=== PATIENT | female | born 1935 | race Caucasian/White ===

== ENCOUNTER 2018-04-04 17:51 | Inpatient (IN) | payer MEDICARE ==
[2018-04-04 18:28] LABS: Hemoglobin 9.7 g/dL (12.0-16.0); Mean Corpuscular HGB CONC 32.4 g/dL (32.0-36.0); Mean Corpuscular Hemoglobin 30.4 pg (27.0-31.0); Mean Corpuscular Volume 93.9 fL (78.0-98.0); Mean Platelet Volume 6.4 fL (7.4-10.4); Platelet Count 509 thou/uL (130-400); RBC Distribution Width 13.2 % (11.5-14.5); White Blood Cell (WBC) Count 17.4 thou/uL (4.8-10.8)
[2018-04-04 18:40] LABS: Band 7 % (5-11); Lymphocytes 2 % (21-51); MDiff Complete? YES; Monocytes 6 % (0-10); Neutrophil 85 % (42-75); Platelet Morphology Comment Appears Increased; Polychromasia SLIGHT = 2-3 cells (100X) (0-2/hpf); Vacuoles SLIGHT
[2018-04-04 18:49] LABS: ALT (SGPT) Less than 7 U/L (8-55); AST (SGOT) 14 U/L (5-34); Albumin 3.3 g/dL (3.4-4.8); Alkaline Phosphatase 147 U/L (40-150); Anion Gap 13 mmol/L (10-20); BUN (Urea Nitrogen) 27 mg/dL (9.8-20.1); Bilirubin, Total 0.7 mg/dL (0.2-1.2); CK (CPK) 22 U/L (29-168); Calc. Creatinine Clearance 0 mL/min (70-130); Carbon Dioxide 26 mmol/L (23-31); Chloride 94 mmol/L (98-107); Estimated GFR-MDRD 15; Globulin 3.7 g/dL (2.4-3.5); Glucose 178 mg/dL (83-110); Lipase 4 U/L (8-78); Potassium 4.2 mmol/L (3.5-5.1); Sodium 129 mmol/L (136-145)
--- NOTE | 2018-04-04 19:10 | RAD ---
CHEST ONE VIEW: HISTORY: Hypertension with chest and abdomen pain. FINDINGS: Heart size is slightly enlarged. A right-sided HemoSplit catheter is noted. The lungs are clear of infiltrates. There are no signs of failure. IMPRESSION: 1. Cardiomegaly. 2. No acute findings. POS: [facility]
--- NOTE | 2018-04-04 19:19 | CT ---
CT ABDOMEN AND PELVIS PERFORMED WITHOUT CONTRAST: HISTORY: Abdominal pain. The patient was getting dialysis and had elevated blood pressure and developed abdom inal pain, also with fever. COMPARISON: None. FINDINGS: The lung bases show some linear atelectasis or scar. The liver, spleen, pancreas, and gallbladder regions appear unremarkable, given the limitations of a noncontrast study. The right and left adrenal glands and the right and left kidneys are normal in size and not obstructe d. There are small periaortic and mesenteric lymph nodes noted. There is a peritonea dialysis emigdio ter located within the right lower quadrant. There is some ascites noted, which is compatible with t he dialysis. There is colonic diverticulosis present. These changes are most marked in the sigmoid colon region. I do not see any signs of free air or any definite acute intraabdominal findings. Mod erate atherosclerotic changes are noted. Arthritic changes of spine and hips are present. IMPRESSION: 1. Peritoneal dialysis catheter in place. 2. Colonic diverticulosis. 3. Mild ascites, which would be compatible with the peritoneal dialysis catheter. 4. The appendix is not definitively visualized, and I do not see a definite enlarged appendix. POS: [facility]
[2018-04-04] MEDS ORDERED: Morphine 4 MG/ML VIAL ONE ×2 (19:42→23:20)
[2018-04-04] MEDS ORDERED: Bacitracin Zinc 1 Packet ONE (22:05)
[2018-04-04 23:00] LABS: Lactic Acid 1.8 mmol/L (0.5-2.2)
[2018-04-04 23:59] LABS: Body Fluid Source PERITONEAL FLUID; Tube # 1
[2018-04-04] MEDS ORDERED: Piperacillin/Tazobactam 4.5 GM in Sodium Chloride 0.9% 100 ML IVPB SCH (23:59)
[2018-04-05] LABS: BF Color Colorless; Clarity Cloudy/Turbid (Clear); RBC Count-Automated 20000 /cumm; WBC/NonHematic-Auto 17800 /cumm
[2018-04-05 00:47] LABS: BF Segmented Neutrophils 87 %; Cell Count Non Hematic 9 %; Lymphocytes 4 %
[2018-04-05 01:28] VITALS: BMI 31.9
--- NOTE | 2018-04-05 01:39 | CON ---
DATE OF CONSULTATION: REASON FOR CONSULTATION: Maintenance dialysis. HISTORY OF PRESENT ILLNESS: This is a very pleasant 83-year-old female who presented to the hospital after noted to have a bone pain, fever and chills, who was sent to the hospital for possible peritonitis. The patient has had previous surgery. PAST MEDICAL HISTORY: Hypertension, Hsyterectomy, appendectomy, end-stage renal disease, secondary hyperparathyroidism, tunneled dialysis catheter, PD catheter times twice with omental wrap. SOCIAL HISTORY: No alcohol or drug use. FAMILY HISTORY: Negative for ESRD. REVIEW OF SYSTEMS: A 15-point review of systems was performed, negative except for what was noted above. GENERAL: HEAD: NECK: No swelling or lumps. NOSE: No epistaxis or discharge. EYES: No diplopia or pain. 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 NEUROPSYCHIATRIC SYSTEMS: No suicidal ideation. No ideation. SKIN: Denies any rash or ulcer. CONSTITUTIONAL: No fever or chills. OBJECTIVE: GENERAL: The patient is awake and alert. VITAL SIGNS: Reviewed. GENERAL APPEARANCE AND MENTAL STATUS: Fair. HEAD/NECK: Normocephalic. Atraumatic. EYES: EOMI. No deformity. EARS: Clear. No ulcers. NOSE: Intact. No lesions. MOUTH: Clear. No discharge. THROAT: Clear. No exudate. LUNGS: Clear. No crackles. CARDIAC: S1, S2. No rub. ABDOMEN: Benign. Bowel sounds positive. GENITALIA/RECTUM: Cabrera absent. BACK/EXTREMITIES: Edema 0+. NEUROLOGICAL: Alert and motor intact. SKIN: LYMPHATICS: LABORATORY DATA: Pending. ASSESSMENT: 1. Stage 6 chronic kidney disease. We will review labs and continue dialysis. 2. Peritonitis. We would recommend surgical consultation as well as a broad-spectrum antibiotic. Would recommend PD fluid cultures. 3. Anemia. We will follow hemoglobin. 4. Hypertension. PLAN: Ultrafiltration Job ID: [id number] [facility]
[2018-04-05] MEDS ORDERED: Morphine 4 MG/ML VIAL SLOW IVP PRN (01:59)
[2018-04-05] MEDS: Morphine 4 MG/ML VIAL SLOW IVP PRN ×2 (02:45→08:00)
[2018-04-05] MEDS ORDERED: Fentanyl 100 MCG/2 ML VIAL SLOW IVP SCH (05:00)
[2018-04-05 05:57] LABS: Band 3 % (5-11); Eosinophils 2 % (0-10); Hemoglobin 8.5 g/dL (12.0-16.0); Lymphocytes 14 % (21-51); MDiff Complete? YES; Mean Corpuscular HGB CONC 31.9 g/dL (32.0-36.0); Mean Corpuscular Hemoglobin 30.6 pg (27.0-31.0); Mean Corpuscular Volume 95.9 fL (78.0-98.0); Mean Platelet Volume 6.6 fL (7.4-10.4); Monocytes 2 % (0-10); Neutrophil 79 % (42-75); Platelet Count 381 thou/uL (130-400); Platelet Morphology Comment Appears Adequate; RBC Distribution Width 13.3 % (11.5-14.5); Red Blood Cell (RBC) Count 2.77 mill/uL (4.20-5.40); White Blood Cell (WBC) Count 12.1 thou/uL (4.8-10.8)
[2018-04-05 06:13] LABS: Anion Gap 13 mmol/L (10-20); BUN (Urea Nitrogen) 29 mg/dL (9.8-20.1); Calc. Creatinine Clearance 21 mL/min (70-130); Calcium 8.3 mg/dL (7.8-10.44); Carbon Dioxide 20 mmol/L (23-31); Chloride 98 mmol/L (98-107); Estimated GFR-MDRD 16; Glucose 93 mg/dL (83-110); Sodium 127 mmol/L (136-145)
[2018-04-05] MEDS ORDERED: Ondansetron PF 4 MG/2 ML Vial IVP PRN (06:54)
[2018-04-05] MEDS ORDERED: Ondansetron ODT 4 MG TAB PO PRN (06:55)
--- NOTE | 2018-04-05 07:41 | HP ---
CHIEF COMPLAINT: Abdominal pain. HISTORY OF PRESENT ILLNESS: She is an 83-year-old woman with history of peritoneal dialysis. The patient was getting dialysis, blood pressure was running high, and she had belly pain with low-grade fever. Two weeks ago, she had abdominal shunt placement. When she came to the ER, pulse 87, blood pressure 176/86, respiratory rate 19, temperature 98.5. PAST MEDICAL HISTORY: History of GA in the past with peritoneal dialysis, hypothyroidism, hyperlipidemia, and ESRD. PAST SURGICAL HISTORY: She had dialysis catheter clogged 2 weeks ago. She had port-a-cath inserted for hemodialysis, appendectomy, hysterectomy. SOCIAL HISTORY: She drinks socially once a month. Denies drug use. Former tobacco user. Quit smoking 10 years ago. MEDICATIONS: In the ER, she got 1. Morphine 4 mg IV push. 2. Vancomycin 1 dose. 3. Levaquin IV was given. ALLERGIES: NO ALLERGIES TO ANY MEDICATIONS. REVIEW OF SYSTEMS: CONSTITUTIONAL: She has fever. No chills. EYES: No photophobia, no discharge. ENT: No epistaxis. CARDIOVASCULAR: No chest pain. No PND. No orthopnea. RESPIRATORY: No shortness of breath. No cough or wheezing. GASTROINTESTINAL: She does have abdominal pain. No diarrhea, no nausea, no vomiting. SKIN: No rash. NEUROLOGIC: No focal weakness. No headache. HEME/LYMPHATIC: No abnormal clotting. No easy bleeding. PHYSICAL EXAMINATION: GENERAL: When I examined, she is an elderly woman, looks in apparent distress. VITAL SIGNS: Pulse 86, blood pressure 176/86, respirations 20, temperature 100.5. HEENT: Head is atraumatic and normocephalic. Pupils are round and reactive. Extraocular muscles are intact. Ear, nose, and throat, normal. Tongue, mucosa moist. NECK: Supple. No JVD. No thyromegaly. CHEST: Shows normal vesicular breathing. No added sounds. CVS: S1 and S2, audible. No S3 or S4. ABDOMEN: Distended, diffuse tenderness noted. Peritoneal catheter in place. EXTREMITIES: No pedal edema. NEUROLOGIC: Alert x3. No focal deficits. LABORATORY DATA: CAT scan shows no abdominal aortic aneurysm, no appendicitis, no diverticulitis, no kidney stones, no injuries, no mass, no obstruction, no free air, no hydronephrosis. Labs show WBC 7.4, RBC 3.2, MCV 93, hematocrit 30, platelets 509. Sodium 129, potassium 4.2, chloride 94, carbon dioxide 26, BUN 77, creatinine 3.04, lactic acid 2.1, ALT less than 7, AST 14, albumin 3.3, globulin 3.7, lipase 4, creatine kinase 20. She has a peritoneal dialysis catheter in place, chronic diverticulosis, mild ascites, appendix not visualized. ASSESSMENT AND PLAN: 1. Sepsis with acute peritonitis. Blood culture x2. Peritoneal fluid for Gram stain culture. IV Levaquin and vancomycin, gram positive, gram negative bacilli and cocci. 2. End-stage renal disease, on peritoneal dialysis. hemodialysis. 3. Hyponatremia. We will monitor. 4. Hypovolemia. IV fluid cautiously and monitor. 5. Deep venous thrombosis prophylaxis, heparin. 6. Full code. Job ID: [id number]
--- NOTE | 2018-04-05 08:36 | ULT ---
BILATERAL UPPER EXTREMITY VENOUS DOPPLER ULTRASOUND FOR DIALYSIS ACCESSS: Date: 04/05/18 HISTORY: End-stage renal disease. FINDINGS: RIGHT UPPER EXTREMITY: The right cephalic vein measures 2.4 mm in the proximal arm, 1.4 mm in the mid arm, 0.8 mm in the dis juanita arm, 1.9 mm in the proximal forearm, 1.5 mm in the mid forearm, and 1.2 mm in the distal forearm. There is absence of compressibility due to thrombus in the right cephalic vein at the antecubital fo ssa. The right basilic vein measures 3.9 mm in the proximal arm, 2.4 mm in the mid arm, 2.0 mm in the dist al arm, 1.9 mm in the antecubital fossa, 1.4 mm in the mid forearm, and not seen in the distal forear m. The right brachial artery measures 4.8 mm, radial artery measures 2.0 mm, and ulnar artery measures 2 .5 mm. LEFT UPPER EXTREMITY: The left cephalic vein measures 2.5 mm in the proximal arm, 1.9 mm in the mid arm, 1.7 mm in the dist al arm, 1.8 mm in the antecubital fossa, 1.4 mm in the proximal forearm, 1.3 mm in the mid forearm, a nd 0.9 mm in the distal forearm. The left basilic vein measures 3.2 mm in the proximal arm, 2.3 mm in the mid arm, 2.4 mm in the dista l arm, 1.8 mm in the antecubital fossa, 1.2 mm in the proximal forearm, 1.0 mm in the mid forearm. It is not seen in the distal forearm. The left brachial artery measures 4.6 mm, radial artery measures 2.4 mm, and ulnar artery measures 2. 4 mm. POS: [facility]
[2018-04-05] MEDS ORDERED: Vancomycin HCl 1 GM in Sodium Chloride 0.9% 250 ML 300 ML IVPB SCH (09:00)
[2018-04-05] MEDS ORDERED: Vancomycin HCl 1.75 GM in Sodium Chloride 0.9% 500 ML IVPB SCH (09:00)
[2018-04-05] MEDS ORDERED: Heparin 5,000 UNITS/ML VIAL SC SCH (09:00)
--- NOTE | 2018-04-05 09:05 | HP ---
HISTORY OF PRESENT ILLNESS: Radha Crane is an 83-year-old female, dialyzes in [place] on Wednesday, Wednesday, and Wednesday, has had a hemodialysis catheter in right IJ placed in [place] in November 2017. She about in mid February underwent left lower quadrant peritoneal dialysis catheter placed by Dr. Drake in [place]. Apparently, this was not functioning well and not draining, and about 9 days ago, March 26, she had removal of her left PD catheter placement with new right lower quadrant PD catheter. Laparoscopy was not used. There were no laparoscopic incisions noted. The patient was undergoing low volume exchanges until yesterday when she had a higher volume exchange and it would not drain. She has had exquisite pain since that time. She has been admitted and evaluated through the emergency room. CT scan of the abdomen and pelvis was obtained on 04/04/2018 at 6:15 p.m., noting peritoneal dialysis catheter present, colonic diverticulosis, ascites consistent with peritoneal dialysis exchanges, otherwise no remarkable findings. Her white count was 17 on admission, 12 this morning. Hemoglobin 8.5. Comprehensive metabolic profile unremarkable except for changes of end-stage renal disease. ALLERGIES: PENICILLIN AND ALLOPURINOL. SOCIAL HISTORY: Tobacco, none. Alcohol, none. MEDICATIONS: 1. Fluticasone propionate nasal spray daily. 2. Uloric 40 mg a day. 3. Guaifenesin ER 600 mg daily. 4. Hydrocodone p.r.n. pain. 5. Amiodarone 200 mg at bedtime. 6. Thiamine 100 mg a day. 7. Levothyroxine 25 mcg a day. 8. Isosorbide dinitrate 10 mg b.i.d. 9. Atorvastatin 20 mg at bedtime. 10. Folic acid daily. 11. Aspirin 81 mg a day. 12. Eliquis 2.5 mg a day. 13. Gabapentin 100 mg p.o. t.i.d. The patient has been admitted. Eliquis held, and she is on heparin subcu prophylaxis. She has been placed on Zosyn IV (above noted penicillin allergy, we will have to check her reaction and status). PAST SURGICAL HISTORY: Appendectomy, open, 21 years of age; total abdominal hysterectomy and bilateral salpingo-oophorectomy (she states performed because of a family history of ovarian cancer, although she did not have ovarian cancer). She has never had a colonoscopy. PAST MEDICAL HISTORY: The patient has had a cardiac stress test recently that has been normal. She reports having had in November 2017 broken heart syndrome, nonischemic cardiac event. She has had a cardioversion for atrial fibrillation. REVIEW OF SYSTEMS: Noncontributory. PHYSICAL EXAMINATION: VITAL SIGNS: 5 feet 5 inches, 32 BMI. LUNGS: Clear to auscultation. CARDIAC: Regular rate and rhythm without murmur or gallop. ABDOMEN: Soft. Tenderness throughout with guarding. Bowel sounds diminished. Peritoneal dialysis catheter in right lower quadrant. Bandaged left lower quadrant with healed incisions for removal of PD catheter 9 days ago. EXTREMITIES: Unremarkable. LABORATORY DATA: Sodium 127, creatinine 2.78. Hemoglobin 8.5, white count 12.1, differential unremarkable. ASSESSMENT AND PLAN: 1. Dysfunctional peritoneal dialysis catheter. We will plan laparoscopic evaluation of her peritoneal dialysis catheter, omentopexy as indicated, peritoneal dialysis sling as indicated. I have discussed these changes with her, and we will proceed later today or tomorrow depending on Eliquis status when she last took that. We will check with nursing. 2. Penicillin allergy. On Zosyn. We will check with the patient's reaction and whether she has had a previous dose in this hospitalization. 3. History of atrial fibrillation, on anticoagulation chronically. 4. Hypertension. Job ID: [id number]
--- NOTE | 2018-04-05 09:37 | PRG ---
DATE OF SERVICE: 04/05/2018 SUBJECTIVE: An 83-year-old female being seen for end-stage renal disease. The patient denies any nausea, vomiting, or chest pain. OBJECTIVE: See above. CONSTITUTIONAL: Awake, alert, in no acute distress. VITAL SIGNS: The patient is afebrile, pulse 72, breathing 16, and blood pressure 161/70. GENERAL APPEARANCE AND MENTAL STATUS: Fair. HEAD/NECK: Normocephalic. Atraumatic. EYES: EOMI. No deformity. EARS: Clear. No ulcers. NOSE: Intact. No lesions. MOUTH: Clear. No discharge. THROAT: Clear. No exudate. LUNGS: Clear. No crackles. CARDIAC: S1, S2. No rub. ABDOMEN: Benign. Bowel sounds positive. GENITALIA/RECTUM: Cabrera absent. BACK/EXTREMITIES: Edema 0+. NEUROLOGICAL: Alert and motor intact. SKIN: LYMPHATICS: LABORATORY DATA: Hemoglobin 8.5, white count 12.1. ASSESSMENT AND PLAN: 1. Stage 6 chronic kidney disease, plan dialysis. 2. Hypertension, stable. 3. Anemia, stable. 4. Peritonitis, management per primary team. Job ID: [id number]
[2018-04-05] MEDS: Cefepime 2 GM in Sodium Chloride 0.9% 100 ML IVPB SCH ×2 (09:44→21:29)
[2018-04-05] MEDS: Fentanyl 100 MCG/2 ML VIAL SLOW IVP PRN ×3 (11:17→23:38)
[2018-04-05] MEDS ORDERED: Isosorbide Dinitrate 20 MG TAB PO SCH (12:30)
[2018-04-05] MEDS ORDERED: PHENYLEPHRINE-NS 100 MCG/ML 10 ML SYRINGE ONE (12:58)
[2018-04-05] MEDS ORDERED: Heparin 10,000 UNITS/ 10 ML VIAL ONE (12:58)
[2018-04-05] MEDS ORDERED: ePHEDrine 50 MG/ML VIAL ONE (12:58)
[2018-04-05] MEDS ORDERED: Succinylcholine Chloride 20 MG/ML 10 ml SYRINGE FS ONE (12:58)
[2018-04-05] MEDS ORDERED: Glycopyrrolate 0.2 MG/ML 5 ML SYRINGE ONE (12:58)
[2018-04-05] MEDS ORDERED: Lidocaine 1% PF 5 ML VIAL ONE (12:58)
[2018-04-05] MEDS ORDERED: PROPOFOL 200 MG/20 ML VIAL ONE (12:58)
[2018-04-05] MEDS ORDERED: Rocuronium Bromide 10 MG/ML (10ML VIAL) ONE (12:58)
[2018-04-05] MEDS ORDERED: Fentanyl 100 MCG/2 ML VIAL ONE (13:20)
[2018-04-05] MEDS ORDERED: Lidocaine 2% PF 5 ML VIAL ONE (13:27)
[2018-04-05] MEDS ORDERED: Heparin 10,000 UNITS/1 ML VIAL ONE (13:27)
[2018-04-05] MEDS ORDERED: Protamine Sulfate 50 MG/5 ML VIAL ONE (13:27)
[2018-04-05] MEDS ORDERED: Bupivacaine HCl 0.5%/Epinephrine 1:200,000/PF 30 ml Vial ONE (13:27)
[2018-04-05] MEDS ORDERED: Heparin 5,000 UNITS/ML VIAL ONE (13:27)
[2018-04-05] MEDS ORDERED: Midazolam HCl 2 mg/2 ml Vial ONE (13:56)
[2018-04-05] MEDS ORDERED: Phenylephrine HCL 10 MG/ML VIAL ONE (15:41)
[2018-04-05] MEDS ORDERED: Promethazine HCl 25 MG/ML VIAL SLOW IVP PRN (16:31)
[2018-04-05] MEDS ORDERED: Ondansetron HCl/PF 4 MG/2 ML Vial IVP PRN (16:31)
[2018-04-05] MEDS ORDERED: Promethazine HCl 25 MG/ML VIAL IM PRN (16:31)
[2018-04-05] MEDS ORDERED: traMADol HCl 50 MG TAB PO PRN (16:49)
[2018-04-05] MEDS ORDERED: Acetaminophen 500 MG TAB PO PRN (16:49)
[2018-04-05 16:59] LABS: HBSAg Index 0.64 S/CO (0-0.99); Hep B Surf Ag Non-Reactive S/CO (NonReactive)
[2018-04-05] MEDS: Gabapentin 100 MG CAP PO SCH ×2 (17:45→21:29)
[2018-04-05] MEDS ORDERED: ISOSORBIDE DINITRATE 10 MG PO SCH (21:00)
[2018-04-05] MEDS: Amiodarone 200 MG TAB PO SCH (21:28)
[2018-04-05] MEDS: Atorvastatin Calcium 20 MG TAB PO SCH (21:28)
[2018-04-05] MEDS: Isosorbide Dinitrate 5 MG TAB PO SCH (21:30)
[2018-04-05 21:58] LABS: Vancomycin, Trough 7.9 ug/mL
--- NOTE | 2018-04-05 22:54 | OP ---
DATE OF PROCEDURE: 04/05/2018 PREOPERATIVE DIAGNOSES: 1. End-stage renal disease. 2. Obesity. 3. Dysfunctional PD catheter. 4. Small veins ultrasound vein mapping. POSTOPERATIVE DIAGNOSES: 1. End-stage renal disease. 2. Obesity. 3. Dysfunctional PD catheter. 4. Small veins ultrasound vein mapping. ANESTHESIA: General anesthesia, local 0.5% Marcaine with epinephrine. PROCEDURE: Laparoscopic evaluation and revision of peritoneal dialysis catheter with omentopexy and peritoneal dialysis catheter sling sutures. Left arm primary fistula, proximal radial artery outflow, cephalic vein primarily, but small communication of the basilic vein noted, retrograde antecubital vein preserved, 3.5 mm coronary dilator outflow cephalic vein. FINDINGS: Omentum was wrapped around the peritoneal dialysis catheter. Omentum reached down to the pelvis. Peritoneal dialysis catheter was entered the abdominal cavity too high in the abdomen, not quite reaching the pelvis. Note, if the patient continues to have problems with the PD catheter, this PD catheter should be removed and exchanged for a new one with better configuration and lower entry into the pelvis. DESCRIPTION OF PROCEDURE: The patient was taken to the operating room where under general anesthesia in supine position, abdomen, peritoneal dialysis catheter, and left upper extremity were prepared with ChloraPrep, draped in routine fashion. Bilateral far lateral subcostal incision was made. Pneumoperitoneum to 15 mm was obtained with a Veress needle, replaced with a 5 port laparoscope inserted. Another 5 mm port was placed in the left abdomen. There were some omental adhesions to the superior umbilical area. The peritoneal dialysis catheter entered higher than usual in the abdominal cavity. It was covered and omentum wrapped preventing function and drainage. This was taken down laparoscopically freeing the catheter. Omentopexy was performed with 3 Omentopexy sutures of 0 Ethibond and 0 Vicryl. GraNee needle was used. Once this was completed, as the peritoneal dialysis catheters tended to migrate in the abdominal cavity, it was not well positioned in the pelvis, sling sutures of 2-0 Ethibond were used with a GraNee needle to direct the catheter into the pelvis. Once this was completed, pneumoperitoneum reduced, and after noting good function of the peritoneal dialysis catheter, it was irrigated and filled with heparinized saline solution leaving the catheter infiltrated with heparinized saline solution. Now, prior to omental pexy, there were 2 omental adhesions in the pelvis, taken down with the LigaSure. Good hemostasis noted. Pneumoperitoneum evacuated. All instruments were removed. All skin incisions were approximated with subdermal 4-0 Monocryl and [place] glue applied. Attention was then turned to the left arm. Proximal volar forearm incision was made longitudinally below the antecubital fossa, skin and subcutaneous tissue and an adequate size antecubital vein communicating to the cephalic vein in upper arm was noted. Brachial, radial, and ulnar arteries dissected free. The patient was given 6000 units of heparin intravenously. The perforating branch of the antecubital vein was dissected free and divided between 4-0 silk ties and clips. It was spatulated over branch points and interrogated with coronary dilators, passing the coronary dilators from 2 mm to 3.5 mm coronary dilator at the cephalic vein outflow. The patient had a cephalic vein IV this hospitalization, it was immediately removed upon me seeing her. There was some hematoma in this area from the IV. There was some mild stenosis due to the IV, but this was dilated with coronary dilators and seem to pass easily. Perforated branch of antecubital vein to proximal radial artery anastomosis was created with continuous suture of 6-0 Prolene after placing vascular clamps on the brachial, radial, and ulnar arteries. Longitudinal arteriotomy made sharply with 11 blade elongated with Tom scissors and creating the 2.5 to 3 cm anastomosis with continuous suture of 6-0 Prolene. After completing the anastomosis, vascular clamps were released. The patient was given 50 mg of protamine by Anesthesia. Good hemostasis was obtained with the 6-0 Prolene. Good Doppler signal noted in the cephalic vein outflow. It was an excellent Doppler signal. Good hemostasis noted. Subcutaneous tissue was approximated with 3-0 Monocryl, skin with subdermal 4-0 Monocryl, and [place] glue applied. The patient tolerated the procedure well. Job ID: [id number]
[2018-04-06] MEDS ORDERED: Vancomycin HCl 1 GM in Premix Bag 1 BAG IVPB SCH (00:30)
[2018-04-06] MEDS: Levothyroxine Sodium 25 MCG TAB PO SCH (05:29)
[2018-04-06] MEDS: Aspirin 81 mg Enteric Coated Tablet PO SCH (08:51)
[2018-04-06] MEDS: Gabapentin 100 MG CAP PO SCH ×3 (08:51→19:57)
[2018-04-06] MEDS: Isosorbide Dinitrate 5 MG TAB PO SCH ×2 (08:51→19:58)
[2018-04-06] MEDS: Folic Acid 1 MG TAB PO SCH (08:51)
[2018-04-06] MEDS: Thiamine 100 MG TAB PO SCH (08:51)
[2018-04-06] MEDS: Febuxostat 40 MG TAB PO SCH (08:52)
[2018-04-06] MEDS: Fluticasone Propionate Nasal Spray 16 gm Bottle NASAL SCH (08:53)
[2018-04-06] MEDS: Cefepime 2 GM in Sodium Chloride 0.9% 100 ML IVPB SCH (08:53)
[2018-04-06] MEDS ORDERED: Fluticasone Propionate Nasal Spray 16 gm Bottle NASAL SCH (09:00)
[2018-04-06] MEDS ORDERED: Apixaban 2.5 MG TAB PO SCH (09:00)
--- NOTE | 2018-04-06 10:18 | PRG ---
DATE OF SERVICE: 04/06/2018 SUBJECTIVE: An 83-year-old female being seen for end-stage renal disease. The patient denies any nausea, vomiting, or chest pain. OBJECTIVE: See above. CONSTITUTIONAL: Awake, alert, in no acute distress. VITAL SIGNS: Afebrile. Pulse 82, breathing 16, and blood pressure 166/75. GENERAL APPEARANCE AND MENTAL STATUS: Fair. HEAD/NECK: Normocephalic. Atraumatic. EYES: EOMI. No deformity. EARS: Clear. No ulcers. NOSE: Intact. No lesions. MOUTH: Clear. No discharge. THROAT: Clear. No exudate. LUNGS: Clear. No crackles. CARDIAC: S1, S2. No rub. ABDOMEN: Benign. Bowel sounds positive. GENITALIA/RECTUM: Cabrera absent. BACK/EXTREMITIES: Edema 0+. NEUROLOGICAL: Alert and motor intact. SKIN: LYMPHATICS: LABORATORY DATA: Hemoglobin 8.5. ASSESSMENT AND PLAN: 1. Stage 6 chronic kidney disease, continue hemodialysis. 2. Hypertension, stable. 3. Anemia, stable. 4. Medication based on glomerular filtration rate, appropriate. Job ID: [id number]
--- NOTE | 2018-04-06 13:46 | PDOC.PN ---
- Subjective Encounter Start Date: 04/06/18 Encounter Start Time: 13:44 Ms. Crane was seen today in follow-up of Peritonitis. She is a bit groggy when I came to see her. She says she has some abdominal pain which she rates a 7 /10, but it is not " bothering her ". - Objective Resuscitation Status - Order Detail: 04/04/18 23:56 Resuscitation Status Routine Resuscitation Status: FULL: Full Resuscitation Discussed with: patient MAR Reviewed: Yes Vital Signs & Weight: Vital Signs (12 hours) Temp Pulse Resp BP BP Pulse Ox 04/06/18 11:59 99.0 F 78 18 125/63 99 04/06/18 08:00 98.2 F 83 20 166/75 H 97 04/06/18 07:33 97 04/06/18 04:00 98.0 F 84 18 167/72 H 99 Weight Admit Weight 192 lb Weight 192 lb I&O: 04/05/18 04/06/18 04/07/18 06:59 06:59 06:59 Intake Total 800 Balance 800 Result Diagrams: 04/05/18 04:34 04/05/18 04:34 Phys Exam - Physical Examination HEENT: PERRLA Respiratory: no wheezing, no rales, no rhonchi, clear to auscultation bilateral Cardiovascular: RRR, no significant murmur, no rub Gastrointestinal: soft, no distention, positive bowel sounds + diffuse tenderness no rebound or + voluntary guarding Musculoskeletal: pulses present, edema present Dx/Plan (1) Peritonitis Code(s): K65.9 - PERITONITIS, UNSPECIFIED Status: Acute (2) ESRD on peritoneal dialysis Code(s): N18.6 - END STAGE RENAL DISEASE; Z99.2 - DEPENDENCE ON RENAL DIALYSIS Status: Chronic (3) Hypertension Code(s): I10 - ESSENTIAL (PRIMARY) HYPERTENSION Status: Chronic (4) Atrial fibrillation Code(s): I48.91 - UNSPECIFIED ATRIAL FIBRILLATION Status: Chronic (5) Chronic anticoagulation Code(s): Z79.01 - JAIL (CURRENT) USE OF ANTICOAGULANTS Status: Chronic (6) Hypothyroidism Code(s): E03.9 - HYPOTHYROIDISM, UNSPECIFIED Status: Chronic - Plan * Peritonitis- continue Maxepime. * ESRD- continue PD as tolerated. She has had an AV fistula placed * AFIB- her heart rate is stable * Chronic anticoagulation- on Eliquis * Hypothyroidism- clinically euthyroid
[2018-04-06] MEDS: Morphine 4 MG/ML VIAL SLOW IVP PRN (16:19)
--- NOTE | 2018-04-06 18:46 | PRG ---
DATE OF SERVICE: 04/06/2018 SUBJECTIVE: Ms. Crane is doing fairly well today. She reports minimal abdominal pain. She is tolerating her diet. She has not had any nausea or vomiting. She has been afebrile 98.1 degrees, heart rate 86, blood pressure 174/70. Her white count was 12 yesterday. No labs checked today. OBJECTIVE: LUNGS: Clear to auscultation. CARDIAC: Regular rhythm without murmur or gallop. ABDOMEN: Soft and nontender. LABORATORY DATA: Blood cultures negative. ASSESSMENT AND PLAN: 1. Dysfunctional PD catheter, status post revision. She can start using her PD catheter in 8-10 days. 2. Left arm primary fistula has a good thrill and bruit and mild hematoma at the surgical site. She should exercise and use this arm. She can resume her Eliquis tomorrow. She should follow up in my office in 2 to 3 weeks or sooner for problems. I will see her as needed during this hospitalization. At the time of operation, there was no evidence of peritonitis, no inflammation, no purulent material, no essential fluid in her belly cavity. From a surgical standpoint, her vancomycin and cefepime could be discontinued. Discharge per Medical and Nephrology. Job ID: [id number]
[2018-04-06] MEDS: Amiodarone 200 MG TAB PO SCH (19:57)
[2018-04-06] MEDS: Atorvastatin Calcium 20 MG TAB PO SCH (19:57)
[2018-04-06] MEDS ORDERED: Bisacodyl 10 MG SUPP PR SCH (21:30)
[2018-04-07] MEDS: Levothyroxine Sodium 25 MCG TAB PO SCH (06:02)
[2018-04-07] MEDS: Gabapentin 100 MG CAP PO SCH (08:14)
[2018-04-07] MEDS: Folic Acid 1 MG TAB PO SCH (08:14)
[2018-04-07] MEDS: Thiamine 100 MG TAB PO SCH (08:14)
[2018-04-07] MEDS: Aspirin 81 mg Enteric Coated Tablet PO SCH (08:15)
[2018-04-07] MEDS: Febuxostat 40 MG TAB PO SCH (08:15)
[2018-04-07] MEDS: Apixaban 2.5 MG TAB PO SCH (08:15)
[2018-04-07] MEDS: traMADol HCl 50 MG TAB PO PRN (08:16)
[2018-04-07] MEDS: Fluticasone Propionate Nasal Spray 16 gm Bottle NASAL SCH (08:16)
[2018-04-07] MEDS: Morphine 4 MG/ML VIAL SLOW IVP PRN (11:10)
[2018-04-07] MEDS ORDERED: Heparin 1,000 UNITS/ML VIAL ONE (11:11)
[2018-04-07] MEDS ORDERED: Vancomycin HCl 1 GM in Premix Bag 1 BAG IVPB SCH (11:30)
--- NOTE | 2018-04-07 13:04 | PRG ---
DATE OF SERVICE: 04/07/2018 SUBJECTIVE: An 83-year-old female being seen for end-stage renal disease. The patient denies any nausea, vomiting, or chest pain. OBJECTIVE: See above. Awake, alert, in no acute distress. GENERAL APPEARANCE AND MENTAL STATUS: Fair. VITAL SIGNS: Afebrile. Pulse 80, breathing 16, and blood pressure 129/62. HEAD/NECK: Normocephalic. Atraumatic. EYES: EOMI. No deformity. EARS: Clear. No ulcers. NOSE: Intact. No lesions. MOUTH: Clear. No discharge. THROAT: Clear. No exudate. LUNGS: Clear. No crackles. CARDIAC: S1, S2. No rub. ABDOMEN: Benign. Bowel sounds positive. GENITALIA/RECTUM: Cabrera absent. BACK/EXTREMITIES: Edema 0+. NEUROLOGICAL: Alert and motor intact. SKIN: LYMPHATICS: LABORATORY DATA: Hemoglobin 8.5. PD fluid culture showed gram-positive cocci, which is MRSA. ASSESSMENT AND RECOMMENDATION: 1. Stage 6 chronic kidney disease, continue hemodialysis. 2. Hypertension, stable. 3. Peritonitis. I have ordered ID consult and we will start vancomycin. 4. Anemia, stable. 5. Medications based on GFR appropriate. Job ID: [id number]
[2018-04-07] MEDS ORDERED: HYDROcodone/Acetaminophen 10/325 mg Tablet PO PRN (14:04)
--- NOTE | 2018-04-07 14:11 | PDOC.PN ---
- Subjective Encounter Start Date: 04/07/18 Encounter Start Time: 14:09 Ms. Crane was seen today in follow-up of Peritonitis. She continues to have abdominal pain. Her son also says that when she takes Gabapentin it makes her jerk. - Objective Resuscitation Status - Order Detail: 04/04/18 23:56 Resuscitation Status Routine Resuscitation Status: FULL: Full Resuscitation Discussed with: patient MAR Reviewed: Yes Vital Signs & Weight: Vital Signs (12 hours) Temp Pulse Resp BP Pulse Ox 04/07/18 08:00 98 04/07/18 07:00 98.5 F 80 18 129/62 98 Weight Admit Weight 192 lb Weight 192 lb I&O: 04/06/18 04/07/18 04/08/18 06:59 06:59 06:59 Intake Total 800 1290 Balance 800 1290 Result Diagrams: 04/05/18 04:34 04/05/18 04:34 Phys Exam - Physical Examination HEENT: PERRLA Respiratory: no wheezing, no rales, no rhonchi, clear to auscultation bilateral Cardiovascular: RRR, no significant murmur, no rub Gastrointestinal: soft, positive bowel sounds + tenderness in the right lower quadrant Musculoskeletal: pulses present, edema present Dx/Plan (1) Peritonitis Code(s): K65.9 - PERITONITIS, UNSPECIFIED Status: Acute (2) ESRD on peritoneal dialysis Code(s): N18.6 - END STAGE RENAL DISEASE; Z99.2 - DEPENDENCE ON RENAL DIALYSIS Status: Chronic (3) Hypertension Code(s): I10 - ESSENTIAL (PRIMARY) HYPERTENSION Status: Chronic (4) Atrial fibrillation Code(s): I48.91 - UNSPECIFIED ATRIAL FIBRILLATION Status: Chronic (5) Chronic anticoagulation Code(s): Z79.01 - [facility] (CURRENT) USE OF ANTICOAGULANTS Status: Chronic (6) Hypothyroidism Code(s): E03.9 - HYPOTHYROIDISM, UNSPECIFIED Status: Chronic - Plan * Peritonitis- discussed with Dr. Lyon. She is growing gram positive cocci from the cultures from the peritoneal fluid which was take from his office * ID has been consulted, and the PD catheter may have to be removed * Abdominal pain- will discontinue Gabapentin and give a trial of [place] * AFIB- her heart rate is stable, and continue Eliquis * HTN- blood pressure is stable.
[2018-04-07] MEDS: Isosorbide Dinitrate 5 MG TAB PO SCH ×2 (14:12→20:36)
--- NOTE | 2018-04-07 14:34 | PRG ---
DATE OF SERVICE: 04/07/2018 Since revising her peritoneal dialysis catheter two days ago, cultures from her PD dialysate fluid has returned, outpatient results revealing MRSA. At the time of her laparoscopy, intraabdominal cavity was normal. There was no purulent material. There was no evidence of infection. Dr. Lyon contacted me with these MRSA positive cultures. This is the patient's first positive culture demonstrating peritonitis. Clinically, I felt the patient's abdominal pain was due to omentum wrapped around her catheter with obstruction and certainly was not functioning well and not draining. Laparoscopically, she had this revised. Her catheter should function after revision omental pexy and sling sutures to direct the catheter into the pelvis. If the catheter does not function well in the future, it should be removed and a new catheter placed laparoscopically. I have discussed this situation with Dr. Louis, who has been consulted. Plan at this time is to treat this fairly new catheter (approximately 10 to 12 days old) with indwelling vancomycin. Her peritoneal dialysis catheter could be used for peritoneal dialysis next week. The vancomycin, dialysate fluid could be placed today and re-infiltrated at any given time under the discretion of Dr. Lyon and Dr. Louis. Hopefully, we can salvage this catheter and will not have to be removed. I have discussed this with the patient's son. Job ID: [id number]
[2018-04-07] MEDS: Atorvastatin Calcium 20 MG TAB PO SCH (20:35)
[2018-04-07] MEDS: Amiodarone 200 MG TAB PO SCH (20:35)
[2018-04-07] MEDS: Docusate 100 MG CAP PO SCH (20:35)
[2018-04-07] MEDS: Rifampin 300 MG CAP PO SCH (21:57)
--- NOTE | 2018-04-07 23:59 | CON ---
DATE OF CONSULTATION: REASON FOR CONSULTATION: Peritonitis. HISTORY OF PRESENT ILLNESS: An 83-year-old, who has a history of chronic renal insufficiency of uncertain etiology, possibly chronic glomerulonephritis as well as coronary artery disease and previous [place] and hypothyroidism, who developed end- stage renal disease a few weeks ago, had a peritoneal dialysis catheter placed in [place]. There were some issues with the catheter and it was revised to the other side. It did not seem to be related to infection, but technical malfunction. She continued to have worsening abdominal pain and the fluid was obtained and submitted for testing, which revealed findings consistent with peritonitis and MRSA was retrieved from the cultures. I believe, Dr. Lyon admitted the patient. Initial findings included temperature 100.5, blood pressure 170/80, pulse 105, respirations 18. Skin exam shows the peritoneal dialysis catheter with normal-appearing exit site. She had the ports from the previous intervention in [place]. She had also a tunneled catheter in the right neck for hemodialysis. Lungs and heart exam were not remarkable. The abdomen was distended and diffusely tender. Initial lab results included white cell count 17,000, hemoglobin 9.7, platelets 509,000 with 85% neutrophils. Chemistry with a sodium 129, creatinine 3.04. Liver profile was normal. CK normal. Albumin 3.3, globulin 3.7. The peritoneal fluid with 17,000 WBCs and predominance of mature neutrophils. The patient had a abdomen and pelvis CT, which showed the peritoneal dialysis catheter, colonic diverticulosis, and mild ascites. The appendix was not seen. This was a noncontrast study. The patient was seen by Dr. Coronel. He placed an AV fistula in the left upper extremity and he revised the current peritoneal dialysis catheter with laparoscopy and his operative note was reviewed and the omentum was wrapped around the peritoneal dialysis catheter down to the pelvis, that is probably the reason why it is malfunctioning. He did an omentopexy. He did not find any purulence when he was in the cavity. Currently, Ms. Crane is sitting in bed. She denies any headaches, visual symptoms, sore throat, odynophagia, or dysphagia. No cough, sputum production or chest pain. She has still diffuse quite significant abdominal tenderness. She still has some urinary output. No diarrhea. No other genitourinary symptoms. No joint symptoms. She does have chronic arthrosis related pain. No neurological symptoms. MEDICAL HISTORY: Coronary artery disease; end-stage renal disease secondary to unknown chronic renal insufficiency causing illness, possibly glomerulonephritis ; hypothyroidism, and hyperlipidemia. SURGICAL HISTORY: PD catheter placement and hemodialysis catheter placed for temporary dialysis access in the right IJ position. She also has a history of appendectomy and hysterectomy. SOCIAL HISTORY: Drinks occasionally. Former smoker. ALLERGIES: NONE. CURRENT MEDICATIONS: 1. Tylenol. 2. Cordarone. 3. Eliquis. 4. Ecotrin. 5. Lipitor. 6. Colace. 7. Uloric. 8. Sublimaze. 9. Flonase. 10. Folvite. 11. Isordil. 12. Synthroid. 13. Morphine. 14. Thiamine. 15. Tramadol. PHYSICAL EXAMINATION: VITAL SIGNS: T-max 99, blood pressure 150/50, pulse 70, respirations 17, O2 saturation 96%. SKIN: Skin exam shows the hemodialysis catheter in the right IJ position with no inflammatory changes. A PD catheter in the right side of the abdomen with no exit site inflammatory changes. She has one of the ports for the laparoscopy in the right side and has erythema surrounding it. The other port is dried up, a small scab, but no inflammatory changes noted in the left side. She does not have any urinary catheter. She has a peripheral IV access, no lymphadenopathy. HEENT: Ocular movements conjugate. Oral cavity with still quite a few teeth in place with some decay. Oral mucosa is normal. NECK: Supple. No jugular vein distention or carotid bruits. LUNGS: Symmetric. Clear breath sounds. CVS: S1, S2, regular rate without murmurs. No S3 or S4. ABDOMEN: Diffusely tender, somewhat distended. Bowel sounds are diminished. MUSCULOSKELETAL: No joint inflammatory activity noted. EXTREMITIES: She has evidence of osteoarthrosis in knees and ankles. Pulses 1 + in dorsalis pedis. Plantar response are flexor. No clonus. Strength in upper and lower extremities is preserved. NEUROVASCULAR: Cognitive function appears to be intact. LABORATORY DATA: Followup labs, white cell count down to 12,000, hemoglobin 8.5 , platelets 381. Sodium 127, creatinine 2.78, BNP was 1100. Hepatitis B surface antigen negative. ASSESSMENT: 1. End-stage renal disease of unknown etiology with a PD catheter placement recently, previously on hemodialysis with tunneled catheter in the right IJ position. There has been technical malfunction of the PD catheter, which was initially revised in [place], but then persisted with malfunction, now developed inflammatory changes with clear-cut peritonitis. By the analysis of the fluid and the culture results, the organism isolated has been pure culture of methicillin-resistant Staphylococcus aureus. 2. Revision of this catheter with omentopexy. DISCUSSION: The patient is at high risk for failure of the treatment for the CAPD peritonitis. This is because of the nature of the organism, but she still has a chance of saving the peritoneal dialysis catheter and I would advise continuation of therapy. This could be given via the intravenous route that I would switch to the intraperitoneal route as soon as possible with the assistance of the dialysis nurse. There seems to be an improvement in the likelihood of salvage with intraperitoneal administration of vancomycin. We will add rifampin in the meantime orally. Continue vancomycin administered by sliding scale. We will check her vancomycin random level tomorrow and re-dose as needed. Since she is going to be hemodialyzed, we will have to start hemodialysis vancomycin sliding scale until the intraperitoneal administration is started. If she persists with abdominal pain in the next few days, we will have to remove the catheter and continue the treatment with vancomycin through hemodialysis sliding scale. Job ID: [id number] [facility]
[2018-04-08] MEDS: traMADol HCl 50 MG TAB PO PRN (03:23)
[2018-04-08] MEDS: Levothyroxine Sodium 25 MCG TAB PO SCH (05:40)
[2018-04-08 08:09] LABS: #Basophils 0.1 thou/uL (0.0-0.2); #Eosinphils 0.5 thou/uL (0.0-0.7); #Lymphocytes 0.9 thou/uL (1.20-3.40); #Monocytes 0.7 thou/uL (0.11-0.59); #Neutrophils 9.7 thou/uL (1.40-6.50); %Basophils 0.6 % (0.0-1.0); %Eosinophils 4.1 % (0.0-10.0); %Lymphocytes 7.5 % (21.0-51.0); %Monocytes 6.2 % (0.0-10.0); %Neutrophils 81.7 % (42.0-75.0); Hemoglobin 8.6 g/dL (12.0-16.0); Mean Corpuscular HGB CONC 31.1 g/dL (32.0-36.0); Mean Corpuscular Hemoglobin 29.9 pg (27.0-31.0); Mean Corpuscular Volume 96.1 fL (78.0-98.0); Mean Platelet Volume 7.1 fL (7.4-10.4); Platelet Count 355 thou/uL (130-400); RBC Distribution Width 13.3 % (11.5-14.5); Red Blood Cell (RBC) Count 2.86 mill/uL (4.20-5.40); White Blood Cell (WBC) Count 11.8 thou/uL (4.8-10.8)
[2018-04-08 08:28] LABS: Anion Gap 13 mmol/L (10-20); BUN (Urea Nitrogen) 17 mg/dL (9.8-20.1); Calc. Creatinine Clearance 23 mL/min (70-130); Calcium 8.7 mg/dL (7.8-10.44); Carbon Dioxide 27 mmol/L (23-31); Chloride 97 mmol/L (98-107); Estimated GFR-MDRD 17; Glucose 108 mg/dL (83-110); Potassium 3.7 mmol/L (3.5-5.1); Sodium 133 mmol/L (136-145)
[2018-04-08] MEDS: Aspirin 81 mg Enteric Coated Tablet PO SCH (09:15)
[2018-04-08] MEDS: Docusate 100 MG CAP PO SCH ×2 (09:15→20:33)
[2018-04-08] MEDS: Febuxostat 40 MG TAB PO SCH (09:16)
[2018-04-08] MEDS: Folic Acid 1 MG TAB PO SCH (09:16)
[2018-04-08] MEDS: Thiamine 100 MG TAB PO SCH (09:16)
[2018-04-08] MEDS: Apixaban 2.5 MG TAB PO SCH (09:16)
--- NOTE | 2018-04-08 09:16 | PRG ---
DATE OF SERVICE: 04/08/2018 SUBJECTIVE: An 83-year-old female being seen for end-stage renal disease. The patient denies any nausea, vomiting, or chest pain. OBJECTIVE: See above. The patient is awake, alert. VITAL SIGNS: breathing 16, and blood pressure . GENERAL APPEARANCE AND MENTAL STATUS: Fair. HEAD/NECK: Normocephalic. Atraumatic. EYES: EOMI. No deformity. EARS: Clear. No ulcers. NOSE: Intact. No lesions. MOUTH: Clear. No discharge. THROAT: Clear. No exudate. LUNGS: Clear. No crackles. CARDIAC: S1, S2. No rub. ABDOMEN: Benign. Bowel sounds positive. GENITALIA/RECTUM: [place] absent. BACK/EXTREMITIES: Edema 0+. NEUROLOGICAL: Alert and motor intact. SKIN: LYMPHATICS: LABORATORY DATA: Labs show hemoglobin 8.6. ASSESSMENT AND RECOMMENDATIONS: 1. Stage 6 chronic kidney disease, plan dialysis. 2. Possible peritonitis. ID consult appreciated. 3. Hypertension, stable. 4. Anemia, stable. 5. Medication based on GFR. 6. We will continue sliding scale. 7. Intravenous vancomycin per recommendations of ID. Job ID: [id number]
[2018-04-08] MEDS: Isosorbide Dinitrate 5 MG TAB PO SCH ×2 (09:17→20:34)
[2018-04-08] MEDS: Fluticasone Propionate Nasal Spray 16 gm Bottle NASAL SCH (09:18)
[2018-04-08] MEDS: Rifampin 300 MG CAP PO SCH ×2 (10:27→21:08)
--- NOTE | 2018-04-08 13:38 | PDOC.PN ---
- Subjective Encounter Start Date: 04/08/18 Encounter Start Time: 13:36 Ms. Crane was seen today in follow-up of Peritonitis. She says the abdominal pain is a bit better today. - Objective Resuscitation Status - Order Detail: 04/04/18 23:56 Resuscitation Status Routine Resuscitation Status: FULL: Full Resuscitation Discussed with: patient NAYELY Reviewed: Yes Vital Signs & Weight: Vital Signs (12 hours) Temp Pulse Resp BP BP Pulse Ox 04/08/18 08:00 98.3 F 69 18 157/74 H 100 04/08/18 03:37 98.6 F 68 18 173/77 H 94 L Weight Admit Weight 192 lb Weight 192 lb I&O: 04/07/18 04/08/18 04/09/18 06:59 06:59 06:59 Intake Total 1290 1320 240 Output Total 2800 Balance 1290 -1480 240 Result Diagrams: 04/08/18 07:00 04/08/18 07:00 Phys Exam - Physical Examination HEENT: PERRLA Respiratory: no wheezing, no rales, no rhonchi, clear to auscultation bilateral Cardiovascular: RRR, no significant murmur, no rub Gastrointestinal: soft + lower abdominal tenderness, no rebound or gaurding Musculoskeletal: no edema, pulses present Dx/Plan (1) Peritonitis Code(s): K65.9 - PERITONITIS, UNSPECIFIED Status: Acute (2) ESRD on peritoneal dialysis Code(s): N18.6 - END STAGE RENAL DISEASE; Z99.2 - DEPENDENCE ON RENAL DIALYSIS Status: Chronic (3) Hypertension Code(s): I10 - ESSENTIAL (PRIMARY) HYPERTENSION Status: Chronic (4) Atrial fibrillation Code(s): I48.91 - UNSPECIFIED ATRIAL FIBRILLATION Status: Chronic (5) Chronic anticoagulation Code(s): Z79.01 - [facility] (CURRENT) USE OF ANTICOAGULANTS Status: Chronic (6) Hypothyroidism Code(s): E03.9 - HYPOTHYROIDISM, UNSPECIFIED Status: Chronic (7) Hyponatremia Code(s): E87.1 - HYPO-OSMOLALITY AND HYPONATREMIA Status: Acute - Plan * Peritonitis- discussed with Dr. Amezquita- she has cultures positive for MRSA. ID input is appreciated * Rifampin has been added to her regimen. Will monitor her clinical progress- the hope is to salvage the PD catheter * HTN- blood pressure is a bit elevated- will continue the current regimen, and PRN medications * ESRD- continue HD for now * Hyponatremia- improved
--- NOTE | 2018-04-08 17:22 | PRG ---
DATE OF SERVICE: 04/08/2018 SUBJECTIVE: The patient has felt about 50% improvement in the abdominal pain. No vomiting. Voiding with no difficulty. No diarrhea. OBJECTIVE: VITAL SIGNS: T-max 99, BP 150/70, pulse 69, respiratory rate 18. GENERAL: Awake, alert, and oriented. HEENT: Ocular movements conjugate. Pupils are equal. NECK: Supple. LUNGS: Symmetric. Clear breath sounds. ABDOMEN: Not as distended as yesterday. It is softer and less tender. There is an area of erythema and induration at one of the laparoscopy port sites on the right side, measures about 4 x 2 cm and it is [id number] tender. LABORATORY DATA: White cell count 11.8, hemoglobin 8.6, platelets 355. Sodium 133, creatinine 2.63. ASSESSMENT AND DISCUSSION: End-stage renal disease of unknown etiology with peritoneal dialysis catheter placement with dysfunction of the catheter due to omentum wrapping around the catheter. This was revised by Dr. Coronel. The patient has peritonitis now, probably associated with continuous ambulatory peritoneal dialysis with methicillin-resistant Staphylococcus aureus. We will continue vancomycin sliding scale and rifampin. Waiting on further clinical improvement. If there is further clinical improvement, continue vancomycin sliding scale and dialysis as soon as the PD catheter can be used and I would encourage transitioning to intraperitoneal vancomycin through the protocol by the dialysis nurse plus continuation of oral rifampin for at least 21 days. If there is persistence of pain in the next few days, then she will require removal of the catheter. Job ID: [id number] [facility]
[2018-04-08 17:54] LABS: Vancomycin, Random 18.2 ug/mL (See Comment)
[2018-04-08] MEDS ORDERED: Morphine 4 MG/ML VIAL SLOW IVP PRN (20:19)
[2018-04-08] MEDS ORDERED: Acetaminophen 500 MG TAB PO PRN (20:24)
[2018-04-08] MEDS ORDERED: traMADol HCl 50 MG TAB PO PRN ×3 (20:25→20:27)
[2018-04-08] MEDS: Atorvastatin Calcium 20 MG TAB PO SCH (20:33)
[2018-04-08] MEDS: Amiodarone 200 MG TAB PO SCH (20:34)
[2018-04-09] MEDS: HYDROcodone/Acetaminophen 10/325 mg Tablet PO PRN ×4 (03:24→23:24)
[2018-04-09] MEDS: Levothyroxine Sodium 25 MCG TAB PO SCH (05:24)
[2018-04-09] MEDS: Isosorbide Dinitrate 5 MG TAB PO SCH ×2 (08:07→21:33)
[2018-04-09] MEDS: Apixaban 2.5 MG TAB PO SCH (08:08)
[2018-04-09] MEDS: Thiamine 100 MG TAB PO SCH (08:08)
[2018-04-09] MEDS: Febuxostat 40 MG TAB PO SCH (08:08)
[2018-04-09] MEDS: Rifampin 300 MG CAP PO SCH ×2 (08:08→21:32)
[2018-04-09] MEDS: Docusate 100 MG CAP PO SCH ×2 (08:08→20:26)
[2018-04-09] MEDS: Aspirin 81 mg Enteric Coated Tablet PO SCH (08:09)
[2018-04-09] MEDS: Fluticasone Propionate Nasal Spray 16 gm Bottle NASAL SCH (08:09)
[2018-04-09] MEDS: Folic Acid 1 MG TAB PO SCH (08:10)
[2018-04-09] MEDS ORDERED: Heparin 1,000 UNITS/ML VIAL ONE (11:11)
--- NOTE | 2018-04-09 13:07 | PRG ---
DATE OF SERVICE: 04/09/2018 SUBJECTIVE: An 83-year-old female being seen for end-stage renal disease. The patient denies any nausea, vomiting, or chest pain. OBJECTIVE: See above. CONSTITUTIONAL: Awake, alert, in no acute distress. VITAL SIGNS: Afebrile, pulse 68, breathing 16, and blood pressure 150/61. GENERAL APPEARANCE AND MENTAL STATUS: Fair. HEAD/NECK: Normocephalic. Atraumatic. EYES: EOMI. No deformity. EARS: Clear. No ulcers. NOSE: Intact. No lesions. MOUTH: Clear. No discharge. THROAT: Clear. No exudate. LUNGS: Clear. No crackles. CARDIAC: S1, S2. No rub. ABDOMEN: Benign. Bowel sounds positive. GENITALIA/RECTUM: Cabrera absent. BACK/EXTREMITIES: Edema 0+. NEUROLOGICAL: Alert and motor intact. SKIN: LYMPHATICS: LABORATORY DATA: Labs reviewed. ASSESSMENT AND PLAN: 1. Stage 6 chronic kidney disease, continue hemodialysis. 2. Hypertension, stable. 3. Anemia, stable. 4. Peritonitis. We will give vancomycin with dialysis per Dr. Louis' recommendation. Job ID: [id number]
[2018-04-09] MEDS ORDERED: Vancomycin HCl 500 MG in Sodium Chloride 0.9% 100 ML IVPB SCH (13:45)
[2018-04-09] MEDS ORDERED: HOLD VANCOMYCIN FOR LEVEL >20 FS SCH (13:45)
[2018-04-09] MEDS ORDERED: Vancomycin HCl 750 MG in Sodium Chloride 0.9% 250 ML 250 ML IVPB SCH (13:45)
[2018-04-09] MEDS ORDERED: Vancomycin HCl 1.25 GM in Sodium Chloride 0.9% 250 ML 250 ML IVPB SCH (13:45)
[2018-04-09] MEDS ORDERED: Vancomycin HCl 1 GM in Premix Bag 1 BAG IVPB SCH (13:45)
[2018-04-09] MEDS ORDERED: Vancomycin HCl 1.75 GM in Sodium Chloride 0.9% 500 ML IVPB SCH (14:00)
[2018-04-09 14:35] LABS: Vancomycin, Random 16.5 ug/mL (See Comment)
--- NOTE | 2018-04-09 15:41 | PDOC.PN ---
- Subjective Encounter Start Date: 04/09/18 Encounter Start Time: 12:10 Ms. Crane was seen today in follow-up of Peritonitis. She continues to have some abdominal pain on the right side. She says it was relieved with [place]. - Objective Resuscitation Status - Order Detail: 04/04/18 23:56 Resuscitation Status Routine Resuscitation Status: FULL: Full Resuscitation Discussed with: patient MAR Reviewed: Yes Vital Signs & Weight: Vital Signs (12 hours) Temp Pulse Resp BP BP BP Pulse Ox 04/09/18 08:00 97.6 F 68 18 185/77 H 93 L 04/09/18 05:30 75 158/77 H 04/09/18 04:33 78 182/73 H Weight Admit Weight 192 lb Weight 192 lb I&O: 04/08/18 04/09/18 04/10/18 06:59 06:59 06:59 Intake Total 1320 880 Output Total 2800 Balance -1480 880 Result Diagrams: 04/08/18 07:00 04/08/18 07:00 Phys Exam - Physical Examination HEENT: PERRLA Respiratory: no wheezing, no rales, no rhonchi, clear to auscultation bilateral Cardiovascular: RRR, no significant murmur, no rub Gastrointestinal: soft, positive bowel sounds + right sided tenderness, no rebound no gaurding + mild erythema on the abdominal wall right side Musculoskeletal: pulses present, edema present Dx/Plan (1) Peritonitis Code(s): K65.9 - PERITONITIS, UNSPECIFIED Status: Acute (2) ESRD on peritoneal dialysis Code(s): N18.6 - END STAGE RENAL DISEASE; Z99.2 - DEPENDENCE ON RENAL DIALYSIS Status: Chronic (3) Hypertension Code(s): I10 - ESSENTIAL (PRIMARY) HYPERTENSION Status: Chronic (4) Atrial fibrillation Code(s): I48.91 - UNSPECIFIED ATRIAL FIBRILLATION Status: Chronic (5) Chronic anticoagulation Code(s): Z79.01 - [facility] (CURRENT) USE OF ANTICOAGULANTS Status: Chronic (6) Hypothyroidism Code(s): E03.9 - HYPOTHYROIDISM, UNSPECIFIED Status: Chronic (7) Hyponatremia Code(s): E87.1 - HYPO-OSMOLALITY AND HYPONATREMIA Status: Acute - Plan * Peritonitis- continue Vancomycin and Rifampin * HTN- blood pressure is elevated- will add Hydralazine as needed and monitor * ESRD- continue HD * AFIB- her heart rate is controlled * Continue Eliquis for stroke prevention.
[2018-04-09] MEDS: hydrALAZINE 25 MG TAB PO PRN (20:26)
[2018-04-09] MEDS: Atorvastatin Calcium 20 MG TAB PO SCH (20:26)
[2018-04-09] MEDS: Amiodarone 200 MG TAB PO SCH (20:26)
[2018-04-10] MEDS: HYDROcodone/Acetaminophen 10/325 mg Tablet PO PRN ×4 (05:49→23:54)
[2018-04-10] MEDS: Levothyroxine Sodium 25 MCG TAB PO SCH (05:49)
[2018-04-10] MEDS: Rifampin 300 MG CAP PO SCH ×2 (08:11→21:17)
[2018-04-10] MEDS: Isosorbide Dinitrate 5 MG TAB PO SCH ×2 (08:11→21:17)
[2018-04-10] MEDS: Febuxostat 40 MG TAB PO SCH (08:12)
[2018-04-10] MEDS: Thiamine 100 MG TAB PO SCH (08:12)
[2018-04-10] MEDS: Amlodipine 5 MG TAB PO SCH (08:12)
[2018-04-10] MEDS: Aspirin 81 mg Enteric Coated Tablet PO SCH (08:12)
[2018-04-10] MEDS: Apixaban 2.5 MG TAB PO SCH (08:12)
[2018-04-10] MEDS: Docusate 100 MG CAP PO SCH ×2 (08:13→21:17)
[2018-04-10] MEDS: hydrALAZINE 25 MG TAB PO PRN ×2 (08:13→20:06)
[2018-04-10] MEDS: Folic Acid 1 MG TAB PO SCH (08:13)
[2018-04-10] MEDS: Fluticasone Propionate Nasal Spray 16 gm Bottle NASAL SCH (08:14)
--- NOTE | 2018-04-10 13:19 | PRG ---
DATE OF SERVICE: 04/10/2018 SUBJECTIVE: This is an 83-year-old female being seen for end-stage renal disease. The patient denied any nausea, vomiting, or chest pain. OBJECTIVE: CONSTITUTIONAL: The patient is awake and alert. VITAL SIGNS: Afebrile, pulse 80, breathing 16, blood pressure was 158/77. GENERAL APPEARANCE AND MENTAL STATUS: Fair. HEAD/NECK: Normocephalic. Atraumatic. EYES: EOMI. No deformity. EARS: Clear. No ulcers. NOSE: Intact. No lesions. MOUTH: Clear. No discharge. THROAT: Clear. No exudate. LUNGS: Clear. No crackles. CARDIAC: S1, S2. No rub. ABDOMEN: Benign. Bowel sounds positive. GENITALIA/RECTUM: Cabrera absent. BACK/EXTREMITIES: Edema 0+. NEUROLOGICAL: Alert and motor intact. SKIN: LYMPHATICS: LABORATORY DATA: Labs reviewed. ASSESSMENT: 1. Stage 6 chronic kidney disease, continue hemodialysis on Wednesday, , and Wednesday. 2. Hypertension, stable. Titrate medication amlodipine to 10 mg daily. 3. Anemia, stable. 4. Medication based on GFR appropriate. 5. Peritonitis. Continue rifampin and vancomycin per Dr. Louis' protocol. Job ID: [id number]
--- NOTE | 2018-04-10 17:07 | PRG ---
DATE OF SERVICE: 04/10/2018 SUBJECTIVE: Sitting up by the bedside. She is awake, alert, and oriented. She denies any pain in the abdominal area. Feeling much better. No respiratory symptoms. No diarrhea. OBJECTIVE: VITAL SIGNS: Normal except for elevation of systolic blood pressure. GENERAL: Awake, alert, and oriented. HEENT: Ocular movements conjugate. NECK: Supple. LUNGS: Symmetric. Clear breath sounds. HEART: S1 and S2. Regular rate. ABDOMEN: Much softer. All the areas with erythema including the right-sided entry site for the recent laparoscopy are improving. There is no tenderness on abdominal exam anymore. LABORATORY DATA: White cell count 11.8 yesterday, hemoglobin 8.6, and platelets 355. Sodium 133 and creatinine 2.63, and microbiology, 2 negative blood cultures thus far. ASSESSMENT AND DISCUSSION: End-stage renal disease, unknown etiology with PD catheter placement with dysfunction and then revision with omentopexy, also CAPD associated methicillin-resistant Staphylococcus aureus peritonitis, which seems to be responding to vancomycin, sliding scale administered intravenously plus oral rifampin. The patient should be eligible for discharge planning with the intention to salvage the peritoneal dialysis catheter and resume PD treatments. Once those are resumed, then I would advise transitioning to vancomycin administer via peritoneal dwells following the protocol by the dialysis nurse and a total duration of therapy would be 21 days, and I would continue rifampin orally. After that, we will see if she will be able to maintain this catheter or not. Job ID: [id number]
[2018-04-10] MEDS: Atorvastatin Calcium 20 MG TAB PO SCH (20:05)
[2018-04-10] MEDS: Amiodarone 200 MG TAB PO SCH (20:06)
[2018-04-11] MEDS: hydrALAZINE 25 MG TAB PO PRN (04:30)
[2018-04-11] MEDS: Levothyroxine Sodium 25 MCG TAB PO SCH (05:21)
[2018-04-11] MEDS: HYDROcodone/Acetaminophen 10/325 mg Tablet PO PRN ×3 (05:22→18:06)
[2018-04-11] MEDS: Aspirin 81 mg Enteric Coated Tablet PO SCH (08:46)
[2018-04-11] MEDS: Apixaban 2.5 MG TAB PO SCH (08:46)
[2018-04-11] MEDS: Thiamine 100 MG TAB PO SCH (08:46)
[2018-04-11] MEDS: Folic Acid 1 MG TAB PO SCH (08:47)
[2018-04-11] MEDS: Amlodipine 5 MG TAB PO SCH (08:47)
[2018-04-11] MEDS: Fluticasone Propionate Nasal Spray 16 gm Bottle NASAL SCH (08:47)
[2018-04-11] MEDS: Docusate 100 MG CAP PO SCH (08:47)
[2018-04-11] MEDS: Febuxostat 40 MG TAB PO SCH (08:47)
[2018-04-11] MEDS: Isosorbide Dinitrate 5 MG TAB PO SCH (08:48)
[2018-04-11] MEDS: Rifampin 300 MG CAP PO SCH (08:49)
--- NOTE | 2018-04-11 10:20 | PRG ---
DATE OF SERVICE: 04/11/2018 SUBJECTIVE: Ms. Crane is doing well today. She is much more alert than the past. She denies having any abdominal pain. OBJECTIVE: VITAL SIGNS: Blood pressure 199/73, heart rate 72. LUNGS: Clear to auscultation. CARDIAC: Regular rhythm without murmur or gallop. ABDOMEN: Soft. Surgical wounds in abdomen look good. EXTREMITIES: Left arm, good thrill and bruit in her left arm fistula. ASSESSMENT AND PLAN: 1. End-stage renal disease with functioning left arm fistula. Continue exercise the arm. Follow up with me in 2 to 3 weeks. 2. Dysfunctional peritoneal dialysis catheter, status post laparoscopic revision. At time of operation, no inflammatory changes were noted. The patient's peritoneal dialysis fluid cultures outpatient one of three have shown MRSA. Dr. Louis has seen her, would recommend vancomycin, fluid, peritoneal dwell. She can resume peritoneal dialysis mid to later week, this week. Begin using peritoneal dialysis catheter. If she has problems with drainage from the catheter, then she should return to see me sooner and plan would be to remove the current catheter and place another catheter laparoscopically, but this catheter should function, and I would recommend beginning peritoneal dialysis mid to later week, this week. Note, I will see her as needed in this hospitalization, please call if necessary. Follow up in my office in 2 to 3 weeks. Job ID: [id number]
[2018-04-11] MEDS ORDERED: Amlodipine 10 MG TAB PO SCH (10:30)
--- NOTE | 2018-04-11 10:57 | PRG ---
DATE OF SERVICE: 04/11/2018 SUBJECTIVE: Patient was seen and examined at bedside and overnight events noted. Patient denies any shortness of breath or chest pain or palpitation. No history of nausea or vomiting or diarrhea or fever or chills or cramps. OBJECTIVE: GENERAL: This is a well-developed female, in no apparent distress. No abdominal pain. VITAL SIGNS: Temperature 97.9, pulse 79, respiratory rate 20, and blood pressure 197/77. HEENT: Atraumatic, normocephalic. Oral mucosa is moist NECK: Supple. CARDIOVASCULAR: S1, S2 heard. Rate and rhythm regular. RESPIRATORY: Clear to auscultation. GASTROINTESTINAL: Abdomen is soft. MUSCULOSKELETAL: No tenderness. No edema. DERMATOLOGIC: No skin rash. NEUROLOGIC: Alert and awake and oriented X3. No focal neurologic deficits. Moving all the extremities. PSYCHIATRIC: Mood and affect normal. LABORATORY DATA: No labs done today. ASSESSMENT AND PLAN: 1. End-stage renal disease. Continue dialysis on Wednesday, Wednesday, and Wednesday. We will have dialysis on Wednesday, Wednesday, and Wednesday. 2. Hypertension. Titrate medications. We will have dialysis. 3. Anemia, stable. 4. Peritonitis. Continue antibiotics per ID. We will follow. Job ID: [id number]
[2018-04-11 11:55] VITALS: TEMP 97.4
--- NOTE | 2018-04-11 12:24 | PDOC.PN ---
- Subjective Encounter Start Date: 04/11/18 Encounter Start Time: 12:19 Ms. Crane was seen today in follow-up of peritonitis. She says the abdominal pain has improved. She still requires some pain medication to help with her symptoms. - Objective Resuscitation Status - Order Detail: 04/04/18 23:56 Resuscitation Status Routine Resuscitation Status: FULL: Full Resuscitation Discussed with: patient NAYELY Reviewed: Yes Vital Signs & Weight: Vital Signs (12 hours) Temp Pulse Resp BP BP BP Pulse Ox 04/11/18 11:53 97.4 F L 73 18 177/77 H 96 04/11/18 11:50 72 199/73 H 04/11/18 08:47 72 199/73 H 04/11/18 08:00 97.4 F L 73 18 177/77 H 96 04/11/18 04:30 80 197/77 H 04/11/18 04:00 97.8 F 79 16 197/77 H 92 L Weight Admit Weight 192 lb Weight 192 lb I&O: 04/10/18 04/11/18 04/12/18 06:59 06:59 06:59 Intake Total 250 150 240 Balance 250 150 240 Result Diagrams: 04/08/18 07:00 04/08/18 07:00 Phys Exam - Physical Examination HEENT: PERRLA Respiratory: no wheezing, no rales, no rhonchi, clear to auscultation bilateral Cardiovascular: RRR, no significant murmur, no rub Gastrointestinal: soft, positive bowel sounds + right sided tenderness no rebound or guarding Musculoskeletal: pulses present, edema present + trace pedal edema Dx/Plan (1) Peritonitis Code(s): K65.9 - PERITONITIS, UNSPECIFIED Status: Acute (2) ESRD on peritoneal dialysis Code(s): N18.6 - END STAGE RENAL DISEASE; Z99.2 - DEPENDENCE ON RENAL DIALYSIS Status: Chronic (3) Hypertension Code(s): I10 - ESSENTIAL (PRIMARY) HYPERTENSION Status: Chronic (4) Atrial fibrillation Code(s): I48.91 - UNSPECIFIED ATRIAL FIBRILLATION Status: Chronic (5) Chronic anticoagulation Code(s): Z79.01 - [facility] (CURRENT) USE OF ANTICOAGULANTS Status: Chronic (6) Hypothyroidism Code(s): E03.9 - HYPOTHYROIDISM, UNSPECIFIED Status: Chronic (7) Hyponatremia Code(s): E87.1 - HYPO-OSMOLALITY AND HYPONATREMIA Status: Acute - Plan * Peritonitis- continue Vancomycin and Rifampin * HTN- blood pressure is a bit elevated- will increase her dose of Amlodipine * ESRD- stable- she will have HD instead of PD while her catheter heals * Hopefully home later today .
[2018-04-11] MEDS ORDERED: Heparin 10,000 UNITS/ 10 ML VIAL ONE (13:44)
[2018-04-11 15:08] LABS: Vancomycin, Random 13.3 ug/mL (See Comment)
[2018-04-11] MEDS ORDERED: Carvedilol 3.125 MG TAB PO SCH (17:00)
--- NOTE | 2018-04-11 18:19 | DIS ---
DATE OF ADMISSION: 04/04/2018 DATE OF DISCHARGE: 04/11/2018 DISCHARGE DIAGNOSES: 1. Acute peritonitis. 2. End-stage renal disease, on hemodialysis. 3. Hypertension. 4. Hypothyroidism. 5. Hyperlipidemia. DISCHARGE MEDICATIONS: Include; 1. Rifampin 300 mg twice a day for 21 days as well as vancomycin on a sliding scale basis. 2. Norvasc 10 mg daily. 3. Thiamine 100 mg daily. 4. Synthroid 25 mcg p.o. daily. 5. Isosorbide dinitrate 10 mg twice a day. 6. [place] 10/325 one q.6 as needed for pain. 7. Guaifenesin 600 mg extended release daily. 8. Neurontin 100 mg t.i.d. 9. Folic acid 1 mg daily. 10. Flonase nasal spray daily. 11. Uloric 40 mg daily. 12. Lipitor 20 mg at bedtime. 13. Aspirin 81 mg daily. 14. Eliquis 2.5 mg daily. 15. Amiodarone 200 mg at bedtime. PROCEDURES: The procedures during admission, the patient had a CT scan of the abdomen and pelvis, showing peritoneal dialysis catheter in place. There was some mild ascites. The appendix was not very well visualized. The patient had a laparoscopic evaluation and revision of the peritoneal dialysis catheter with an omentopexy. The patient had venous mapping as well of the bilateral upper extremities. CODE STATUS: Full code. ALLERGIES: TO ALLOPURINOL AND PENICILLIN. HOSPITAL COURSE: Ms. Crane is a pleasant 83-year-old female, who presented to the emergency room complaining of fairly severe abdominal pain as well as a low-grade fever. She was admitted and found to have peritonitis. The patient had peritoneal fluid taken from her grievance and appeals specialist office and the dialysate had grown MRSA. Dr. Louis was consulted with Infectious Disease. It was recommended that she be placed on vancomycin sliding scale as well as rifampin. The hope would be to save the peritoneal dialysis catheter. Once the catheter was able to be used once again after it had been revised, it is recommended that the vancomycin be placed intraperitoneal and to continue the rifampin. The total course of treatment would be for 21 days. After the treatment course is completed, then the catheter can be re-evaluated as to whether or not it is salvageable. The patient's symptoms had improved during the course of her hospital stay and she was discharged on 04/11/2018, to have close outpatient followup with her primary care physician as well as Dr. Angel and Dr. Coronel. Job ID: [id number]
[2018-04-11 19:20] VITALS: BP 141/72
[2018-04-12] MEDS ORDERED: Amlodipine 10 MG TAB PO SCH (09:00)
--- NOTE | 2018-04-13 14:06 | PQF ---
ABDIFATAH REYES TONI MD [id number] CLINICAL DOCUMENTATION CLARIFICATION FORM: POST DISCHARGE Addendum to original discharge summary date: ____ Late entry note date: __ DATE: 04/13/18 ATTN: Dr. Caicedo Please exercise your independent, professional judgment in responding to the clarification form. Clinical indicators are provided on the bottom of this form for your review Please check appropriate box(s) to clarify if the following diagnosis has been ruled in or ruled out: Sepsis [ X] Ruled in diagnosis [ ] Continue to treat [ ] Resolved [ ] Ruled out diagnosis [ ] Cannot rule out diagnosis [ ] Other diagnosis [ ] Unable to determine In addition, please specify: Present on Admission (POA): [ X ] Yes [ ] No [ ] Unable to determine For continuity of documentation, please document condition throughout progress notes and discharge summary. Thank You. CLINICAL INDICATORS - SIGNS / SYMPTOMS / LABS Sepsis with acute Peritonitis--H&P Acute Sepsis---04/04 admit order Acute Sepsis---04/04 ED physician note Acute Peritonitis---Discharge Summary RISK FACTORS Acute Peritonitis--H&P TREATMENTS IV Levaquin and Vancomycin--ordered 04/04/18 Vancomycin sliding scale as well as rifampin--Discharge summary Infectious Disease Consult--ordered 04/04/18 Thank you, Brina Vicente, [facility] 04/13/18 1:56PM (This form is maintained as a part of the permanent medical record) 2014 [employer]. All Rights Reserved Brina [email or web address] [phone] MTDD
== END 2018-04-11 18:59 | disposition home health service (06) | DRG 853 ==
LOC: ERS 17:51 → ERHOLD 20:05 → T4-A 04-05 01:05 → UNDODISIN 04-08 16:27
PROVIDERS: ADMIT Emergency Medicine; ATTEND Emergency Medicine
PROC: 0DQU4ZZ Repair Omentum, Percutaneous Endoscopic Approach (ICD-10-PCS; principal; 2018-04-05)
PROC: 031C0ZF Bypass Left Radial Artery to Lower Arm Vein, Open Approach (ICD-10-PCS; 2018-04-05)
PROC: 0JWT33Z Revision of Infusion Device in Trunk Subcutaneous Tissue and Fascia, Percutaneous Approach (ICD-10-PCS; 2018-04-05)
PROC: 5A1D70Z Performance of Urinary Filtration, Intermittent, Less than 6 Hours Per Day (ICD-10-PCS; 2018-04-09)
PROC: 5A1D70Z Performance of Urinary Filtration, Intermittent, Less than 6 Hours Per Day (ICD-10-PCS; 2018-04-11)
DX: A41.9 Sepsis, unspecified organism (principal); K65.0 Generalized (acute) peritonitis; N18.6 End stage renal disease; I12.0 Hypertensive chronic kidney disease with stage 5 chronic kidney disease or end stage renal disease; E87.1 Hypo-osmolality and hyponatremia; T85.611A Breakdown (mechanical) of intraperitoneal dialysis catheter, initial encounter; R18.8 Other ascites; Y83.8 Other surgical procedures as the cause of abnormal reaction of the patient, or of later complication, without mention of misadventure at the time of the procedure; I48.91 Unspecified atrial fibrillation; B95.62 Methicillin resistant Staphylococcus aureus infection as the cause of diseases classified elsewhere; E03.9 Hypothyroidism, unspecified; E78.5 Hyperlipidemia, unspecified; K21.9 Gastro-esophageal reflux disease without esophagitis; E66.9 Obesity, unspecified; Z68.32 Body mass index [BMI] 32.0-32.9, adult; Z79.01 Long term (current) use of anticoagulants; Z88.0 Allergy status to penicillin; I25.2 Old myocardial infarction; Z87.891 Personal history of nicotine dependence; Z99.2 Dependence on renal dialysis; Z91.09 Other allergy status, other than to drugs and biological substances; K57.90 Diverticulosis of intestine, part unspecified, without perforation or abscess without bleeding
CPT/HCPCS: 36415; 71045; 74176; 80048; 80053; 80202; 82550; 83605; 83690; 83880; 84484; 85007; 85025; 85027; 85060; 87040; 87340; 89051; 90935; 90945; 93970; 96365; 96366; 96367; 96375; 96376; G0257; G0365; J0670; J0692; J1644; J1956; J2001; J2250; J2270; J2370; J2704; J2720; J3010; J3370; J3490; J7050

== ENCOUNTER 2018-04-18 19:18 | Inpatient (IN) | payer MEDICARE ==
--- NOTE | 2018-04-18 20:42 | RAD ---
PORTABLE CHEST: History: Dyspnea. Comparison: 04-04-18 FINDINGS: Cardiomegaly. Mild vascular and interstitial congestion. No focal infiltrate. No significant effusion . Large caliber central line is unchanged in position. IMPRESSION: Cardiomegaly and mild vascular congestion. POS: H
[2018-04-18 21:20] LABS: #Eosinphils 0.1 thou/uL (0.0-0.7); #Lymphocytes 0.8 thou/uL (1.20-3.40); #Monocytes 0.5 thou/uL (0.11-0.59); #Neutrophils 14.5 thou/uL (1.40-6.50); %Basophils 0.2 % (0.0-1.0); %Eosinophils 0.4 % (0.0-10.0); %Lymphocytes 4.9 % (21.0-51.0); %Monocytes 3.3 % (0.0-10.0); %Neutrophils 91.2 % (42.0-75.0); Hemoglobin 9.1 g/dL (12.0-16.0); Mean Corpuscular HGB CONC 32.1 g/dL (32.0-36.0); Mean Corpuscular Hemoglobin 30.4 pg (27.0-31.0); Mean Corpuscular Volume 94.7 fL (78.0-98.0); Mean Platelet Volume 7.4 fL (7.4-10.4); Platelet Count 421 thou/uL (130-400); RBC Distribution Width 14.6 % (11.5-14.5); Red Blood Cell (RBC) Count 2.99 mill/uL (4.20-5.40); White Blood Cell (WBC) Count 15.9 thou/uL (4.8-10.8)
--- NOTE | 2018-04-18 21:24 | CT ---
CT ABDOMEN AND PELVIS WITHOUT CONTRAST: Technique: Multiple contiguous axial images were obtained through the abdomen and pelvis without IV e nhancement. Indications: Abdominal pain. Patient apparently on peritoneal dialysis and complains of peritoneal ca theter not draining properly. There is a history of peritonitis. FINDINGS: Images through the lung bases show small bilateral effusions and bibasilar atelectasis or infiltrates . The liver, spleen, and pancreas are unremarkable. Gallbladder mildly distended. No gallstones seen by CT, however, cholesterol stones may not be apparent on CT. There is a tiny low density lesion in the upper right lobe of the liver which is stable from the CT o f 04-04-18, probably representing a small hepatic cyst. Kidneys show bilateral perinephric stranding which is a stable finding. No hydronephrosis. Urinary bl adder is mildly distended and unremarkable. Small bowel loops are normal caliber. Scattered diverticula is seen throughout the colon with diverti culosis of the sigmoid colon. Tiny amount of free fluid and stranding in the deep pelvis. There are several small tiny extraluminal gas pockets seen in the anterior upper abdomen along the li luis margin and in the mid abdominal region. A peroneal catheter enters via the right mid abdomen and is coiled in the anterior abdomen. No fluid or abscess collection is seen. Degenerative changes in the lumbar spine are prominent. IMPRESSION: 1. Small bilateral effusions and bibasilar atelectasis or infiltrates. 2. There are several tiny extraluminal gas pockets in the anterior abdomen possibly related to recent peritoneal dialysis catheter placement. Recommend clinical correlation. There is no fluid or abscess collection. No evidence of rupture viscus. 3. Bilateral perinephric stranding. Stranding and small amount fluid in the deep pelvis. POS: [facility]
[2018-04-18] MEDS ORDERED: Morphine 4 MG/ML VIAL ONE (21:36)
[2018-04-18 21:41] LABS: ALT (SGPT) 9 U/L (8-55); AST (SGOT) 13 U/L (5-34); Albumin 3.4 g/dL (3.4-4.8); Alkaline Phosphatase 129 U/L (40-150); Anion Gap 21 mmol/L (10-20); BUN (Urea Nitrogen) 38 mg/dL (9.8-20.1); Bilirubin, Total 0.5 mg/dL (0.2-1.2); CK (CPK) 23 U/L (29-168); Calc. Creatinine Clearance 0 mL/min (70-130); Calcium 8.8 mg/dL (7.8-10.44); Carbon Dioxide 20 mmol/L (23-31); Chloride 94 mmol/L (98-107); Estimated GFR-MDRD 10; Globulin 3.6 g/dL (2.4-3.5); Glucose 148 mg/dL (83-110); Lipase 14 U/L (8-78); Potassium 3.7 mmol/L (3.5-5.1); Sodium 131 mmol/L (136-145)
[2018-04-18] MEDS ORDERED: Cefepime 2 GM VIAL ONE (22:17)
[2018-04-18] MEDS ORDERED: Sodium Chloride 0.9% 100 ML ONE (22:17)
[2018-04-18 22:27] LABS: Vancomycin, Random 21.4 ug/mL (See Comment)
[2018-04-18] MEDS ORDERED: hydrALAZINE 20 MG/ML VIAL ONE (22:54)
[2018-04-18] MEDS ORDERED: Morphine 4 MG/ML VIAL SLOW IVP PRN (23:17)
[2018-04-18 23:51] VITALS: BMI 33.0
[2018-04-18] MEDS ORDERED: Melatonin 3 MG TAB PO PRN (23:59)
[2018-04-18] MEDS ORDERED: Acetaminophen 325 MG TAB PO PRN (23:59)
[2018-04-18] MEDS ORDERED: Ondansetron PF 4 MG/2 ML Vial IVP PRN (23:59)
[2018-04-18] MEDS ORDERED: hydrALAZINE 20 MG/ML VIAL SLOW IVP PRN (23:59)
[2018-04-19] MEDS ORDERED: Vancomycin HCl 1.75 GM in Sodium Chloride 0.9% 250 ML 300 ML IVPB SCH (01:00)
[2018-04-19] MEDS: HYDROcodone/Acetaminophen 10/325 mg Tablet PO SCH ×4 (01:19→17:33)
--- NOTE | 2018-04-19 01:41 | HP ---
PRIMARY CARE PHYSICIAN: Dr. Ubaldo Sands. CHIEF COMPLAINT: Peritoneal catheter not working and abdominal pain. HISTORY OF PRESENT ILLNESS: The patient is an 83-year-old female with past medical history of end-stage renal disease, on dialysis; hypertension; hypothyroidism; hyperlipidemia, who presents to the emergency department after she was having generalized abdominal pain and noted that her peritoneal catheter was not working. The patient has been getting hemodialysis. They are right now in the process of transitioning her to peritoneal dialysis. The patient last had her hemodialysis on Wednesday. She was supposed to start her peritoneal dialysis from today. The patient was seen in the dialysis center. They checked her peritoneal dialysis catheter and they were able to give her antibiotics through the catheter. When the family came home, the patient started to complain about abdominal pain, they tried to drain the catheter and it was not working. Peritoneal dialysis nurse came in and she saw the patient, they were able to drain back some of the fluids out, but the patient continues to have pain. They were not able to start the peritoneal dialysis and that is why the patient came to the ER. The patient denies any chest pain or shortness of breath. The patient does report nausea due to her symptoms. Denies any vomiting. They also reported subjective fever. The pain in her abdomen is severe and she is concerned about what is going on. The patient's son present at bedside. The patient was seen in the ER, she was started on cefepime. The patient already received a dose of vancomycin at dialysis center. The patient was given hydralazine and morphine for pain control. The patient reports that she takes [place] 10 every 4 hours as needed and that seems to control her pain. PAST MEDICAL HISTORY: See the HPI. PAST SURGICAL HISTORY: Dialysis catheter, appendectomy, hysterectomy. SOCIAL HISTORY: Denies alcohol, drugs, or cocaine. HOME MEDICATIONS: Include; 1. Aspirin. 2. Amiodarone. 3. Atorvastatin. 4. Eliquis. 5. Fluticasone. 6. Folic acid. 7. Guaifenesin. 8. Hydrocodone/acetaminophen. 9. Levothyroxine. 10. Isosorbide dinitrate. 11. Gabapentin. 12. Uloric. 13. Rifampin. 14. Amlodipine. FAMILY HISTORY: Significant for hypertension. REVIEW OF SYSTEMS: A 10-point review of system negative other than mentioned in the HPI. PHYSICAL EXAMINATION: VITAL SIGNS: Blood pressure 193/81, pulse 91, respiratory rate 20, temperature 99.4, and 96% O2 saturation on 2 L nasal cannula. GENERAL: The patient is alert, seem to be in pain, and seems to be a bit anxious as well. HEAD: Atraumatic. EAR, NOSE, AND THROAT: No exudate or bleeding noted. EYES: Extraocular movement intact. NECK: No lymphadenopathy noted. CARDIOVASCULAR: Regular rate and rhythm. No murmur, rubs, or gallops noted. RESPIRATORY: Mild bibasilar crackles. ABDOMEN: Soft, tender, generalized. No erythema noted. Peritoneal dialysis site evaluated, no surrounding erythema noted. No oozing of drainage of liquid noted. Bowel sounds diminished. EXTREMITIES: No lower extremity edema noted. NEUROLOGIC: The patient is alert and cooperative. SKIN: No rashes noted. LABORATORY DATA: WBC 15.9, hemoglobin 9.1, hematocrit 28.3, and platelets 421. Sodium 131, potassium 3.7, chloride 94, carbon dioxide 20, BUN 38, creatinine 4.35, glucose 148. Lactic acid 0.9. Creatine kinase 23. Troponin negative. BNP 1062. Influenza test negative. DIAGNOSTIC STUDIES: CT of the abdomen and pelvis, small bilateral effusions and bibasilar atelectasis or infiltrate. There are several tiny extraluminal gas pockets in the anterior abdomen, possibly related to recent peritoneal dialysis catheter placement. Recommend clinical correlation. Bilateral perinephric stranding and small amount of fluid in the deep pelvis noted. Chest x-ray reviewed, significant for cardiomegaly and mild vascular congestion. ASSESSMENT: 1. Sepsis. 2. Abdominal pain. 3. Suspected peritonitis. 4. End-stage renal disease. 5. Hyperlipidemia. 6. Hypothyroidism. PLAN: 1. The patient's abdominal pain, likely due to peritoneal dialysis is not functioning well. However, at this point, I cannot rule out peritonitis. The patient is already on antibiotics per Infectious Disease and Nephrology. At this point, we will continue vancomycin. I will add cefepime. 2. Nephrology and Infectious Disease consult placed. General surgery consult was placed by the ER. Dr. Coronel was contacted and he will see the patient in the morning. The patient will be n.p.o. at this point. Blood cultures pending. 3. The patient's white blood cell count noted to be elevated from last admission. WBC 11.8 on last admission, now it is 15.9. 4. For pain control, I have added morphine and we will continue the patient's home [place] 10 at q. 6 p.r.n. 5. Nephrology consult placed for dialysis tomorrow. The patient's potassium noted to be at 3.7. 6. Blood pressure, uncontrolled. We will add hydralazine p.r.n. 7. We will continue home medications once they are verified. 8. The patient is full code. 9. Medical power of claims attorney, son. 10. DVT prophylaxis, SCD. We will avoid heparin at this point given the patient will likely have procedure tomorrow morning. Job ID: [id number]
[2018-04-19 07:40] LABS: #Eosinphils 0.1 thou/uL (0.0-0.7); #Lymphocytes 1.1 thou/uL (1.20-3.40); #Monocytes 0.6 thou/uL (0.11-0.59); #Neutrophils 8.1 thou/uL (1.40-6.50); %Basophils 0.4 % (0.0-1.0); %Eosinophils 0.9 % (0.0-10.0); %Lymphocytes 11.2 % (21.0-51.0); %Monocytes 5.9 % (0.0-10.0); %Neutrophils 81.6 % (42.0-75.0); Hemoglobin 8.2 g/dL (12.0-16.0); Mean Corpuscular HGB CONC 32.2 g/dL (32.0-36.0); Mean Corpuscular Hemoglobin 30.8 pg (27.0-31.0); Mean Corpuscular Volume 95.6 fL (78.0-98.0); Mean Platelet Volume 7.5 fL (7.4-10.4); Platelet Count 377 thou/uL (130-400); RBC Distribution Width 14.9 % (11.5-14.5); Red Blood Cell (RBC) Count 2.64 mill/uL (4.20-5.40); White Blood Cell (WBC) Count 9.9 thou/uL (4.8-10.8)
[2018-04-19 08:05] LABS: Anion Gap 15 mmol/L (10-20); BUN (Urea Nitrogen) 41 mg/dL (9.8-20.1); Calc. Creatinine Clearance 14 mL/min (70-130); Calcium 8.3 mg/dL (7.8-10.44); Carbon Dioxide 22 mmol/L (23-31); Chloride 96 mmol/L (98-107); Estimated GFR-MDRD 9; Glucose 132 mg/dL (83-110); Potassium 3.8 mmol/L (3.5-5.1); Sodium 129 mmol/L (136-145)
[2018-04-19] MEDS ORDERED: Cefepime 2 GM in Sodium Chloride 0.9% 100 ML IVPB SCH (09:00)
--- NOTE | 2018-04-19 12:54 | PRG ---
DATE OF SERVICE: 04/19/2018 SUBJECTIVE: An 83-year-old female being seen for end-stage renal disease. The patient denies any nausea, vomiting, or abdominal pain. OBJECTIVE: CONSTITUTIONAL: The patient is awake and alert. VITAL SIGNS: Afebrile, pulse breathing 16, and blood pressure 126/64. GENERAL APPEARANCE AND MENTAL STATUS: Fair. HEAD/NECK: Normocephalic. Atraumatic. EYES: EOMI. No deformity. EARS: Clear. No ulcers. NOSE: Intact. No lesions. MOUTH: Clear. No discharge. THROAT: Clear. No exudate. LUNGS: Clear. No crackles. CARDIAC: S1, S2. No rub. ABDOMEN: Benign. Bowel sounds positive. GENITALIA/RECTUM: Cabrera absent. BACK/EXTREMITIES: Edema 0+. NEUROLOGICAL: Alert and motor intact. SKIN: LYMPHATICS: LABORATORY DATA: Reviewed. ASSESSMENT AND PLAN: 1. Stage 6 chronic kidney disease. Continue hemodialysis. 2. Anemia, stable. 3. Peritonitis. Removal of PD catheter. 4. Medication based on GFR appropriate. Job ID: [id number]
--- NOTE | 2018-04-19 13:05 | CON ---
DATE OF CONSULTATION: 04/18/2018 REASON FOR CONSULT: End-stage renal disease, on maintenance hemodialysis. HISTORY OF PRESENT ILLNESS: This is an 83-year-old female who was last dialyzed on Wednesday, presented to the hospital for peritoneal catheter not working, abdominal pain. The patient denies any nausea, vomiting, or chest pain. PAST MEDICAL HISTORY: Hypertension, end-stage renal disease, anemia, history of peritonitis, history of appendectomy, hysterectomy, PD catheter placement, tunneled dialysis catheter. SOCIAL HISTORY: No alcohol or drug use. FAMILY HISTORY: Negative for ESRD. ALLERGIES: REVIEWED. REVIEW OF SYSTEMS: A 15-point review of systems was performed and was negative except for positives noted above. PHYSICAL EXAMINATION: GENERAL: The patient is awake and alert. VITAL SIGNS: Afebrile. Pulse 80, breathing 16, and blood pressure 130/70. GENERAL APPEARANCE AND MENTAL STATUS: Fair. HEAD/NECK: Normocephalic. Atraumatic. EYES: EOMI. No deformity. EARS: Clear. No ulcers. NOSE: Intact. No lesions. MOUTH: Clear. No discharge. THROAT: Clear. No exudate. LUNGS: Clear. No crackles. CARDIAC: S1, S2. No rub. ABDOMEN: Benign. Bowel sounds positive. GENITALIA/RECTUM: Cabrera absent. BACK/EXTREMITIES: Edema 0+. NEUROLOGICAL: Alert and motor intact. SKIN: LYMPHATICS: LABORATORY DATA: Labs reviewed. ASSESSMENT AND PLAN: 1. Stage 6 chronic kidney disease, plan dialysis tomorrow. 2. Hypertension, stable. 3. Anemia, stable. 4. Medication based on GFR appropriate. 5. Peritonitis, management per primary team. Job ID: [id number]
[2018-04-19] MEDS: Morphine 4 MG/ML VIAL SLOW IVP PRN ×2 (14:30→21:57)
[2018-04-19] MEDS ORDERED: Heparin 10,000 UNITS/ 10 ML VIAL ONE (15:00)
--- NOTE | 2018-04-19 15:35 | CON ---
DATE OF CONSULTATION: REASON FOR CONSULT: Nonfunctional peritoneal dialysis catheter. HISTORY: Ms. Crane is an 83-year-old woman with end-stage renal failure, currently on hemodialysis. She was going to be transitioned to peritoneal dialysis and had a peritoneal dialysis catheter placed at another facility. Most apparently was not working, so it was replaced, but the second catheter was still not working and she developed MRSA peritonitis. She was admitted to the hospital about a month ago with this and treated with antibiotics. Dr. Coronel took her to the operating room and tried to revise her peritoneal dialysis catheter to get it to work better. She apparently was going to start peritoneal dialysis that had severe abdominal pain when they tried to use her catheter and did not have good flow of the peritoneal dialysate. She denies any fevers or chills, just the pain in her stomach and inadequate function of the catheter. She is also tender at the catheter exit site. Dr. Louis has recommended removal of her PD catheter. When Dr. Coronel went in to revise her peritoneal dialysis catheter, he also placed a left upper arm cephalic vein fistula and this appears to be developing well. PAST MEDICAL HISTORY: End-stage renal failure, on dialysis; hypertension; hyperlipidemia; and hypothyroidism. PAST SURGICAL HISTORY: Appendectomy, hysterectomy, peritoneal dialysis catheter x2 and revision of peritoneal dialysis catheter, and left arm AV fistula. SOCIAL HISTORY: The patient does not smoke, drink, or use illicit drugs. HOME MEDICATIONS: Include; 1. Aspirin. 2. Amiodarone. 3. Atorvastatin. 4. Eliquis. 5. Fluticasone. 6. Folate. 7. Guaifenesin. 8. Hydrocodone with acetaminophen. 9. Synthroid. 10. Isosorbide dinitrate. 11. Gabapentin. 12. Uloric. 13. Rifampin. 14. Amlodipine. She took her Eliquis the day before yesterday, but did not take it yesterday. She states that she is on this for her heart. 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 FAMILY HISTORY: Hypertension. REVIEW OF SYSTEMS: Ten system review of systems is negative except per HPI. PHYSICAL EXAMINATION: VITAL SIGNS: The patient has been afebrile since her admission, heart rate 74, respirations 20, 100% saturated on room air, and blood pressure 143/59. GENERAL: Reveals a pleasant older woman, in no acute distress. She is not flushed or toxic in appearance. She is not jaundiced or icteric. HEENT: Unremarkable. NECK: Supple without lymphadenopathy. HEART: Regular in its rate and rhythm. I do not appreciate any murmurs, rubs, or gallops. LUNGS: Clear to auscultation bilaterally. ABDOMEN: Soft and nondistended. She is quite tender at the peritoneal dialysis exit site, but otherwise nontender to palpation. EXTREMITIES: Warm and well perfused without significant edema. NEURO: No focal deficits. PSYCHIATRIC: Alert, oriented, and appropriate. LABORATORY DATA: White count is 9.9, this is down from 15.9 on admission; hematocrit 25; and platelets 377. BUN and creatinine are 41 and 4.55, potassium is 3.8, and bicarb is 22. BNP is elevated at 1062, but troponins were low. IMAGING DATA: CT of the abdomen and pelvis shows that the PD catheter is not down in the pelvis, but instead lying anterior to some small bowel loops in the lower abdomen. ASSESSMENT AND PLAN: Malpositioned peritoneal dialysis catheter. The patient and her son were told at the time of her last laparoscopy by Dr. Coronle that the catheter is placed too high in the abdomen to reach down into the pelvis. He tried to position this as low as possible and apparently placed a suture to try to keep it in the lowest possible position. However, it is not functioning and is causing her severe pain. Given this and the recent infection, I think that removal of the peritoneal dialysis catheter is the best course of action based on her appearance on CAT scan. I doubt that this catheter will ever function properly and she is quite tender at the exit site, which I would not expect her to be this far out from surgery. We will try to send some cultures intraoperatively for Dr. Louis to guide antibiotic therapy. She understands that although we will close the fascia, we will be unable to close the external skin incision and that she will require packing for at least a few days after her surgery. If the pexy suture is holding the peritoneal dialysis catheter in place and making it difficult to remove. She may actually require a second laparoscopy to cut the stitch and allow the catheter to be removed, but hopefully this will slide through the stitch. Inherent risks of surgery include, but are not limited to bleeding, infection, risks of anesthesia, damage to nearby structures such as bowel and blood vessels and need for other procedures. Job ID: [id number]
--- NOTE | 2018-04-19 16:22 | PDOC.PN ---
- Subjective Encounter Start Date: 04/19/18 Encounter Start Time: 16:20 Ms. Marshall was seen today in follow-up of malfunctioning PD catheter. She was having severe pain from the catheter site after the infusion of the diasylate fluid. She continues to have 8/10 pain in the general area . - Objective Resuscitation Status - Order Detail: 04/18/18 23:59 Resuscitation Status Routine Resuscitation Status: FULL: Full Resuscitation MAR Reviewed: Yes Vital Signs & Weight: Vital Signs (12 hours) Temp Pulse Resp BP Pulse Ox 04/19/18 11:24 98.1 F 74 20 143/59 H 100 04/19/18 08:43 93 L 04/19/18 07:20 97.9 F 78 18 126/64 93 L Weight Weight 198 lb 6.656 oz I&O: 04/18/18 04/19/18 04/20/18 06:59 06:59 06:59 Intake Total 10 Output Total 0 Balance 10 Result Diagrams: 04/19/18 07:26 04/19/18 07:26 Phys Exam - Physical Examination HEENT: PERRLA Respiratory: no wheezing, no rales, no rhonchi, clear to auscultation bilateral Cardiovascular: RRR 2/6 systolic murmur Gastrointestinal: soft, no distention, positive bowel sounds + RUQ tenderness, no rebound or guarding Musculoskeletal: pulses present, edema present trace pedal edema Dx/Plan (1) Peritoneal dialysis catheter dysfunction Code(s): T85.611A - BREAKDOWN OF INTRAPERITONEAL DIALYSIS CATHETER, INIT Status: Acute (2) Peritonitis Code(s): K65.9 - PERITONITIS, UNSPECIFIED Status: Chronic (3) Atrial fibrillation Code(s): I48.91 - UNSPECIFIED ATRIAL FIBRILLATION Status: Chronic (4) ESRD on peritoneal dialysis Code(s): N18.6 - END STAGE RENAL DISEASE; Z99.2 - DEPENDENCE ON RENAL DIALYSIS Status: Chronic (5) Hypertension Code(s): I10 - ESSENTIAL (PRIMARY) HYPERTENSION Status: Chronic - Plan * Malfunction of PD catheter- Surgery has been consulted for possible removal of the catheter * ESRD- she has a temporary HD catheter in place- she can return to HD treatment * HTN- blood pressure has been better controlled during this hospital stay so far- continue her home medications * Hypothyroidism- stable- continue home medications * Chronic pain- continue symptom management * Peritonitis- resolving- continue Vancomycin with dialysis and Rifampin
[2018-04-19] MEDS ORDERED: HOLD VANCOMYCIN FOR LEVEL >20 FS SCH (16:30)
[2018-04-19] MEDS ORDERED: Vancomycin HCl 1 GM in Premix Bag 1 BAG IVPB SCH (16:30)
[2018-04-19] MEDS ORDERED: Vancomycin HCl 750 MG in Sodium Chloride 0.9% 250 ML 250 ML IVPB SCH (16:30)
[2018-04-19] MEDS ORDERED: Vancomycin Sliding Scale 1 EACH FS ONE (16:30)
[2018-04-19] MEDS ORDERED: Vancomycin HCl 1.25 GM in Sodium Chloride 0.9% 250 ML 250 ML IVPB SCH (16:30)
[2018-04-19] MEDS ORDERED: Vancomycin HCl 500 MG in Sodium Chloride 0.9% 100 ML IVPB SCH (16:30)
--- NOTE | 2018-04-19 17:16 | CON ---
DATE OF CONSULTATION: HISTORY OF PRESENT ILLNESS: An 83-year-old, whom I had seen recently with CAPD-associated peritonitis. She had some complications after placement of a peritoneal dialysis catheter in [place]. Dr. Coronel revised it and there appeared to be some omental issues with the end of the catheter. MRSA had been retrieved from it and after initial vancomycin and rifampin, there was clear-cut improvement. The patient was discharged to continue her treatment, but has developed recrudescence of the pain, which is diffuse in the abdominal area, [id number] pain. She denies any headaches, visual symptoms, sore throat, odynophagia, or dysphagia. No cough, sputum production, or chest pain. She does not have urinary output. No joint symptoms or back pain. 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 SURGICAL HISTORY: PD catheter placement and revision, hemodialysis catheter placement and fistula in the left upper extremity, appendectomy, hysterectomy. SOCIAL HISTORY: Former smoker. ALLERGIES: NONE. FAMILY HISTORY: Noncontributory. CURRENT MEDICATIONS: 1. Hydrocodone. 2. Cefepime. 3. Hydralazine. 4. Melatonin. 5. Morphine. 6. Ondansetron. PHYSICAL EXAMINATION: VITAL SIGNS: T-max 98.1, blood pressure 140/50, pulse 74, respirations 20, O2 saturation 100. SKIN: The exit site of the peritoneal dialysis catheter, which appears normal. She has a tunneled hemodialysis catheter at IJ position. No lymphadenopathy. HEENT: Ocular movements conjugate. Pupils are equal. Oral cavity normal. NECK: Supple. LUNGS: Symmetric, clear breath sounds. HEART: S1, S2, regular rate. ABDOMEN: Mildly distended with diffuse moderate tenderness. Bowel sounds are present. No bladder distention. No joint inflammatory activity. Moves extremities equally. NEURO: Cognitive function appears to be intact. LABORATORY DATA: White cell count is down from 15 to 9.9, hemoglobin 8.2, platelets 377. Sodium 129, creatinine is at 4.55. Liver profile normal. CK was 23. Albumin 3.4, globulin 3.6. BNP was 1062. Two sets of blood cultures thus far negative. Influenza A and B negative. ASSESSMENT: 1. Recent episode of continuous ambulatory peritoneal dialysis peritonitis secondary to methicillin-resistant Staphylococcus aureus. 2. Complications of continuous ambulatory peritoneal dialysis catheter, which have required revision and that probably increased the risk for complications such as methicillin-resistant Staphylococcus aureus peritonitis. 3. Improvement and now recrudescence of the diffuse abdominal pain. DISCUSSION: The patient has failed conservative treatment for the MRSA CAPD peritonitis and now will require removal of the PD catheter and after that then continuation of a sliding scale vancomycin given at dialysis for 3 weeks if the blood cultures remain negative. Other complications related to this recent procedure are not likely, but we will have to reassess that, but the imaging study that was done did not demonstrate any evidence of intraabdominal abscess or ruptured viscus. Job ID: [id number]
[2018-04-19 19:40] LABS: Vancomycin, Random 15.8 ug/mL (See Comment)
[2018-04-19] MEDS: Atorvastatin Calcium 20 MG TAB PO SCH (21:49)
[2018-04-19] MEDS: Amiodarone 200 MG TAB PO SCH (21:49)
[2018-04-19] MEDS: Rifampin 300 MG CAP PO SCH (21:50)
[2018-04-19] MEDS: Isosorbide Dinitrate 5 MG TAB PO SCH (21:50)
[2018-04-19] MEDS: Gabapentin 100 MG CAP PO SCH (21:54)
[2018-04-20] MEDS: HYDROcodone/Acetaminophen 10/325 mg Tablet PO SCH ×2 (00:24→05:25)
[2018-04-20] MEDS: Levothyroxine Sodium 25 MCG TAB PO SCH (05:25)
[2018-04-20] MEDS ORDERED: Lidocaine 2% PF 5 ML VIAL ONE (06:44)
[2018-04-20] MEDS ORDERED: Bupivacaine/Epinephrine 0.25% 30 ML VIAL ONE (06:44)
[2018-04-20] MEDS ORDERED: Fentanyl 100 MCG/2 ML VIAL ONE (06:49)
[2018-04-20] MEDS ORDERED: Propofol 500 MG/50 ML VIAL ONE (07:22)
[2018-04-20] MEDS ORDERED: Promethazine HCl 25 MG/ML VIAL IM PRN (08:00)
[2018-04-20] MEDS ORDERED: Promethazine HCl 25 MG/ML VIAL SLOW IVP PRN (08:00)
[2018-04-20] MEDS ORDERED: Ondansetron HCl/PF 4 MG/2 ML Vial IVP PRN (08:00)
[2018-04-20] MEDS ORDERED: traMADol HCl 50 MG TAB PO PRN ×2 (08:56)
[2018-04-20] MEDS ORDERED: Acetaminophen 500 MG TAB PO PRN (08:56)
[2018-04-20] MEDS ORDERED: Apixaban 2.5 MG TAB PO SCH (09:00)
[2018-04-20] MEDS: Fluticasone Propionate Nasal Spray 16 gm Bottle NASAL SCH (11:03)
[2018-04-20] MEDS: Aspirin 81 mg Enteric Coated Tablet PO SCH (11:03)
[2018-04-20] MEDS: Gabapentin 100 MG CAP PO SCH ×3 (11:04→20:39)
[2018-04-20] MEDS: Thiamine 100 MG TAB PO SCH (11:05)
[2018-04-20] MEDS: Amlodipine 10 MG TAB PO SCH (11:05)
[2018-04-20] MEDS: guaiFENesin ER 600 MG TAB PO SCH (11:06)
[2018-04-20] MEDS: Febuxostat 40 MG TAB PO SCH (11:06)
[2018-04-20] MEDS: Folic Acid 1 MG TAB PO SCH (11:06)
[2018-04-20] MEDS: Isosorbide Dinitrate 5 MG TAB PO SCH ×2 (11:07→20:38)
[2018-04-20] MEDS: Polyethylene Glycol 3350 17 GM Packet PO SCH (11:08)
--- NOTE | 2018-04-20 11:08 | OP ---
DATE OF PROCEDURE: 04/20/2018 PREOPERATIVE DIAGNOSES: Peritonitis, refractory to medical management for peritoneal dialysis catheter, end-stage renal disease, maturing left arm fistula hemodialysis using a right IJ cuffed tunneled catheter. ANESTHESIA: TIVA, local of 0.25% Marcaine with epinephrine mixed with 2% Xylocaine 10 mL, total mixture volume used. PROCEDURE PERFORMED: Removal of peritoneal dialysis catheter, right lower quadrant. DESCRIPTION OF PROCEDURE: The patient was taken to the operating room, where under intravenous sedation, abdomen catheter prepared with ChloraPrep and draped in routine fashion. Local anesthetic was infiltrated in the skin and subcutaneous tissue about the OpSite catheter and cuff dissected free moving the peritoneal dialysis catheter placed in a gauze dressing over the access site, held in place with tape. The patient tolerated the procedure well. There was no purulent discharge noted and the cuffs were well adherent. The patient tolerated the procedure well. Job ID: [id number]
[2018-04-20] MEDS ORDERED: Heparin 1,000 UNITS/ML VIAL CATH SCH ×2 (11:15→11:45)
[2018-04-20] MEDS: Rifampin 300 MG CAP PO SCH ×3 (11:17→21:45)
--- NOTE | 2018-04-20 11:50 | PRG ---
DATE OF SERVICE: 04/20/2018 SUBJECTIVE: This is an 83-year-old female being seen for end-stage renal disease. The patient denies any nausea, vomiting, or chest pain. OBJECTIVE: CONSTITUTIONAL: The patient is awake and alert. VITAL SIGNS: Afebrile. Pulse 78, breathing 16, and blood pressure 145/67. GENERAL APPEARANCE AND MENTAL STATUS: Fair. HEAD/NECK: Normocephalic. Atraumatic. EYES: EOMI. No deformity. EARS: Clear. No ulcers. NOSE: Intact. No lesions. MOUTH: Clear. No discharge. THROAT: Clear. No exudate. LUNGS: Clear. No crackles. CARDIAC: S1, S2. No rub. ABDOMEN: Benign. Bowel sounds positive. GENITALIA/RECTUM: Cabrera absent. BACK/EXTREMITIES: Edema 0+. NEUROLOGICAL: Alert and motor intact. SKIN: LYMPHATICS: LABORATORY DATA: Reviewed. ASSESSMENT AND PLAN: 1. Stage 6 chronic kidney disease. Continue hemodialysis. 2. Hypertension, stable. 3. Anemia, stable. 4. Medications based on GFR appropriate. Job ID: [id number]
[2018-04-20] MEDS ORDERED: PROPOFOL 200 MG/20 ML VIAL ONE (13:42)
[2018-04-20] MEDS: Cefepime 1 GM in Sodium Chloride 0.9% 100 ML IVPB SCH (13:49)
--- NOTE | 2018-04-20 15:57 | PDOC.PN ---
- Subjective Encounter Start Date: 04/20/18 Encounter Start Time: 12:15 - Objective Resuscitation Status - Order Detail: 04/18/18 23:59 Resuscitation Status Routine Resuscitation Status: FULL: Full Resuscitation MAR Reviewed: Yes Vital Signs & Weight: Vital Signs (12 hours) Temp Pulse Pulse Pulse Pulse Resp BP 04/20/18 12:37 97.9 F 90 18 04/20/18 11:47 81 80 78 04/20/18 11:05 78 145/68 H 04/20/18 10:07 98.3 F 78 16 04/20/18 08:35 98.0 F 76 18 04/20/18 04:15 97.6 F 79 18 BP BP BP BP Pulse Ox Pulse Ox Pulse Ox 04/20/18 12:37 149/69 H 94 L 04/20/18 11:47 149/69 H 169/65 H 94 L 94 L 04/20/18 11:05 04/20/18 10:07 145/67 H 95 04/20/18 08:35 180/77 H 88 L 04/20/18 04:15 171/71 H 94 L Pulse Ox 04/20/18 12:37 04/20/18 11:47 93 L 04/20/18 11:05 04/20/18 10:07 04/20/18 08:35 04/20/18 04:15 Weight Weight 198 lb 6.656 oz I&O: 04/19/18 04/20/18 04/21/18 06:59 06:59 06:59 Intake Total 10 575 Output Total 0 Balance 10 575 Result Diagrams: 04/19/18 07:26 04/19/18 07:26 Additional Labs: Accuchecks 04/20/18 05:36 POC Glucose 134 H Phys Exam - Physical Examination HEENT: PERRLA Respiratory: no wheezing, no rales, no rhonchi, clear to auscultation bilateral Cardiovascular: RRR, no significant murmur, no rub Gastrointestinal: soft, non-tender, no distention, positive bowel sounds Musculoskeletal: pulses present, edema present trace pedal edema Dx/Plan (1) Peritoneal dialysis catheter dysfunction Code(s): T85.611A - BREAKDOWN OF INTRAPERITONEAL DIALYSIS CATHETER, INIT Status: Acute (2) Peritonitis Code(s): K65.9 - PERITONITIS, UNSPECIFIED Status: Chronic (3) Atrial fibrillation Code(s): I48.91 - UNSPECIFIED ATRIAL FIBRILLATION Status: Chronic (4) ESRD on peritoneal dialysis Code(s): N18.6 - END STAGE RENAL DISEASE; Z99.2 - DEPENDENCE ON RENAL DIALYSIS Status: Chronic (5) Hypertension Code(s): I10 - ESSENTIAL (PRIMARY) HYPERTENSION Status: Chronic - Plan * Malfunctioning Dialysis Catheter- this has been removed * Peritonitis- continue Vancomycin and Rifampin * HTN- blood pressure has been a bit labile- continue her home medications as well as PRN medications * AFIB- her heart rate is stable * Continue Eliquis for CVA prevention.
[2018-04-20 16:07] LABS: #Basophils 0.1 thou/uL (0.0-0.2); #Eosinphils 0.2 thou/uL (0.0-0.7); #Lymphocytes 1.4 thou/uL (1.20-3.40); #Monocytes 0.9 thou/uL (0.11-0.59); #Neutrophils 9.1 thou/uL (1.40-6.50); %Basophils 0.5 % (0.0-1.0); %Eosinophils 2.1 % (0.0-10.0); %Lymphocytes 11.6 % (21.0-51.0); %Monocytes 7.4 % (0.0-10.0); %Neutrophils 78.4 % (42.0-75.0); Hemoglobin 8.5 g/dL (12.0-16.0); Mean Corpuscular Hemoglobin 31.1 pg (27.0-31.0); Mean Corpuscular Volume 97.1 fL (78.0-98.0); Mean Platelet Volume 7.2 fL (7.4-10.4); Platelet Count 398 thou/uL (130-400); RBC Distribution Width 15.2 % (11.5-14.5); Red Blood Cell (RBC) Count 2.73 mill/uL (4.20-5.40); White Blood Cell (WBC) Count 11.6 thou/uL (4.8-10.8)
[2018-04-20] MEDS: Atorvastatin Calcium 20 MG TAB PO SCH (20:38)
[2018-04-20] MEDS: Amiodarone 200 MG TAB PO SCH (20:38)
[2018-04-20] MEDS: Morphine 4 MG/ML VIAL SLOW IVP PRN (21:45)
[2018-04-21] MEDS: Levothyroxine Sodium 25 MCG TAB PO SCH (05:36)
[2018-04-21 08:06] LABS: #Eosinphils 0.5 thou/uL (0.0-0.7); #Lymphocytes 1.2 thou/uL (1.20-3.40); #Monocytes 0.7 thou/uL (0.11-0.59); #Neutrophils 5.5 thou/uL (1.40-6.50); %Basophils 0.4 % (0.0-1.0); %Eosinophils 6.1 % (0.0-10.0); %Lymphocytes 14.9 % (21.0-51.0); %Monocytes 8.5 % (0.0-10.0); %Neutrophils 70.1 % (42.0-75.0); Hemoglobin 7.9 g/dL (12.0-16.0); Mean Corpuscular HGB CONC 32.1 g/dL (32.0-36.0); Mean Corpuscular Hemoglobin 30.6 pg (27.0-31.0); Mean Corpuscular Volume 95.1 fL (78.0-98.0); Mean Platelet Volume 7.3 fL (7.4-10.4); Platelet Count 324 thou/uL (130-400); RBC Distribution Width 14.8 % (11.5-14.5); Red Blood Cell (RBC) Count 2.59 mill/uL (4.20-5.40); White Blood Cell (WBC) Count 7.9 thou/uL (4.8-10.8)
[2018-04-21 08:08] VITALS: TEMP 97.5
[2018-04-21 08:18] LABS: Anion Gap 16 mmol/L (10-20); BUN (Urea Nitrogen) 32 mg/dL (9.8-20.1); Calc. Creatinine Clearance 14 mL/min (70-130); Calcium 8.3 mg/dL (7.8-10.44); Carbon Dioxide 23 mmol/L (23-31); Chloride 97 mmol/L (98-107); Estimated GFR-MDRD 10; Glucose 116 mg/dL (83-110); Potassium 4.1 mmol/L (3.5-5.1); Sodium 132 mmol/L (136-145)
[2018-04-21 08:19] LABS: Vancomycin, Random 17.6 ug/mL (See Comment)
[2018-04-21] MEDS: Gabapentin 100 MG CAP PO SCH (09:54)
[2018-04-21] MEDS ORDERED: Heparin 10,000 UNITS/ 10 ML VIAL ONE (12:00)
--- NOTE | 2018-04-21 12:24 | PRG ---
DATE OF SERVICE: 04/21/2018 SUBJECTIVE: An 83-year-old female being seen for end-stage renal disease. The patient denies any nausea, vomiting, or chest pain. OBJECTIVE: See above. CONSTITUTIONAL: Awake, alert, in no acute distress. VITAL SIGNS: Afebrile. Pulse 75, breathing 16, and blood pressure 132/62. GENERAL APPEARANCE AND MENTAL STATUS: Fair. HEAD/NECK: Normocephalic. Atraumatic. EYES: EOMI. No deformity. EARS: Clear. No ulcers. NOSE: Intact. No lesions. MOUTH: Clear. No discharge. THROAT: Clear. No exudate. LUNGS: Clear. No crackles. CARDIAC: S1, S2. No rub. ABDOMEN: Benign. Bowel sounds positive. GENITALIA/RECTUM: Cabrera absent. BACK/EXTREMITIES: Edema 0+. NEUROLOGICAL: Alert and motor intact. SKIN: LYMPHATICS: LABORATORY DATA: Hemoglobin 7.9. ASSESSMENT AND PLAN: 1. Stage 6 chronic kidney disease, continue hemodialysis. 2. Hypertension, stable. 3. Anemia, stable. 4. Medications based on glomerular filtration rate, appropriate. Job ID: [id number]
[2018-04-21] MEDS: Aspirin 81 mg Enteric Coated Tablet PO SCH (12:45)
[2018-04-21] MEDS: Amlodipine 10 MG TAB PO SCH (12:45)
[2018-04-21] MEDS: Febuxostat 40 MG TAB PO SCH (12:45)
[2018-04-21] MEDS: Fluticasone Propionate Nasal Spray 16 gm Bottle NASAL SCH (12:46)
[2018-04-21] MEDS: Isosorbide Dinitrate 5 MG TAB PO SCH (12:46)
[2018-04-21] MEDS: Folic Acid 1 MG TAB PO SCH (12:46)
[2018-04-21] MEDS: guaiFENesin ER 600 MG TAB PO SCH (12:46)
[2018-04-21] MEDS: Thiamine 100 MG TAB PO SCH (12:47)
[2018-04-21] MEDS: Polyethylene Glycol 3350 17 GM Packet PO SCH (12:47)
[2018-04-21] MEDS: Cefepime 1 GM in Sodium Chloride 0.9% 100 ML IVPB SCH (12:47)
[2018-04-21 13:46] VITALS: BP 132/65
--- NOTE | 2018-04-21 14:53 | PRG ---
DATE OF SERVICE: Ms. Crane is doing well today. I was to see her, but she was in dialysis. She had a peritoneal dialysis catheter removed. She can wash this wound daily with soap and water and apply antibiotic ointment and Band-Aid or Telfa and gauze. She can follow up in my office in 2 to 3 weeks. She will continue to exercise with left arm and allow her fistula to improve. I did talk to her yesterday about the consideration and in the future she could consider another peritoneal dialysis catheter, but she may well be satisfied with hemodialysis, not want that. I will see her in the office in 3 to 4 weeks to further discuss this and assess her left arm fistula for when to access this and convert her over to use of her fistula instead of her catheter for dialysis. I will see her as needed this hospitalization. Please call as necessary. Job ID: [id number]
--- NOTE | 2018-04-22 04:06 | DIS ---
DATE OF ADMISSION: 04/18/2018 DATE OF DISCHARGE: 04/21/2018 PRIMARY CARE PHYSICIAN: Dr. Ubaldo Sands. DISCHARGE DISPOSITION: Home. PRIMARY DISCHARGE DIAGNOSES: 1. Malfunctioning peritoneal dialysis catheter. 2. Peritonitis. 3. End-stage renal disease, on hemodialysis. 4. Hypertension. 5. Hypothyroidism. 6. Dyslipidemia. 7. Chronic atrial fibrillation. DISCHARGE MEDICATIONS: Include, 1. Vancomycin sliding scale with hemodialysis. 2. Rifampin was discontinued. She is to continue, 1. Amlodipine 10 mg daily. 2. Thiamine 100 mg daily. 3. Levothyroxine 75 mcg daily. 4. Isordil 10 mg twice a day. 5. Kechi 10/325 q.6 as needed for pain. 6. Folic acid 1 mg daily. 7. Flonase nasal spray daily. 8. Uloric 40 mg daily. 9. Lipitor 20 mg at bedtime. 10. Aspirin 81 mg daily. 11. Eliquis 2.5 mg daily. 12. Amiodarone 200 mg at bedtime. PROCEDURES DONE DURING THE ADMISSION: The patient had a CT scan of the abdomen and pelvis, in which there was bilateral small pleural effusions as well as atelectasis. There is a very tiny extraluminal gas pocket within the anterior abdomen, likely related to the recent peritoneal dialysis catheter placement and bilateral perinephric stranding. The patient had removal of the peritoneal dialysis catheter. ALLERGIES: 1. ALLOPURINOL. 2. PENICILLIN. CODE STATUS: Full code. HOSPITAL COURSE: Ms. Crane is a pleasant 83-year-old female who noticed severe pain in the peritoneal dialysis catheter when she tried to use it at home. This is after she has had a couple of episodes of problems with the peritoneal catheter before. She also had developed peritonitis. She was having such pain from the catheter that she came to the emergency room for evaluation and the decision was made to remove the peritoneal dialysis catheter and she has decided to transition from peritoneal dialysis to hemodialysis because she has had such trouble with the catheter. She continued to have treatment for the peritonitis while in the hospital. She was seen by General Surgery as well as Infectious Disease and her information technology administrator. Dr. Coronel removed the catheter and she tolerated the procedure well and will be discharged home. Further cultures were drawn and the decision was made to discontinue rifampin and continue the vancomycin for 4 additional weeks. Job ID: [id number]
== END 2018-04-21 14:32 | disposition home or self-care (01) | DRG 919 ==
LOC: ERS 19:18 → T4-B 23:03
PROVIDERS: ADMIT Family Medicine; ATTEND Family Medicine
PROC: 5A1D70Z Performance of Urinary Filtration, Intermittent, Less than 6 Hours Per Day (ICD-10-PCS; 2018-04-19)
PROC: 0WPGX3Z Removal of Infusion Device from Peritoneal Cavity, External Approach (ICD-10-PCS; principal; 2018-04-20)
DX: T85.611A Breakdown (mechanical) of intraperitoneal dialysis catheter, initial encounter (principal); N18.6 End stage renal disease; K65.9 Peritonitis, unspecified; I12.0 Hypertensive chronic kidney disease with stage 5 chronic kidney disease or end stage renal disease; Z99.2 Dependence on renal dialysis; E03.9 Hypothyroidism, unspecified; Z79.890 Hormone replacement therapy; E78.5 Hyperlipidemia, unspecified; I48.2 Chronic atrial fibrillation; Z79.82 Long term (current) use of aspirin; Z79.01 Long term (current) use of anticoagulants; Z88.0 Allergy status to penicillin; Z88.8 Allergy status to other drugs, medicaments and biological substances; I25.10 Atherosclerotic heart disease of native coronary artery without angina pectoris; Z87.891 Personal history of nicotine dependence; D63.1 Anemia in chronic kidney disease
CPT/HCPCS: 36415; 36416; 71045; 74176; 80048; 80053; 80202; 82550; 83605; 83690; 83735; 83880; 84484; 85025; 87040; 87804; 90935; 93005; 96365; 96375; C1769; G0257; J0360; J0692; J1644; J2001; J2270; J2704; J3010; J3370; J7050

== ENCOUNTER 2018-04-22 18:35 | Emergency (ER) | payer MEDICARE ==
[2018-04-22 19:27] LABS: #Eosinphils 0.1 thou/uL (0.0-0.7); #Lymphocytes 0.4 thou/uL (1.20-3.40); #Monocytes 0.6 thou/uL (0.11-0.59); #Neutrophils 6.5 thou/uL (1.40-6.50); %Basophils 0.2 % (0.0-1.0); %Eosinophils 1.6 % (0.0-10.0); %Lymphocytes 5.2 % (21.0-51.0); %Monocytes 8.4 % (0.0-10.0); %Neutrophils 84.6 % (42.0-75.0); Hemoglobin 8.1 g/dL (12.0-16.0); Mean Corpuscular HGB CONC 31.7 g/dL (32.0-36.0); Mean Corpuscular Hemoglobin 30.7 pg (27.0-31.0); Mean Corpuscular Volume 96.8 fL (78.0-98.0); Mean Platelet Volume 7.1 fL (7.4-10.4); Platelet Count 301 thou/uL (130-400); RBC Distribution Width 14.4 % (11.5-14.5); Red Blood Cell (RBC) Count 2.64 mill/uL (4.20-5.40); White Blood Cell (WBC) Count 7.6 thou/uL (4.8-10.8)
[2018-04-22] MEDS ORDERED: Lorazepam 2 MG/ML VIAL ONE (19:46)
[2018-04-22 19:54] LABS: Bilirubin Small (Negative); Blood, Urine Negative (Negative); Clarity CLEAR (Clear); Glucose, Urine (Dipstick) Negative (Negative); Leukocyte Moderate (Negative); Nitrite Negative (Negative); Protein, Urine (Dipstick) 300 mg/dL (Neg-Trace); Specific Gravity, Urine 1.018 (1.002-1.036); pH, Urine 7.5 (5.0-9.0)
[2018-04-22 20:01] LABS: Bacteria/HPF None Seen HPF (None Seen); Hyaline Casts/LPF 7-10 HYALINE CAST LPF (0-3 Hyaline); Pathc Cast-AUWi Flag 1.01 (0-2.49); RBC/HPF None Seen HPF (0-3); Yeast-AUWi Flag 14.2 (0-25.0)
[2018-04-22 20:03] LABS: ALT (SGPT) Less than 7 U/L (8-55); AST (SGOT) 13 U/L (5-34); Alkaline Phosphatase 105 U/L (40-150); Anion Gap 14 mmol/L (10-20); BUN (Urea Nitrogen) 16 mg/dL (9.8-20.1); Bilirubin, Total 0.4 mg/dL (0.2-1.2); Calc. Creatinine Clearance 0 mL/min (70-130); Calcium 8.4 mg/dL (7.8-10.44); Carbon Dioxide 26 mmol/L (23-31); Chloride 95 mmol/L (98-107); Estimated GFR-MDRD 23; Globulin 3.2 g/dL (2.4-3.5); Glucose 122 mg/dL (83-110); Lipase 24 U/L (8-78); Potassium 3.4 mmol/L (3.5-5.1); Protein, Total 6.2 g/dL (6.0-8.3); Sodium 132 mmol/L (136-145)
[2018-04-22 20:20] LABS: Renal Epithelial None Seen HPF (0-3); Transitional Epithelial NONE SEEN HPF (0-3)
--- NOTE | 2018-04-22 21:32 | RAD ---
AP VIEW CHEST: 04/22/18 HISTORY: Fever. Nausea, vomiting. AP view chest obtained on 04/22/18. Comparison made to previous exam from 04/18/18. AP view chest demonstrates a right jugular dialysis catheter in place. Calcification of the aorta see n. Mild pulmonary vascular congestion is seen. No evidence of effusions, pneumonia or pneumothorax se en. IMPRESSION: Pulmonary vascular congestion, otherwise unremarkable AP view chest. POS: [facility]
== END 2018-04-22 21:05 | disposition home or self-care (01) ==
LOC: ERS 18:35
CPT/HCPCS: 36415; 51701; 71045; 80053; 81003; 81015; 83690; 84484; 85025; 87086; 93005; 96374; A4353; J2060

== ENCOUNTER 2018-06-13 11:34 | Inpatient (IN) | payer MEDICARE, OTHER ==
[~2018-06-13 11:34] MED LIST: Heparin 10,000 UNITS/ 10 ML VIAL ONE
[2018-06-13] MEDS ORDERED: Morphine 4 MG/ML VIAL ONE (12:40)
[2018-06-13] MEDS ORDERED: Piperacillin/Tazobactam 4.5 GM VIAL ONE (12:40)
--- NOTE | 2018-06-13 12:51 | CON ---
DATE OF CONSULTATION: REASON FOR CONSULTATION: End-stage renal disease, on maintenance hemodialysis. HISTORY OF PRESENT ILLNESS: This is a very pleasant 83-year-old female who was being admitted for wound on the leg and enlarging hematoma. The patient denies no headache, numbness, tingling, or weakness. Denies nausea, vomiting, or chest pain. PAST MEDICAL HISTORY: Significant for hypertension, anemia, end-stage kidney disease, history of PD catheter placement, history of PD catheter complication, peritonitis, hysterectomy, tunneled dialysis catheter. SOCIAL HISTORY: No alcohol or drug use. FAMILY HISTORY: Negative for ESRD. ALLERGIES: REVIEWED. HOME MEDICATIONS: List reviewed. REVIEW OF SYSTEMS: REVIEW OF SYSTEMS: 15-point review of system was performed, negative except for positives noted above. GENERAL: HEAD: NECK: No swelling or lumps. NOSE: No epistaxis or discharge. EYES: No diplopia or pain. RESPIRATORY: CARDIOVASCULAR: GASTROINTESTINAL: /MONOTYPE CASTER: MUSCULOSKELETAL: No joint pain. NEUROPSYCHIATIC SYSTEMS: No suicidal ideation. No ideation. SKIN: Denies any rash or ulcer. CONSTITUTIONAL: No fever or chills. OBJECTIVE: CONSTITUTIONAL: The patient is awake and alert. VITAL SIGNS: Reviewed. GENERAL APPEARANCE AND MENTAL STATUS: Fair. HEAD/NECK: Normocephalic. Atraumatic. EYES: EOMI. No deformity. EARS: Clear. No ulcers. NOSE: Intact. No lesions. MOUTH: Clear. No discharge. THROAT: Clear. No exudate. LUNGS: Clear. No crackles. CARDIAC: S1, S2. No rub. ABDOMEN: Benign. Bowel sounds positive. GENITALIA/RECTUM: Cabrera absent. BACK/EXTREMITIES: Edema 0+. NEUROLOGICAL: Alert and motor intact. SKIN: LYMPHATICS: LABS: Reviewed. ASSESSMENT: 1. Stage 5 chronic kidney disease. Plan dialysis. 2. Hypertension, stable. 3. Anemia, stable. 4. Medications based on GFR is appropriate. Job ID: [id number]
[2018-06-13 13:21] LABS: #Basophils 0.1 thou/uL (0.0-0.2); #Eosinphils 0.1 thou/uL (0.0-0.7); #Lymphocytes 1.2 thou/uL (1.20-3.40); #Monocytes 0.3 thou/uL (0.11-0.59); #Neutrophils 3.9 thou/uL (1.40-6.50); %Eosinophils 1.7 % (0.0-10.0); %Lymphocytes 21.7 % (21.0-51.0); %Monocytes 6.1 % (0.0-10.0); %Neutrophils 69.5 % (42.0-75.0); Hemoglobin 11.7 g/dL (12.0-16.0); Mean Corpuscular HGB CONC 34.1 g/dL (32.0-36.0); Mean Corpuscular Hemoglobin 31.7 pg (27.0-31.0); Mean Corpuscular Volume 93.2 fL (78.0-98.0); Mean Platelet Volume 7.1 fL (7.4-10.4); Platelet Count 278 thou/uL (130-400); RBC Distribution Width 13.9 % (11.5-14.5); Red Blood Cell (RBC) Count 3.69 mill/uL (4.20-5.40); White Blood Cell (WBC) Count 5.6 thou/uL (4.8-10.8)
[2018-06-13 13:43] LABS: ALT (SGPT) 13 U/L (8-55); AST (SGOT) 20 U/L (5-34); Albumin 3.9 g/dL (3.4-4.8); Alkaline Phosphatase 134 U/L (40-150); Anion Gap 21 mmol/L (10-20); BUN (Urea Nitrogen) 33 mg/dL (9.8-20.1); Bilirubin, Total 0.9 mg/dL (0.2-1.2); Calc. Creatinine Clearance 0 mL/min (70-130); Calcium 9.2 mg/dL (7.8-10.44); Carbon Dioxide 18 mmol/L (23-31); Chloride 89 mmol/L (98-107); Estimated GFR-MDRD 10; Glucose 94 mg/dL (83-110); Potassium 3.4 mmol/L (3.5-5.1); Protein, Total 7.9 g/dL (6.0-8.3); Sodium 125 mmol/L (136-145)
[2018-06-13] MEDS ORDERED: Bisacodyl 5 MG TAB PO PRN (14:22)
[2018-06-13] MEDS ORDERED: Ondansetron PF 4 MG/2 ML Vial IVP PRN (14:22)
[2018-06-13] MEDS ORDERED: HYDROcodone/Acetaminophen 10/325 mg Tablet PO PRN (14:22)
[2018-06-13] MEDS ORDERED: Guaifenesin DM 100-10/5 ML UDCUP PO PRN (14:22)
[2018-06-13] MEDS ORDERED: Acetaminophen 325 MG TAB PO PRN (14:22)
[2018-06-13 17:38] LABS: Lactic Acid 0.6 mmol/L (0.5-2.2)
[2018-06-13] MEDS: HYDROcodone/Acetaminophen 5/325 mg Tablet PO PRN ×2 (18:00→21:58)
[2018-06-13 19:03] VITALS: BMI 30.2
[2018-06-13] MEDS: Isosorbide Dinitrate 5 MG TAB PO SCH (20:29)
[2018-06-13] MEDS: Atorvastatin Calcium 20 MG TAB PO SCH (20:29)
[2018-06-13] MEDS: Amiodarone 200 MG TAB PO SCH (20:29)
--- NOTE | 2018-06-13 21:35 | HP ---
PRIMARY CARE PHYSICIAN: Luis F Lyon MD NET DEVELOPER CONTRACT: Luis F Lyon MD CHIEF COMPLAINT: Right lower extremity pain, redness, black discoloration. HISTORY OF PRESENT ILLNESS: This is an 83-year-old female with history of end-stage renal disease, on hemodialysis; paroxysmal atrial fibrillation; Eliquis coagulopathy; essential hypertension; hypothyroidism; hyperlipidemia; hypertension; who comes in to the emergency department for complaints as above after sustaining a fall from her bed and hitting the inside part of her right lower extremity. She immediately developed a local hematoma with minimal improvement in the past few days. Additionally, she developed surrounding erythema, warmth, and severe pain. She came to the emergency department and was given antibiotics IV. Labs are fairly normal except for sodium 125 and creatinine being elevated, consistent with her end-stage renal disease. PAST MEDICAL HISTORY: As mentioned in HPI. PAST SURGICAL HISTORY: 1. Right upper chest dialysis catheter. 2. Peritoneal dialysis placement. 3. Appendectomy. 4. Hysterectomy. SOCIAL HISTORY: She denies tobacco, alcohol, or illicit drugs. She has no living will, power of insurance defense attorney, or advance directive. She is a full code. She lives in a home. ALLERGIES: REPORTS AN ALLERGY TO PENICILLIN THAT CAUSES RASH AND ALLOPURINOL. FAMILY HISTORY: Significant for hypertension. PHYSICAL EXAMINATION: VITAL SIGNS: Reviewed. General: In no distress. She is awake, alert, and oriented x3. HEAD AND NECK: Pupils are equal and reactive to light. Extraocular muscles are intact. Mucous membranes are moist. NECK: Supple. Right lower neck dialysis catheter is present. CARDIOVASCULAR: Rhythm and rate are regular. No audible murmurs, rubs, or gallops. PULMONARY: Clear to auscultation bilaterally. No wheezes, rhonchi, or crackles. ABDOMEN: Soft, nontender, nondistended. Positive bowel sounds. EXTREMITIES: Left lower extremity within normal limits. Upper extremities within normal limits. The right leg shows extensive erythematous area with eschar in the central area. There is a large ulcer of approximately 20 cm in diameter. There is no purulent material. This area is very tender. Range of motion is intact. SKIN: Erythema and ulcer as above. Capillary refill is less than 3 seconds. NEUROLOGIC: Cranial nerves 2 through 12 are grossly intact. Deep tendon reflexes are normoreflexic. Muscle tone is normal. Muscle strength is 5/5. HOME MEDICATIONS: Reviewed. LABORATORY DATA: Laboratory abnormalities, sodium 125, potassium 3.4, bicarbonate 18, BUN 33, and creatinine 1.14. White blood cell count is normal, hemoglobin 11.7, hematocrit 34.3. Lactic acid is normal. ASSESSMENT AND PLAN: 1. Right lower extremity cellulitis: No sepsis criteria. Clindamycin due to reported penicillin allergy. One dose of vancomycin was ordered from ER. Wound care evaluation. Possible need for surgical intervention. 2. End-stage renal disease, on hemodialysis: Receiving dialysis today per Nephrology. Nephrology is following. 3. Hyponatremia: Suspect acute. Monitor closely with dialysis. No IV fluids for now. 4. Essential hypertension: Resume home medications. 5. Chronic illness, anemia of kidney disease. 6. Chronic dyslipidemia. 7. Chronic hypothyroidism: Resume Synthroid. 8. Paroxysmal atrial fibrillation: No issues. Sinus rhythm. 9. Eliquis coagulopathy: Continue home dose of Eliquis with caution. 10. Code status: Full code. 11. Core measure: Eliquis. 12. Disposition: Telemetry. 13. Prognosis: Guarded. 14. Clinical status: Guarded. 15. Expected length of stay: Greater than 2 midnights. 16. Total time spent: 35 minutes. Job ID: [id number]
[2018-06-13] MEDS: Clindamycin/D5W 900 MG in Premix Bag 1 BAG IVPB SCH (21:58)
[2018-06-14] MEDS: HYDROcodone/Acetaminophen 5/325 mg Tablet PO PRN ×4 (04:35→20:11)
[2018-06-14] MEDS: Clindamycin/D5W 900 MG in Premix Bag 1 BAG IVPB SCH ×3 (06:03→20:06)
[2018-06-14] MEDS: Levothyroxine Sodium 25 MCG TAB PO SCH (06:03)
[2018-06-14 06:44] LABS: #Eosinphils 0.1 thou/uL (0.0-0.7); #Lymphocytes 0.8 thou/uL (1.20-3.40); #Monocytes 0.6 thou/uL (0.11-0.59); #Neutrophils 3.7 thou/uL (1.40-6.50); %Basophils 0.8 % (0.0-1.0); %Eosinophils 1.1 % (0.0-10.0); %Monocytes 11.2 % (0.0-10.0); %Neutrophils 70.9 % (42.0-75.0); Hemoglobin 11.1 g/dL (12.0-16.0); Mean Corpuscular HGB CONC 33.4 g/dL (32.0-36.0); Mean Corpuscular Hemoglobin 31.5 pg (27.0-31.0); Mean Corpuscular Volume 94.3 fL (78.0-98.0); Mean Platelet Volume 7.3 fL (7.4-10.4); Platelet Count 244 thou/uL (130-400); RBC Distribution Width 14.1 % (11.5-14.5); Red Blood Cell (RBC) Count 3.52 mill/uL (4.20-5.40); White Blood Cell (WBC) Count 5.2 thou/uL (4.8-10.8)
[2018-06-14 07:00] LABS: ALT (SGPT) 12 U/L (8-55); AST (SGOT) 16 U/L (5-34); Albumin 3.3 g/dL (3.4-4.8); Alkaline Phosphatase 108 U/L (40-150); Anion Gap 13 mmol/L (10-20); BUN (Urea Nitrogen) 17 mg/dL (9.8-20.1); Bilirubin, Total 1.1 mg/dL (0.2-1.2); Calc. Creatinine Clearance 20 mL/min (70-130); Calcium 8.8 mg/dL (7.8-10.44); Carbon Dioxide 27 mmol/L (23-31); Chloride 98 mmol/L (98-107); Estimated GFR-MDRD 16; Globulin 3.2 g/dL (2.4-3.5); Glucose 109 mg/dL (83-110); Potassium 3.8 mmol/L (3.5-5.1); Protein, Total 6.5 g/dL (6.0-8.3); Sodium 134 mmol/L (136-145)
[2018-06-14] MEDS: Amlodipine 10 MG TAB PO SCH (09:21)
[2018-06-14] MEDS: Aspirin 81 mg Enteric Coated Tablet PO SCH (09:21)
[2018-06-14] MEDS: Febuxostat 40 MG TAB PO SCH (09:22)
[2018-06-14] MEDS: Isosorbide Dinitrate 5 MG TAB PO SCH ×2 (09:22→20:05)
[2018-06-14] MEDS: Folic Acid 1 MG TAB PO SCH (09:22)
[2018-06-14] MEDS: Thiamine 100 MG TAB PO SCH (09:23)
[2018-06-14] MEDS: Lactinex Tablet PO SCH (09:23)
[2018-06-14] MEDS: Fluticasone Propionate Nasal Spray 16 gm Bottle NASAL SCH (10:01)
[2018-06-14] MEDS: Apixaban 2.5 MG TAB PO SCH ×2 (11:42→12:21)
--- NOTE | 2018-06-14 12:49 | PRG ---
DATE OF SERVICE: 06/14/2018 SUBJECTIVE: 83-year-old female being seen for end-stage kidney disease. The patient tolerates dialysis. Denies nausea, vomiting or chest pain. OBJECTIVE: CONSTITUTIONAL: The patient is awake and alert. VITAL SIGNS: Temperature afebrile, pulse 64, breathing 16, blood pressure 132/66. GENERAL APPEARANCE AND MENTAL STATUS: Fair. HEAD/NECK: Normocephalic. Atraumatic. EYES: EOMI. No deformity. EARS: Clear. No ulcers. NOSE: Intact. No lesions. MOUTH: Clear. No discharge. THROAT: Clear. No exudate. LUNGS: Clear. No crackles. CARDIAC: S1, S2. No rub. ABDOMEN: Benign. Bowel sounds positive. GENITALIA/RECTUM: Cabrera absent. BACK/EXTREMITIES: Edema 0+. NEUROLOGICAL: Alert and motor intact. SKIN: LYMPHATICS: LABS: Reviewed. ASSESSMENT AND PLAN: 1. Stage 6 chronic kidney, plan dialysis. 2. Hypertension, stable. 3. Anemia, stable. 4. Medication based on GFR appropriate. Job ID: [id number]
--- NOTE | 2018-06-14 13:59 | PDOC.PN ---
- Subjective Encounter Start Date: 06/14/18 Encounter Start Time: 11:00 CHIEF COMPLAINT: Right lower extremity pain, redness, black discoloration. HISTORY OF PRESENT ILLNESS: This is an 83-year-old female with history of end- stage renal disease, on hemodialysis; paroxysmal atrial fibrillation; Eliquis coagulopathy; essential hypertension; hypothyroidism; hyperlipidemia; hypertension; who comes in to the emergency department for complaints as above after sustaining a fall from her bed and hitting the inside part of her right lower extremity. She immediately developed a local hematoma with minimal improvement in the past few days. Additionally, she developed surrounding erythema, warmth, and severe pain. She came to the emergency department and was given antibiotics IV. Labs are fairly normal except for sodium 125 and creatinine being elevated, consistent with her end-stage renal disease. Subjective; patient seen and evaluated at bedside. refers less leg pain. Per nurse, no other acute event. ROS; all systems are reviewed and negative except for the ones mentioned above - Objective Resuscitation Status - Order Detail: 06/13/18 14:22 Resuscitation Status Routine Resuscitation Status: FULL: Full Resuscitation Discussed with: Patient MAR Reviewed: Yes Vital Signs & Weight: Vital Signs (12 hours) Temp Pulse Resp BP Pulse Ox 06/14/18 12:21 98 F 68 18 128/61 98 06/14/18 09:21 64 06/14/18 08:07 98.5 F 64 16 138/66 97 06/14/18 07:31 97 06/14/18 04:39 99.0 F 68 20 132/55 L Weight Admit Weight 181 lb 4.8 oz Weight 181 lb 11.2 oz I&O: 06/13/18 06/14/18 06/15/18 06:59 06:59 06:59 Intake Total 360 Output Total 325 Balance 35 Result Diagrams: 06/14/18 06:14 06/14/18 06:14 Radiology Reviewed by me: Yes EKG Reviewed by me: Yes Phys Exam - Physical Examination HEENT: PERRLA, moist MMs, oral pharynx no lesions Neck: no nodes, no JVD, supple, full ROM Right neck HD catheter Respiratory: no wheezing, no rales, no rhonchi, clear to auscultation bilateral Cardiovascular: RRR, no significant murmur, no rub Gastrointestinal: soft, non-tender, no distention, positive bowel sounds Musculoskeletal: no edema, pulses present Neurological: non-focal, normal sensation, moves all 4 limbs Psychiatric: normal affect, A&O x 3 Skin: normal turgor, cap refill <2 seconds Deviation from normal: RLE eschar with erythema Dx/Plan (1) Cellulitis of right leg Code(s): L03.115 - CELLULITIS OF RIGHT LOWER LIMB Status: Acute Plan: Surgical evaluation. Continue clinda (2) ESRD (end stage renal disease) on dialysis Code(s): N18.6 - END STAGE RENAL DISEASE; Z99.2 - DEPENDENCE ON RENAL DIALYSIS Status: Chronic Plan: Renal managing (3) Hyponatremia Code(s): E87.1 - HYPO-OSMOLALITY AND HYPONATREMIA Status: Chronic Plan: Improving (4) Atrial fibrillation Code(s): I48.91 - UNSPECIFIED ATRIAL FIBRILLATION Status: Chronic Qualifiers: Atrial fibrillation type: paroxysmal Qualified Code(s): I48.0 - Paroxysmal atrial fibrillation Plan: on sinus rhythm. continue telemetry and home meds (5) Chronic anticoagulation Code(s): Z79.01 - PARA OPERATOR (CURRENT) USE OF ANTICOAGULANTS Status: Chronic (6) Hypertension Code(s): I10 - ESSENTIAL (PRIMARY) HYPERTENSION Status: Chronic (7) Hypothyroidism Code(s): E03.9 - HYPOTHYROIDISM, UNSPECIFIED Status: Chronic (8) Anemia in chronic kidney disease Code(s): N18.9 - CHRONIC KIDNEY DISEASE, UNSPECIFIED; D63.1 - ANEMIA IN CHRONIC KIDNEY DISEASE Status: Chronic - Plan cont current plan of care CODE; FULL CORE; ELIQUIS DISP; TELEMETRY PROG; GUARDED CLINICAL STATUS; GUARDED EXPECTED DISCHARGE; 48 HOURS TOTAL TIME SPENT; 32 MINUTES DATE OF SERVICE; 06/14/2018
[2018-06-14] MEDS: Amiodarone 200 MG TAB PO SCH (20:06)
[2018-06-14] MEDS: Atorvastatin Calcium 20 MG TAB PO SCH (20:06)
--- NOTE | 2018-06-15 00:43 | CON ---
DATE OF CONSULTATION: 06/14/2018 SURGEON: Grant Harris DO CONSULTING PHYSICIAN: None. HISTORY OF PRESENT ILLNESS: Dr. Harris was asked to see the patient for evaluation of the right lower extremity cellulitis for possible indications to go to the OR. The patient reports hitting her leg about a week ago after sliding while getting off her bed. She reports a large hematoma on the anterior surface of the tib-fib with significant pain. She reports to the emergency department for increasing pain and a wound on her right medial aspect of her leg. She does report that the previous bruise and hematoma on the anterior surface has improved greatly. She denies fever, chills, nausea, vomiting, or diarrhea. REVIEW OF SYSTEMS: All additional 10-point review of systems negative except as indicated above. PAST MEDICAL HISTORY: End-stage renal disease, on dialysis; paroxysmal atrial fibrillation, on Eliquis; hypertension; hypothyroidism; hyperlipidemia. PAST SURGICAL HISTORY: Right upper chest dialysis catheter placement, peritoneal dialysis placement, appendectomy, hysterectomy. SOCIAL HISTORY: Denies tobacco, drug, or alcohol use. She lives independently alone. ALLERGIES: PENICILLIN AND ALLOPURINOL. PHYSICAL EXAMINATION: VITAL SIGNS: Temperature 97.8, pulse 68, respirations 18, oxygen saturation 98% on room air, blood pressure 116/56. GENERAL: Well-appearing elderly female, sitting up at edge of bed having a meal with no signs of acute distress. PULMONARY: Equal chest rise and fall. Clear breath sounds bilaterally. No signs of acute respiratory distress. A dialysis port to the right anterior chest wall. GASTROINTESTINAL: Soft, nontender, nondistended. PELVIS: Stable to palpation. GENITOURINARY: Deferred. EXTREMITIES: Right lower extremity erythematous about midway down the tib-fib with swelling in her right foot as well. There is about a 10 x 8 cm necrotic non-open wound to her right medial tib-fib. There is a tiny bit of oozing at the most distal portion of that necrotic area. There are no signs of abscess forming. There is a light, small amount of bogginess on the most superior portion of the area of erythema. There is no purulent discharge noted. The patient reports that pain has significantly improved over the past 24 hours. She also has some erythema slightly with dry skin on the left anterior tib-fib with swelling of the left lower extremity as well. Pulses are present bilaterally in the lower extremities as well as the bilateral upper extremities. BACK/SPINE: No step-offs or deformities or tenderness. NEURO: GCS is 15. No gross deficits. LABORATORY FINDINGS: White count 5.2, hemoglobin 11.1, hematocrit 33.2, platelets 244. Sodium 135, potassium 3.8, chloride 98, carbon dioxide 27, BUN of 17, creatinine 2.77, glucose 109, lactic acid 0.6, albumin 3.3. DIAGNOSTIC FINDINGS: There are no diagnostic findings to report. ASSESSMENT: Right lower extremity cellulitis without the appearance of an abscess. RECOMMENDATIONS: Continue wound care to the area and mobilizing patient. Continue to monitor for signs of worsening infection and abscess formation. There appears to be no abscess at this time. Continue antibiotic regimen as previously prescribed. Surgery will see the patient again tomorrow for re-evaluation by Dr. Harris and myself. The patient was discussed with Dr. Harris before this dictation. Job ID: [id number]
[2018-06-15] MEDS: Levothyroxine Sodium 25 MCG TAB PO SCH (05:47)
[2018-06-15] MEDS: Clindamycin/D5W 900 MG in Premix Bag 1 BAG IVPB SCH ×3 (05:47→20:50)
[2018-06-15 06:48] LABS: #Eosinphils 0.1 thou/uL (0.0-0.7); #Lymphocytes 1.3 thou/uL (1.20-3.40); #Monocytes 0.4 thou/uL (0.11-0.59); #Neutrophils 3.5 thou/uL (1.40-6.50); %Basophils 0.5 % (0.0-1.0); %Eosinophils 1.8 % (0.0-10.0); %Lymphocytes 24.1 % (21.0-51.0); %Monocytes 7.7 % (0.0-10.0); Hemoglobin 10.5 g/dL (12.0-16.0); Mean Corpuscular HGB CONC 32.2 g/dL (32.0-36.0); Mean Corpuscular Hemoglobin 31.5 pg (27.0-31.0); Mean Corpuscular Volume 97.8 fL (78.0-98.0); Mean Platelet Volume 7.4 fL (7.4-10.4); Platelet Count 234 thou/uL (130-400); RBC Distribution Width 14.4 % (11.5-14.5); Red Blood Cell (RBC) Count 3.33 mill/uL (4.20-5.40); White Blood Cell (WBC) Count 5.4 thou/uL (4.8-10.8)
[2018-06-15 07:30] LABS: ALT (SGPT) 7 U/L (8-55); AST (SGOT) 15 U/L (5-34); Albumin 3.1 g/dL (3.4-4.8); Alkaline Phosphatase 100 U/L (40-150); Anion Gap 13 mmol/L (10-20); BUN (Urea Nitrogen) 30 mg/dL (9.8-20.1); Bilirubin, Total 0.7 mg/dL (0.2-1.2); Calc. Creatinine Clearance 13 mL/min (70-130); Calcium 8.9 mg/dL (7.8-10.44); Carbon Dioxide 27 mmol/L (23-31); Chloride 96 mmol/L (98-107); Estimated GFR-MDRD 10; Globulin 3.2 g/dL (2.4-3.5); Glucose 114 mg/dL (83-110); Potassium 3.9 mmol/L (3.5-5.1); Protein, Total 6.3 g/dL (6.0-8.3); Sodium 132 mmol/L (136-145)
[2018-06-15] MEDS ORDERED: Heparin 10,000 UNITS/ 10 ML VIAL ONE (09:00)
[2018-06-15] MEDS: Febuxostat 40 MG TAB PO SCH (09:06)
[2018-06-15] MEDS: Lactinex Tablet PO SCH (09:07)
[2018-06-15] MEDS: Folic Acid 1 MG TAB PO SCH (09:08)
[2018-06-15] MEDS: Amlodipine 10 MG TAB PO SCH (09:08)
[2018-06-15] MEDS: Thiamine 100 MG TAB PO SCH (09:08)
[2018-06-15] MEDS: Isosorbide Dinitrate 5 MG TAB PO SCH ×2 (09:08→20:50)
[2018-06-15] MEDS: Fluticasone Propionate Nasal Spray 16 gm Bottle NASAL SCH (09:08)
[2018-06-15] MEDS: Aspirin 81 mg Enteric Coated Tablet PO SCH (09:08)
[2018-06-15] MEDS: HYDROcodone/Acetaminophen 5/325 mg Tablet PO PRN ×3 (09:13→21:55)
[2018-06-15] MEDS: Apixaban 2.5 MG TAB PO SCH (11:18)
--- NOTE | 2018-06-15 11:48 | PDOC.PN ---
- Subjective Encounter Start Date: 06/15/18 Encounter Start Time: 07:30 CC: right leg pain SUBJECTIVE; PATIENT SEEN AND EVALUATED. NO ACUTE COMPLAINTS. PER NURSE, PENDING EVALUATION BY SURGEON. PATIENT NPO. NO OTHER ACUTE EVENTS. ROS; ALL SYSTEMS ARE REVIEWED AND NEGATIVE EXCEPT FOR THE ONES MENTIONED ABOVE - Objective Resuscitation Status - Order Detail: 06/13/18 14:22 Resuscitation Status Routine Resuscitation Status: FULL: Full Resuscitation Discussed with: Patient MAR Reviewed: Yes Vital Signs & Weight: Vital Signs (12 hours) Temp Pulse Resp BP BP Pulse Ox 06/15/18 11:22 96.8 F L 72 18 152/67 H 06/15/18 09:08 64 06/15/18 08:00 97 F L 64 18 152/69 H 93 L 06/15/18 04:55 97.5 F L 67 16 130/68 95 06/15/18 00:05 98.1 F 63 16 114/59 L 93 L Weight Admit Weight 181 lb 4.8 oz Weight 181 lb 4.8 oz I&O: 06/14/18 06/15/18 06/16/18 06:59 06:59 06:59 Intake Total 360 1485 Output Total 325 200 Balance 35 1285 Result Diagrams: 06/15/18 06:20 06/15/18 06:20 Radiology Reviewed by me: Yes EKG Reviewed by me: Yes Phys Exam - Physical Examination HEENT: PERRLA, moist MMs, sclera anicteric Neck: no nodes, no JVD, supple Respiratory: no wheezing, no rales, no rhonchi, clear to auscultation bilateral Cardiovascular: RRR, no significant murmur, no rub Gastrointestinal: soft, non-tender, no distention Musculoskeletal: pulses present RLE ERYTHEMA IMPROVING. ESCHAR. TENDER Neurological: non-focal, normal sensation, moves all 4 limbs Psychiatric: normal affect, A&O x 3 Skin: normal turgor, cap refill <2 seconds Deviation from normal: RLE ESCHAR WITH ERYTHEMA AND PAIN. PALLOR Dx/Plan (1) Cellulitis of right leg Code(s): L03.115 - CELLULITIS OF RIGHT LOWER LIMB Status: Acute Plan: CONTINUE CLINDA. AWAIT RECOMMENDATIONS BY GENERAL SURGERY (2) ESRD (end stage renal disease) on dialysis Code(s): N18.6 - END STAGE RENAL DISEASE; Z99.2 - DEPENDENCE ON RENAL DIALYSIS Status: Chronic Plan: CONTINUE DIALYSIS PER RENAL (3) Hyponatremia Code(s): E87.1 - HYPO-OSMOLALITY AND HYPONATREMIA Status: Chronic Plan: UNCHANGED (4) Atrial fibrillation Code(s): I48.91 - UNSPECIFIED ATRIAL FIBRILLATION Status: Chronic Qualifiers: Atrial fibrillation type: paroxysmal Qualified Code(s): I48.0 - Paroxysmal atrial fibrillation Plan: CURRENTLY IN SINUS RHYTHM (5) Chronic anticoagulation Code(s): Z79.01 - WET POUR SUPERVISOR (CURRENT) USE OF ANTICOAGULANTS Status: Chronic Plan: ELIQUIS (6) Hypertension Code(s): I10 - ESSENTIAL (PRIMARY) HYPERTENSION Status: Chronic Qualifiers: Hypertension type: essential hypertension Qualified Code(s): I10 - Essential (primary) hypertension (7) Hypothyroidism Code(s): E03.9 - HYPOTHYROIDISM, UNSPECIFIED Status: Chronic (8) Anemia in chronic kidney disease Code(s): N18.9 - CHRONIC KIDNEY DISEASE, UNSPECIFIED; D63.1 - ANEMIA IN CHRONIC KIDNEY DISEASE Status: Chronic Qualifiers: Chronic kidney disease stage: on chronic dialysis Qualified Code(s): N18.6 - End stage renal disease; D63.1 - Anemia in chronic kidney disease; Z99.2 - Dependence on renal dialysis - Plan cont current plan of care CONTINUE CLINDAMYCIN. PENDING FINAL SURGICAL RECS. PAIN CONTROL CODE; FULL CORE; ELIQUIS DISP; TELEMETRY PROG; GUARDED CLINICAL STATUS; GUARDED EXPECTED DISCHARGE; TBD TOTAL TIME SPENT; 28 MINUTES DATE OF SERVICE; 06/15/2018
--- NOTE | 2018-06-15 13:21 | PRG ---
DATE OF SERVICE: 06/15/2018 SUBJECTIVE: An 83-year-old female being seen for end-stage kidney disease. The patient denied nausea, vomiting, or chest pain. OBJECTIVE: CONSTITUTIONAL: The patient is awake and alert. VITAL SIGNS: Afebrile, pulse 72, breathing 16, and blood pressure 130/68. GENERAL APPEARANCE AND MENTAL STATUS: Fair. HEAD/NECK: Normocephalic. Atraumatic. EYES: EOMI. No deformity. EARS: Clear. No ulcers. NOSE: Intact. No lesions. MOUTH: Clear. No discharge. THROAT: Clear. No exudate. LUNGS: Clear. No crackles. CARDIAC: S1, S2. No rub. ABDOMEN: Benign. Bowel sounds positive. GENITALIA/RECTUM: Cabrera absent. BACK/EXTREMITIES: Edema 0+. NEUROLOGICAL: Alert and motor intact. SKIN: LYMPHATICS: General: Physical exam. LABORATORY DATA: Reviewed. ASSESSMENT AND PLAN: 1. Stage 6 chronic kidney disease. Continue hemodialysis. 2. Hypertension, stable. 3. Anemia, stable. 4. Medication based on GFR appropriate. Job ID: [id number]
--- NOTE | 2018-06-15 15:13 | PRG ---
DATE OF SERVICE: 06/15/2018 SUBJECTIVE: The patient was seen this morning on rounds with Dr. Harris. Reported pain is well controlled and having no new complaints. Dressing is clean, dry, and in place, and is not saturated overnight. She is tolerating a regular diet, ambulating with assistance. Denies nausea, vomiting, and diarrhea at this time. Denies fevers, as well. OBJECTIVE: VITAL SIGNS: Temperature 97, pulse 64, respirations are 18, oxygen 93% on room air, and blood pressure 152/69. GENERAL: Well-appearing female, sitting up in bed with no signs of acute distress. PULMONARY: Equal chest rise and fall. Clear breath sounds bilaterally. No signs of acute respiratory distress. Dialysis port to right anterior chest wall. GI: Abdomen is soft, nontender, and nondistended. PELVIS: Stable to palpation. EXTREMITIES: Right lower extremity erythematous with about midway down the tib-fib with swelling in her right foot as well. There is about 8 x 10 cm eschar, which is a non open wound on her right medial tib-fib. There is a small bit of oozing at the most posterior portion of the eschar area. There is no sign of abscess formation. There is a small amount of bogginess at the most superior portion of the erythematous area. There is no purulent discharge noted. Pain is improved. Continues to improve. Pulses are present bilaterally as well as bilateral upper extremities. NEUROLOGIC: GCS is 15. No gross motor deficits. LABORATORY FINDINGS: White count 5.4, hemoglobin 10.5, hematocrit 32.6, and platelets are 234. Sodium 132, potassium 3.9, chloride 96, carbon dioxide 29, BUN 30, creatinine 4.30, and glucose 114. DIAGNOSTIC FINDINGS: There are no new diagnostic findings to report. ASSESSMENT: Right lower extremity cellulitis without the appearance of an abscess. RECOMMENDATIONS: Right lower extremity cellulitis does not appear to have an abscess at this time. No acute indications for surgical intervention at this time. Continue to monitor for abscess. Continue wound care and antibiotics as previously ordered. Please reconsult Surgical Team if concern for worsening infection or formation of an abscess. We will sign off at this time. The patient was seen and examined by Dr. Harris, this morning during rounds. Job ID: [id number]
[2018-06-15] MEDS: Atorvastatin Calcium 20 MG TAB PO SCH (20:50)
[2018-06-15] MEDS: Amiodarone 200 MG TAB PO SCH (20:50)
[2018-06-16] MEDS: HYDROcodone/Acetaminophen 5/325 mg Tablet PO PRN ×2 (04:05→08:04)
[2018-06-16 05:58] LABS: #Eosinphils 0.1 thou/uL (0.0-0.7); #Lymphocytes 1.2 thou/uL (1.20-3.40); #Monocytes 0.5 thou/uL (0.11-0.59); #Neutrophils 2.7 thou/uL (1.40-6.50); %Basophils 0.9 % (0.0-1.0); %Eosinophils 2.9 % (0.0-10.0); %Lymphocytes 26.7 % (21.0-51.0); %Monocytes 10.3 % (0.0-10.0); %Neutrophils 59.2 % (42.0-75.0); Hemoglobin 10.5 g/dL (12.0-16.0); Mean Corpuscular HGB CONC 32.1 g/dL (32.0-36.0); Mean Corpuscular Hemoglobin 31.5 pg (27.0-31.0); Platelet Count 244 thou/uL (130-400); RBC Distribution Width 14.2 % (11.5-14.5); Red Blood Cell (RBC) Count 3.33 mill/uL (4.20-5.40); White Blood Cell (WBC) Count 4.6 thou/uL (4.8-10.8)
[2018-06-16] MEDS: Clindamycin/D5W 900 MG in Premix Bag 1 BAG IVPB SCH (06:13)
[2018-06-16] MEDS: Levothyroxine Sodium 25 MCG TAB PO SCH (06:13)
[2018-06-16 06:29] LABS: ALT (SGPT) 11 U/L (8-55); AST (SGOT) 19 U/L (5-34); Albumin 3.3 g/dL (3.4-4.8); Alkaline Phosphatase 97 U/L (40-150); Anion Gap 15 mmol/L (10-20); BUN (Urea Nitrogen) 13 mg/dL (9.8-20.1); Bilirubin, Total 0.6 mg/dL (0.2-1.2); Calc. Creatinine Clearance 28 mL/min (70-130); Calcium 9.1 mg/dL (7.8-10.44); Carbon Dioxide 26 mmol/L (23-31); Chloride 98 mmol/L (98-107); Estimated GFR-MDRD 23; Globulin 3.3 g/dL (2.4-3.5); Glucose 102 mg/dL (83-110); Potassium 3.6 mmol/L (3.5-5.1); Protein, Total 6.6 g/dL (6.0-8.3); Sodium 135 mmol/L (136-145)
[2018-06-16] MEDS: Thiamine 100 MG TAB PO SCH (08:05)
[2018-06-16] MEDS: Isosorbide Dinitrate 5 MG TAB PO SCH (08:05)
[2018-06-16] MEDS: Amlodipine 10 MG TAB PO SCH (08:06)
[2018-06-16] MEDS: Aspirin 81 mg Enteric Coated Tablet PO SCH (08:06)
[2018-06-16] MEDS: Folic Acid 1 MG TAB PO SCH (08:06)
[2018-06-16] MEDS: Fluticasone Propionate Nasal Spray 16 gm Bottle NASAL SCH (08:08)
[2018-06-16] MEDS: Lactinex Tablet PO SCH (08:08)
[2018-06-16] MEDS: Apixaban 2.5 MG TAB PO SCH (08:08)
[2018-06-16] MEDS: Febuxostat 40 MG TAB PO SCH (08:09)
--- NOTE | 2018-06-16 12:26 | PRG ---
DATE OF SERVICE: 06/16/2018 SUBJECTIVE: An 83-year-old female being seen for end-stage renal disease. The patient denied nausea, vomiting, or chest pain. OBJECTIVE: CONSTITUTIONAL: The patient is awake and alert. VITAL SIGNS: Afebrile, pulse 61, breathing 16, and blood pressure 125/59. GENERAL APPEARANCE AND MENTAL STATUS: Fair. HEAD/NECK: Normocephalic. Atraumatic. EYES: EOMI. No deformity. EARS: Clear. No ulcers. NOSE: Intact. No lesions. MOUTH: Clear. No discharge. THROAT: Clear. No exudate. LUNGS: Clear. No crackles. CARDIAC: S1, S2. No rub. ABDOMEN: Benign. Bowel sounds positive. GENITALIA/RECTUM: Cabrera absent. BACK/EXTREMITIES: Edema 0+. NEUROLOGICAL: Alert and motor intact. SKIN: LYMPHATICS: LABORATORY DATA: Reviewed. ASSESSMENT AND PLAN: 1. Stage 6 chronic kidney disease. Plan, dialysis. 2. Hypertension, stable. 3. Anemia, stable. 4. Medication based on GFR appropriate. Job ID: [id number]
[2018-06-16 13:39] VITALS: BP 153/71; TEMP 97.2
--- NOTE | 2018-06-16 23:53 | DIS ---
DATE OF ADMISSION: 06/13/2018 DATE OF DISCHARGE: 06/16/2018 ADMITTING PHYSICIAN: Dr. Bowser. PRIMARY CARE PHYSICIAN: Dr. Ubaldo Sands. ADMITTING DIAGNOSES: 1. Right lower extremity cellulitis. 2. End-stage renal disease, on hemodialysis. 3. Hyponatremia. 4. Essential hypertension. 5. Chronic illness, anemia of kidney disease. 6. Chronic dyslipidemia. 7. Chronic hypothyroidism. 8. Paroxysmal atrial fibrillation. 9. Eliquis coagulopathy. DISCHARGE DIAGNOSES: 1. Right lower extremity cellulitis. 2. End-stage renal disease, on hemodialysis. 3. Hyponatremia, resolved. 4. Essential hypertension. 5. Chronic illness, anemia of kidney disease. 6. Chronic dyslipidemia. 7. Chronic hypothyroidism. 8. Paroxysmal atrial fibrillation. 9. Eliquis coagulopathy. CONSULTS: Nephrology and general surgeon. PROCEDURES: Inpatient hemodialysis. She did not require surgical debridement. SPECIAL IMAGING: None. HOSPITAL COURSE: This is an 83-year-old female with history as mentioned above, who had trauma to the right lower extremity causing a local hematoma, but then developed worsening erythema, pain, and edema as well as a large eschar. She came to the emergency room for evaluation. Vital signs were stable. No sepsis criteria identified. The patient was admitted for inpatient care and IV antibiotics. She received 2 sessions of inpatient hemodialysis schedule. General surgeon was consulted and no surgical intervention was required. We will arrange home health for wound care and continue oral clindamycin for 10 more days. She was encouraged to return if appearance of the lower extremity worsened. She will be discharged home today. PHYSICAL EXAMINATION: VITAL SIGNS: Blood pressure 144/64, pulse 61, respirations 14, oxygen saturation 95% on room air, temperature 97.5 Fahrenheit. GENERAL: She appears in no distress. She is awake, alert, oriented x3. HEAD AND NECK: Pupils are reactive to light. Extraocular muscles are intact. Mucous membranes are moist. Neck is supple. CARDIOVASCULAR: Rhythm and rate are regular. No audible murmurs, rubs, or gallops. PULMONARY: Clear to auscultation bilaterally. No wheezes, rhonchi, or crackles. ABDOMEN: Soft, nontender, nondistended. Positive bowel sounds. EXTREMITIES: Right lower extremity erythema, edema, and eschar appeared to be clinically improving. Range of motion is intact. Capillary refill is less than 3 seconds. SKIN: Cellulitis of the right lower extremity as mentioned above. Generalized pallor. NEUROLOGIC: Cranial nerves 2 through 12 are grossly intact. Deep tendon reflexes are normoreflexic. LABORATORY ABNORMALITIES: Creatinine is 2.04. Hemoglobin 10.5, hematocrit 32.7. DISCHARGE DISPOSITION: Home with home health for wound care. DISCHARGE CONDITION: Fair. DISCHARGE DIET: Renal diet as tolerated. ACTIVITY: Increase activity as tolerated. Avoid soaking the right lower extremity. DISCHARGE MEDICATIONS: See medical reconciliation for details. DISCHARGE FOLLOWUP: With primary care physician in 1-2 weeks. DISCHARGE INSTRUCTIONS: The patient was instructed to return to the emergency department if symptoms are worrisome. Take her medications as directed and not to miss any appointments. TIME OF DISCHARGE AND PLANNIN minutes. Job ID: [id number]
== END 2018-06-16 13:52 | disposition home health service (06) | DRG 602 ==
LOC: ERS 11:34 → ERHOLD 13:10 → 2NO 16:00
PROVIDERS: ADMIT Internal Medicine; ATTEND Internal Medicine
PROC: 5A1D70Z Performance of Urinary Filtration, Intermittent, Less than 6 Hours Per Day (ICD-10-PCS; principal; 2018-06-13)
DX: L03.115 Cellulitis of right lower limb (principal); N18.6 End stage renal disease; I12.0 Hypertensive chronic kidney disease with stage 5 chronic kidney disease or end stage renal disease; E87.1 Hypo-osmolality and hyponatremia; D63.1 Anemia in chronic kidney disease; I48.0 Paroxysmal atrial fibrillation; E78.00 Pure hypercholesterolemia, unspecified; F32.9 Major depressive disorder, single episode, unspecified; E03.9 Hypothyroidism, unspecified; Z90.710 Acquired absence of both cervix and uterus; Z99.2 Dependence on renal dialysis; Z90.49 Acquired absence of other specified parts of digestive tract; Z87.891 Personal history of nicotine dependence; Z88.8 Allergy status to other drugs, medicaments and biological substances; Z88.0 Allergy status to penicillin; Z79.82 Long term (current) use of aspirin; Z79.01 Long term (current) use of anticoagulants; Z79.899 Other long term (current) drug therapy
CPT/HCPCS: 36415; 80053; 83605; 85025; 87040; 96361; 96365; 96375; J1644; J2270; J2543; J3370; J3490

== ENCOUNTER 2018-08-26 07:07 | Day surgery (SDC) | payer MEDICARE, OTHER ==
[2018-08-26 10:47] VITALS: BP 151/70; TEMP 98; BMI 30.8
[2018-08-26] MEDS ORDERED: Heparin 1,000 UNITS/ML VIAL ONE (11:11)
--- NOTE | 2018-08-26 13:22 | SPC ---
EXAM: [facility] [place] INTRO CATH DIALY CIRC/AV S PROVIDED CLINICAL HISTORY: Non maturing left upper extremity arteriovenous dialysis fistula in a patient with end-stage renal di satya. Fluoroscopy: Fluoroscopy time: 2.4 minutes Dose: 6360 mGy centimeter squared COMPARISON: None TECHNIQUE: The procedure including the risks and complications were explained to the patient, and informed conse nt was obtained. Patient was placed on the angiography table in the supine position. The left upper extremity was evaluated with ultrasound. The left upper extremity was then meticulously prepped and d raped in usual sterile fashion. The skin and subcutaneous tissues were infiltrated with buffered 1% lidocaine for local anesthesia at the intended puncture site. The arteriovenous dialysis fistula was accessed in the venous direction utilizing micropuncture techn ique, and a 5 Norwegian introducer catheter was placed. A fistulogram and venogram to the SVC were performed. Manual compression was applied to the venous outflow, and contrast is injected refluxing t he arterial venous anastomosis. Introducer sheath was exchanged over a 0.035 inch BusyFlowson guidewire for a 5 Norwegian vascular sheath. A 6 mm diameter followed by 7 mm x 4 cm diameter angioplasty balloons were placed across a focal area of severe narrowing in the proximal venous outflow. Angioplasty was performed. Improved luminal diameter and flow was noted post angioplasty. The waist within the angioplasty balloon resolved with full inflation. The angioplasty balloon as well as sheath were removed, and hemostasis was achieved with direct press ure. A dry sterile dressing was placed at puncture site. Patient was transported to radiology nurses holding for further monitoring prior to discharge. Patient tolerated the procedure well withou t immediate complication. FINDINGS: A focal severe stenosis is seen within the proximal cephalic vein outflow of the left upper to mid ar teriovenous dialysis fistula. ELECTRIC POWER SUPERINTENDENT was performed up to 7 mm in diameter with improved luminal diameter in this region as well as improvement in flow. Remainder of the cephalic vein outflow is pat ent; although, the more distal cephalic vein at the level of the axilla is generally small in caliber but does not appear flow limiting. The arteriovenous anastomosis appears overall patent. The central veins also appear patent. A tunnele d right internal jugular vein hemodialysis catheter is noted in place. IMPRESSION: 1. Focal severe stenosis in the proximal cephalic vein outflow of the left upper extremity arterioven ous dialysis fistula. Angioplasty up to 7 mm diameter was performed with improvement in luminal diameter as well as flow throughout the fistula. The narrowing does persist, but there is improved fl ow.
== END 2018-08-26 11:05 | disposition home or self-care (01) ==
LOC: SPEC 07:07
PROVIDERS: ATTEND Specialist
PROC: 02HV33Z Insertion of Infusion Device into Superior Vena Cava, Percutaneous Approach (ICD-10-PCS; principal; 2018-08-26)
PROC: B51W1ZZ Fluoroscopy of Dialysis Shunt/Fistula using Low Osmolar Contrast (ICD-10-PCS; 2018-08-26)
DX: N18.6 End stage renal disease (principal); I87.1 Compression of vein; Z99.2 Dependence on renal dialysis; Z88.0 Allergy status to penicillin; Z88.8 Allergy status to other drugs, medicaments and biological substances; Z79.82 Long term (current) use of aspirin; Z79.01 Long term (current) use of anticoagulants; Z79.899 Other long term (current) drug therapy
CPT/HCPCS: 36901; C1725 ×2

== ENCOUNTER 2018-11-07 06:22 | Observation (INO) | payer MEDICARE, OTHER ==
[2018-11-07] MEDS ORDERED: Morphine 4 MG/ML VIAL ONE (06:51)
[2018-11-07 06:57] LABS: #Basophils 0.1 thou/uL (0.0-0.2); #Lymphocytes 1.4 thou/uL (1.20-3.40); #Monocytes 0.6 thou/uL (0.11-0.59); #Neutrophils 7.7 thou/uL (1.40-6.50); %Basophils 0.6 % (0.0-1.0); %Eosinophils 0.4 % (0.0-10.0); %Monocytes 6.4 % (0.0-10.0); %Neutrophils 78.5 % (42.0-75.0); Hemoglobin 10.9 g/dL (12.0-16.0); Mean Corpuscular HGB CONC 34.4 g/dL (32.0-36.0); Mean Corpuscular Hemoglobin 32.1 pg (27.0-31.0); Mean Corpuscular Volume 93.3 fL (78.0-98.0); Platelet Count 313 thou/uL (130-400); RBC Distribution Width 12.6 % (11.5-14.5); Red Blood Cell (RBC) Count 3.41 mill/uL (4.20-5.40); White Blood Cell (WBC) Count 9.8 thou/uL (4.8-10.8)
[2018-11-07 07:19] LABS: ALT (SGPT) 10 U/L (8-55); AST (SGOT) 15 U/L (5-34); Alkaline Phosphatase 109 U/L (40-150); Anion Gap 19 mmol/L (10-20); BUN (Urea Nitrogen) 42 mg/dL (9.8-20.1); Bilirubin, Total 0.6 mg/dL (0.2-1.2); Calc. Creatinine Clearance 0 mL/min (70-130); Calcium 9.1 mg/dL (7.8-10.44); Carbon Dioxide 22 mmol/L (23-31); Chloride 90 mmol/L (98-107); Estimated GFR-MDRD 9; Globulin 3.5 g/dL (2.4-3.5); Glucose 126 mg/dL (83-110); Potassium 5.9 mmol/L (3.5-5.1); Protein, Total 7.5 g/dL (6.0-8.3); Sodium 125 mmol/L (136-145)
[2018-11-07] MEDS ORDERED: Calcium Chloride 1 GM/10 ML Abboject SYRINGE ONE ×2 (07:37→07:52)
--- NOTE | 2018-11-07 09:21 | RAD ---
PORTABLE UPRIGHT FRONTAL CHEST RADIOGRAPH: Date: 11/07/18 COMPARISON: 04/22/18. HISTORY: Chest tightness and shortness of breath. FINDINGS: Mild pulmonary vascular congestion and nonspecific diffuse interstitial prominence. Dialysis catheter has been removed since the prior exam. There is stable atherosclerotic calcification of the aortic a rch. IMPRESSION: Mild pulmonary vascular congestion with diffuse interstitial prominence. Interstitial opacity may be chronic in nature, but a mild degree of interstitial pulmonary edema cannot be excluded. POS: OFF
[2018-11-07] MEDS ORDERED: Senokot S 8.6-50 MG TAB PO PRN (09:55)
[2018-11-07] MEDS ORDERED: Ondansetron ODT 4 MG TAB PO PRN (09:55)
[2018-11-07] MEDS ORDERED: Acetaminophen 325 MG TAB PO PRN (09:55)
[2018-11-07] MEDS ORDERED: Ondansetron PF 4 MG/2 ML Vial IVP PRN (09:55)
[2018-11-07] MEDS ORDERED: Calcium Carbonate 500 MG ChewTAB PO PRN (09:55)
[2018-11-07 10:26] LABS: HBSAg Index 0.75 S/CO (0-0.99); Hep B Core Total Ab Non-Reactive (NonReactive); Hep B Core Total Index 0.05 S/CO (0-0.79); Hep B Surf Ag Non-Reactive S/CO (NonReactive); Hep C IgG Ab Non-Reactive (NonReactive); Hep C Index 0.06 S/CO (0-0.79)
[2018-11-07 10:32] LABS: Hep B Surf AB Reactive (NonReactive)
[2018-11-07 10:40] LABS: Troponin I Less than 0.010 ng/mL (< 0.028)
--- NOTE | 2018-11-07 12:00 | HP ---
PRIMARY CARE PHYSICIAN: Dr. Sands. CHIEF COMPLAINT: Chest tightness and shortness of breath. HISTORY OF PRESENT ILLNESS: Ms. Crane is an 83-year-old female with past medical history of end-stage renal disease, on dialysis, Wednesday, Wednesday, and Wednesday; chronic CHF; paroxysmal atrial fibrillation; hypertension; hyperlipidemia; chronic knee and back pain, who had presented to [facility] after being transferred from an outside [place] ED late last night due to feeling short of breath that started last night. She states that after supper she had developed some heartburn and reflux, she states that she usually takes Tums for this; however, she had ran out. She states that she had tried to fall sleep; however, she had woken up during the middle of the night and wanted to be seen, therefore she was seen at a [place] ED. Her lab work indicated a normal troponin of less than 0.010; however, she did have an elevated BNP of 1104.5, which appears to be around her baseline. Her BUN and creatinine were also elevated at 42 and 4.47 respectively, which was consistent around her baseline. She states that she had missed dialysis Wednesday due to overall not feeling well; however, she did have a run of dialysis on Wednesday morning, which she states that they had taken off roughly 4 L of fluid. Now, she states that she is feeling better; however, noticed symptoms returned late last night and she felt short of breath. She was seen by myself after she was transferred to [facility] and is currently undergoing dialysis. She is now asymptomatic, and had denied any fever or chills; any headache, blurred vision, or dizziness; any chest pain, palpitations, shortness of breath, abdominal pain, nausea, or vomiting. She had also denied any urine changes or change with her stool. She states that her primary weed cooking operator is Dr. Angel, who is also following while she is here for any further dialysis needs. REVIEW OF SYSTEMS: All other systems were reviewed and found to be negative unless mentioned in the HPI. PAST MEDICAL HISTORY: Hypertension, hyperlipidemia, hypothyroidism, chronic CHF, paroxysmal atrial fibrillation, and end-stage renal disease, on dialysis, Wednesday, Wednesday, and Wednesday. PAST SURGICAL HISTORY: Appendectomy, hysterectomy, and dialysis fistula, left upper arm. PAST PSYCHIATRIC HISTORY: Anxiety and depression. SOCIAL HISTORY: The patient reports drinking socially roughly once a month; however, denies any tobacco or illicit drug use. She states that she was a former smoker and quit more than 30 years ago. KNOWN ALLERGIES: Allopurinol and penicillins. CURRENT HOME MEDICATIONS: 1. Aspirin 81 mg daily. 2. Apixaban 2.5 mg oral daily. 3. Amlodipine 10 mg oral daily. 4. Amiodarone 200 mg oral daily. 5. Atorvastatin 20 mg oral at bedtime. 6. Hydrocodone/acetaminophen 10/325 mg oral every 6 hours as needed for pain. 7. Isosorbide dinitrate 10 mg oral b.i.d. 8. Levothyroxine 50 mcg p.o. daily. 9. Paroxetine 20 mg oral daily. 10. Thiamine 100 mg oral daily. 11. Guaifenesin 600 mg oral daily as needed for cough. 12. Folic acid 1 mg p.o. daily. 13. Folic acid-vitamin B complex and C one tab oral daily. 14. Fluticasone one spray intranasally as needed. PHYSICAL EXAMINATION: VITAL SIGNS: BP 148/80, pulse 62, respirations 18, temperature 97.8, O2 saturation 96% on 3 L of oxygen via nasal cannula. GENERAL: The patient is awake, alert, and oriented x3. She is currently lying comfortably in bed and is currently undergoing hemodialysis via fistula. HEENT: Atraumatic and normocephalic. Pupils are round and reactive to light. Extraocular muscles intact. Moist mucous membranes noted. NECK: Soft. Supple. Trachea midline. CARDIOVASCULAR: Positive S1 and S2. Regular rate and rhythm. No murmur auscultated. RESPIRATORY: Clear to auscultation bilaterally. Diminished breath sounds heard at the bases. No wheezing, no rhonchi, no rales. ABDOMEN: Soft, nontender. Bowel sounds present. MUSCULOSKELETAL: Strength 5+ bilaterally upper and lower extremities. Moves all extremities equal. Pedal and radial pulses 2+ bilaterally. 1+ edema noted, bilateral lower extremities. AV fistula noted, left upper extremity with good bruit and thrill. NEUROLOGIC: Cranial nerves 2 through 12 grossly intact. No focal deficits noted. Speech intact and normal. Gait not assessed. SKIN: Warm, dry, and intact. No rash or ulceration noted. PSYCHIATRIC: Good mood and affect. LABORATORY DATA: WBC 9.8, RBC 3.41, hemoglobin 10.9, hematocrit 31.8, platelet 313. Sodium 125, potassium 5.9, anion gap 19, BUN 42, creatinine 4.47, estimated GFR 9, glucose 126. Troponin less than 0.010. BNP 1104.5. DIAGNOSTIC IMAGING STUDIES: Portable chest x-ray showed mild pulmonary vascular congestion with diffuse interstitial prominence. ASSESSMENT/PLAN: 1. Fluid overload with history of chronic congestive heart failure and end-stage renal disease, on dialysis. She will continue her dialysis schedule Wednesday, Wednesday, Wednesday throughout the hospital course, and Dr. Angel is also consulted. We will obtain an echocardiogram to assess cardiac function. She will be restarted on her home medications. 2. History of hypertension, currently stable. 3. Hyperlipidemia. Continue on statin. 4. Hypothyroidism. Continue home dose of Synthroid. We will check a TSH. 5. Paroxysmal atrial fibrillation. Continue on home regimen. Currently in sinus rhythm. 6. Deep venous thrombosis and gastrointestinal prophylaxis. 7. Code status, full code. 8. Surrogate decision maker is her son, Seun. 9. Disposition pending further workup and clinical findings. Job ID: [id number]
[2018-11-07 13:28] LABS: ALT (SGPT) 12 U/L (8-55); AST (SGOT) 16 U/L (5-34); Albumin 4.2 g/dL (3.4-4.8); Alkaline Phosphatase 120 U/L (40-150); Anion Gap 12 mmol/L (10-20); BUN (Urea Nitrogen) 8 mg/dL (9.8-20.1); Bilirubin, Total 0.9 mg/dL (0.2-1.2); Calc. Creatinine Clearance 0 mL/min (70-130); Calcium 9.7 mg/dL (7.8-10.44); Carbon Dioxide 30 mmol/L (23-31); Chloride 99 mmol/L (98-107); Estimated GFR-MDRD 35; Globulin 3.7 g/dL (2.4-3.5); Glucose 118 mg/dL (83-110); Potassium 3.1 mmol/L (3.5-5.1); Protein, Total 7.9 g/dL (6.0-8.3); Sodium 138 mmol/L (136-145); Troponin I Less than 0.010 ng/mL (< 0.028)
[2018-11-07 14:19] VITALS: BMI 32.5
--- NOTE | 2018-11-07 18:29 | CON ---
DATE OF CONSULTATION: 11/07/2018 CONSULTING PHYSICIAN: RAJANI Alan. REASON FOR CONSULT: End-stage renal disease evaluation care. REASON FOR ADMISSION: Chest pain and shortness of breath. HISTORY OF PRESENT ILLNESS: This is an 83-year-old female with history of end-stage renal disease, hypertension, and hyperlipidemia, came to the hospital with shortness of breath. The patient missed dialysis on Wednesday and she had some dialysis on Wednesday, but remains short of breath and was taken to the ER this morning and was found to have fluid overload and was sent over here for emergent dialysis. The patient was seen during dialysis and was feeling better. No nausea or vomiting reported. PAST MEDICAL HISTORY: Positive for end-stage renal disease, hypertension, hyperlipidemia, CHF, and atrial fibrillation. PAST SURGICAL HISTORY: Dialysis access placement, appendectomy, and hysterectomy. HOME MEDICATIONS: 1. Aspirin. 2. Eliquis. 3. Amlodipine. 4. Amiodarone. 5. Atorvastatin. 6. Hydrocodone. 7. Isosorbide. 8. Levothyroxine. 9. Paroxetine. 10. Thiamine. 11. Guaifenesin. 12. Folic acid. 13. Fluticasone. ALLERGIES: ALLOPURINOL AND PENICILLIN. SOCIAL HISTORY: Drinks socially and was a former smoker. FAMILY HISTORY: No history of kidney disease. REVIEW OF SYSTEMS: CONSTITUTIONAL: Negative for weight loss or gain, ability to conduct usual activities. SKIN: Negative for rash, itching. EYES: Negative for double vision, pain. ENT/MOUTH: Negative for nose bleeding, neck stiffness, pain, tenderness. CARDIOVASCULAR: Negative for palpitations, dyspnea on exertion, orthopnea. RESPIRATORY: Negative for shortness of breath, wheezing, cough, hemoptysis, fever or night sweats. GASTROINTESTINAL: Negative for poor appetite, abdominal pain, heartburn, nausea, vomiting, constipation, or diarrhea. GENITOURINARY: Negative for urgency, frequency, dysuria, nocturia. MUSCULOSKELETAL: Negative for pain, swelling. NEUROLOGIC/PSYCHIATRIC: Negative for anxiety, depression. ALLERGY/IMMUNOLOGIC: Negative for skin rash, bleeding tendency. PHYSICAL EXAMINATION: GENERAL: This is a well-built female, in no apparent distress. VITAL SIGNS: Temperature 98.2, pulse 67, respiratory rate 18, and blood pressure 164/73. HEENT: Atraumatic and normocephalic. Oral mucosa moist. NECK: Supple. CV: S1 and S2 heard. Rate and rhythm regular. RESPIRATORY: Clear. GI: Abdomen is soft MUSCULOSKELETAL: 1+ edema. DERMATOLOGIC: No skin rash. NEUROLOGIC: Alert and awake. PSYCHIATRIC: Normal mood and affect. LABORATORY DATA: Hemoglobin is 10.9. Potassium . ASSESSMENT AND PLAN: 1. End-stage renal disease. We will have dialysis. 2. Hyperkalemia, emergent dialysis. 3. Hyponatremia, limit fluid intake. 4. Edema, controlled. 5. Fluid overload. We will have dialysis. Plan is to continue on dialysis as tolerated. Job ID: [id number]
[2018-11-07] MEDS: Isosorbide Dinitrate 5 MG TAB PO SCH (20:59)
[2018-11-07] MEDS: Atorvastatin Calcium 20 MG TAB PO SCH (20:59)
[2018-11-07] MEDS: Amiodarone 200 MG TAB PO SCH (20:59)
[2018-11-07] MEDS: HYDROcodone/Acetaminophen 10/325 mg Tablet PO PRN (21:04)
[2018-11-07] MEDS: Temazepam 15 MG CAP PO PRN (22:06)
[2018-11-08 05:55] LABS: #Basophils 0.1 thou/uL (0.0-0.2); #Eosinphils 0.1 thou/uL (0.0-0.7); #Lymphocytes 1.4 thou/uL (1.20-3.40); #Monocytes 0.5 thou/uL (0.11-0.59); #Neutrophils 3.6 thou/uL (1.40-6.50); %Basophils 1.1 % (0.0-1.0); %Eosinophils 0.9 % (0.0-10.0); %Lymphocytes 25.2 % (21.0-51.0); %Monocytes 8.2 % (0.0-10.0); %Neutrophils 64.6 % (42.0-75.0); Hemoglobin 10.6 g/dL (12.0-16.0); Mean Corpuscular HGB CONC 32.8 g/dL (32.0-36.0); Mean Corpuscular Hemoglobin 32.3 pg (27.0-31.0); Mean Corpuscular Volume 98.4 fL (78.0-98.0); Mean Platelet Volume 6.9 fL (7.4-10.4); Platelet Count 280 thou/uL (130-400); RBC Distribution Width 12.5 % (11.5-14.5); Red Blood Cell (RBC) Count 3.28 mill/uL (4.20-5.40); White Blood Cell (WBC) Count 5.6 thou/uL (4.8-10.8)
[2018-11-08] MEDS ORDERED: Levothyroxine Sodium 25 MCG TAB PO SCH (06:00)
[2018-11-08 06:17] LABS: Anion Gap 15 mmol/L (10-20); BUN (Urea Nitrogen) 27 mg/dL (9.8-20.1); Calc. Creatinine Clearance 19 mL/min (70-130); Calcium 9.2 mg/dL (7.8-10.44); Carbon Dioxide 26 mmol/L (23-31); Chloride 98 mmol/L (98-107); Estimated GFR-MDRD 13; Glucose 129 mg/dL (83-110); Potassium 3.5 mmol/L (3.5-5.1); Sodium 135 mmol/L (136-145)
[2018-11-08] MEDS: Famotidine 20 MG TAB PO SCH (09:14)
[2018-11-08] MEDS: Apixaban 2.5 MG TAB PO SCH (09:14)
[2018-11-08] MEDS: PARoxetine 20 MG TAB PO SCH (09:14)
[2018-11-08] MEDS: Amlodipine 10 MG TAB PO SCH (09:14)
[2018-11-08] MEDS: Isosorbide Dinitrate 5 MG TAB PO SCH ×2 (09:14→19:51)
[2018-11-08] MEDS: Aspirin 81 mg Enteric Coated Tablet PO SCH (09:15)
[2018-11-08] MEDS: HYDROcodone/Acetaminophen 10/325 mg Tablet PO PRN ×2 (14:03→21:33)
--- NOTE | 2018-11-08 16:54 | PDOC.HOSPP ---
- Subjective Encounter Date: 11/08/18 Encounter Time: 16:40 Subjective: f/u for ESRD with volume overload s/p HD with 4.4L removed 11/07/18. Feels much better and no SOB. - Objective Vital Signs & Weight: Vital Signs (12 hours) Temp Pulse Resp BP Pulse Ox 11/08/18 15:26 98.1 F 95 17 139/64 97 11/08/18 11:58 98.6 F 71 20 178/80 H 96 11/08/18 09:14 67 11/08/18 07:46 98.0 F 67 16 169/75 H 94 L Weight Weight 204 lb 6.4 oz I&O: 11/07/18 11/08/18 11/09/18 06:59 06:59 06:59 Intake Total 480 Output Total 4100 Balance -3620 Result Diagrams: 11/08/18 05:36 11/08/18 05:36 Additional Labs: Laboratory Tests 11/07/18 11/07/18 11/07/18 06:47 06:47 09:06 WBC 9.8 Hgb 10.9 L Potassium 5.9 H Creatinine 4.47 H TSH 3rd Generation Hep Bs Antigen Non-Reactive Hep Bs Antibody Reactive Hep B Core Total Ab Non-Reactive Hepatitis C Antibody Non-Reactive 11/07/18 11/07/18 12:57 12:57 WBC Hgb Potassium 3.1 L Creatinine 1.42 H TSH 3rd Generation 1.5538 Hep Bs Antigen Hep Bs Antibody Hep B Core Total Ab Hepatitis C Antibody EKG Reviewed by me: Yes (Tele - SR) Hospitalist ROS - Medication Medications: Active Medications Generic Name Dose Route Start Last Admin Trade Name Freq PRN Reason Stop Dose Admin Hydrocodone Bitart/Acetaminophen 1 tab 11/07/18 09:54 11/08/18 14:03 [place] 10/325 PO 1 tab Q6H PRN Administration Pain 4-6 Amiodarone HCl 200 mg 11/07/18 21:00 11/07/18 20:59 Cordarone PO 200 mg HS ADAM Administration Amlodipine Besylate 10 mg 11/08/18 09:00 11/08/18 09:14 Norvasc PO 10 mg DAILY ADAM Administration Apixaban 2.5 mg 11/08/18 09:00 11/08/18 09:14 Eliquis PO 2.5 mg DAILY ADAM Administration Aspirin 81 mg 11/08/18 09:00 11/08/18 09:15 Ecotrin PO 81 mg DAILY ADAM Administration Atorvastatin Calcium 20 mg 11/07/18 21:00 11/07/18 20:59 Lipitor PO 20 mg HS ADAM Administration Famotidine 20 mg 11/08/18 09:00 11/08/18 09:14 Pepcid PO 20 mg DAILY ADAM Administration Isosorbide Dinitrate 10 mg 11/07/18 21:00 11/08/18 09:14 Isordil PO 10 mg BID ADAM Administration Levothyroxine Sodium 50 mcg 11/08/18 06:00 11/08/18 05:47 Synthroid PO 50 mcg 0600 ADAM Administration Paroxetine HCl 20 mg 11/08/18 09:00 11/08/18 09:14 Paxil PO 20 mg DAILY ADAM Administration Temazepam 15 mg 11/07/18 21:07 11/07/18 22:06 Restoril PO 15 mg HSPRN PRN Administration Insomnia - Exam General Appearance: NAD, awake alert Eye: PERRL, anicteric sclera ENT: normocephalic atraumatic, no oropharyngeal lesions Neck: supple, symmetric, no JVD, no thyromegaly, no lymphadenopathy Heart: RRR, no murmur, no gallops, no rubs, normal peripheral pulses Respiratory: CTAB, no wheezes, no rales, no ronchi, normal chest expansion Gastrointestinal: soft, non-tender, non-distended, normal bowel sounds Extremities: no cyanosis, no clubbing, no edema Skin: normal turgor, no lesions Neurological: cranial nerve grossly intact, no focal deficits, no new deficit Musculoskeletal: normal tone, normal strength, no muscle wasting Psychiatric: normal affect, normal behavior, A&O x 3 Hosp A/P (1) Volume overload Code(s): E87.70 - FLUID OVERLOAD, UNSPECIFIED Status: Acute Plan: Secondary to ESRD, improved with HD (2) Hyperkalemia Code(s): E87.5 - HYPERKALEMIA Status: Acute Plan: Secondary to ESRD, improved after HD (3) ESRD (end stage renal disease) on dialysis Code(s): N18.6 - END STAGE RENAL DISEASE; Z99.2 - DEPENDENCE ON RENAL DIALYSIS Status: Chronic Plan: HD per Renal service, stable currently (4) Hyponatremia Code(s): E87.1 - HYPO-OSMOLALITY AND HYPONATREMIA Status: Acute Plan: Secondary to volume overload, improved with volume mgmt - Plan 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
[2018-11-08] MEDS: Fluticasone Propionate Nasal Spray 16 gm Bottle NASAL SCH (17:31)
--- NOTE | 2018-11-08 18:40 | PRG ---
DATE OF SERVICE: 11/08/2018 SUBJECTIVE: Patient was seen and examined at bedside and overnight events noted. Patient denies any shortness of breath or chest pain or palpitation. No history of nausea or vomiting or diarrhea or fever or chills or cramps. OBJECTIVE: GENERAL: This is an elderly female, in no apparent distress. VITAL SIGNS: Temperature 98.1. Heart rate 75. Respiratory rate 17. Blood pressure 139/64. HEENT: Atraumatic, normocephalic. Oral mucosa is moist NECK: Supple. CARDIOVASCULAR: S1, S2 heard. Rate and rhythm regular. RESPIRATORY: Clear to auscultation. GASTROINTESTINAL: Abdomen is soft. MUSCULOSKELETAL: No tenderness. No edema. DERMATOLOGIC: No skin rash. NEUROLOGIC: Alert and awake and oriented X3. No focal neurologic deficits. Moving all the extremities. PSYCHIATRIC: Mood and affect normal. LABORATORY DATA: Potassium is 3.5, BUN is 27, and creatinine is 3.3. ASSESSMENT AND PLAN: 1. End-stage renal disease. Continue dialysis as tolerated. 2. Hyperkalemia, better. 3. Hyponatremia. 4. Edema, controlled. 5. Fluid overload, much better. The patient is feeling much better. We will continue dialysis on Wednesday, Wednesday, Wednesday. Limit fluid intake. Job ID: [id number]
[2018-11-08] MEDS: Amiodarone 200 MG TAB PO SCH (19:52)
[2018-11-08] MEDS: Atorvastatin Calcium 20 MG TAB PO SCH (19:52)
[2018-11-08] MEDS: Temazepam 15 MG CAP PO PRN (21:34)
[2018-11-09] MEDS ORDERED: Levothyroxine Sodium 25 MCG TAB PO SCH (06:00)
[2018-11-09 06:17] LABS: #Basophils 0.1 thou/uL (0.0-0.2); #Eosinphils 0.1 thou/uL (0.0-0.7); #Lymphocytes 1.8 thou/uL (1.20-3.40); #Monocytes 0.6 thou/uL (0.11-0.59); #Neutrophils 3.4 thou/uL (1.40-6.50); %Basophils 1.2 % (0.0-1.0); %Lymphocytes 29.8 % (21.0-51.0); %Monocytes 9.6 % (0.0-10.0); %Neutrophils 57.5 % (42.0-75.0); Hemoglobin 9.6 g/dL (12.0-16.0); Mean Corpuscular HGB CONC 33.2 g/dL (32.0-36.0); Mean Corpuscular Hemoglobin 32.6 pg (27.0-31.0); Mean Corpuscular Volume 98.3 fL (78.0-98.0); Mean Platelet Volume 6.6 fL (7.4-10.4); Platelet Count 247 thou/uL (130-400); RBC Distribution Width 12.7 % (11.5-14.5); Red Blood Cell (RBC) Count 2.94 mill/uL (4.20-5.40); White Blood Cell (WBC) Count 5.9 thou/uL (4.8-10.8)
[2018-11-09 06:41] LABS: Anion Gap 15 mmol/L (10-20); BUN (Urea Nitrogen) 48 mg/dL (9.8-20.1); Calc. Creatinine Clearance 13 mL/min (70-130); Calcium 8.4 mg/dL (7.8-10.44); Carbon Dioxide 28 mmol/L (23-31); Chloride 96 mmol/L (98-107); Estimated GFR-MDRD 9; Glucose 148 mg/dL (83-110); Potassium 3.8 mmol/L (3.5-5.1); Sodium 135 mmol/L (136-145)
[2018-11-09] MEDS: HYDROcodone/Acetaminophen 10/325 mg Tablet PO PRN ×2 (08:04→18:08)
[2018-11-09] MEDS: Fluticasone Propionate Nasal Spray 16 gm Bottle NASAL SCH (08:05)
[2018-11-09] MEDS ORDERED: IRON FUM PS CMP PO SCH (09:00)
[2018-11-09] MEDS ORDERED: VIT C PO SCH (09:00)
[2018-11-09] MEDS ORDERED: NIACIN PO SCH (09:00)
[2018-11-09] MEDS ORDERED: Escitalopram Oxalate 20 mg Tablet PO SCH (09:00)
[2018-11-09] MEDS ORDERED: guaiFENesin ER 600 MG TAB PO SCH (09:00)
[2018-11-09] MEDS ORDERED: Folic Acid 1 MG TAB PO SCH (09:00)
[2018-11-09 12:38] VITALS: TEMP 97.5
[2018-11-09] MEDS: Isosorbide Dinitrate 5 MG TAB PO SCH (13:58)
--- NOTE | 2018-11-09 14:04 | PRG ---
DATE OF SERVICE: 11/09/2018 SUBJECTIVE: Patient was seen and examined at bedside and overnight events noted. Patient denies any shortness of breath or chest pain or palpitation. No history of nausea or vomiting or diarrhea or fever or chills or cramps. OBJECTIVE: GENERAL: This is a well-built female, in no apparent distress. VITAL SIGNS: Temperature 98.2. Heart rate 62. Respiratory rate . Blood pressure 163/72. HEENT: Atraumatic, normocephalic. Oral mucosa is moist NECK: Supple. CARDIOVASCULAR: S1, S2 heard. Rate and rhythm regular. RESPIRATORY: Clear to auscultation. GASTROINTESTINAL: Abdomen is soft. MUSCULOSKELETAL: No tenderness. No edema. DERMATOLOGIC: No skin rash. NEUROLOGIC: Alert and awake and oriented X3. No focal neurologic deficits. Moving all the extremities. PSYCHIATRIC: Mood and affect normal. LABORATORY DATA: Potassium 3.8, BUN is 48, creatinine is 4.6. ASSESSMENT AND PLAN: 1. End-stage renal disease. Continue dialysis Wednesday, Wednesday, and Wednesday. 2. Hyperkalemia, better. 3. Hyponatremia . 4. Edema. We will remove fluid with dialysis. 5. Continue to limit fluid intake and potassium intake, and continue dialysis as tolerated. Job ID: [id number]
[2018-11-09] MEDS: Apixaban 2.5 MG TAB PO SCH (17:53)
[2018-11-09] MEDS: Aspirin 81 mg Enteric Coated Tablet PO SCH (17:53)
[2018-11-09] MEDS: Amlodipine 10 MG TAB PO SCH (17:53)
[2018-11-09] MEDS: Famotidine 20 MG TAB PO SCH (17:54)
[2018-11-09] MEDS: PARoxetine 20 MG TAB PO SCH (17:54)
[2018-11-09 18:11] VITALS: BP 163/86
--- NOTE | 2018-11-09 22:11 | DIS ---
DATE OF ADMISSION: 11/07/2018 DATE OF DISCHARGE: 11/09/2018 DISCHARGE DIAGNOSES: 1. Volume overload secondary to end-stage renal disease, improved. 2. Hyperkalemia secondary to #1, resolved. 3. End-stage renal disease with hemodialysis, stable. 4. Hyponatremia secondary to volume overload, improved. CONSULTATIONS: Dr. Angel with Nephrology Service. PERTINENT LABORATORY AND X-RAY FINDINGS: Potassium ranged between 3.1 to 5.9. Sodium ranged between 125 to 138. Creatinine ranged between 1.42 to 4.66. Estimated GFR ranged between 9 to 35. LFTs within normal limits. Troponin I negative x3. BNP 1105, previously noted 1062 on 04/18/2018. TSH 1.55. CBC showed hemoglobin ranging between 9.6 to 10.9. Hepatitis B and C panel negative on 11/07/2018. Portable chest x-ray dated 11/07/2018, showed pulmonary vascular congestion with diffuse interstitial prominence. 2D transthoracic echocardiogram dated 11/09/2018, showed ejection fraction of 60% to 65%. Moderate left atrial enlargement. Moderate mitral valve regurgitation. HOSPITAL COURSE: The patient was admitted to the telemetry unit after initially presenting with chest tightness and shortness of breath in the context of end-stage renal disease with hemodialysis. The patient underwent general evaluation including chest imaging showing pulmonary edema in the context of end-stage renal disease. The patient underwent urgent hemodialysis with excellent diuresis. The patient has symptomatically improved with volume removal and remained clinically stable through the remainder of the hospital course. The patient received 2 separate hemodialysis sessions, tolerating each without difficulty. 2D transthoracic echocardiogram was performed showing a preserved ejection fraction. Overall, the patient remained clinically stable with supportive management and hemodialysis. I have examined the patient at the time of discharge and discussed followup instructions. The patient verbalized understanding and in agreement, ready for discharge on 11/09/2018. DISCHARGE MEDICATIONS: 1. Eliquis 2.5 mg p.o. daily. 2. Enteric-coated aspirin 81 mg p.o. daily. 3. Lipitor 20 mg p.o. at bedtime. 4. Lexapro 20 mg p.o. daily. 5. Flonase 1 spray in each naris daily. 6. [place] 10/325 mg one tablet p.o. q.6 hours p.r.n. pain. 7. Multivitamin with iron one capsule p.o. daily. 8. Levothyroxine 25 mcg p.o. daily. 9. Isosorbide dinitrate 10 mg p.o. t.i.d. 10. Paroxetine 20 mg p.o. daily. 11. Temazepam 15 mg p.o. at bedtime p.r.n. 12. Folic acid 1 mg p.o. daily. FOLLOWUP: The patient to follow up with her primary care provider, Dr. Ubaldo Sands within 7 days of discharge. The patient may follow up with Dr. Angel with hemodialysis. CONDITION ON DISCHARGE: Stable. ACTIVITY: Ad-ally. DIET: Heart healthy and renal. CODE STATUS: Full. DISPOSITION: Home on 11/09/2018. TIME SPENT: Total time preparing and coordinating discharge is 32 minutes. Job ID: [id number]
--- NOTE | 2018-11-12 13:24 | EKG ---
Test Reason : Blood Pressure : / mmHG Vent. Rate : 051 BPM Atrial Rate : 051 BPM P-R Int : 226 ms QRS Dur : 092 ms QT Int : 458 ms P-R-T Axes : 040 -21 047 degrees QTc Int : 422 ms Sinus bradycardia with 1st degree A-V block Low voltage QRS Septal infarct , age undetermined Abnormal ECG Confirmed by SUZANNA MOE ([id number]), social media editor AMBER WILSON ([id number]) on 11/12/2018 1:23:36 PM Referred By: Confirmed By:SUZANNA MOE
== END 2018-11-09 18:30 | disposition home or self-care (01) ==
LOC: ERS 06:22 → 2SW 11:35
PROVIDERS: ADMIT Family Medicine; ATTEND Family Medicine
DX: I13.2 Hypertensive heart and chronic kidney disease with heart failure and with stage 5 chronic kidney disease, or end stage renal disease (principal); N18.6 End stage renal disease; I50.9 Heart failure, unspecified; E87.5 Hyperkalemia; E87.1 Hypo-osmolality and hyponatremia; I48.0 Paroxysmal atrial fibrillation; E78.5 Hyperlipidemia, unspecified; G89.29 Other chronic pain; M25.569 Pain in unspecified knee; M54.9 Dorsalgia, unspecified; E03.9 Hypothyroidism, unspecified; F41.9 Anxiety disorder, unspecified; F32.9 Major depressive disorder, single episode, unspecified; Z87.891 Personal history of nicotine dependence; Z79.01 Long term (current) use of anticoagulants; Z79.82 Long term (current) use of aspirin; Z79.899 Other long term (current) drug therapy; Z88.0 Allergy status to penicillin; Z88.8 Allergy status to other drugs, medicaments and biological substances; Z99.2 Dependence on renal dialysis
CPT/HCPCS: 71045; 80048 ×2; 83880; 84484 ×2; 85025 ×2; 86704; 86706; 86803; 87340; 93005; 93306; 96374; 99291; G0378 ×4; 36415; 80053; 84443; 90935; G0257; J2270

== ENCOUNTER 2018-11-25 17:39 | Observation (INO) | payer MEDICARE, OTHER ==
[2018-11-25 19:27] LABS: #Basophils 0.1 thou/uL (0.0-0.2); #Eosinphils 0.2 thou/uL (0.0-0.7); #Lymphocytes 1.9 thou/uL (1.20-3.40); #Monocytes 0.9 thou/uL (0.11-0.59); #Neutrophils 3.3 thou/uL (1.40-6.50); %Eosinophils 3.8 % (0.0-10.0); %Lymphocytes 29.7 % (21.0-51.0); %Neutrophils 51.6 % (42.0-75.0); Hemoglobin 9.4 g/dL (12.0-16.0); Mean Corpuscular HGB CONC 33.7 g/dL (32.0-36.0); Mean Corpuscular Hemoglobin 32.5 pg (27.0-31.0); Mean Corpuscular Volume 96.5 fL (78.0-98.0); Platelet Count 226 thou/uL (130-400); RBC Distribution Width 12.9 % (11.5-14.5); Red Blood Cell (RBC) Count 2.89 mill/uL (4.20-5.40); White Blood Cell (WBC) Count 6.4 thou/uL (4.8-10.8)
[2018-11-25 19:33] LABS: PTT 39.4 SEC (22.9-36.1); Prothrombin Time 13.2 SEC (12.0-14.7)
[2018-11-25 19:51] LABS: ALT (SGPT) 7 U/L (8-55); AST (SGOT) 13 U/L (5-34); Albumin 3.4 g/dL (3.4-4.8); Alkaline Phosphatase 121 U/L (40-110); Anion Gap 15 mmol/L (10-20); BUN (Urea Nitrogen) 31 mg/dL (9.8-20.1); Bilirubin, Total 0.3 mg/dL (0.2-1.2); Calc. Creatinine Clearance 0 mL/min (70-130); Calcium 8.4 mg/dL (7.8-10.44); Carbon Dioxide 26 mmol/L (23-31); Chloride 92 mmol/L (98-107); Estimated GFR-MDRD 10; Globulin 3.3 g/dL (2.4-3.5); Glucose 112 mg/dL (83-110); Potassium 3.2 mmol/L (3.5-5.1); Protein, Total 6.7 g/dL (6.0-8.3); Sodium 130 mmol/L (136-145)
[2018-11-25] MEDS ORDERED: HYDROcodone/Acetaminophen 5/325 mg Tablet ONE (22:04)
[2018-11-25 23:38] VITALS: BMI 34.6
[2018-11-26] MEDS ORDERED: Ondansetron PF 4 MG/2 ML Vial IVP PRN (01:02)
[2018-11-26] MEDS ORDERED: Ondansetron ODT 4 MG TAB PO PRN (01:02)
[2018-11-26] MEDS ORDERED: Acetaminophen 650 MG Suppository PR PRN (01:02)
[2018-11-26] MEDS: Levothyroxine Sodium 25 MCG TAB PO SCH (05:28)
[2018-11-26] MEDS: HYDROcodone/Acetaminophen 10/325 mg Tablet PO PRN ×3 (05:28→21:05)
[2018-11-26 07:04] LABS: #Basophils 0.1 thou/uL (0.0-0.2); #Eosinphils 0.1 thou/uL (0.0-0.7); #Lymphocytes 0.8 thou/uL (1.20-3.40); #Monocytes 0.8 thou/uL (0.11-0.59); #Neutrophils 6.5 thou/uL (1.40-6.50); %Basophils 0.6 % (0.0-1.0); %Eosinophils 1.5 % (0.0-10.0); %Lymphocytes 10.1 % (21.0-51.0); %Monocytes 9.1 % (0.0-10.0); %Neutrophils 78.7 % (42.0-75.0); Hemoglobin 10.3 g/dL (12.0-16.0); Mean Corpuscular HGB CONC 33.5 g/dL (32.0-36.0); Mean Corpuscular Hemoglobin 32.1 pg (27.0-31.0); Mean Corpuscular Volume 96.1 fL (78.0-98.0); Mean Platelet Volume 7.2 fL (7.4-10.4); Platelet Count 258 thou/uL (130-400); RBC Distribution Width 13.1 % (11.5-14.5); White Blood Cell (WBC) Count 8.2 thou/uL (4.8-10.8)
--- NOTE | 2018-11-26 07:18 | HP ---
CODE STATUS: Full code. TIME OF EVALUATION: 10:15 p.m. CHIEF COMPLAINT: Malfunction of the AV fistula. PRIMARY CARE DOCTOR: Listed as Dr. Coronel, Dr. Angel was for Nephrology. HISTORY OF PRESENT ILLNESS: This is an 83-year-old female patient, with past medical history of hypertension, degenerative disk disease, hypothyroidism, hyperlipidemia, end-stage renal disease on hemodialysis, came to the hospital after having AV fistula malfunction in the left upper arm today and the reason why she could not get hemodialysis. She reported that she has been found to have a clot and for that reason she was sent here. Surgery will be consulted Dr. Angel has been consulted. Case has been discussed with him by myself. Plan is to get the patient probably a new hemodialysis access and to be able to do hemodialysis. Other than that the patient is asymptomatic during my examination. REVIEW OF SYSTEMS: CONSTITUTIONAL: No fever, chills, generalized weakness. RESPIRATORY: No cough, sputum production, shortness of breath. CARDIOVASCULAR: No chest pain or palpitation. GASTROINTESTINAL: No nausea, no vomiting, diarrhea, or abdominal pain. 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 GENITOURINARY: No burning on urination. EXTREMITIES: No leg swelling. All other systems were reviewed and negative except for the findings mentioned above. PAST MEDICAL HISTORY: Positive for end-stage renal disease, on hemodialysis; PA in September 2018, hypothyroidism, hyperlipidemia, hypertension. PAST SURGICAL HISTORY: The patient has a history of appendectomy, hysterectomy, shunt or catheter for hemodialysis. PSYCHIATRIC HISTORY: Anxiety and depression. SOCIAL HISTORY: No drugs, no alcohol. The patient smokes cigarettes and quit more than 30 years ago. FAMILY HISTORY: Reviewed, noncontributory for current presentation. ALLERGIES: ALLOPURINOL. REPORTED MEDICATIONS: 1. Aspirin. 2. Lovastatin. 3. Fluticasone. 4. Folic acid. 5. Levothyroxine. 6. Isosorbide dinitrate. 7. Albuterol. 8. Eliquis. 9. Lexapro. 10. Integra. 11. Paroxetine. PHYSICAL EXAMINATION: VITAL SIGNS: On presentation, heart rate 65, respiratory rate was 18, oxygen saturation was 93% on room air, blood pressure 108/58 with temperature 98.1. GENERAL APPEARANCE: The patient is alert, oriented, no acute distress. HEENT: Eyes; normal conjunctivae. Moist oral mucosa. Anicteric. No JVD. RESPIRATORY: Bilateral air entry. No rales. No wheezes. Symmetric expansion. CARDIOVASCULAR: Normal rate, regular rhythm. No murmurs. No gallop. No edema. ABDOMEN: Soft. Normal bowel sounds. MUSCULOSKELETAL: Baseline range of motion and strength. SKIN: Warm, intact. No pallor. No rash. No redness. EXTREMITIES: On the left upper extremity, the patient has an AV fistula with no clear feeling of the bruit. NEURO: No evidence of any new focal weakness. Cranial nerves seems to be intact. PSYCH: The patient is in good mood. No anxiety. Optimal judgment. IMAGING STUDIES: EKG was reviewed. The patient has a first-degree AV block. LABORATORY DATA: Reviewed. The patient has white count 6.4, hemoglobin 9.4, MCV 96.5, platelet count 226. Coagulation; PT 13.2, INR 1.0, PTT 39.4. Chemistry; sodium 130, potassium 3.2, chloride 92, carbon dioxide 26, anion gap 15, BUN 31, creatinine 4.44, GFR 10, glucose 112, calcium 9.4, total bilirubin 0.3, AST 13, ALT 7, alkaline phosphatase 221. Troponin 0.010. Serum total protein 6.7, albumin 3.4, globulin 3.3, globulin albumin ratio is 1.0. ASSESSMENT AND PLAN: The patient will be placed in the hospital with following medical problems. 1. Left upper arm arteriovenous fistula malfunction. The patient was unable to get hemodialysis, for that reason she has been sent to the hospital. Dr. Coronel is her surgeon, will be consulted for evaluation. We will follow recommendations. 2. End-stage renal disease, on hemodialysis. Dr. Angel has been consulted. I have discussed the case with him for further plan and recommendations. We might need to get a new dialysis access for temporary hemodialysis till arteriovenous fistula gets fixed. We will follow Dr. Angel's recommendations. 3. Hyponatremia, sodium 130, this is mild. No need for any acute intervention at this point. The patient may be hemodiluted from fluid overload. We will monitor and treat accordingly. 4. Hypokalemia, potassium 3.2 in a patient with end-stage renal disease. We will monitor. We will not replace at this point. 5. Normocytic anemia, unable to see if this is chronic, most likely due to underlying end-stage renal disease in light of erythropoietin. We will monitor and defer to Nephro for any further treatment. I believe this can follow as outpatient. 6. Deep venous thrombosis prophylaxis. Job ID: [id number]
[2018-11-26 07:22] LABS: Anion Gap 18 mmol/L (10-20); BUN (Urea Nitrogen) 37 mg/dL (9.8-20.1); Calc. Creatinine Clearance 14 mL/min (70-130); Calcium 9.3 mg/dL (7.8-10.44); Carbon Dioxide 24 mmol/L (23-31); Chloride 95 mmol/L (98-107); Estimated GFR-MDRD 9; Glucose 154 mg/dL (83-110); Potassium 3.5 mmol/L (3.5-5.1); Sodium 133 mmol/L (136-145)
[2018-11-26] MEDS: Escitalopram Oxalate 20 mg Tablet PO SCH (08:00)
[2018-11-26] MEDS: PARoxetine 20 MG TAB PO SCH (08:00)
[2018-11-26] MEDS: Folic Acid 1 MG TAB PO SCH (08:00)
[2018-11-26] MEDS: guaiFENesin ER 600 MG TAB PO SCH (08:00)
[2018-11-26] MEDS: Aspirin 81 mg Enteric Coated Tablet PO SCH (08:00)
[2018-11-26] MEDS: Fluticasone Propionate Nasal Spray 16 gm Bottle NASAL SCH (08:01)
[2018-11-26] MEDS: Apixaban 2.5 MG TAB PO SCH (08:01)
[2018-11-26] MEDS: Isosorbide Dinitrate 5 MG TAB PO SCH ×3 (08:02→21:05)
--- NOTE | 2018-11-26 10:53 | PRG ---
DATE OF SERVICE: 11/26/2018 SUBJECTIVE: Patient was seen and examined at bedside and overnight events noted. Patient denies any shortness of breath or chest pain or palpitation. No history of nausea or vomiting or diarrhea or fever or chills or cramps. OBJECTIVE: GENERAL: This is a well built female, in no acute distress. VITAL SIGNS: Temperature 99. Heart rate 74. Respiratory rate 20. Blood pressure 156/65. HEENT: Atraumatic, normocephalic. Oral mucosa is moist NECK: Supple. CARDIOVASCULAR: S1, S2 heard. Rate and rhythm regular. RESPIRATORY: Clear to auscultation. GASTROINTESTINAL: Abdomen is soft. MUSCULOSKELETAL: No tenderness. No edema. DERMATOLOGIC: No skin rash. NEUROLOGIC: Alert and awake and oriented X3. No focal neurologic deficits. Moving all the extremities. PSYCHIATRIC: Mood and affect normal. LABORATORY DATA: Potassium 3.5, BUN is 37, and creatinine is 4.2. ASSESSMENT AND PLAN: 1. End-stage renal disease. We will have dialysis once the access is placed. The patient access. No IR available either to have . 2. Edema, controlled. 3. Hypertension, stable. 4. Anemia, monitor. 5. IR, not available. We will follow labs closely. Job ID: [id number]
--- NOTE | 2018-11-26 19:01 | PDOC.HOSPP ---
- Subjective Encounter Date: 11/26/18 Encounter Time: 10:40 Subjective: Pt seen for followup re: malfunctioning dialysis access. No complaints today. - Objective Vital Signs & Weight: Vital Signs (12 hours) Temp Pulse Resp BP BP Pulse Ox 11/26/18 16:00 98.6 F 70 16 152/63 H 95 11/26/18 14:54 145/67 H 11/26/18 11:28 98.1 F 62 20 143/70 H 91 L 11/26/18 07:47 98.9 F 74 20 156/65 H 91 L Weight Admit Weight 208 lb 1 oz Weight 208 lb 1 oz I&O: 11/25/18 11/26/18 11/27/18 06:59 06:59 06:59 Intake Total 10 Balance 10 Result Diagrams: 11/26/18 06:34 11/26/18 06:34 Additional Labs: Labs and MARs reviewed by nd Hospitalist ROS - Review of Systems Cardiovascular: denies: chest pain, palpitations, orthopnea, paroxysmal noc. dyspnea, edema, light headedness Gastrointestinal: denies: nausea, vomiting, abdominal pain, diarrhea, constipation, melena, hematochezia - Medication Medications: Active Medications Generic Name Dose Route Start Last Admin Trade Name Freq PRN Reason Stop Dose Admin Hydrocodone Bitart/Acetaminophen 1 tab 11/26/18 01:03 11/26/18 14:52 [place] 10/325 PO 1 tab Q6HR PRN Administration Pain Apixaban 2.5 mg 11/26/18 09:00 11/26/18 08:01 Eliquis PO 2.5 mg DAILY ADAM Administration Aspirin 81 mg 11/26/18 09:00 11/26/18 08:00 Ecotrin PO 81 mg DAILY ADAM Administration Escitalopram Oxalate 20 mg 11/26/18 09:00 11/26/18 08:00 Lexapro PO 20 mg DAILY ADAM Administration Fluticasone Propionate 0 gm 11/26/18 09:00 11/26/18 08:01 Flonase Nasal [place] NASAL 1 spr DAILY ADAM Administration Folic Acid 1 mg 11/26/18 09:00 11/26/18 08:00 Folvite PO 1 mg DAILY ADMA Administration Guaifenesin 600 mg 11/26/18 09:00 11/26/18 08:00 Mucinex PO 600 mg DAILY ADAM Administration Isosorbide Dinitrate 10 mg 11/26/18 09:00 11/26/18 14:52 Isordil PO 10 mg TID ADAM Administration Levothyroxine Sodium 25 mcg 11/26/18 06:00 11/26/18 05:28 Synthroid PO 25 mcg 0600 ADAM Administration Paroxetine HCl 20 mg 11/26/18 09:00 11/26/18 08:00 Paxil PO 20 mg DAILY ADAM Administration - Exam General - other findings: Obese Eye: anicteric sclera ENT: moist mucosa Neck: supple, no thyromegaly Heart: RRR, no rubs Respiratory: CTAB Gastrointestinal: soft, non-tender Extremities: no clubbing Musculoskeletal: normal tone, normal strength Psychiatric: normal affect, normal behavior Hosp A/P (1) Malfunction of arteriovenous dialysis fistula Code(s): T82.590A - [facility] COMPL OF SURGICALLY CREATED ARTERIOVENOUS FISTULA, INIT Status: Acute (2) ESRD (end stage renal disease) on dialysis Code(s): N18.6 - END STAGE RENAL DISEASE; Z99.2 - DEPENDENCE ON RENAL DIALYSIS Status: Chronic (3) Hypertension Code(s): I10 - ESSENTIAL (PRIMARY) HYPERTENSION Status: Chronic Qualifiers: Hypertension type: essential hypertension Qualified Code(s): I10 - Essential (primary) hypertension (4) Hypothyroidism Code(s): E03.9 - HYPOTHYROIDISM, UNSPECIFIED Status: Chronic (5) Dyslipidemia Code(s): E78.5 - HYPERLIPIDEMIA, UNSPECIFIED Status: Chronic - Plan out of bed/ambulate Pt awaiting replacement of dialysis access. Nephrology following. Continue synthroid. Continue statin. Hold apixaban on Wednesday AM for procedure.
[2018-11-26] MEDS ORDERED: FLU VACC TS2019-20(65YR UP)/PF 180 MCG/0.5 ML SYRINGE IM ONE (21:00)
[2018-11-26] MEDS: Atorvastatin Calcium 20 MG TAB PO SCH (21:05)
[2018-11-26] MEDS: Temazepam 15 MG CAP PO PRN (22:10)
[2018-11-27] MEDS: HYDROcodone/Acetaminophen 10/325 mg Tablet PO PRN ×3 (04:45→20:12)
[2018-11-27] MEDS: Levothyroxine Sodium 25 MCG TAB PO SCH (05:00)
[2018-11-27 05:53] LABS: Anion Gap 16 mmol/L (10-20); BUN (Urea Nitrogen) 46 mg/dL (9.8-20.1); Calc. Creatinine Clearance 13 mL/min (70-130); Calcium 8.3 mg/dL (7.8-10.44); Carbon Dioxide 23 mmol/L (23-31); Chloride 92 mmol/L (98-107); Estimated GFR-MDRD 8; Glucose 165 mg/dL (83-110); Potassium 3.3 mmol/L (3.5-5.1); Sodium 128 mmol/L (136-145)
[2018-11-27] MEDS: Acetaminophen 325 MG TAB PO PRN ×2 (08:54→22:03)
[2018-11-27] MEDS: guaiFENesin ER 600 MG TAB PO SCH (08:55)
[2018-11-27] MEDS: Aspirin 81 mg Enteric Coated Tablet PO SCH (08:55)
[2018-11-27] MEDS: Escitalopram Oxalate 20 mg Tablet PO SCH (08:55)
[2018-11-27] MEDS: PARoxetine 20 MG TAB PO SCH (08:55)
[2018-11-27] MEDS: Folic Acid 1 MG TAB PO SCH (08:55)
[2018-11-27] MEDS: Isosorbide Dinitrate 5 MG TAB PO SCH ×3 (08:55→20:12)
[2018-11-27] MEDS: Fluticasone Propionate Nasal Spray 16 gm Bottle NASAL SCH (08:56)
[2018-11-27] MEDS: Apixaban 2.5 MG TAB PO SCH (08:56)
[2018-11-27] MEDS ORDERED: FLU VACC TS2019-20(65YR UP)/PF 180 MCG/0.5 ML SYRINGE IM ONE (09:00)
--- NOTE | 2018-11-27 12:11 | PRG ---
DATE OF SERVICE: 11/27/2018 SUBJECTIVE: Patient was seen and examined at bedside and overnight events noted. Patient denies any shortness of breath or chest pain or palpitation. No history of nausea or vomiting or diarrhea or fever or chills or cramps. OBJECTIVE: GENERAL: This is a well built female, in no apparent distress. VITAL SIGNS: Temperature 98.2. Heart rate 85. Respiratory rate 20. Blood pressure 153/69. HEENT: Atraumatic, normocephalic. Oral mucosa is moist NECK: Supple. CARDIOVASCULAR: S1, S2 heard. Rate and rhythm regular. RESPIRATORY: Clear to auscultation. GASTROINTESTINAL: Abdomen is soft. MUSCULOSKELETAL: No tenderness. No edema. DERMATOLOGIC: No skin rash. NEUROLOGIC: Alert and awake and oriented X3. No focal neurologic deficits. Moving all the extremities. PSYCHIATRIC: Mood and affect normal. LABORATORY DATA: Potassium 3.3, BUN is 46, and creatinine is 4.9. ASSESSMENT AND PLAN: 1. End-stage renal disease, not able to have hemodialysis due to access issues. She did not have dialysis on Wednesday. Due for dialysis tomorrow. There is no IR or surgeon available to have access resolution. The patient refused to have femoral dialysis catheter placed also. IR consult already placed. Plan is to have IR check on fistula with fistulogram and if not resolved, Surgery consult also. No acute indication for dialysis now and the patient is refusing femoral dialysis catheter. Plan is to monitor closely. Limit fluid intake and potassium intake, and monitor. 2. Edema, remove fluid with dialysis. 3. Hypertension. 4. Anemia. 5. Follow up with IR for further plans and surgery, if needed, and hold blood thinners in the morning. Job ID: [id number]
[2018-11-27] MEDS: Sevelamer Carbonate 800 MG TAB PO SCH ×2 (12:15→16:39)
--- NOTE | 2018-11-27 13:35 | PDOC.HOSPP ---
- Subjective Encounter Date: 11/27/18 Encounter Time: 09:20 Subjective: Pt seen for followup re: malfunctioning AV graft. No complaints. - Objective Vital Signs & Weight: Vital Signs (12 hours) Temp Pulse Resp BP BP Pulse Ox 11/27/18 09:05 20 98 11/27/18 07:37 98.7 F 71 20 155/81 H 91 L 11/27/18 04:00 98.2 F 85 16 153/69 H 95 Weight Admit Weight 208 lb 1 oz Weight 208 lb 1 oz I&O: 11/26/18 11/27/18 11/28/18 06:59 06:59 06:59 Intake Total 10 480 Balance 10 480 Result Diagrams: 11/26/18 06:34 11/27/18 05:11 Additional Labs: Labs and MARs reviewed by [place] Hospitalist ROS - Review of Systems Cardiovascular: denies: chest pain, palpitations, orthopnea, paroxysmal noc. dyspnea, edema, light headedness Gastrointestinal: denies: nausea, vomiting, abdominal pain, diarrhea, constipation, melena, hematochezia - Medication Medications: Active Medications Generic Name Dose Route Start Last Admin Trade Name Freq PRN Reason Stop Dose Admin Acetaminophen 650 mg 11/26/18 01:02 11/27/18 08:54 Tylenol PO 650 mg Q4H PRN Administration Headache/Fever/Mild Pain (1-3) Hydrocodone Bitart/Acetaminophen 1 tab 11/26/18 01:03 11/27/18 12:15 [place] 10/325 PO 1 tab Q6HR PRN Administration Pain Apixaban 2.5 mg 11/26/18 09:00 11/27/18 08:56 Eliquis PO 2.5 mg DAILY ADAM Administration Aspirin 81 mg 11/26/18 09:00 11/27/18 08:55 Ecotrin PO 81 mg DAILY ADAM Administration Atorvastatin Calcium 20 mg 11/26/18 21:00 11/26/18 21:05 Lipitor PO 20 mg HS ADAM Administration Escitalopram Oxalate 20 mg 11/26/18 09:00 11/27/18 08:55 Lexapro PO 20 mg DAILY ADAM Administration Fluticasone Propionate 0 gm 11/26/18 09:00 11/27/18 08:56 Flonase Nasal [place] NASAL 1 spr DAILY ADAM Administration Folic Acid 1 mg 11/26/18 09:00 11/27/18 08:55 Folvite PO 1 mg DAILY ADAM Administration Guaifenesin 600 mg 11/26/18 09:00 11/27/18 08:55 Mucinex PO 600 mg DAILY ADAM Administration Isosorbide Dinitrate 10 mg 11/26/18 09:00 11/27/18 08:55 Isordil PO 10 mg TID ADAM Administration Levothyroxine Sodium 25 mcg 11/26/18 06:00 11/27/18 05:00 Synthroid PO 25 mcg 0600 ADAM Administration Paroxetine HCl 20 mg 11/26/18 09:00 11/27/18 08:55 Paxil PO 20 mg DAILY ADAM Administration Sevelamer Carbonate 800 mg 11/27/18 12:00 11/27/18 12:15 Renvela PO 800 mg TID-WM ADAM Administration Temazepam 15 mg 11/26/18 01:03 11/26/18 22:10 Restoril PO 15 mg HS PRN Administration Insomnia - Exam General - other findings: Obese Eye: anicteric sclera ENT: moist mucosa Neck: supple, symmetric Heart: RRR Respiratory: CTAB Gastrointestinal: soft, non-tender Extremities: no clubbing Neurological: no weakness Psychiatric: normal affect, normal behavior Hosp A/P (1) Malfunction of arteriovenous dialysis fistula Code(s): T82.590A - [facility] COMPL OF SURGICALLY CREATED ARTERIOVENOUS FISTULA, INIT Status: Acute (2) ESRD (end stage renal disease) on dialysis Code(s): N18.6 - END STAGE RENAL DISEASE; Z99.2 - DEPENDENCE ON RENAL DIALYSIS Status: Chronic (3) Hypertension Code(s): I10 - ESSENTIAL (PRIMARY) HYPERTENSION Status: Chronic Qualifiers: Hypertension type: essential hypertension Qualified Code(s): I10 - Essential (primary) hypertension (4) Hypothyroidism Code(s): E03.9 - HYPOTHYROIDISM, UNSPECIFIED Status: Chronic (5) Dyslipidemia Code(s): E78.5 - HYPERLIPIDEMIA, UNSPECIFIED Status: Chronic - Plan out of bed/ambulate Pt awaiting replacement of dialysis access, most likely tomorrow. Nephrology following. Continue synthroid and statin. Hold apixaban tomorrow AM for procedure.
[2018-11-27] MEDS: Gabapentin 100 MG CAP PO SCH ×2 (14:35→20:12)
[2018-11-27] MEDS: Iron Fum,Ps Cmp/Vit C/Niacin [Integra] 1 CAP PO SCH (15:43)
[2018-11-27] MEDS ORDERED: Senokot S 8.6-50 MG TAB PO SCH (17:15)
[2018-11-27] MEDS: Atorvastatin Calcium 20 MG TAB PO SCH (20:11)
[2018-11-27] MEDS: Betamethasone Val 0.1% OINT 15 GM TUBE TOP SCH (20:11)
[2018-11-27] MEDS: Temazepam 15 MG CAP PO PRN (20:12)
[2018-11-27] MEDS: Senokot S 8.6-50 MG TAB PO SCH (20:12)
[2018-11-27] MEDS ORDERED: Diabetic Tussin 200 MG/10 ML UDCUP PO PRN (21:30)
[2018-11-28 05:16] LABS: Anion Gap 17 mmol/L (10-20); BUN (Urea Nitrogen) 55 mg/dL (9.8-20.1); Calc. Creatinine Clearance 13 mL/min (70-130); Calcium 8.2 mg/dL (7.8-10.44); Carbon Dioxide 19 mmol/L (23-31); Chloride 95 mmol/L (98-107); Estimated GFR-MDRD 8; Glucose 112 mg/dL (83-110); Sodium 127 mmol/L (136-145)
[2018-11-28] MEDS: Levothyroxine Sodium 25 MCG TAB PO SCH (06:10)
[2018-11-28] MEDS: Sevelamer Carbonate 800 MG TAB PO SCH ×3 (08:17→16:54)
[2018-11-28] MEDS: Amiodarone 200 MG TAB PO SCH (08:17)
[2018-11-28] MEDS: Isosorbide Dinitrate 5 MG TAB PO SCH ×3 (08:17→22:07)
[2018-11-28] MEDS: Escitalopram Oxalate 20 mg Tablet PO SCH (08:17)
[2018-11-28] MEDS: PARoxetine 20 MG TAB PO SCH (08:17)
[2018-11-28] MEDS: guaiFENesin ER 600 MG TAB PO SCH (08:17)
[2018-11-28] MEDS: Folic Acid/Vit B Comp W-C PO SCH (08:17)
[2018-11-28] MEDS: Iron Polysaccharides Complex 150 MG CAP PO SCH (08:17)
[2018-11-28] MEDS: Senokot S 8.6-50 MG TAB PO SCH ×2 (08:17→22:07)
[2018-11-28] MEDS: Folic Acid 1 MG TAB PO SCH (08:17)
[2018-11-28] MEDS: Thiamine 100 MG TAB PO SCH (08:17)
[2018-11-28] MEDS: Apixaban 2.5 MG TAB PO SCH (08:18)
[2018-11-28] MEDS: Aspirin 81 mg Enteric Coated Tablet PO SCH (08:18)
[2018-11-28] MEDS: Fluticasone Propionate Nasal Spray 16 gm Bottle NASAL SCH (08:18)
[2018-11-28] MEDS: Gabapentin 100 MG CAP PO SCH ×3 (08:18→22:07)
[2018-11-28] MEDS: Betamethasone Val 0.1% OINT 15 GM TUBE TOP SCH ×2 (08:18→22:07)
--- NOTE | 2018-11-28 09:47 | CON ---
DATE OF CONSULTATION: 11/25/2018 CONSULTING PHYSICIAN: Pilar oMrgan MD REASON FOR CONSULT: End-stage renal disease evaluation care. REASON FOR ADMISSION: Dialysis access issues. HISTORY OF PRESENT ILLNESS: An 83-year-old female with history of end-stage renal disease, hypertension, hyperlipidemia, hypothyroidism, CHF, came to the hospital dialysis access issues. The patient went to dialysis today and was not able to have access evaluation and she contacted her surgeon and was advised to come to the ER. No nausea, vomiting, chest pain, no shortness of breath. PAST MEDICAL HISTORY: Positive for hypertension, hyperlipidemia, hypothyroidism, CHF, atrial fibrillation, end-stage renal disease. PAST SURGICAL HISTORY: Appendectomy, hysterectomy, dialysis fistula placement, left upper arm. HOME MEDICATIONS: 1. Aspirin. 2. Apixaban. 3. Amlodipine. 4. Amiodarone. 5. Atorvastatin. 6. Hydrocodone. 7. Isosorbide. 8. Levothyroxine. 9. Paroxetine. 10. Thiamine. 11. Guaifenesin. 12. Folic acid. 13. Fluticasone. ALLERGIES: ALLOPURINOL, PENICILLIN. SOCIAL HISTORY: No smoking, alcohol, or illicit drugs. FAMILY HISTORY: No history of kidney disease. REVIEW OF SYSTEMS: CONSTITUTIONAL: Negative for weight loss or gain, ability to conduct usual activities. SKIN: Negative for rash, itching. EYES: Negative for double vision, pain. ENT/MOUTH: Negative for nose bleeding, neck stiffness, pain, tenderness. CARDIOVASCULAR: Negative for palpitations, dyspnea on exertion, orthopnea. RESPIRATORY: Negative for shortness of breath, wheezing, cough, hemoptysis, fever or night sweats. GASTROINTESTINAL: Negative for poor appetite, abdominal pain, heartburn, nausea, vomiting, constipation, or diarrhea. GENITOURINARY: Negative for urgency, frequency, dysuria, nocturia. MUSCULOSKELETAL: Negative for pain, swelling. NEUROLOGIC/PSYCHIATRIC: Negative for anxiety, depression. ALLERGY/IMMUNOLOGIC: Negative for skin rash, bleeding tendency. Rest are negative. PHYSICAL EXAMINATION: GENERAL: This is a well-built female, in no apparent distress. VITAL SIGNS: Temperature 97.8, pulse 82, respiratory rate 18, blood pressure 144/84. HEENT: Atraumatic, normocephalic. Oral mucosa is moist. NECK: Supple. CV: S1 and S2. Rate and rhythm regular. RESPIRATORY: Clear. GASTROINTESTINAL: Abdomen is soft. MUSCULOSKELETAL: 1+ edema. DERMATOLOGIC: No skin rash. NEUROLOGIC: Alert and awake. PSYCH: Mood and affect are normal. LABORATORY DATA: Hemoglobin is 10.4, potassium is 3.2, BUN is 31, creatinine is 4.4. ASSESSMENT AND PLAN: 1. End-stage renal disease. Continue dialysis as tolerated. May need continue temporary dialysis access. We will follow. We will recheck labs in the morning. 2. Edema, controlled. 3. Hypertension. 4. History of chronic anemia. 5. Hypokalemia . Continue renal diet. Limit fluid intake. Monitor labs. Follow with surgeon for access placement. Thank you for the consult. Job ID: [id number]
[2018-11-28] MEDS: HYDROcodone/Acetaminophen 10/325 mg Tablet PO PRN ×2 (12:08→22:08)
--- NOTE | 2018-11-28 13:39 | PRG ---
DATE OF SERVICE: 11/28/2018 SUBJECTIVE: An 83-year-old female being seen for end-stage renal disease. The patient denied nausea, vomiting, or chest pain. OBJECTIVE: See above. CONSTITUTIONAL: Awake, alert, in no acute distress. VITAL SIGNS: Afebrile. Pulse 75, breathing 16, and blood pressure 128/97. GENERAL APPEARANCE AND MENTAL STATUS: Fair. HEAD/NECK: Normocephalic. Atraumatic. EYES: EOMI. No deformity. EARS: Clear. No ulcers. NOSE: Intact. No lesions. MOUTH: Clear. No discharge. THROAT: Clear. No exudate. LUNGS: Clear. No crackles. CARDIAC: S1, S2. No rub. ABDOMEN: Benign. Bowel sounds positive. GENITALIA/RECTUM: Cabrera absent. BACK/EXTREMITIES: Edema 0+. NEUROLOGICAL: Alert and motor intact. SKIN: LYMPHATICS: LABORATORY DATA: Reviewed. ASSESSMENT AND PLAN: 1. Stage 6 chronic kidney disease. Plan, dialysis after . 2. Anemia, stable. 3. Medication based on GFR appropriate. Job ID: [id number]
[2018-11-28] MEDS ORDERED: Iopamidol 300 61% 100 ML VIAL FS ONE (13:52)
[2018-11-28] MEDS: Acetaminophen 325 MG TAB PO PRN (15:39)
--- NOTE | 2018-11-28 16:09 | SPC ---
[place]: [facility] [place] S PROVIDED CLINICAL HISTORY: Increased bleeding from arteriovenous dialysis fistula during dialysis. COMPARISON: 08/26/2018 Fluoroscopy: Fluoroscopy time-1.8 minutes Total dose-11,686 mGy centimeter squared TECHNIQUE: The procedure including the risks and complications were explained to the patient, and informed conse nt was obtained. The patient was placed on the angiography table in the supine position. Sonographic evaluation of the left upper extremity arteriovenous dialysis fistula was performed. The left upper extremity was then meticulously prepped and draped in usual sterile fashion. The skin and subcutaneous tissues were infiltrated with buffered 1% lidocaine for local anesthesia at the inte nded puncture site. The arteriovenous dialysis fistula was accessed in the venous direction utilizing micropuncture techn ique and the level of the antecubital fossa, and a 4 [place] introducer catheter was placed. A fistulogram and venogram to the SVC were performed. Manual compression was applied to the venous outf low, and contrast was injected to reflux the arteriovenous anastomosis. The introducer sheath was exchanged over a 0.035 inch [place] guidewire for a 6 [place] vascular sheat h. An 8 mm diameter angioplasty balloon was placed over the guidewire, and angioplasty of a focal stenosis in the proximal venous outflow near the level of the antecubital fossa was performed. Post a ngioplasty venogram was performed demonstrating improvement in luminal diameter with persistence of narrowing, but there is brisk flow and washout from the arteriovenous dialysis fistula. The guidewire and vascular sheath were removed, hemostasis was achieved with direct pressure. Dry ju rile dressing was placed. The patient tolerated the procedure well without immediate consultation. The patient was transported to her hospital room in stable condition. FINDINGS: As noted on the prior examination, there is a focal severe stenosis in the proximal cephalic vein out flow of the left upper extremity arteriovenous dialysis fistula. CARPENTER was performed to 8 mm in diameter with improvement in luminal diameter as well as flow. The remainder the cephalic vein outflo w is patent with patent venous outflow to the level of the SVC. The arteriovenous anastomosis is also patent. IMPRESSION: 1. Focal stenosis proximal venous outflow. CARPENTER was performed to 8 mm in diameter with improvement in luminal diameter as well as flow throughout the arteriovenous dialysis fistula.
--- NOTE | 2018-11-28 18:16 | PDOC.HOSPP ---
- Subjective Encounter Date: 11/28/18 Encounter Time: 08:00 Subjective: Pt seen for followup re: malfunctioning AV fistula. Denies any complaints. - Objective Vital Signs & Weight: Vital Signs (12 hours) Temp Pulse Resp BP BP Pulse Ox 11/28/18 15:41 97.6 F 64 18 154/74 H 93 L 11/28/18 11:46 97.1 F L 77 18 154/77 H 91 L 11/28/18 11:25 98.3 F 64 18 144/79 H 94 L 11/28/18 07:34 97.3 F L 64 16 129/71 95 Weight Admit Weight 208 lb 1 oz Weight 208 lb 1 oz I&O: 11/27/18 11/28/18 11/29/18 06:59 06:59 06:59 Intake Total 480 1110 100 Balance 480 1110 100 Result Diagrams: 11/26/18 06:34 11/28/18 04:29 Additional Labs: Labs and MARs reviewed by or Hospitalist ROS - Review of Systems Cardiovascular: denies: chest pain, palpitations, orthopnea, paroxysmal noc. dyspnea, edema, light headedness Gastrointestinal: denies: nausea, vomiting, abdominal pain, diarrhea, constipation, melena, hematochezia - Medication Medications: Active Medications Generic Name Dose Route Start Last Admin Trade Name Freq PRN Reason Stop Dose Admin Acetaminophen 650 mg 11/26/18 01:02 11/28/18 15:39 Tylenol PO 650 mg Q4H PRN Administration Headache/Fever/Mild Pain (1-3) Hydrocodone Bitart/Acetaminophen 1 tab 11/26/18 01:03 11/28/18 12:08 [place] 10/325 PO 1 tab Q6HR PRN Administration Pain Amiodarone HCl 200 mg 11/28/18 09:00 11/28/18 08:17 Cordarone PO 200 mg DAILY ADAM Administration Apixaban 2.5 mg 11/26/18 09:00 11/28/18 08:18 Eliquis PO Not Given DAILY ADAM Aspirin 81 mg 11/26/18 09:00 11/28/18 08:18 Ecotrin PO Not Given DAILY ADAM Atorvastatin Calcium 20 mg 11/26/18 21:00 11/27/18 20:11 Lipitor PO 20 mg HS ADAM Administration Betamethasone Valerate 0 gm 11/27/18 21:00 11/28/18 08:18 Valisone 0.1% Ointment TOP 1 applic BID ADAM Administration Escitalopram Oxalate 20 mg 11/26/18 09:00 11/28/18 08:17 Lexapro PO 20 mg DAILY ADAM Administration Fluticasone Propionate 0 gm 11/26/18 09:00 11/28/18 08:18 Flonase Nasal [place] NASAL Not Given DAILY ADAM Folic Acid 1 mg 11/26/18 09:00 11/28/18 08:17 Folvite PO 1 mg DAILY ADAM Administration Gabapentin 100 mg 11/27/18 15:00 11/28/18 15:35 Neurontin PO 100 mg TID ADAM Administration Guaifenesin 600 mg 11/26/18 09:00 11/28/18 08:17 Mucinex PO 600 mg DAILY ADAM Administration Guaifenesin 100 mg 11/27/18 21:30 11/27/18 21:38 Robitussin Sf PO 100 mg Q8H PRN Administration Cough Isosorbide Dinitrate 10 mg 11/26/18 09:00 11/28/18 15:35 Isordil PO 10 mg TID ADAM Administration Levothyroxine Sodium 25 mcg 11/26/18 06:00 11/28/18 06:10 Synthroid PO Not Given 0600 [facility] Paroxetine HCl 20 mg 11/26/18 09:00 11/28/18 08:17 Paxil PO 20 mg DAILY ADAM Administration Polysaccharide Iron Complex 150 mg 11/28/18 09:00 11/28/18 08:17 Niferex PO 150 mg DAILY ADAM Administration Senna/Docusate Sodium 1 tab 11/27/18 21:00 11/28/18 08:17 Senokot S PO 1 tab BID ADMA Administration Sevelamer Carbonate 800 mg 11/27/18 12:00 11/28/18 16:54 Renvela PO Not Given TID-WM ADAM Temazepam 15 mg 11/26/18 01:03 11/27/18 20:12 Restoril PO 15 mg HS PRN Administration Insomnia Thiamine HCl 100 mg 11/28/18 09:00 11/28/18 08:17 Thiamine PO 100 mg DAILY ADAM Administration Vitamin B Complex/Vit C/Folic Acid 1 tab 11/28/18 09:00 11/28/18 08:17 Nephro-[place] Tablet PO 1 tab DAILY ADAM Administration - Exam General - other findings: Obese Eye: anicteric sclera ENT: moist mucosa Neck: supple, symmetric Heart: RRR, no rubs Respiratory: CTAB Gastrointestinal: soft, non-tender Musculoskeletal: normal strength Psychiatric: normal affect, normal behavior Hosp A/P (1) Malfunction of arteriovenous dialysis fistula Code(s): T82.590A - [facility] COMPL OF SURGICALLY CREATED ARTERIOVENOUS FISTULA, INIT Status: Acute (2) ESRD (end stage renal disease) on dialysis Code(s): N18.6 - END STAGE RENAL DISEASE; Z99.2 - DEPENDENCE ON RENAL DIALYSIS Status: Chronic (3) Hypertension Code(s): I10 - ESSENTIAL (PRIMARY) HYPERTENSION Status: Chronic Qualifiers: Hypertension type: essential hypertension Qualified Code(s): I10 - Essential (primary) hypertension (4) Hypothyroidism Code(s): E03.9 - HYPOTHYROIDISM, UNSPECIFIED Status: Chronic (5) Dyslipidemia Code(s): E78.5 - HYPERLIPIDEMIA, UNSPECIFIED Status: Chronic - Plan plan discussed w/ family, out of bed/ambulate Pt awaiting interventional procedure in AV fistula. Nephrology following. Pt is on synthroid and statin. Apixaban is on hold.
[2018-11-28] MEDS: Atorvastatin Calcium 20 MG TAB PO SCH (22:06)
[2018-11-28] MEDS: Temazepam 15 MG CAP PO PRN (22:08)
[2018-11-29] MEDS: Acetaminophen 325 MG TAB PO PRN ×2 (03:47→13:02)
[2018-11-29] MEDS: Levothyroxine Sodium 25 MCG TAB PO SCH (05:21)
[2018-11-29] MEDS: Senokot S 8.6-50 MG TAB PO SCH (09:34)
[2018-11-29] MEDS: Aspirin 81 mg Enteric Coated Tablet PO SCH (09:34)
[2018-11-29] MEDS: Amiodarone 200 MG TAB PO SCH (09:34)
[2018-11-29] MEDS: Escitalopram Oxalate 20 mg Tablet PO SCH (09:34)
[2018-11-29] MEDS: Gabapentin 100 MG CAP PO SCH (09:34)
[2018-11-29] MEDS: Folic Acid 1 MG TAB PO SCH (09:34)
[2018-11-29] MEDS: PARoxetine 20 MG TAB PO SCH (09:34)
[2018-11-29] MEDS: Folic Acid/Vit B Comp W-C PO SCH (09:34)
[2018-11-29] MEDS: guaiFENesin ER 600 MG TAB PO SCH (09:34)
[2018-11-29] MEDS: Sevelamer Carbonate 800 MG TAB PO SCH ×2 (09:34→12:59)
[2018-11-29] MEDS: Apixaban 2.5 MG TAB PO SCH (09:34)
[2018-11-29] MEDS: Isosorbide Dinitrate 5 MG TAB PO SCH (09:34)
[2018-11-29] MEDS: Thiamine 100 MG TAB PO SCH (09:34)
[2018-11-29] MEDS: HYDROcodone/Acetaminophen 10/325 mg Tablet PO PRN (09:35)
[2018-11-29] MEDS: Iron Polysaccharides Complex 150 MG CAP PO SCH (09:35)
[2018-11-29] MEDS: Fluticasone Propionate Nasal Spray 16 gm Bottle NASAL SCH (09:37)
[2018-11-29] MEDS: Betamethasone Val 0.1% OINT 15 GM TUBE TOP SCH (09:38)
--- NOTE | 2018-11-29 10:04 | PRG ---
DATE OF SERVICE: 11/29/2018 SUBJECTIVE: This is an 83-year-old female, being seen for end-stage renal disease. The patient denied nausea, vomiting, or chest pain. OBJECTIVE: GENERAL: The patient is awake and alert. VITAL SIGNS: Pulse 75, breathing 16, blood pressure 104/68. GENERAL APPEARANCE AND MENTAL STATUS: Fair. HEAD/NECK: Normocephalic. Atraumatic. EYES: EOMI. No deformity. EARS: Clear. No ulcers. NOSE: Intact. No lesions. MOUTH: Clear. No discharge. THROAT: Clear. No exudate. LUNGS: Clear. No crackles. CARDIAC: S1, S2. No rub. ABDOMEN: Benign. Bowel sounds positive. GENITALIA/RECTUM: Cabrera absent. BACK/EXTREMITIES: Edema 0+. NEUROLOGICAL: Alert and motor intact. LABORATORY DATA: Reviewed. ASSESSMENT: 1. Stage 6 chronic kidney disease, stable. 2. Hypertension, stable. 3. Anemia, stable. 4. Access was advised yesterday. Job ID: [id number]
[2018-11-29 12:39] VITALS: BP 136/70; TEMP 98.3
--- NOTE | 2018-11-29 17:03 | EKG ---
Test Reason : Blood Pressure : / mmHG Vent. Rate : 063 BPM Atrial Rate : 063 BPM P-R Int : 228 ms QRS Dur : 096 ms QT Int : 460 ms P-R-T Axes : 063 -26 062 degrees QTc Int : 470 ms Sinus rhythm with 1st degree A-V block Septal infarct , age undetermined Abnormal ECG Confirmed by ZEINA OWUSU DO ([id number]), health editor AMBER WILSON ([id number]) on 11/29/2018 5:03:30 PM Referred By: Confirmed By:ZEINA OWUSU DO
--- NOTE | 2018-11-29 22:56 | DIS ---
DATE OF ADMISSION: 11/25/2018 DATE OF DISCHARGE: 11/29/2018 PRIMARY CARE PROVIDER: Dr. Ubaldo Sands. DISCHARGE DIAGNOSIS: Malfunctioning arteriovenous dialysis fistula. CONDITION OF PATIENT ON THE DAY OF DISCHARGE: Stable. I assessed Ms. Crane on the day of discharge. She denies any chest pain or shortness of breath. Vital signs are stable. S1 and S2 are heard, regular. Lungs are clear to auscultation bilaterally. DISCHARGE MEDICATIONS: No change was made to her pre-admission home medications as dictated by Dr. Morgan's in his history and physical note dated November 26, 2018. HOSPITAL COURSE: Ms. Crane is a pleasant 83-year-old lady, who was admitted to [facility] on observation status on November 25, 2018, for malfunctioning AV dialysis fistula. She was seen by Nephrology Service, Dr. Angel. On November 28, she underwent SARAI for focal severe stenosis in the proximal cephalic vein outflow of the left upper extremity AV dialysis fistula. She then had dialysis. She is being discharged home in a stable condition. FOLLOWUP APPOINTMENTS: The patient is advised to follow up with primary care provider in 3 to 5 days time and with Nephrology Service in 2 weeks' time. Many thanks for allowing me to participate in your patient's care. Please feel free to contact me with any questions or concerns. DISCHARGE DESTINATION: Home. Job ID: [id number]
== END 2018-11-29 15:09 | disposition home or self-care (01) ==
LOC: ERS 17:39 → T4-A 23:25
PROVIDERS: ADMIT Hospitalist; ATTEND Hospitalist
PROC: B51W1ZZ Fluoroscopy of Dialysis Shunt/Fistula using Low Osmolar Contrast (ICD-10-PCS; principal; 2018-11-25)
DX: T82.868A Thrombosis due to vascular prosthetic devices, implants and grafts, initial encounter (principal); I12.0 Hypertensive chronic kidney disease with stage 5 chronic kidney disease or end stage renal disease; N18.6 End stage renal disease; D64.9 Anemia, unspecified; E03.9 Hypothyroidism, unspecified; E78.5 Hyperlipidemia, unspecified; E87.1 Hypo-osmolality and hyponatremia; E87.6 Hypokalemia; F41.8 Other specified anxiety disorders; F32.9 Major depressive disorder, single episode, unspecified; Z79.01 Long term (current) use of anticoagulants; Z79.82 Long term (current) use of aspirin; Z79.899 Other long term (current) drug therapy; Z88.0 Allergy status to penicillin; Z88.8 Allergy status to other drugs, medicaments and biological substances; Z99.2 Dependence on renal dialysis
CPT/HCPCS: 36901; 36902; 80048 ×3; 80053; 84484; 85025 ×2; 85610; 85730; 87040; 93005; 97139; 99285; C1725; G0378 ×6; 36415; 90935; G0257; Q9967

== ENCOUNTER 2018-12-05 13:05 | Emergency (ER) | payer MEDICARE, OTHER ==
[2018-12-05 13:57] LABS: #Eosinphils 0.1 thou/uL (0.0-0.7); #Lymphocytes 1.2 thou/uL (1.20-3.40); #Monocytes 0.4 thou/uL (0.11-0.59); #Neutrophils 4.5 thou/uL (1.40-6.50); %Basophils 0.7 % (0.0-1.0); %Eosinophils 2.4 % (0.0-10.0); %Lymphocytes 19.3 % (21.0-51.0); %Monocytes 5.9 % (0.0-10.0); %Neutrophils 71.7 % (42.0-75.0); Hemoglobin 8.9 g/dL (12.0-16.0); Mean Corpuscular HGB CONC 35.3 g/dL (32.0-36.0); Mean Corpuscular Hemoglobin 32.4 pg (27.0-31.0); Mean Corpuscular Volume 91.7 fL (78.0-98.0); Mean Platelet Volume 6.6 fL (7.4-10.4); Platelet Count 358 thou/uL (130-400); Red Blood Cell (RBC) Count 2.76 mill/uL (4.20-5.40); White Blood Cell (WBC) Count 6.3 thou/uL (4.8-10.8)
[2018-12-05 14:23] LABS: ALT (SGPT) 8 U/L (8-55); AST (SGOT) 14 U/L (5-34); Albumin 3.5 g/dL (3.4-4.8); Alkaline Phosphatase 120 U/L (40-110); Anion Gap 21 mmol/L (10-20); BUN (Urea Nitrogen) 41 mg/dL (9.8-20.1); Bilirubin, Total 0.2 mg/dL (0.2-1.2); Calc. Creatinine Clearance 0 mL/min (70-130); Calcium 8.5 mg/dL (7.8-10.44); Carbon Dioxide 18 mmol/L (23-31); Chloride 91 mmol/L (98-107); Estimated GFR-MDRD 8; Globulin 3.5 g/dL (2.4-3.5); Glucose 77 mg/dL (83-110); Potassium 3.6 mmol/L (3.5-5.1); Sodium 126 mmol/L (136-145)
--- NOTE | 2018-12-05 14:40 | CT ---
CT abdomen and pelvis without IV contrast. Oral contrast was not administered. INDICATIONS: Abdominal pain COMPARISON: CT abdomen 04/18/2018 FINDINGS: Lung bases are clear Liver, spleen, and pancreas appear unremarkable. Small hepatic cyst is stable. Stomach and duodenum appear unremarkable. Adrenal glands appear normal. Kidneys appear unremarkable. Collecting structures and urinary bladder appear unremarkable. Perinephr ic stranding is again seen and is stable in appearance. Small bowel loops are normal caliber and exhibit normal fold pattern. Appendix not identified. Stool throughout the colon. Diverticulosis of the left colon and sigmoid. Mild mural thickening in th e sigmoid. No significant inflammatory change or evidence of acute diverticulitis. Aorta is normal caliber. No evidence of retroperitoneal or mesenteric adenopathy. Images through pelvis show evidence of hysterectomy. Subcutaneous tissues, abdominal wall, and muscular structures appear unremarkable. Degenerative changes in the spine. IMPRESSION: Diverticulosis of the left colon and sigmoid. Mural thickening of the sigmoid. No focal inflammatory process identified.
[2018-12-05] MEDS ORDERED: Morphine 4 MG/ML VIAL ONE (15:08)
[2018-12-05] MEDS ORDERED: Cyclobenzaprine 10 MG TAB ONE (15:09)
[2018-12-05] MEDS ORDERED: Ondansetron PF 4 MG/2 ML Vial ONE (15:10)
== END 2018-12-05 16:16 | disposition home or self-care (01) ==
LOC: ERS 13:05
DX: M54.16 Radiculopathy, lumbar region (principal); E86.0 Dehydration; I10 Essential (primary) hypertension; E78.5 Hyperlipidemia, unspecified; I12.0 Hypertensive chronic kidney disease with stage 5 chronic kidney disease or end stage renal disease; N18.6 End stage renal disease; I25.2 Old myocardial infarction; Z87.891 Personal history of nicotine dependence; Z79.899 Other long term (current) drug therapy
CPT/HCPCS: 36415; 74176; 80053; 85025; 96374; 96375; J2270; J2405

== ENCOUNTER 2019-01-26 07:27 | Day surgery (SDC) | payer MEDICARE, OTHER ==
[2019-01-25 14:41] VITALS: BMI 30.3
[~2019-01-26 07:27] MED LIST changes: +Activase 2 MG VIAL CATH SCH; -Heparin 10,000 UNITS/ 10 ML VIAL ONE
[2019-01-26] MEDS ORDERED: Sodium Bicarbonate 2.5 MEQ/5 ML VIAL ONE (08:40)
--- NOTE | 2019-01-26 11:55 | SPC ---
Dialysis fistulogram left upper extremity Percutaneous balloon angioplasty left arm dialysis fistula Sonographic guided vascular access HISTORY: Renal failure. Difficulty in access of left upper extremity dialysis fistula. FINDINGS: After explaining the procedure and answering all questions, the left upper arm was prepped and draped in usual sterile fashion. Sterile technique, buffered local anesthesia, sonographic guidance, and a 22-gauge needle were used to carefully access the left upper arm cephalic dialysis fi stula at the level of the antecubital fossa. A 6 [place] sheath was carefully placed for serial imaging. The upper arm cephalic dialysis fistula is widely patent with good arterial inflow. Patent arterial a nastomosis was documented with sonographic and angiographic imaging. Some tortuosity of the peripheral cephalic vein was seen just above the level of the antecubital fossa, where strictures hav e been dilated in the past. A few collaterals are seen over the course of the proximal to mid cephalic vein. As shown on prior exams, the cephalic vein bifurcates at the left axilla. No evidence of obstruction or compromise of flow. The superior vena cava is patent. A 9 mm x 4 cm balloon was carefully advanced over a 0.035 Glidewire to the level of the tortuosity an d narrowing of the peripheral cephalic vein, where serial dilatations have been performed in the past. The 9 mm balloon achieved for profile without stricture demonstrated on today's exam. Multiple dilata tions were performed throughout the length of the distal cephalic vein. Balloon was removed. Repeat angiographic imaging shows the cephalic fistula to remain widely patent w ith brisk arterial flow. Sheath was removed and hemostasis obtained using direct pressure. Patient tolerated the procedure wel l and was eventually dismissed in good condition. Fluoroscopy time 2.1 minutes. IMPRESSION: Left upper arm cephalic dialysis fistula is widely patent, with good arterial inflow and venous outflow. Small amount of collateral flow, unchanged from the previous exams. No stricture. Balloon dilatation to 9 mm was performed in the level of tortuosity and narrowing just above the ante cubital fossa. No internal clot is visible.
[2019-01-26 12:43] VITALS: BP 140/58; TEMP 98
[2019-01-26] MEDS ORDERED: Iopamidol 300 61% 100 ML VIAL FS ONE (15:12)
== END 2019-01-26 10:00 | disposition home or self-care (01) ==
LOC: SPEC 07:27
PROVIDERS: ATTEND Internal Medicine Nephrology
PROC: 0JHF3XZ Insertion of Tunneled Vascular Access Device into Left Upper Arm Subcutaneous Tissue and Fascia, Percutaneous Approach (ICD-10-PCS; principal; 2019-01-26)
PROC: B51WYZZ Fluoroscopy of Dialysis Shunt/Fistula using Other Contrast (ICD-10-PCS; 2019-01-26)
DX: T82.868A Thrombosis due to vascular prosthetic devices, implants and grafts, initial encounter (principal); I13.2 Hypertensive heart and chronic kidney disease with heart failure and with stage 5 chronic kidney disease, or end stage renal disease; E11.22 Type 2 diabetes mellitus with diabetic chronic kidney disease; N18.6 End stage renal disease; I50.9 Heart failure, unspecified; D63.1 Anemia in chronic kidney disease; E78.5 Hyperlipidemia, unspecified; E03.9 Hypothyroidism, unspecified; I25.2 Old myocardial infarction; I48.91 Unspecified atrial fibrillation; F41.9 Anxiety disorder, unspecified; F32.9 Major depressive disorder, single episode, unspecified; G89.29 Other chronic pain; M54.9 Dorsalgia, unspecified; Z79.01 Long term (current) use of anticoagulants; Z88.0 Allergy status to penicillin; Z88.8 Allergy status to other drugs, medicaments and biological substances; Z99.2 Dependence on renal dialysis
CPT/HCPCS: 36901; 36902; C1725; C1769; J2997; Q9967

== ENCOUNTER 2019-07-13 07:44 | Day surgery (SDC) | payer MEDICARE, OTHER ==
[2019-07-12 15:21] VITALS: BMI 32.8
[2019-07-13] MEDS ORDERED: Heparin 1,000 UNITS/ML VIAL ONE (09:11)
[2019-07-13] MEDS ORDERED: Iopamidol 300 61% 100 ML VIAL FS ONE (10:22)
[2019-07-13 11:10] VITALS: BP 123/53; TEMP 97.7
--- NOTE | 2019-07-13 11:12 | SPC ---
EXAM: [facility] INTRO CATH DIALY CIRC/AV S PROVIDED CLINICAL HISTORY: Increased bleeding at dialysis. Increased arterial pressure. COMPARISON: 01/26/2019 TECHNIQUE: The procedure including the risks and complications were explained to the patient, and informed conse nt was obtained. Patient was placed on the angiography table in the supine position. Limited sonographic evaluation of the left upper extremity arteriovenous dialysis fistula was performed which demonstrated good flow throughout the fistula. An appropriate access site was determined with ultrasound guidance. The left upper extremity was meticulously prepped and draped in usual sterile fashion. Skin and subcu taneous tissues were infiltrated with buffered 1% lidocaine for local anesthesia overlying the proximal portion of the fistula. Utilizing concurrent real-time ultrasound guidance, the most proxima l outflow of the arteriovenous dialysis fistula was accessed in the venous direction utilizing micropuncture technique, and a 4 [place] introducer sheath was placed. A fistulogram and venogram to t he SVC were performed. Manual compression was applied to the venous outflow, and the arteriovenous anastomosis was refluxed. The introducer catheter was removed, and hemostasis was achieved with direct pressure. Dry sterile dr essing was placed at puncture site. Patient tolerated the procedure well and without immediate complication. Patient was monitored in radiology nurses holding area prior to discharge. IMPRESSION: 1. Patent left upper extremity arteriovenous dialysis fistula with patent venous outflow to the level of the SVC. 2. Patent arteriovenous anastomosis. The most proximal outflow of the arteriovenous dialysis fistula does demonstrate generalized mild narrowing with respect to the remainder of the venous outflow. However, this does not appear to be flow-limiting, and there is brisk washout of the fistula. 3. Area of tortuosity involving the proximal venous outflow of the arteriovenous dialysis fistula. Th is is at site of prior narrowing and balloon dilatation, but this area does appear patent on today's exam without significant residual or recurrent stenosis.
== END 2019-07-13 10:15 | disposition home or self-care (01) ==
LOC: SPEC 07:44
PROVIDERS: ATTEND Internal Medicine Nephrology
PROC: B50W1ZZ Plain Radiography of Dialysis Shunt/Fistula using Low Osmolar Contrast (ICD-10-PCS; principal; 2019-07-13)
DX: T82.838A Hemorrhage due to vascular prosthetic devices, implants and grafts, initial encounter (principal); I12.0 Hypertensive chronic kidney disease with stage 5 chronic kidney disease or end stage renal disease; N18.6 End stage renal disease; E78.5 Hyperlipidemia, unspecified; E03.9 Hypothyroidism, unspecified; I25.2 Old myocardial infarction; F41.9 Anxiety disorder, unspecified; F32.9 Major depressive disorder, single episode, unspecified; K21.9 Gastro-esophageal reflux disease without esophagitis; Z79.01 Long term (current) use of anticoagulants; Z79.82 Long term (current) use of aspirin; Z79.899 Other long term (current) drug therapy; Z88.0 Allergy status to penicillin; Z88.8 Allergy status to other drugs, medicaments and biological substances; Z99.2 Dependence on renal dialysis
CPT/HCPCS: 36901; J1644; Q9967

== ENCOUNTER 2019-07-27 09:08 | Day surgery (SDC) | payer MEDICARE, OTHER ==
[2019-07-26 15:55] VITALS: BMI 30.4
[~2019-07-27 09:08] MED LIST changes: -Activase 2 MG VIAL CATH SCH; +Prevnar 13-Val Conj/PF 0.5 ML SYRINGE IM ONE
[2019-07-27] MEDS ORDERED: Heparin 1,000 UNITS/ML VIAL ONE (09:42)
[2019-07-27 10:21] VITALS: BP 140/61; TEMP 97.4
[2019-07-27] MEDS ORDERED: Iopamidol 300 61% 100 ML VIAL FS ONE (10:22)
[2019-07-27] MEDS ORDERED: Sterile Water 10 ML VIAL IVP SCH (11:00)
[2019-07-27] MEDS ORDERED: Activase 2 MG VIAL CATH SCH (11:00)
--- NOTE | 2019-07-27 15:09 | SPC ---
PROCEDURE: [facility] [place] D[facility] CIRC/AV S PROVIDED CLINICAL HISTORY: Carotid left upper extremity arteriovenous dialysis fistula. COMPARISON: 07/13/2019 TECHNIQUE: After informed consent was obtained, the patient was placed on the angiography table in supine positi on. Limited sonographic evaluation left upper extremity arteriovenous dialysis fistula and venous outflow were performed which demonstrated lumen patency and flow on sonographic evaluation. An approp riate access site was determined with ultrasound guidance. The left upper extremity was meticulously prepped and draped in usual sterile fashion. The skin and s ubcutaneous tissues were infiltrated with buffered 1% lidocaine for local anesthesia overlying the most proximal portion of the venous outflow. Utilizing concurrent real-time ultrasound guidance, the most proximal venous outflow was accessed, and a 5 Finnish introducer sheath was placed directed in the venous direction. A fistulogram and venogram to the SVC were performed. Manual compression was applied to the venous ou tflow, and the arteriovenous anastomosis was refluxed. The catheter was removed, and hemostasis was achieved with direct pressure. Dry sterile dressing was placed at puncture site. Patient tolerated the procedure well and without immediate complication. Patient was transferred to radiology nurses holding area for further monitoring prior to discharge. Fluoroscopy: Time-1 minute Dose-6883 mGy centimeter squared IMPRESSION: 1. Patent left upper extremity arteriovenous dialysis fistula with patent venous outflow to the level of the SVC. 2. Patent arteriovenous anastomosis with generalized narrowing involving the most proximal venous out flow adjacent to the arteriovenous anastomosis. Brisk flow and washout of the fistula is demonstrated. 3. Stable area of tortuosity in the proximal venous outflow. 4. Sonographic evaluation of the fistula demonstrates evidence of hematoma at the level of the proxim al arm adjacent to the left upper extremity venous outflow of the arteriovenous dialysis fistula.
== END 2019-07-27 12:05 | disposition home or self-care (01) ==
LOC: SPEC 09:08
PROVIDERS: ATTEND Internal Medicine Nephrology
PROC: B51W1ZZ Fluoroscopy of Dialysis Shunt/Fistula using Low Osmolar Contrast (ICD-10-PCS; principal; 2019-07-27)
DX: T82.868A Thrombosis due to vascular prosthetic devices, implants and grafts, initial encounter (principal); I12.0 Hypertensive chronic kidney disease with stage 5 chronic kidney disease or end stage renal disease; N18.6 End stage renal disease; M10.9 Gout, unspecified; M19.90 Unspecified osteoarthritis, unspecified site; I25.10 Atherosclerotic heart disease of native coronary artery without angina pectoris; I25.2 Old myocardial infarction; F41.9 Anxiety disorder, unspecified; F32.9 Major depressive disorder, single episode, unspecified; E03.9 Hypothyroidism, unspecified; E78.5 Hyperlipidemia, unspecified; K21.9 Gastro-esophageal reflux disease without esophagitis; Z79.01 Long term (current) use of anticoagulants; Z79.82 Long term (current) use of aspirin; Z79.899 Other long term (current) drug therapy; Z88.0 Allergy status to penicillin; Z88.8 Allergy status to other drugs, medicaments and biological substances; Z99.2 Dependence on renal dialysis
CPT/HCPCS: 36901; J2997

== ENCOUNTER 2019-12-24 14:13 | Emergency (ER) | payer MEDICARE, OTHER ==
[2019-12-24 15:42] LABS: #Eosinphils 0.1 thou/uL (0.0-0.7); #Lymphocytes 1.4 thou/uL (1.20-3.40); #Monocytes 0.3 thou/uL (0.11-0.59); #Neutrophils 3.4 thou/uL (1.40-6.50); %Basophils 0.8 % (0.0-1.0); %Eosinophils 1.3 % (0.0-10.0); %Lymphocytes 25.9 % (21.0-51.0); %Monocytes 6.6 % (0.0-10.0); %Neutrophils 65.5 % (42.0-75.0); Hemoglobin 11.8 g/dL (12.0-16.0); Mean Corpuscular Hemoglobin 32.7 pg (27.0-31.0); Platelet Count 256 thou/uL (130-400); RBC Distribution Width 13.2 % (11.5-14.5); White Blood Cell (WBC) Count 5.2 thou/uL (4.8-10.8)
[2019-12-24 15:49] LABS: INR-International Normal Ratio 0.9; PTT 34.4 sec (22.9-36.1); Prothrombin Time 12.8 sec (12.0-14.7)
--- NOTE | 2019-12-24 15:50 | RAD ---
PELVIC RADIOGRAPH: Date: 12-24-2019 PROVIDED CLINICAL HISTORY: Pain status post injury FINDINGS: No evidence for fracture or other acute osseous abnormality. If there is persistent clinical concern, conservative management and follow up imaging are advised. IMPRESSION: As above. POS: NATANAEL
[2019-12-24 16:07] LABS: ALT (SGPT) 10 U/L (8-55); AST (SGOT) 16 U/L (5-34); Albumin 3.2 g/dL (3.4-4.8); Alkaline Phosphatase 160 U/L (40-110); Anion Gap 22 mmol/L (10-20); BUN (Urea Nitrogen) 12 mg/dL (9.8-20.1); Bilirubin, Total 0.6 mg/dL (0.2-1.2); Calc. Creatinine Clearance 0 mL/min (70-130); Calcium 9.3 mg/dL (7.8-10.44); Carbon Dioxide 18 mmol/L (23-31); Chloride 94 mmol/L (98-107); Estimated GFR-MDRD 9; Glucose 86 mg/dL (83-110); Potassium 3.8 mmol/L (3.5-5.1); Protein, Total 6.2 g/dL (6.0-8.3); Sodium 130 mmol/L (136-145)
--- NOTE | 2019-12-24 16:37 | RAD ---
PORTABLE CHEST: Date: 12-24-2019 PROVIDED CLINICAL HISTORY: Fall FINDINGS: Comparison 11-07-18 Cardiac silhouette appears enlarged. Vascular calcification is noted involving the aortic arch. No fo jackson consolidation, pleural fluid or pneumothorax apparent. Stable chronic appearing interstitial opac ities. The bony thorax appears grossly intact. IMPRESSION: Cardiomegaly without evidence for an acute cardiopulmonary process. POS: NATANAEL
--- NOTE | 2019-12-24 16:38 | RAD ---
LEFT HIP RADIOGRAPHS TWO VIEWS: Date: 12-24-2019 PROVIDED CLINICAL HISTORY: Pain status post injury FINDINGS: There is no evidence for fracture or other acute osseous abnormality. If there is persistent clinical concern, conservative management and follow up imaging are advised. IMPRESSION: As above. POS: NATANAEL
--- NOTE | 2019-12-24 16:40 | RAD ---
LEFT KNEE RADIOGRAPHS FOUR VIEWS: Date: 12-24-2019 PROVIDED CLINICAL HISTORY: Pain status post injury FINDINGS: Advanced degenerative changes are seen. Vascular calcifications are noted. Bulky periarticular osteop hytes formation. Mild knee joint capsular distension. No evidence for fracture or other acute osseous abnormality. If there is persistent clinical concern, conservative management and follow up imaging are advised. IMPRESSION: As above. POS: NATANAEL
--- NOTE | 2019-12-24 17:17 | CT ---
CT BRAIN: Date: 12-24-2019 PROVIDED CLINICAL HISTORY: Injury FINDINGS: No comparisons. Ventricular system appears normal in size and morphology. There is no evidence for in tracranial hemorrhage or mass effect. Chronic microvascular ischemic changes are seen involving the c erebral white matter. The extracranial soft tissues and osseous structures demonstrate an unremarkabl e CT appearance. IMPRESSION: No evidence for intracranial hemorrhage or mass effect. POS: NATANAEL
--- NOTE | 2019-12-24 17:22 | CT ---
CT CERVICAL SPINE: Date: 12-24-2019 PROVIDED CLINICAL HISTORY: Injury FINDINGS: There is no evidence for fracture or traumatic subluxation. Cervical degenerative changes are seen. C arotid calcifications are seen. There is no prevertebral soft tissue swelling apparent. The visualize d lung apices appear clear. IMPRESSION: No evidence for fracture or traumatic subluxation. POS: NATANAEL
--- NOTE | 2019-12-24 17:26 | CT ---
CT CHEST, ABDOMEN, AND PELVIS WITHOUT CONTRAST: Date: 12-24-2019 PROVIDED CLINICAL HISTORY: Back pain status post injury FINDINGS: Comparison is made with a CT examination of the abdomen and pelvis dated 12-05-18. The heart, paracardium, and great vessels are suboptimally evaluated in the absence of IV contrast ma terial. Vascular calcification including coronary calcium is demonstrated. The lungs are free of suspicious opacity. There is no pleural fluid or pneumothorax apparent. No rib fractures are evident. The solid abdominal organs are suboptimally evaluated in the absence of IV contrast material but demo nstrate a stable unenhanced CT appearance. There is no bowel dilatation, newly developed fat strandin g, free fluid, or free air. Scattered colonic diverticula are seen. Conspicuous atherosclerotic vascular calcifications. The osseous structures demonstrate no concerning lytic or blastic lesions. Extensive spinal degenerat gabe changes are seen. The thoracic and lumbar spine reconstructions demonstrate maintenance of verteb ral body heights and no evidence for traumatic subluxation. IMPRESSION: No evidence for traumatic abnormality involving the chest, abdomen, or pelvis with limitations as bonny cribed. POS: NATANAEL
--- NOTE | 2019-12-25 13:09 | RAD ---
PORTABLE CHEST: Date: 12/25/2019 HISTORY: Shortness of breath. COMPARISON: 12/24/2019 study. FINDINGS: Heart size appears slightly enlarged. There are atherosclerotic changes of the aorta. The lungs are c lear of infiltrates. IMPRESSION: Mild cardiomegaly. No acute findings. POS: SARAH
== END 2019-12-24 22:36 ==
LOC: ERS 14:13
DX: S00.93XA Contusion of unspecified part of head, initial encounter (principal); S80.02XA Contusion of left knee, initial encounter; S80.211A Abrasion, right knee, initial encounter; I12.0 Hypertensive chronic kidney disease with stage 5 chronic kidney disease or end stage renal disease; N18.6 End stage renal disease; E03.9 Hypothyroidism, unspecified; E78.5 Hyperlipidemia, unspecified; F32.9 Major depressive disorder, single episode, unspecified; F41.9 Anxiety disorder, unspecified; Z87.891 Personal history of nicotine dependence; Z79.82 Long term (current) use of aspirin; Z79.899 Other long term (current) drug therapy; W18.30XA Fall on same level, unspecified, initial encounter
CPT/HCPCS: 36415; 70450; 71045; 71250; 72125; 72170; 74177; 80053; 84484; 85025; 85610; 85730; 93005

== ENCOUNTER 2020-01-04 09:15 | Inpatient (IN) | payer MEDICARE, OTHER ==
[2020-01-04] MEDS ORDERED: Aspirin Chewable 81 MG TAB ONE (09:36)
[2020-01-04] MEDS ORDERED: Vancomycin 1 GM/200 ML BAG ONE (09:37)
[2020-01-04] MEDS ORDERED: Dexamethasone 10 MG/ML VIAL ONE (09:37)
[2020-01-04] MEDS ORDERED: Ondansetron PF 4 MG/2 ML Vial ONE (10:18)
[2020-01-04 10:29] LABS: #Lymphocytes 0.7 thou/uL (1.20-3.40); #Monocytes 0.4 thou/uL (0.11-0.59); %Basophils 0.1 % (0.0-1.0); %Eosinophils 0.1 % (0.0-10.0); %Lymphocytes 5.6 % (21.0-51.0); %Monocytes 3.2 % (0.0-10.0); %Neutrophils 91.1 % (42.0-75.0); Hemoglobin 12.2 g/dL (12.0-16.0); Mean Corpuscular HGB CONC 32.5 g/dL (32.0-36.0); Mean Corpuscular Hemoglobin 32.3 pg (27.0-31.0); Mean Corpuscular Volume 99.4 fL (78.0-98.0); Platelet Count 294 thou/uL (130-400); RBC Distribution Width 13.2 % (11.5-14.5); Red Blood Cell (RBC) Count 3.77 mill/uL (4.20-5.40)
[2020-01-04 10:43] LABS: ALT (SGPT) 11 U/L (8-55); AST (SGOT) 17 U/L (5-34); Albumin 3.8 g/dL (3.4-4.8); Alkaline Phosphatase 143 U/L (40-110); Anion Gap 21 mmol/L (10-20); BUN (Urea Nitrogen) 42 mg/dL (9.8-20.1); Bilirubin, Total 0.4 mg/dL (0.2-1.2); CK (CPK) 21 U/L (29-168); Calc. Creatinine Clearance 0 mL/min (70-130); Calcium 9.1 mg/dL (7.8-10.44); Carbon Dioxide 21 mmol/L (23-31); Chloride 90 mmol/L (98-107); Globulin 4.1 g/dL (2.4-3.5); Glucose 158 mg/dL (83-110); Lipase 11 U/L (8-78); Potassium 4.4 mmol/L (3.5-5.1); Protein, Total 7.9 g/dL (6.0-8.3); Sodium 128 mmol/L (136-145)
--- NOTE | 2020-01-04 11:01 | RAD ---
XR Chest 1 View Portable HISTORY: Dyspnea shortness of breath,COVID Positive COMPARISON: 01/01/2020 FINDINGS: The heart size is enlarged. The aorta is tortuous. New patchy airspace opacities have devel oped bilaterally since the last exam and suspicious for pneumonia. No pneumothoraces or pleural effusions are seen.
--- NOTE | 2020-01-04 11:02 | RAD ---
XR Hip Lt 2-3 View HISTORY: Fall, left hip pain FINDINGS: No fracture or dislocation is identified. If there is persistent clinical concern, conservative management and follow up imaging are advised.
--- NOTE | 2020-01-04 12:11 | PDOC.HHP ---
Hospitalist HPI - History of Present Illness Shortness of breath History of Present Illness: This is a 84-year-old female patient with a history of gout, A. fib with RVR, hypertension, recent frequent falls who presents today with worsening shortness of breath . She tested positive for Covid 3 days ago on 01/01/20. Of note she was last seen here on days ago after she had a fall with injury of her knee. She was evaluated no fractures were noted however she was sent to [facility] rehab for physical therapy She noticed couple of days ago that she was becoming more short of breath. She had associated dry cough. She was placed on oxygen nonrebreather and also missed dialysis a day ago. EMS was activated when they evaluated her oxygen was 90% on room air. She was brought in for further assessment. Besides worsening shortness of breath and feeling anxious sometimes., She denies any chest pain, fevers or palpitations. At presentation blood pressure was 176/97, pulse 88, respiratory 23, temperature 98 and saturating 90% on nonrebreather. Labs showed lactic acid of 2.5, BNP thousand 767.5, D-dimer 1.78, sodium 128, creatinine 5.67. Chest x-ray showed enlarged heart, tortuous aorta new patchy airspace opacities developed bilaterally since last exam and suspicious for pneumonia. No pneumothorax or pleural effusion noted. She was started on Levaquin, vancomycin and aspirin. Also received 10 mg Decadron and 500 mils normal saline. Hospitalist team consulted for admission. a Hospitalist ROS - Review of Systems Constitutional: denies: fever, chills Respiratory: reports: cough, dry, shortness of breath, SOB with excertion. denies: hemoptysis Cardiovascular: denies: chest pain, palpitations, orthopnea Gastrointestinal: denies: nausea, vomiting, abdominal pain Genitourinary: denies: dysuria, frequency, incontinence Neurological: denies: weakness, numbness, incoordination Hospitalist History - Past Medical History Other Medical History: Hypertension, hyperlipidemia, hypothyroidism, recurrent falls, end-stage renal disease - Past Surgical History Other Surgical History: Appendectomy, hysterectomy - Family History Family History: reports: no pertinent history - Social History Living Situation: Alone - Exam General Appearance: awake alert General - other findings: Mild respiratory distress Heart: RRR, no murmur, no gallops Respiratory - other findings: Bilateral coarse breath sounds. Gastrointestinal: soft, non-tender, non-distended, normal bowel sounds Extremities: no cyanosis, no clubbing, no edema Neurological: cranial nerve grossly intact, no weakness Psychiatric: A&O x 3 Psychiatric - other findings: Slightly anxious Hospitalist Results - Labs Result Diagrams: 01/04/20 09:58 01/04/20 09:58 Lab results: WBC 12.0 thou/uL (4.8-10.8) H 01/04/20 09:58 Hgb 12.2 g/dL (12.0-16.0) 01/04/20 09:58 Hct 37.5 % (36.0-47.0) 01/04/20 09:58 MCV 99.4 fL (78.0-98.0) H 01/04/20 09:58 Plt Count 294 thou/uL (130-400) 01/04/20 09:58 Neutrophils % 91.1 % (42.0-75.0) H 01/04/20 09:58 Sodium 128 mmol/L (136-145) L 01/04/20 09:58 Potassium 4.4 mmol/L (3.5-5.1) 01/04/20 09:58 Chloride 90 mmol/L (98-107) L 01/04/20 09:58 Carbon Dioxide 21 mmol/L (23-31) L 01/04/20 09:58 BUN 42 mg/dL (9.8-20.1) H 01/04/20 09:58 Creatinine 5.67 mg/dL (0.6-1.1) H 01/04/20 09:58 Glucose 158 mg/dL (83-110) H 01/04/20 09:58 Lactic Acid 2.5 mmol/L (0.5-2.2) H 01/04/20 10:43 Calcium 9.1 mg/dL (7.8-10.44) 01/04/20 09:58 Total Bilirubin 0.4 mg/dL (0.2-1.2) 01/04/20 09:58 AST 17 U/L (5-34) 01/04/20 09:58 ALT 11 U/L (8-55) 01/04/20 09:58 Alkaline Phosphatase 143 U/L (40-110) H 01/04/20 09:58 Creatine Kinase 21 U/L (29-168) L 01/04/20 09:58 Troponin I Less than 0.010 ng/mL (< 0.028) 01/04/20 09:58 B-Natriuretic Peptide 1767.5 pg/mL (0-100) H 01/04/20 09:58 Serum Total Protein 7.9 g/dL (6.0-8.3) 01/04/20 09:58 Albumin 3.8 g/dL (3.4-4.8) 11 09:58 Lipase 11 U/L (8-78) 11 09:58 Hospitalist H&P A/P - Plan Plan: This is an 84-year-old female patient with a history of hypertension, ESRD, gout and recent recurrent falls presenting with worsening shortness of breath likely secondary to pneumonia due to Covid. A/P Acute hypoxic respiratory failure next Secondary to pneumonia/Covid As needed oxygen Monitor closely Pulmonology consult if deteriorates. Pneumonia due to Covid Status anticoagulation, plasma/Decadron Monitor daily labs Sepsis Lactate 2.5, tachypnea tachycardic Likely due to Covid Continue antibiotics Follow-up blood cultures ESRD Consult nephrology Hypertension Start home blood pressure medicines once verified As needed hydralazine/labetalol Hyponatremia Mild Monitor A. fib Not in RVR Continue apixaban Recent frequent falls Monitor on telemetry Fall precaution PT evaluation once stable CODE STATUSfull code VTE prophylaxisrestart apixaban once verified
[2020-01-04 14:26] LABS: Troponin I Less than 0.010 ng/mL (< 0.028)
[2020-01-04] MEDS ORDERED: Heparin 5,000 UNITS/ML VIAL SC SCH (15:00)
[2020-01-04 15:22] LABS: Lactic Acid 1.8 mmol/L (0.5-2.2)
[2020-01-04 17:55] LABS: Troponin I Less than 0.010 ng/mL (< 0.028)
[2020-01-04] MEDS: Acetaminophen 325 MG TAB PO PRN (20:19)
--- NOTE | 2020-01-05 00:41 | CON ---
DATE OF CONSULTATION: 01/04/2020 CONSULTING PHYSICIAN: Nick Navarrete MD REASON FOR CONSULTATION: End-stage renal disease evaluation and care. REASON FOR ADMISSION: Shortness of breath. HISTORY OF PRESENT ILLNESS: An 84-year-old female with history of gout, atrial fibrillation, hypertension, end-stage renal disease, came to the hospital with shortness of breath. She was at the rehab and was tested positive for COVID. This morning, she started having shortness of breath and sent to the ER. No fever or chills. No nausea or vomiting. PAST MEDICAL HISTORY: Positive for end-stage renal disease, hypertension, hyperlipidemia, hypothyroidism, and recurrent falls. PAST SURGICAL HISTORY: Appendectomy and hysterectomy. HOME MEDICATIONS: Reviewed. ALLERGIES: ALLOPURINOL, AMITRIPTYLINE, LISINOPRIL, AND PENICILLIN. SOCIAL HISTORY: No smoking, alcohol, or illicit drugs. FAMILY HISTORY: No history of kidney disease. REVIEW OF SYSTEMS: CONSTITUTIONAL: Negative for weight loss or gain, ability to conduct usual activities. SKIN: Negative for rash, itching. EYES: Negative for double vision, pain. ENT/MOUTH: Negative for nose bleeding, neck stiffness, pain, tenderness. CARDIOVASCULAR: Negative for palpitations, dyspnea on exertion, orthopnea. RESPIRATORY: Negative for shortness of breath, wheezing, cough, hemoptysis, fever or night sweats. GASTROINTESTINAL: Negative for poor appetite, abdominal pain, heartburn, nausea, vomiting, constipation, or diarrhea. GENITOURINARY: Negative for urgency, frequency, dysuria, nocturia. MUSCULOSKELETAL: Negative for pain, swelling. NEUROLOGIC/PSYCHIATRIC: Negative for anxiety, depression. ALLERGY/IMMUNOLOGIC: Negative for skin rash, bleeding tendency. PHYSICAL EXAMINATION: GENERAL: This is a well-built female, on COVID isolation. VITAL SIGNS: Reviewed. HEENT: Atraumatic and normocephalic. NECK: Supple. CVS: S1 and S2. RESPIRATORY: Coarse breath sounds. GI: Abdomen is soft. MUSCULOSKELETAL: 1+ edema. DERMATOLOGIC: No skin rash. NEUROLOGIC: Alert and awake. LABORATORY DATA: Potassium 4.4, sodium 128, BUN is 42, creatinine is 5.6, and hemoglobin is 12.2. ASSESSMENT AND PLAN: 1. End-stage renal disease, plan to have dialysis. 2. Edema. 3. Hypertension. 4. Fluid overload. 5. Hyponatremia. 6. Acidosis. 7. Hypoalbuminemia. Dialysis nurse notified. Plan is to have dialysis today. Remove fluid dialysis as tolerated. We will follow. Job ID: [id number]
[2020-01-05] MEDS: HYDROcodone/Acetaminophen 10/325 mg Tablet PO PRN ×4 (01:11→21:25)
[2020-01-05 05:14] LABS: #Lymphocytes 0.3 thou/uL (1.20-3.40); #Monocytes 0.2 thou/uL (0.11-0.59); %Lymphocytes 3.1 % (21.0-51.0); %Neutrophils 94.9 % (42.0-75.0); Hemoglobin 9.5 g/dL (12.0-16.0); Mean Corpuscular HGB CONC 32.7 g/dL (32.0-36.0); Mean Corpuscular Hemoglobin 32.2 pg (27.0-31.0); Mean Corpuscular Volume 98.5 fL (78.0-98.0); Mean Platelet Volume 8.1 fL (7.4-10.4); Platelet Count 203 thou/uL (130-400); RBC Distribution Width 13.2 % (11.5-14.5); Red Blood Cell (RBC) Count 2.94 mill/uL (4.20-5.40); White Blood Cell (WBC) Count 9.5 thou/uL (4.8-10.8)
[2020-01-05 05:38] LABS: Anion Gap 16 mmol/L (10-20); BUN (Urea Nitrogen) 25 mg/dL (9.8-20.1); Calc. Creatinine Clearance 16 mL/min (70-130); Calcium 8.1 mg/dL (7.8-10.44); Carbon Dioxide 24 mmol/L (23-31); Chloride 94 mmol/L (98-107); Glucose 110 mg/dL (83-110); Potassium 4.3 mmol/L (3.5-5.1); Sodium 130 mmol/L (136-145)
[2020-01-05] MEDS: Dexamethasone 4 mg/ml Vial SLOW IVP SCH (07:48)
[2020-01-05] MEDS ORDERED: Benzonatate 100 MG CAP PO SCH (15:00)
[2020-01-05] MEDS: Benzonatate 100 MG CAP PO SCH ×2 (16:14→21:26)
--- NOTE | 2020-01-05 17:35 | PRG ---
DATE OF SERVICE: 01/05/2020 SUBJECTIVE: Patient was seen and examined at bedside and overnight events noted. Patient denies any shortness of breath or chest pain or palpitation. No history of nausea or vomiting or diarrhea or fever or chills or cramps. OBJECTIVE: GENERAL: This is a well-built female, in no apparent distress. VITAL SIGNS: Temperature 98.3. Heart rate 91. Respiratory rate 20. Blood pressure 113/77. HEENT: Atraumatic, normocephalic. Oral mucosa is moist. NECK: Supple. CARDIOVASCULAR: S1, S2 heard. Rate and rhythm regular. RESPIRATORY: Clear to auscultation. GASTROINTESTINAL: Abdomen is soft. MUSCULOSKELETAL: No tenderness. No edema. DERMATOLOGIC: No skin rash. NEUROLOGIC: Alert and awake and oriented x3. No focal neurologic deficits. Moving all the extremities. PSYCHIATRIC: Mood and affect normal. LABORATORY DATA: Potassium 4.3, BUN is 25, and creatinine is 3.6. ASSESSMENT AND PLAN: 1. End-stage renal disease, had dialysis today, but feels better. Plan is to have another session of dialysis and continue dialysis on Wednesday, Wednesday, and Fridays. 2. Edema. I will remove fluid. 3. Fluid overload. 4. Hyponatremia. 5. Acidosis. 6. Hypoalbuminemia. Plan to have dialysis as tolerated. Job ID: [id number]
[2020-01-05] MEDS ORDERED: Lidocaine-Prilocaine 2.5% Cream 5 GM TUBE TOP SCH (17:45)
[2020-01-05] MEDS ORDERED: Enoxaparin Sodium 40 MG/0.4 ML SYRINGE SC SCH (21:00)
[2020-01-05] MEDS: Enoxaparin Sodium 40 MG/0.4 ML SYRINGE SC SCH ×2 (21:26)
[2020-01-05] MEDS: Temazepam 15 MG CAP PO PRN (22:57)
--- NOTE | 2020-01-05 23:30 | PDOC.HOSPP ---
- Subjective Encounter Date: 01/05/20 Encounter Time: 10:00 Subjective: Patient was seen and examined in bed. She feels a little better compared to the day before. Still having shortness of breath and coughing. No other significant events overnight - Objective Vital Signs & Weight: Vital Signs (12 hours) Temp Pulse Resp BP Pulse Ox 01/05/20 20:05 98.1 F 96 20 146/88 H 92 L 01/05/20 16:22 98.3 F 91 20 138/77 96 01/05/20 12:00 98.7 F 86 22 H 141/67 H 95 Weight Weight 190 lb I&O: 01/04/20 01/05/20 01/06/20 06:59 06:59 06:59 Intake Total 760 720 Balance 760 720 Result Diagrams: 01/05/20 04:24 01/05/20 04:24 Additional Labs: Accuchecks 01/05/20 05:49 POC Glucose 221 H Hospitalist ROS - Medication Medications: Active Medications Generic Name Dose Route Start Last Admin Trade Name Freq PRN Reason Stop Dose Admin Acetaminophen 650 mg 01/04/20 14:24 01/04/20 20:19 Acetaminophen 325 Mg Tab PO 650 mg Q4H PRN Administration Headache/Fever/Mild Pain (1-3) Hydrocodone Bitart/Acetaminophen 1 tab 01/05/20 11:37 01/05/20 21:25 Hydrocodone/Acetaminophen 10/325 Mg Tablet PO 1 tab Q4HR PRN Administration Moderate Pain (4-6) Benzonatate 100 mg 01/05/20 15:00 01/05/20 21:26 Benzonatate 100 Mg Cap PO 100 mg TID ADAM Administration Dexamethasone 8 mg 01/05/20 09:00 01/05/20 07:48 Dexamethasone 4 Mg/Ml Vial SLOW IVP 8 mg DAILY ADAM Administration Enoxaparin Sodium 40 mg 01/05/20 21:00 01/05/20 21:26 Enoxaparin Sodium 40 Mg/0.4 Ml Syringe SC 40 mg 2100 ADAM Administration Temazepam 15 mg 01/05/20 11:37 01/05/20 22:57 Temazepam 15 Mg Cap PO 15 mg HS PRN Administration Insomnia - Exam General Appearance: awake alert Heart: RRR, no murmur, no gallops, normal peripheral pulses Heart - other findings: . Respiratory - other findings: Bilateral coarse breath sounds. Extremities: no cyanosis, no clubbing, no edema Psychiatric: normal affect, A&O x 3 Hosp A/P - Plan This is an 84-year-old female patient with a history of hypertension, ESRD, gout and recent recurrent falls presenting with worsening shortness of breath likely secondary to pneumonia due to Covid. Her condition has generally remained stable but she feels much better compared to a day ago. We will continue monitoring her and wean down oxygen as possible Acute hypoxic respiratory failure Improving Secondary to pneumonia/Covid As needed oxygen Monitor closely Pulmonology consult if deteriorates. Pneumonia due to Covid On anticoagulation, plasma/Decadron Monitor daily labs Sepsis Lactate 2.5, tachypnea tachycardic Likely due to Covid Continue antibiotics No growth on blood cultures ESRD Dialysis per nephrology Hypertension Start home blood pressure medicines once verified As needed hydralazine/labetalol Hyponatremia Mild Monitor A. fib Not in RVR Continue apixaban Recent frequent falls Monitor on telemetry Fall precaution PT evaluation once stable CODE STATUSfull code VTE prophylaxisrestart apixaban once verified
[2020-01-06] MEDS: Acetaminophen 325 MG TAB PO PRN (00:34)
[2020-01-06] MEDS: HYDROcodone/Acetaminophen 10/325 mg Tablet PO PRN ×3 (04:46→20:11)
[2020-01-06] MEDS: Levothyroxine Sodium 25 MCG TAB PO SCH (04:47)
[2020-01-06 06:25] LABS: Anion Gap 17 mmol/L (10-20); BUN (Urea Nitrogen) 26 mg/dL (9.8-20.1); Calc. Creatinine Clearance 17 mL/min (70-130); Calcium 8.5 mg/dL (7.8-10.44); Carbon Dioxide 25 mmol/L (23-31); Chloride 93 mmol/L (98-107); Glucose 114 mg/dL (83-110); Sodium 131 mmol/L (136-145)
[2020-01-06 06:32] LABS: Band 6 % (5-11); Hemoglobin 10.2 g/dL (12.0-16.0); Lymphocytes 4 % (21-51); MDiff Complete? YES; Mean Corpuscular HGB CONC 32.6 g/dL (32.0-36.0); Mean Corpuscular Hemoglobin 32.5 pg (27.0-31.0); Mean Corpuscular Volume 99.7 fL (78.0-98.0); Mean Platelet Volume 8.1 fL (7.4-10.4); Monocytes 1 % (0-10); Neutrophil 89 % (42-75); Platelet Count 202 thou/uL (130-400); RBC Distribution Width 13.3 % (11.5-14.5); Red Blood Cell (RBC) Count 3.12 mill/uL (4.20-5.40); White Blood Cell (WBC) Count 6.2 thou/uL (4.8-10.8)
[2020-01-06] MEDS: Dexamethasone 4 mg/ml Vial SLOW IVP SCH (08:41)
[2020-01-06] MEDS: Amiodarone 200 MG TAB PO SCH (08:41)
[2020-01-06] MEDS: Escitalopram Oxalate 10 mg Tablet PO SCH (08:41)
[2020-01-06] MEDS: Benzonatate 100 MG CAP PO SCH ×3 (08:41→20:08)
[2020-01-06] MEDS ORDERED: Aspirin 325 mg Enteric Coated Tablet PO SCH (09:00)
[2020-01-06] MEDS ORDERED: Polyethylene Glycol OPTH DROP 15 ML BOT EA EYE PRN (09:06)
[2020-01-06] MEDS ORDERED: Non-Formulary Item 1 EACH (Albuterol Sulfate [Proair Digihaler] 90 MCG Aer.Pw.Bas) IH PRN (09:06)
[2020-01-06] MEDS: Acetaminophen 500 MG TAB PO SCH ×3 (11:16→22:01)
[2020-01-06] MEDS: Sevelamer Carbonate 800 MG TAB PO SCH ×2 (11:16→18:05)
--- NOTE | 2020-01-06 14:12 | PDOC.HOSPP ---
- Subjective Encounter Date: 01/06/20 Encounter Time: 11:15 Subjective: pt up in bed on high flow - Objective Vital Signs & Weight: Vital Signs (12 hours) Temp Pulse Resp BP Pulse Ox 01/06/20 11:30 98.0 F 79 19 126/68 100 01/06/20 08:45 98.4 F 97 20 129/85 100 01/06/20 04:20 98.2 F 88 18 132/78 95 Weight Weight 190 lb I&O: 01/05/20 01/06/20 01/07/20 06:59 06:59 06:59 Intake Total 760 1460 Balance 760 1460 Result Diagrams: 01/06/20 05:43 01/06/20 05:43 Hospitalist ROS - Review of Systems Respiratory: reports: shortness of breath Cardiovascular: denies: chest pain, palpitations, orthopnea, paroxysmal noc. dyspnea, edema, light headedness, other Gastrointestinal: denies: nausea, vomiting, abdominal pain, diarrhea, constipation, melena, hematochezia, other Genitourinary: denies: dysuria, frequency, incontinence, hematuria, retention, other - Medication Medications: Active Medications Generic Name Dose Route Start Last Admin Trade Name Freq PRN Reason Stop Dose Admin Acetaminophen 650 mg 01/04/20 14:24 01/06/20 00:34 Acetaminophen 325 Mg Tab PO 650 mg Q4H PRN Administration Headache/Fever/Mild Pain (1-3) Acetaminophen 500 mg 01/06/20 12:00 01/06/20 11:16 Acetaminophen 500 Mg Tab PO 500 mg Q6HR ADAM Administration Hydrocodone Bitart/Acetaminophen 1 tab 01/05/20 11:37 01/06/20 08:42 Hydrocodone/Acetaminophen 10/325 Mg Tablet PO 1 tab Q4HR PRN Administration Moderate Pain (4-6) Amiodarone HCl 200 mg 01/06/20 09:00 01/06/20 08:41 Amiodarone 200 Mg Tab PO 200 mg DAILY ADAM Administration Benzonatate 100 mg 01/05/20 15:00 01/06/20 08:41 Benzonatate 100 Mg Cap PO 100 mg TID ADAM Administration Dexamethasone 8 mg 01/05/20 09:00 01/06/20 08:41 Dexamethasone 4 Mg/Ml Vial SLOW IVP 8 mg DAILY ADAM Administration Escitalopram Oxalate 10 mg 01/06/20 09:00 01/06/20 08:41 Escitalopram Oxalate 10 Mg Tablet PO 10 mg DAILY ADAM Administration Levothyroxine Sodium 50 mcg 01/06/20 06:00 01/06/20 04:47 Levothyroxine Sodium 25 Mcg Tab PO 50 mcg 0600 ADAM Administration Sevelamer Carbonate 800 mg 01/06/20 12:00 01/06/20 11:16 Sevelamer Carbonate 800 Mg Tab PO 800 mg TID-WM ADAM Administration Temazepam 15 mg 01/05/20 11:37 01/05/20 22:57 Temazepam 15 Mg Cap PO 15 mg HS PRN Administration Insomnia - Exam Heart: negative: RRR, no murmur, no gallops, no rubs, normal peripheral pulses, irregular, diminshed peripheral pulses, murmur present, II/IV, III/IV Respiratory: negative: CTAB, no wheezes, no rales, no ronchi, normal chest expansion, no tachypnea, normal percussion, rales, rhonchi, tachypneic, wheezes Gastrointestinal: negative: soft, non-tender, non-distended, normal bowel sounds, no palpable masses, no hepatomegaly, no splenomegaly, no bruit, no guarding, no rigidity, tender to palpation, distended, diminished bowl sounds, voluntary guarding Extremities: 1+ LE edema Hosp A/P (1) Acute hypoxemic respiratory failure Code(s): J96.01 - ACUTE RESPIRATORY FAILURE WITH HYPOXIA Status: Acute (2) COVID-19 Code(s): U07.1 - COVID-19 Status: Acute (3) Hypertension Code(s): I10 - ESSENTIAL (PRIMARY) HYPERTENSION Status: Chronic Qualifiers: Hypertension type: essential hypertension Qualified Code(s): I10 - Essential (primary) hypertension (4) Hypothyroidism Code(s): E03.9 - HYPOTHYROIDISM, UNSPECIFIED Status: Chronic (5) ESRD on peritoneal dialysis Code(s): N18.6 - END STAGE RENAL DISEASE; Z99.2 - DEPENDENCE ON RENAL DIALYSIS Status: Chronic - Plan will continue steroids/dvt ppx. will continue current meds. she is on high flow. Her inflammatory markers are high. nephrology has been consulted.
[2020-01-06] MEDS: Diclofenac 1% 100 GM GEL TP SCH ×2 (15:23→20:09)
[2020-01-06] MEDS: Heparin 5,000 UNITS/ML VIAL SC SCH ×2 (15:24→21:44)
[2020-01-06] MEDS: Ketorolac Tromethamine 0.5% Ophth Soln 3 ml Bottle R EYE SCH ×2 (15:24→20:10)
--- NOTE | 2020-01-06 18:16 | PRG ---
DATE OF SERVICE: 01/06/2020 SUBJECTIVE: The patient on COVID isolation. OBJECTIVE: GENERAL: Elderly female, in no apparent distress. VITAL SIGNS: Temperature 99.0, pulse 91, respiratory rate 20, blood pressure 126/68. The patient on COVID isolation. LABORATORY DATA: Potassium 4.0, BUN is 26, creatinine is 3.4. ASSESSMENT AND PLAN: 1. End-stage renal disease. Continue dialysis as tolerated, Wednesday, Wednesday, Wednesday. 2. Edema. I will remove fluid. 3. Fluid overload. 4. Hyponatremia. 5. Acidosis. 6. Hypoalbuminemia. 7. COVID-19 infection. Prognosis is guarded. We will follow. We will continue dialysis as tolerated, Wednesday, Wednesday, and Wednesday. Job ID: [id number]
[2020-01-06] MEDS: Atorvastatin Calcium 20 MG TAB PO SCH (20:08)
[2020-01-06] MEDS: Docusate 100 MG CAP PO SCH (20:08)
[2020-01-06] MEDS ORDERED: Heparin 5,000 UNITS/ML VIAL SC SCH (21:00)
[2020-01-06] MEDS: Temazepam 15 MG CAP PO PRN (22:01)
[2020-01-07 05:46] LABS: #Lymphocytes 0.3 thou/uL (1.20-3.40); #Monocytes 0.1 thou/uL (0.11-0.59); #Neutrophils 2.6 thou/uL (1.40-6.50); %Eosinophils 0.3 % (0.0-10.0); %Lymphocytes 10.8 % (21.0-51.0); %Monocytes 3.9 % (0.0-10.0); Hemoglobin 9.2 g/dL (12.0-16.0); Mean Corpuscular HGB CONC 30.9 g/dL (32.0-36.0); Mean Corpuscular Hemoglobin 30.9 pg (27.0-31.0); Mean Platelet Volume 8.2 fL (7.4-10.4); Platelet Count 201 thou/uL (130-400); RBC Distribution Width 13.3 % (11.5-14.5); Red Blood Cell (RBC) Count 2.97 mill/uL (4.20-5.40); White Blood Cell (WBC) Count 3.1 thou/uL (4.8-10.8)
[2020-01-07 06:10] LABS: Anion Gap 17 mmol/L (10-20); BUN (Urea Nitrogen) 43 mg/dL (9.8-20.1); Calc. Creatinine Clearance 13 mL/min (70-130); Calcium 8.4 mg/dL (7.8-10.44); Carbon Dioxide 27 mmol/L (23-31); Chloride 92 mmol/L (98-107); Glucose 146 mg/dL (83-110); Potassium 4.5 mmol/L (3.5-5.1); Sodium 131 mmol/L (136-145)
[2020-01-07] MEDS: Acetaminophen 500 MG TAB PO SCH ×2 (06:20→11:23)
[2020-01-07] MEDS: Heparin 5,000 UNITS/ML VIAL SC SCH ×3 (06:21→21:51)
[2020-01-07] MEDS: Levothyroxine Sodium 25 MCG TAB PO SCH (06:21)
--- NOTE | 2020-01-07 07:54 | RAD ---
Exam: Chest one view HISTORY:Fluid overload. COVID pneumonia. Comparison: 01/01/2020, 01/04/2020 FINDINGS: Cardiac silhouette:Cardiomegaly. Aorta: Atherosclerosis Pulmonary vessels: Normal Costophrenic angles: Clear LUNGS: Persistent multi lobar interstitial and alveolar opacities. Pneumothorax: None Osseous abnormalities: None IMPRESSION: Persistent multi lobar COVID pneumonia.
[2020-01-07] MEDS: Benzonatate 100 MG CAP PO SCH ×3 (08:16→20:02)
[2020-01-07] MEDS: Amiodarone 200 MG TAB PO SCH (08:16)
[2020-01-07] MEDS: Zinc Sulfate 220 MG CAP PO SCH (08:16)
[2020-01-07] MEDS: Senokot 8.6 MG TAB PO SCH (08:16)
[2020-01-07] MEDS: Furosemide 40 MG TAB PO SCH (08:16)
[2020-01-07] MEDS: Dexamethasone 4 mg/ml Vial SLOW IVP SCH (08:17)
[2020-01-07] MEDS: Docusate 100 MG CAP PO SCH ×2 (08:17→20:02)
[2020-01-07] MEDS: Amlodipine 10 MG TAB PO SCH (08:17)
[2020-01-07] MEDS: Sevelamer Carbonate 800 MG TAB PO SCH ×3 (08:17→17:37)
[2020-01-07] MEDS: Folic Acid 1 MG TAB PO SCH (08:17)
[2020-01-07] MEDS: guaiFENesin ER 600 MG TAB PO SCH (08:17)
[2020-01-07] MEDS: prednisoLONE 1% Ophth Susp 5 ml Bottle EA EYE SCH (08:18)
[2020-01-07] MEDS: Escitalopram Oxalate 10 mg Tablet PO SCH (08:18)
[2020-01-07] MEDS: Cholecalciferol 1,000 UNITS (25 MCG) TAB PO SCH (08:18)
[2020-01-07] MEDS: Diclofenac 1% 100 GM GEL TP SCH ×3 (08:21→20:08)
[2020-01-07] MEDS: Ketorolac Tromethamine 0.5% Ophth Soln 3 ml Bottle R EYE SCH ×3 (08:21→20:08)
[2020-01-07] MEDS: HYDROcodone/Acetaminophen 10/325 mg Tablet PO PRN (11:23)
--- NOTE | 2020-01-07 14:35 | PRG ---
DATE OF SERVICE: 01/07/2020 SUBJECTIVE: The patient is seen and examined at the bedside at the [facility] isolation room. The patient complains of shortness of breath and no significant improvement with dialysis. She had dialysis 3 times last week. OBJECTIVE: GENERAL: This is an elderly female in [id number] distress. VITAL SIGNS: Temperature 97.6, pulse 75, respirations 16, and blood pressure 127/87. HEENT: Atraumatic, normocephalic. NECK: Supple. CV: S1 and S2 heard. RESPIRATORY: Coarse. GASTROINTESTINAL: Abdomen is soft MUSCULOSKELETAL: 1+ edema. DERMATOLOGIC: No skin rash. NEUROLOGICAL: Alert and awake. LABORATORY DATA: Potassium 4.5, BUN 43, and creatinine is 4.5. ASSESSMENT AND PLAN: 1. End-stage renal disease. We will continue dialysis on Wednesday, Wednesday, and Wednesday. 2. COVID-19 infection with pneumonia. 3. Edema. Remove fluid dialysis. 4. Fluid overload. 5. Acidosis. 6. Hypoalbuminemia. We will continue dialysis on Wednesday, Wednesday, and Wednesday. Prognosis is poor. We will follow. Job ID: [id number]
[2020-01-07] MEDS ORDERED: HYDROcodone/Acetaminophen 10/325 mg Tablet PO SCH (15:15)
--- NOTE | 2020-01-07 16:11 | PDOC.HOSPP ---
- Subjective Encounter Date: 01/07/20 Encounter Time: 11:50 Subjective: pt up in bed still very sob. - Objective Vital Signs & Weight: Vital Signs (12 hours) Temp Pulse Resp BP Pulse Ox 01/07/20 08:25 97.6 F 75 16 127/87 96 Weight Weight 190 lb I&O: 01/06/20 01/07/20 01/08/20 06:59 06:59 06:59 Intake Total 1460 Balance 1460 Result Diagrams: 01/07/20 04:58 01/07/20 04:58 Hospitalist ROS - Review of Systems Respiratory: reports: shortness of breath Cardiovascular: denies: chest pain, palpitations, orthopnea, paroxysmal noc. dyspnea, edema, light headedness, other Gastrointestinal: denies: nausea, vomiting, abdominal pain, diarrhea, constipation, melena, hematochezia, other Genitourinary: denies: dysuria, frequency, incontinence, hematuria, retention, o ther - Medication Medications: Active Medications Generic Name Dose Route Start Last Admin Trade Name Freq PRN Reason Stop Dose Admin Acetaminophen 650 mg 01/04/20 14:24 01/06/20 00:34 Acetaminophen 325 Mg Tab PO 650 mg Q4H PRN Administration Headache/Fever/Mild Pain (1-3) Acetaminophen 500 mg 01/06/20 12:00 01/07/20 11:23 Acetaminophen 500 Mg Tab PO 500 mg Q6HR ADAM Administration Hydrocodone Bitart/Acetaminophen 1 tab 01/07/20 15:15 01/07/20 15:16 Hydrocodone/Acetaminophen 10/325 Mg Tablet PO 01/07/20 17:15 1 tab NOW ADAM Administration Amiodarone HCl 200 mg 01/06/20 09:00 01/07/20 08:16 Amiodarone 200 Mg Tab PO 200 mg DAILY ADAM Administration Amlodipine Besylate 10 mg 01/07/20 09:00 01/07/20 08:17 Amlodipine 10 Mg Tab PO 10 mg DAILY ADAM Administration Atorvastatin Calcium 20 mg 01/06/20 21:00 01/06/20 20:08 Atorvastatin Calcium 20 Mg Tab PO 20 mg HS ADAM Administration Benzonatate 100 mg 01/05/20 15:00 01/07/20 15:17 Benzonatate 100 Mg Cap PO 100 mg TID ADAM Administration Cholecalciferol 5,000 units 01/07/20 09:00 01/07/20 08:18 Cholecalciferol 1,000 Units (25 Mcg) Tab PO 5,000 units DAILY ADAM Administration Dexamethasone 6 mg 01/07/20 09:00 01/07/20 08:17 Dexamethasone 4 Mg/Ml Vial SLOW IVP 6 mg DAILY ADAM Administration Diclofenac Sodium 4 gm 01/06/20 15:00 01/07/20 15:34 Diclofenac 1% 100 Gm Gel TP 4 gm TID ADAM Administration Docusate Sodium 100 mg 01/06/20 21:00 01/07/20 08:17 Docusate 100 Mg Cap PO 100 mg BID ADAM Administration Escitalopram Oxalate 10 mg 01/06/20 09:00 01/07/20 08:18 Escitalopram Oxalate 10 Mg Tablet PO 10 mg DAILY ADAM Administration Folic Acid 1 mg 01/07/20 09:00 01/07/20 08:17 Folic Acid 1 Mg Tab PO 1 mg DAILY ADAM Administration Furosemide 40 mg 01/07/20 09:00 01/07/20 08:16 Furosemide 40 Mg Tab PO 40 mg DAILY ADAM Administration Guaifenesin 600 mg 01/07/20 09:00 01/07/20 08:17 Guaifenesin Er 600 Mg Tab PO 600 mg DAILY ADAM Administration Heparin Sodium (Porcine) 5,000 units 01/06/20 14:00 01/07/20 15:16 Heparin 5,000 Units/Ml Vial SC 5,000 units Q8HR ADAM Administration Ketorolac Tromethamine 1 drop 01/06/20 15:00 01/07/20 15:35 Ketorolac Tromethamine 0.5% Ophth Soln 3 Ml Bottle R EYE 1 drop TID ADAM Administration Levothyroxine Sodium 50 mcg 01/06/20 06:00 01/07/20 06:21 Levothyroxine Sodium 25 Mcg Tab PO 50 mcg 0600 ADAM Administration Prednisolone Acetate 1 drop 01/07/20 09:00 01/07/20 08:18 Prednisolone 1% Ophth Susp 5 Ml Bottle EA EYE 1 drop DAILY ADAM Administration Senna 2 tab 01/07/20 09:00 01/07/20 08:16 Senokot 8.6 Mg Tab PO 2 tab DAILY ADAM Administration Sevelamer Carbonate 800 mg 01/06/20 12:00 01/07/20 11:23 Sevelamer Carbonate 800 Mg Tab PO 800 mg TID- ADAM Administration Temazepam 15 mg 01/05/20 11:37 01/06/20 22:01 Temazepam 15 Mg Cap PO 15 mg HS PRN Administration Insomnia Zinc Sulfate 220 mg 01/07/20 09:00 01/07/20 08:16 Zinc Sulfate 220 Mg Cap PO 220 mg DAILY ADAM Administration - Exam Heart: negative: RRR, no murmur, no gallops, no rubs, normal peripheral pulses, irregular, diminshed peripheral pulses, murmur present, II/IV, III/IV Respiratory: negative: CTAB, no wheezes, no rales, no ronchi, normal chest expansion, no tachypnea, normal percussion, rales, rhonchi, tachypneic, wheezes Gastrointestinal: negative: soft, non-tender, non-distended, normal bowel sounds, no palpable masses, no hepatomegaly, no splenomegaly, no bruit, no guarding, no rigidity, tender to palpation, distended, diminished bowl sounds, voluntary guarding Extremities: negative: no cyanosis, no clubbing, no edema, 1+ LE edema, 2+ LE edema, clubbing Hosp A/P (1) Acute hypoxemic respiratory failure Code(s): J96.01 - ACUTE RESPIRATORY FAILURE WITH HYPOXIA Status: Acute (2) COVID-19 Code(s): U07.1 - COVID-19 Status: Acute (3) Hypertension Code(s): I10 - ESSENTIAL (PRIMARY) HYPERTENSION Status: Chronic Qualifiers: Hypertension type: essential hypertension Qualified Code(s): I10 - Essential (primary) hypertension (4) Hypothyroidism Code(s): E03.9 - HYPOTHYROIDISM, UNSPECIFIED Status: Chronic (5) ESRD on peritoneal dialysis Code(s): N18.6 - END STAGE RENAL DISEASE; Z99.2 - DEPENDENCE ON RENAL DIALYSIS Status: Chronic - Plan will continue steroids/dvt ppx. will continue current meds. she is on high flow. Her inflammatory markers are high. nephrology has been consulted. 01/06 will continue steroids and dvt ppx. cxr unchanged. will continue high flow. nephrology for dialysis.
[2020-01-07] MEDS: HYDROcodone/Acetaminophen 10/325 mg Tablet PO SCH ×3 (17:59→23:52)
[2020-01-07] MEDS: Atorvastatin Calcium 20 MG TAB PO SCH (20:02)
[2020-01-07] MEDS: Temazepam 15 MG CAP PO PRN (20:02)
[2020-01-08] MEDS: HYDROcodone/Acetaminophen 10/325 mg Tablet PO SCH ×8 (03:46→21:43)
[2020-01-08] MEDS: Guaifenesin DM 100-10/5 ML UDCUP PO PRN (04:21)
[2020-01-08 05:33] LABS: Prothrombin Time 13.2 sec (12.0-14.7)
[2020-01-08 05:51] LABS: Anion Gap 15 mmol/L (10-20); BUN (Urea Nitrogen) 68 mg/dL (9.8-20.1); CRP (Inflammatory) 14.06 mg/dL (= or < 0.5); Calc. Creatinine Clearance 11 mL/min (70-130); Calcium 8.1 mg/dL (7.8-10.44); Carbon Dioxide 28 mmol/L (23-31); Chloride 90 mmol/L (98-107); Glucose 169 mg/dL (83-110); Potassium 4.9 mmol/L (3.5-5.1); Sodium 128 mmol/L (136-145)
[2020-01-08] MEDS: Levothyroxine Sodium 25 MCG TAB PO SCH (06:20)
[2020-01-08] MEDS: Heparin 5,000 UNITS/ML VIAL SC SCH ×2 (06:20→15:01)
[2020-01-08] MEDS: Cholecalciferol 1,000 UNITS (25 MCG) TAB PO SCH (08:32)
[2020-01-08] MEDS: guaiFENesin ER 600 MG TAB PO SCH (08:32)
[2020-01-08] MEDS: Benzonatate 100 MG CAP PO SCH ×3 (08:32→20:55)
[2020-01-08] MEDS: Sevelamer Carbonate 800 MG TAB PO SCH ×3 (08:32→19:08)
[2020-01-08] MEDS: Docusate 100 MG CAP PO SCH ×2 (08:32→20:55)
[2020-01-08] MEDS: Amlodipine 10 MG TAB PO SCH (08:33)
[2020-01-08] MEDS: Escitalopram Oxalate 10 mg Tablet PO SCH (08:33)
[2020-01-08] MEDS: Zinc Sulfate 220 MG CAP PO SCH (08:33)
[2020-01-08] MEDS: Amiodarone 200 MG TAB PO SCH (08:33)
[2020-01-08] MEDS: Folic Acid 1 MG TAB PO SCH (08:33)
[2020-01-08] MEDS: Senokot 8.6 MG TAB PO SCH (08:33)
[2020-01-08] MEDS: Dexamethasone 4 mg/ml Vial SLOW IVP SCH (08:34)
[2020-01-08] MEDS: Diclofenac 1% 100 GM GEL TP SCH ×3 (09:03→20:57)
[2020-01-08] MEDS: Ketorolac Tromethamine 0.5% Ophth Soln 3 ml Bottle R EYE SCH ×3 (09:03→21:41)
[2020-01-08] MEDS: prednisoLONE 1% Ophth Susp 5 ml Bottle EA EYE SCH (09:03)
--- NOTE | 2020-01-08 11:46 | PRG ---
DATE OF SERVICE: 01/08/2020 SUBJECTIVE: An 84-year-old female being seen for end-stage renal disease. The patient denies any nausea, vomiting, or chest pain. OBJECTIVE: GENERAL: The patient is awake and alert. VITAL SIGNS: Afebrile, pulse 87, breathing at 16, and blood pressure 136/84. HEENT: Head normocephalic and atraumatic. Eyes intact, no ulcers. Nose intact, no ulcers. Ears intact, no ulcers. NECK: Supple. No JVD. CHEST: Symmetrical and clear. CARDIOVASCULAR: Shows S1 and S2, no rub, no murmur. GASTROINTESTINAL: Abdomen is soft, bowel sounds positive. EXTREMITIES: Show no edema or ulcers. SKIN: Shows no rash or petechiae. MUSCULOSKELETAL: Shows no joint swelling or stiffness. GENITOURINARY: Shows no Cabrera or CVA tenderness. NEUROLOGIC: Motor intact. Cranial nerves intact. LABORATORY DATA: Reviewed. ASSESSMENT AND PLAN: 1. Stage 6 chronic kidney disease. Continue hemodialysis. 2. Hypertension, stable. 3. Anemia, stable. 4. Medications based on glomerular filtration rate are appropriate. Job ID: [id number]
[2020-01-08] MEDS: Atorvastatin Calcium 20 MG TAB PO SCH (20:57)
[2020-01-09] MEDS: Heparin 5,000 UNITS/ML VIAL SC SCH ×4 (00:16→21:26)
[2020-01-09] MEDS: HYDROcodone/Acetaminophen 10/325 mg Tablet PO SCH ×7 (00:19→18:15)
[2020-01-09] MEDS: Temazepam 15 MG CAP PO PRN ×2 (00:20→21:24)
[2020-01-09] MEDS: Guaifenesin DM 100-10/5 ML UDCUP PO PRN (00:49)
[2020-01-09] MEDS: Levothyroxine Sodium 25 MCG TAB PO SCH (06:12)
[2020-01-09] MEDS: guaiFENesin ER 600 MG TAB PO SCH (09:52)
[2020-01-09] MEDS: Escitalopram Oxalate 10 mg Tablet PO SCH (09:52)
[2020-01-09] MEDS: Sevelamer Carbonate 800 MG TAB PO SCH ×3 (09:52→18:15)
[2020-01-09] MEDS: Folic Acid 1 MG TAB PO SCH (09:52)
[2020-01-09] MEDS: Benzonatate 100 MG CAP PO SCH ×3 (09:52→21:25)
[2020-01-09] MEDS: Senokot 8.6 MG TAB PO SCH (09:52)
[2020-01-09] MEDS: Docusate 100 MG CAP PO SCH ×2 (09:53→21:25)
[2020-01-09] MEDS: Zinc Sulfate 220 MG CAP PO SCH (09:53)
[2020-01-09] MEDS: Amlodipine 10 MG TAB PO SCH (09:53)
[2020-01-09] MEDS: Cholecalciferol 1,000 UNITS (25 MCG) TAB PO SCH (09:53)
[2020-01-09] MEDS: Amiodarone 200 MG TAB PO SCH (09:53)
[2020-01-09] MEDS: Dexamethasone 4 mg/ml Vial SLOW IVP SCH (09:54)
[2020-01-09] MEDS: Diclofenac 1% 100 GM GEL TP SCH ×3 (10:00→21:25)
[2020-01-09] MEDS: prednisoLONE 1% Ophth Susp 5 ml Bottle EA EYE SCH (10:00)
[2020-01-09] MEDS: Ketorolac Tromethamine 0.5% Ophth Soln 3 ml Bottle R EYE SCH ×3 (10:00→21:26)
--- NOTE | 2020-01-09 11:24 | PRG ---
DATE OF SERVICE: 01/09/2020 SUBJECTIVE: An 84-year-old female being seen for end-stage renal disease. The patient denies any nausea, vomiting, or chest pain. PHYSICAL EXAMINATION: General: The patient is resting. Vital Signs: Afebrile, pulse 75, breathing at 16, blood pressure 132/77. HEENT: Head normocephalic and atraumatic. Eyes intact, no ulcers. Nose intact, no ulcers. Ears intact, no ulcers. Neck: Supple. No JVD. Chest: Symmetrical and clear. Cardiovascular: Shows S1 and S2, no rub, no murmur. Gastrointestinal: Abdomen is soft, bowel sounds positive. Extremities: Show no edema. Skin: Shows no rash or petechiae. Musculoskeletal: Shows no joint swelling or stiffness. Genitourinary: Shows no Cabrera or CVA tenderness. Neurologic: Motor intact. Cranial nerves intact. LABORATORY DATA: Labs reviewed. Hemoglobin 9.2. Potassium . ASSESSMENT AND PLAN: 1. chronic kidney disease, plan dialysis. 2. Hypertension, stable. 3. Anemia, stable. 4. Medication based on GFR appropriate. Job ID: [id number]
--- NOTE | 2020-01-09 17:21 | PDOC.HOSPP ---
- Subjective Encounter Date: 01/08/20 Encounter Time: 10:30 Subjective: pt up in bed still on high flow - Objective Vital Signs & Weight: Vital Signs (12 hours) Temp Pulse Resp BP Pulse Ox 01/09/20 15:45 97.7 F 86 19 131/67 100 01/09/20 13:20 97.7 F 81 17 123/61 100 01/09/20 07:50 96.8 F L 111 H 20 121/59 L 100 01/09/20 06:14 98.5 F 84 16 132/77 95 Weight Weight 190 lb I&O: 01/08/20 01/09/20 01/10/20 06:59 06:59 06:59 Intake Total 480 870 Output Total 0 Balance 480 870 Result Diagrams: 01/07/20 04:58 01/08/20 04:53 Hospitalist ROS - Review of Systems Respiratory: reports: shortness of breath Cardiovascular: denies: chest pain, palpitations, orthopnea, paroxysmal noc. dyspnea, edema, light headedness, other Gastrointestinal: denies: nausea, vomiting, abdominal pain, diarrhea, constipation, melena, hematochezia, other Genitourinary: denies: dysuria, frequency, incontinence, hematuria, retention, other - Medication Medications: Active Medications Generic Name Dose Route Start Last Admin Trade Name Khalifq PRN Reason Stop Dose Admin Acetaminophen 650 mg 01/04/20 14:24 01/06/20 00:34 Acetaminophen 325 Mg Tab PO 650 mg Q4H PRN Administration Headache/Fever/Mild Pain (1-3) Hydrocodone Bitart/Acetaminophen 1 tab 01/07/20 18:00 01/09/20 15:31 Hydrocodone/Acetaminophen 10/325 Mg Tablet PO 1 tab Q3HR ADAM Administration Amiodarone HCl 200 mg 01/06/20 09:00 01/09/20 09:53 Amiodarone 200 Mg Tab PO 200 mg DAILY ADAM Administration Amlodipine Besylate 10 mg 01/07/20 09:00 01/09/20 09:53 Amlodipine 10 Mg Tab PO 10 mg DAILY ADAM Administration Atorvastatin Calcium 20 mg 01/06/20 21:00 01/08/20 20:57 Atorvastatin Calcium 20 Mg Tab PO 20 mg HS ADAM Administration Benzonatate 100 mg 01/05/20 15:00 01/09/20 15:31 Benzonatate 100 Mg Cap PO 100 mg TID ADAM Administration Cholecalciferol 5,000 units 01/07/20 09:00 01/09/20 09:53 Cholecalciferol 1,000 Units (25 Mcg) Tab PO 5,000 units DAILY ADAM Administration Dexamethasone 6 mg 01/07/20 09:00 01/09/20 09:54 Dexamethasone 4 Mg/Ml Vial SLOW IVP 6 mg DAILY ADAM Administration Diclofenac Sodium 4 gm 01/06/20 15:00 01/09/20 15:32 Diclofenac 1% 100 Gm Gel TP 4 gm TID ADAM Administration Docusate Sodium 100 mg 01/06/20 21:00 01/09/20 09:53 Docusate 100 Mg Cap PO 100 mg BID ADAM Administration Escitalopram Oxalate 10 mg 01/06/20 09:00 01/09/20 09:52 Escitalopram Oxalate 10 Mg Tablet PO 10 mg DAILY ADAM Administration Folic Acid 1 mg 01/07/20 09:00 01/09/20 09:52 Folic Acid 1 Mg Tab PO 1 mg DAILY ADAM Administration Furosemide 40 mg 01/07/20 09:00 01/07/20 08:16 Furosemide 40 Mg Tab PO 40 mg DAILY ADAM Administration Guaifenesin 600 mg 01/07/20 09:00 01/09/20 09:52 Guaifenesin Er 600 Mg Tab PO 600 mg DAILY ADAM Administration Guaifenesin/Dextromethorphan 10 ml 01/06/20 09:06 01/09/20 00:49 Guaifenesin Dm 100-10/5 Ml Udcup PO 10 ml PRN PRN Administration Cough Heparin Sodium (Porcine) 5,000 units 01/06/20 14:00 01/09/20 12:59 Heparin 5,000 Units/Ml Vial SC 5,000 units Q8HR ADAM Administration Ketorolac Tromethamine 1 drop 01/06/20 15:00 01/09/20 15:32 Ketorolac Tromethamine 0.5% Ophth Soln 3 Ml Bottle R EYE 1 drop TID ADAM Administration Levothyroxine Sodium 50 mcg 01/06/20 06:00 01/09/20 06:12 Levothyroxine Sodium 25 Mcg Tab PO 50 mcg 0600 ADAM Administration Prednisolone Acetate 1 drop 01/07/20 09:00 01/09/20 10:00 Prednisolone 1% Ophth Susp 5 Ml Bottle EA EYE 1 drop DAILY ADAM Administration Senna 2 tab 01/07/20 09:00 01/09/20 09:52 Senokot 8.6 Mg Tab PO 2 tab DAILY ADAM Administration Sevelamer Carbonate 800 mg 01/06/20 12:00 01/09/20 12:59 Sevelamer Carbonate 800 Mg Tab PO 800 mg TID-WM ADAM Administration Temazepam 15 mg 01/05/20 11:37 01/09/20 00:20 Temazepam 15 Mg Cap PO 15 mg HS PRN Administration Insomnia Zinc Sulfate 220 mg 01/07/20 09:00 01/09/20 09:53 Zinc Sulfate 220 Mg Cap PO 220 mg DAILY ADAM Administration - Exam Neck: negative: supple, symmetric, no JVD, no thyromegaly, no lymphadenopathy, no carotid bruit, JVD Heart: negative: RRR, no murmur, no gallops, no rubs, normal peripheral pulses, irregular, diminshed peripheral pulses, murmur present, II/IV, III/IV Respiratory: rhonchi Gastrointestinal: negative: soft, non-tender, non-distended, normal bowel sounds, no palpable masses, no hepatomegaly, no splenomegaly, no bruit, no guarding, no rigidity, tender to palpation, distended, diminished bowl sounds, voluntary guarding Hosp A/P (1) Acute hypoxemic respiratory failure Code(s): J96.01 - ACUTE RESPIRATORY FAILURE WITH HYPOXIA Status: Acute (2) COVID-19 Code(s): U07.1 - COVID-19 Status: Acute (3) Hypertension Code(s): I10 - ESSENTIAL (PRIMARY) HYPERTENSION Status: Chronic Qualifiers: Hypertension type: essential hypertension Qualified Code(s): I10 - Essential (primary) hypertension (4) Hypothyroidism Code(s): E03.9 - HYPOTHYROIDISM, UNSPECIFIED Status: Chronic (5) ESRD on peritoneal dialysis Code(s): N18.6 - END STAGE RENAL DISEASE; Z99.2 - DEPENDENCE ON RENAL DIALYSIS Status: Chronic - Plan will continue steroids/dvt ppx. will continue current meds. she is on high flow. Her inflammatory markers are high. nephrology has been consulted. 01/06 will continue steroids and dvt ppx. cxr unchanged. will continue high flow. nephrology for dialysis. 01/07 we will continue steroids and DVT prophylaxis. Patient continues to be on high flow and desats on minimal exertion. Nephrology continues to dialyze patient. Her CRP continues to trend down.
--- NOTE | 2020-01-09 17:23 | PDOC.HOSPP ---
- Subjective Encounter Date: 01/09/20 Encounter Time: 11:51 Subjective: Patient up in bed feels a little better today however drops her oxygen saturation on minimal movement. - Objective Vital Signs & Weight: Vital Signs (12 hours) Temp Pulse Resp BP Pulse Ox 01/09/20 15:45 97.7 F 86 19 131/67 100 01/09/20 13:20 97.7 F 81 17 123/61 100 01/09/20 07:50 96.8 F L 111 H 20 121/59 L 100 01/09/20 06:14 98.5 F 84 16 132/77 95 Weight Weight 190 lb I&O: 01/08/20 01/09/20 01/10/20 06:59 06:59 06:59 Intake Total 480 870 Output Total 0 Balance 480 870 Result Diagrams: 01/07/20 04:58 01/08/20 04:53 Hospitalist ROS - Review of Systems Respiratory: reports: shortness of breath Cardiovascular: denies: chest pain, palpitations, orthopnea, paroxysmal noc. dyspnea, edema, light headedness, other Gastrointestinal: denies: nausea, vomiting, abdominal pain, diarrhea, con stipation, melena, hematochezia, other Genitourinary: denies: dysuria, frequency, incontinence, hematuria, retention, other - Medication Medications: Active Medications Generic Name Dose Route Start Last Admin Trade Name Freq PRN Reason Stop Dose Admin Acetaminophen 650 mg 01/04/20 14:24 01/06/20 00:34 Acetaminophen 325 Mg Tab PO 650 mg Q4H PRN Administration Headache/Fever/Mild Pain (1-3) Hydrocodone Bitart/Acetaminophen 1 tab 01/07/20 18:00 01/09/20 15:31 Hydrocodone/Acetaminophen 10/325 Mg Tablet PO 1 tab Q3HR ADAM Administration Amiodarone HCl 200 mg 01/06/20 09:00 01/09/20 09:53 Amiodarone 200 Mg Tab PO 200 mg DAILY ADAM Administration Amlodipine Besylate 10 mg 01/07/20 09:00 01/09/20 09:53 Amlodipine 10 Mg Tab PO 10 mg DAILY ADAM Administration Atorvastatin Calcium 20 mg 01/06/20 21:00 01/08/20 20:57 Atorvastatin Calcium 20 Mg Tab PO 20 mg HS ADAM Administration Benzonatate 100 mg 01/05/20 15:00 01/09/20 15:31 Benzonatate 100 Mg Cap PO 100 mg TID ADAM Administration Cholecalciferol 5,000 units 01/07/20 09:00 01/09/20 09:53 Cholecalciferol 1,000 Units (25 Mcg) Tab PO 5,000 units DAILY ADAM Administration Dexamethasone 6 mg 01/07/20 09:00 01/09/20 09:54 Dexamethasone 4 Mg/Ml Vial SLOW IVP 6 mg DAILY ADAM Administration Diclofenac Sodium 4 gm 01/06/20 15:00 01/09/20 15:32 Diclofenac 1% 100 Gm Gel TP 4 gm TID ADAM Administration Docusate Sodium 100 mg 01/06/20 21:00 01/09/20 09:53 Docusate 100 Mg Cap PO 100 mg BID ADAM Administration Escitalopram Oxalate 10 mg 01/06/20 09:00 01/09/20 09:52 Escitalopram Oxalate 10 Mg Tablet PO 10 mg DAILY ADAM Administration Folic Acid 1 mg 01/07/20 09:00 01/09/20 09:52 Folic Acid 1 Mg Tab PO 1 mg DAILY ADAM Administration Furosemide 40 mg 01/07/20 09:00 01/07/20 08:16 Furosemide 40 Mg Tab PO 40 mg DAILY ADAM Administration Guaifenesin 600 mg 01/07/20 09:00 01/09/20 09:52 Guaifenesin Er 600 Mg Tab PO 600 mg DAILY ADAM Administration Guaifenesin/Dextromethorphan 10 ml 01/06/20 09:06 01/09/20 00:49 Guaifenesin Dm 100-10/5 Ml Udcup PO 10 ml PRN PRN Administration Cough Heparin Sodium (Porcine) 5,000 units 01/06/20 14:00 01/09/20 12:59 Heparin 5,000 Units/Ml Vial SC 5,000 units Q8HR ADAM Administration Ketorolac Tromethamine 1 drop 01/06/20 15:00 01/09/20 15:32 Ketorolac Tromethamine 0.5% Ophth Soln 3 Ml Bottle R EYE 1 drop TID ADAM Administration Levothyroxine Sodium 50 mcg 01/06/20 06:00 01/09/20 06:12 Levothyroxine Sodium 25 Mcg Tab PO 50 mcg 0600 ADAM Administration Prednisolone Acetate 1 drop 01/07/20 09:00 01/09/20 10:00 Prednisolone 1% Ophth Susp 5 Ml Bottle EA EYE 1 drop DAILY ADAM Administration Senna 2 tab 01/07/20 09:00 01/09/20 09:52 Senokot 8.6 Mg Tab PO 2 tab DAILY ADAM Administration Sevelamer Carbonate 800 mg 01/06/20 12:00 01/09/20 12:59 Sevelamer Carbonate 800 Mg Tab PO 800 mg TID-WM ADAM Administration Temazepam 15 mg 01/05/20 11:37 01/09/20 00:20 Temazepam 15 Mg Cap PO 15 mg HS PRN Administration Insomnia Zinc Sulfate 220 mg 01/07/20 09:00 01/09/20 09:53 Zinc Sulfate 220 Mg Cap PO 220 mg DAILY ADAM Administration - Exam Heart: negative: RRR, no murmur, no gallops, no rubs, normal peripheral pulses, irregular, diminshed peripheral pulses, murmur present, II/IV, III/IV Respiratory: negative: CTAB, no wheezes, no rales, no ronchi, normal chest expansion, no tachypnea, normal percussion, rales, rhonchi, tachypneic, wheezes Gastrointestinal: negative: soft, non-tender, non-distended, normal bowel sounds, no palpable masses, no hepatomegaly, no splenomegaly, no bruit, no guarding, no rigidity, tender to palpation, distended, diminished bowl sounds, voluntary guarding Hosp A/P (1) Acute hypoxemic respiratory failure Code(s): J96.01 - ACUTE RESPIRATORY FAILURE WITH HYPOXIA Status: Acute (2) COVID-19 Code(s): U07.1 - COVID-19 Status: Acute (3) Hypertension Code(s): I10 - ESSENTIAL (PRIMARY) HYPERTENSION Status: Chronic Qualifiers: Hypertension type: essential hypertension Qualified Code(s): I10 - Essential (primary) hypertension (4) Hypothyroidism Code(s): E03.9 - HYPOTHYROIDISM, UNSPECIFIED Status: Chronic (5) ESRD on peritoneal dialysis Code(s): N18.6 - END STAGE RENAL DISEASE; Z99.2 - DEPENDENCE ON RENAL DIALYSIS Status: Chronic - Plan will continue steroids/dvt ppx. will continue current meds. she is on high flow. Her inflammatory markers are high. nephrology has been consulted. 01/06 will continue steroids and dvt ppx. cxr unchanged. will continue high flow. nephrology for dialysis. 01/07 we will continue steroids and DVT prophylaxis. Patient continues to be on high flow and desats on minimal exertion. Nephrology continues to dialyze patient. Her CRP continues to trend down. 01/08 we will continue to trend CRP. DVT prophylaxis and steroids. Patient still on high flow we will check with RT to see if we can start titrating her high flow down. She does have some old blood that she coughs up. We will continue to monitor. Cough medications ordered
[2020-01-09] MEDS: Atorvastatin Calcium 20 MG TAB PO SCH (21:25)
[2020-01-10] MEDS: HYDROcodone/Acetaminophen 10/325 mg Tablet PO SCH ×9 (00:46→20:17)
[2020-01-10] MEDS: Levothyroxine Sodium 25 MCG TAB PO SCH (04:56)
[2020-01-10] MEDS: Heparin 5,000 UNITS/ML VIAL SC SCH (04:56)
[2020-01-10 06:24] LABS: #Lymphocytes 0.5 thou/uL (1.20-3.40); #Monocytes 0.1 thou/uL (0.11-0.59); #Neutrophils 5.9 thou/uL (1.40-6.50); %Eosinophils 0.3 % (0.0-10.0); %Lymphocytes 8.1 % (21.0-51.0); %Neutrophils 89.5 % (42.0-75.0); Hemoglobin 7.6 g/dL (12.0-16.0); Mean Corpuscular HGB CONC 33.3 g/dL (32.0-36.0); Mean Corpuscular Hemoglobin 32.4 pg (27.0-31.0); Mean Corpuscular Volume 97.3 fL (78.0-98.0); Mean Platelet Volume 8.2 fL (7.4-10.4); Platelet Count 230 thou/uL (130-400); Red Blood Cell (RBC) Count 2.36 mill/uL (4.20-5.40); White Blood Cell (WBC) Count 6.6 thou/uL (4.8-10.8)
[2020-01-10 06:42] LABS: ALT (SGPT) Less than 7 U/L (8-55); AST (SGOT) 15 U/L (5-34); Albumin 2.4 g/dL (3.4-4.8); Alkaline Phosphatase 82 U/L (40-110); Anion Gap 14 mmol/L (10-20); BUN (Urea Nitrogen) 74 mg/dL (9.8-20.1); Bilirubin, Total 0.2 mg/dL (0.2-1.2); CRP (Inflammatory) 8.35 mg/dL (= or < 0.5); Calc. Creatinine Clearance 14 mL/min (70-130); Calcium 8.2 mg/dL (7.8-10.44); Carbon Dioxide 27 mmol/L (23-31); Chloride 92 mmol/L (98-107); Globulin 3.1 g/dL (2.4-3.5); Glucose 145 mg/dL (83-110); Potassium 4.3 mmol/L (3.5-5.1); Protein, Total 5.5 g/dL (6.0-8.3); Sodium 129 mmol/L (136-145)
[2020-01-10] MEDS: Escitalopram Oxalate 10 mg Tablet PO SCH (08:44)
[2020-01-10] MEDS: Cholecalciferol 1,000 UNITS (25 MCG) TAB PO SCH (08:47)
[2020-01-10] MEDS: guaiFENesin ER 600 MG TAB PO SCH (08:49)
[2020-01-10] MEDS: Senokot 8.6 MG TAB PO SCH (08:49)
[2020-01-10] MEDS: Docusate 100 MG CAP PO SCH ×2 (08:50→20:09)
[2020-01-10] MEDS: Folic Acid 1 MG TAB PO SCH (08:50)
[2020-01-10] MEDS: Sevelamer Carbonate 800 MG TAB PO SCH ×3 (08:50→17:11)
[2020-01-10] MEDS: Zinc Sulfate 220 MG CAP PO SCH (08:50)
[2020-01-10] MEDS: Benzonatate 100 MG CAP PO SCH ×3 (08:50→20:09)
[2020-01-10] MEDS: Amiodarone 200 MG TAB PO SCH (08:50)
[2020-01-10] MEDS: Diclofenac 1% 100 GM GEL TP SCH ×3 (08:51→20:10)
[2020-01-10] MEDS: Dexamethasone 4 mg/ml Vial SLOW IVP SCH (08:52)
[2020-01-10] MEDS: prednisoLONE 1% Ophth Susp 5 ml Bottle EA EYE SCH (08:55)
[2020-01-10] MEDS: Ketorolac Tromethamine 0.5% Ophth Soln 3 ml Bottle R EYE SCH ×3 (09:10→20:12)
--- NOTE | 2020-01-10 09:10 | PRG ---
DATE OF SERVICE: 01/10/2020 SUBJECTIVE: An 84-year-old female, being seen for end-stage renal disease. The patient denies any nausea, vomiting, or chest pain. OBJECTIVE: GENERAL: The patient is awake and alert. VITAL SIGNS: Afebrile, pulse 75, breathing at 16, blood pressure 110/58. HEENT: Head normocephalic and atraumatic. Eyes intact, no ulcers. Nose intact, no ulcers. Ears intact, no ulcers. NECK: Supple. No JVD. CHEST: Symmetrical and clear. CARDIOVASCULAR: Shows S1 and S2, no rub, no murmur. GASTROINTESTINAL: Abdomen is soft, bowel sounds positive. EXTREMITIES: Show no edema or ulcers. SKIN: Shows no rash or petechiae. MUSCULOSKELETAL: Shows no joint swelling or stiffness. GENITOURINARY: Shows no Cabrera or CVA tenderness. NEUROLOGIC: Motor intact. Cranial nerves intact. LABORATORY DATA: Hemoglobin 7.6. ASSESSMENT AND PLAN: 1. Chronic kidney disease, stage 6. Plan dialysis. 2. Hypertension, stable. 3. Anemia. Recommend transfusion of 1 unit. Medication based on GFR appropriate except please avoid NSAIDs. Job ID: [id number]
[2020-01-10] MEDS: Guaifenesin DM 100-10/5 ML UDCUP PO PRN (11:20)
[2020-01-10] MEDS: Ipratropium/Albuterol Sulfate 4 GM AER IH PRN (17:12)
--- NOTE | 2020-01-10 17:14 | PDOC.HOSPP ---
- Subjective Encounter Date: 01/10/20 Encounter Time: 11:30 Subjective: Patient up in bed still very short of breath. - Objective Vital Signs & Weight: Vital Signs (12 hours) Temp Pulse Pulse Resp BP BP Pulse Ox 01/10/20 13:43 98.3 F 92 22 H 138/67 01/10/20 13:26 100 01/10/20 12:03 98.6 F 82 20 117/60 100 01/10/20 08:45 97.6 F 86 20 119/56 L 97 Weight Weight 190 lb I&O: 01/09/20 01/10/20 01/11/20 06:59 06:59 06:59 Intake Total 870 580 350 Balance 870 580 350 Result Diagrams: 01/10/20 06:02 01/10/20 06:02 Hospitalist ROS - Review of Systems Respiratory: reports: shortness of breath Cardiovascular: denies: chest pain, palpitations, orthopnea, paroxysmal noc. dyspnea, edema, light headedness, other Gastrointestinal: denies: nausea, vomiting, abdominal pain, diarrhea, constipation, melena, hematochezia, other - Medication Medications: Active Medications Generic Name Dose Route Start Last Admin Trade Name Freq PRN Reason Stop Dose Admin Acetaminophen 650 mg 01/04/20 14:24 01/06/20 00:34 Acetaminophen 325 Mg Tab PO 650 mg Q4H PRN Administration Headache/Fever/Mild Pain (1-3) Hydrocodone Bitart/Acetaminophen 1 tab 01/07/20 18:00 01/10/20 14:08 Hydrocodone/Acetaminophen 10/325 Mg Tablet PO 1 tab Q3HR ADAM Administration Amiodarone HCl 200 mg 01/06/20 09:00 01/10/20 08:50 Amiodarone 200 Mg Tab PO 200 mg DAILY ADAM Administration Amlodipine Besylate 10 mg 01/07/20 09:00 01/09/20 09:53 Amlodipine 10 Mg Tab PO 10 mg DAILY ADAM Administration Atorvastatin Calcium 20 mg 01/06/20 21:00 01/09/20 21:25 Atorvastatin Calcium 20 Mg Tab PO 20 mg HS ADAM Administration Benzonatate 100 mg 01/05/20 15:00 01/10/20 14:09 Benzonatate 100 Mg Cap PO 100 mg TID ADAM Administration Cholecalciferol 5,000 units 01/07/20 09:00 01/10/20 08:47 Cholecalciferol 1,000 Units (25 Mcg) Tab PO 5,000 units DAILY ADAM Administration Dexamethasone 6 mg 01/07/20 09:00 01/10/20 08:52 Dexamethasone 4 Mg/Ml Vial SLOW IVP 6 mg DAILY ADAM Administration Diclofenac Sodium 4 gm 01/06/20 15:00 01/10/20 14:09 Diclofenac 1% 100 Gm Gel TP 4 gm TID ADAM Administration Docusate Sodium 100 mg 01/06/20 21:00 01/10/20 08:50 Docusate 100 Mg Cap PO 100 mg BID ADAM Administration Escitalopram Oxalate 10 mg 01/06/20 09:00 01/10/20 08:44 Escitalopram Oxalate 10 Mg Tablet PO 10 mg DAILY ADAM Administration Folic Acid 1 mg 01/07/20 09:00 01/10/20 08:50 Folic Acid 1 Mg Tab PO 1 mg DAILY ADAM Administration Furosemide 40 mg 01/07/20 09:00 01/07/20 08:16 Furosemide 40 Mg Tab PO 40 mg DAILY ADAM Administration Guaifenesin 600 mg 01/07/20 09:00 01/10/20 08:49 Guaifenesin Er 600 Mg Tab PO 600 mg DAILY ADAM Administration Guaifenesin/Dextromethorphan 10 ml 01/06/20 09:06 01/10/20 11:20 Guaifenesin Dm 100-10/5 Ml Udcup PO 10 ml PRN PRN Administration Cough Heparin Sodium (Porcine) 5,000 units 01/06/20 14:00 01/10/20 04:56 Heparin 5,000 Units/Ml Vial SC 5,000 units Q8HR ADAM Administration Ketorolac Tromethamine 1 drop 01/06/20 15:00 01/10/20 14:11 Ketorolac Tromethamine 0.5% Ophth Soln 3 Ml Bottle R EYE 1 drop TID ADAM Administration Levothyroxine Sodium 50 mcg 01/06/20 06:00 01/10/20 04:56 Levothyroxine Sodium 25 Mcg Tab PO 50 mcg 0600 ADAM Administration Prednisolone Acetate 1 drop 01/07/20 09:00 01/10/20 08:55 Prednisolone 1% Ophth Susp 5 Ml Bottle EA EYE 1 drop DAILY ADAM Administration Senna 2 tab 01/07/20 09:00 01/10/20 08:49 Senokot 8.6 Mg Tab PO 2 tab DAILY ADAM Administration Sevelamer Carbonate 800 mg 01/06/20 12:00 01/10/20 14:09 Sevelamer Carbonate 800 Mg Tab PO 800 mg TID-WM ADAM Administration Temazepam 15 mg 01/05/20 11:37 01/09/20 21:24 Temazepam 15 Mg Cap PO 15 mg HS PRN Administration Insomnia Zinc Sulfate 220 mg 01/07/20 09:00 01/10/20 08:50 Zinc Sulfate 220 Mg Cap PO 220 mg DAILY ADAM Administration - Exam Heart: negative: RRR, no murmur, no gallops, no rubs, normal peripheral pulses, irregular, diminshed peripheral pulses, murmur present, II/IV, III/IV Respiratory: wheezes Gastrointestinal: negative: soft, non-tender, non-distended, normal bowel sounds, no palpable masses, no hepatomegaly, no splenomegaly, no bruit, no guarding, no rigidity, tender to palpation, distended, diminished bowl sounds, voluntary guarding Extremities: 1+ LE edema Hosp A/P (1) Acute hypoxemic respiratory failure Code(s): J96.01 - ACUTE RESPIRATORY FAILURE WITH HYPOXIA Status: Acute (2) COVID-19 Code(s): U07.1 - COVID-19 Status: Acute (3) Hypertension Code(s): I10 - ESSENTIAL (PRIMARY) HYPERTENSION Status: Chronic Qualifiers: Hypertension type: essential hypertension Qualified Code(s): I10 - Essential (primary) hypertension (4) Hypothyroidism Code(s): E03.9 - HYPOTHYROIDISM, UNSPECIFIED Status: Chronic (5) ESRD on peritoneal dialysis Code(s): N18.6 - END STAGE RENAL DISEASE; Z99.2 - DEPENDENCE ON RENAL DIALYSIS Status: Chronic - Plan will continue steroids/dvt ppx. will continue current meds. she is on high flow. Her inflammatory markers are high. nephrology has been consulted. 01/06 will continue steroids and dvt ppx. cxr unchanged. will continue high flow. nephrology for dialysis. 01/07 we will continue steroids and DVT prophylaxis. Patient continues to be on high flow and desats on minimal exertion. Nephrology continues to dialyze patient. Her CRP continues to trend down. 01/08 we will continue to trend CRP. DVT prophylaxis and steroids. Patient still on high flow we will check with RT to see if we can start titrating her high flow down. She does have some old blood that she coughs up. We will continue to monitor. Cough medications ordered 01/09 patient continues to be on high flow. We will add inhaled steroid. Patient has been coughing up some old dark blood. She received 1 unit of PRBCs with dialysis yesterday. We will continue to monitor. I did examine patient sputum it has a mild blood-streaked. Patient is on DVT prophylaxis. We will add Ensure since she is not eating very much. Patient states that she cannot eat cold food.
[2020-01-10] MEDS ORDERED: guaiFENesin/Codeine Phosphate 200 mg/20 mg 10 ml UD Cup PO SCH (17:15)
[2020-01-10] MEDS ORDERED: PROVENTIL INHALER 6.7 G (200 INHALATIONS) INH PRN (17:26)
--- NOTE | 2020-01-10 18:03 | PDOC.EVN ---
Event Note - Event Note Event Note: spoke with pt's daughter stanislav and updated her about her mom.
[2020-01-10] MEDS: Mometasone Furoate 120 PUFF 220 MCG INH SCH (20:09)
[2020-01-10] MEDS: Temazepam 15 MG CAP PO PRN (20:09)
[2020-01-10] MEDS: Atorvastatin Calcium 20 MG TAB PO SCH (20:09)
[2020-01-11] MEDS: HYDROcodone/Acetaminophen 10/325 mg Tablet PO SCH ×8 (01:35→21:14)
[2020-01-11] MEDS: Ondansetron PF 4 MG/2 ML Vial IVP PRN (03:26)
[2020-01-11] MEDS: Levothyroxine Sodium 25 MCG TAB PO SCH (05:59)
[2020-01-11] MEDS: Lidocaine-Prilocaine 2.5% Cream 5 GM TUBE TOP PRN (07:42)
[2020-01-11] MEDS: Folic Acid 1 MG TAB PO SCH (07:43)
[2020-01-11] MEDS: Sevelamer Carbonate 800 MG TAB PO SCH ×3 (07:43→17:34)
[2020-01-11] MEDS: Docusate 100 MG CAP PO SCH ×2 (07:43→21:17)
[2020-01-11] MEDS: Amiodarone 200 MG TAB PO SCH (07:44)
[2020-01-11] MEDS: guaiFENesin ER 600 MG TAB PO SCH (07:44)
[2020-01-11] MEDS: Zinc Sulfate 220 MG CAP PO SCH (07:44)
[2020-01-11] MEDS: Cholecalciferol 1,000 UNITS (25 MCG) TAB PO SCH (07:44)
[2020-01-11] MEDS: Dexamethasone 4 mg/ml Vial SLOW IVP SCH (07:45)
[2020-01-11] MEDS: Senokot 8.6 MG TAB PO SCH (07:45)
[2020-01-11] MEDS: Escitalopram Oxalate 10 mg Tablet PO SCH (07:45)
[2020-01-11] MEDS: Benzonatate 100 MG CAP PO SCH ×3 (07:45→21:15)
[2020-01-11] MEDS: Mometasone Furoate 120 PUFF 220 MCG INH SCH ×2 (07:45→18:43)
[2020-01-11] MEDS: Ketorolac Tromethamine 0.5% Ophth Soln 3 ml Bottle R EYE SCH ×3 (07:46→21:17)
[2020-01-11] MEDS: prednisoLONE 1% Ophth Susp 5 ml Bottle EA EYE SCH (07:47)
[2020-01-11] MEDS: Diclofenac 1% 100 GM GEL TP SCH ×3 (07:47→21:16)
--- NOTE | 2020-01-11 11:07 | PRG ---
DATE OF SERVICE: 01/11/2020 SUBJECTIVE: An 84-year-old female being seen for end-stage renal disease. The patient denied nausea, vomiting, or chest pain. OBJECTIVE: GENERAL: The patient is awake, alert. VITAL SIGNS: Afebrile. Pulse 75, breathing 16, blood pressure 126/79. HEENT: Head normocephalic and atraumatic. Eyes intact, no ulcers. Nose intact, no ulcers. Ears intact, no ulcers. NECK: Supple. No JVD. CHEST: Symmetrical and clear. CARDIOVASCULAR: Shows S1 and S2, no rub, no murmur. GASTROINTESTINAL: Abdomen is soft, bowel sounds positive. EXTREMITIES: Show no edema or ulcers. SKIN: Shows no rash or petechiae. MUSCULOSKELETAL: Shows no joint swelling or stiffness. GENITOURINARY: Shows no Cabrera or CVA tenderness. NEUROLOGIC: Motor intact. Cranial nerves intact. LABORATORY DATA: Reviewed. ASSESSMENT AND PLAN: 1. chronic kidney disease. Plan dialysis. 2. Hypertension, stable. 3. Anemia. Would recommend 2 units of blood transfusion with dialysis. Job ID: [id number]
[2020-01-11 12:08] LABS: Hemoglobin 7.4 g/dL (12.0-16.0)
--- NOTE | 2020-01-11 13:00 | PDOC.HOSPP ---
- Subjective Encounter Date: 01/11/20 Encounter Time: 11:45 Subjective: Patient up in bed still feels short of breath. - Objective Vital Signs & Weight: Vital Signs (12 hours) Temp Pulse Resp BP Pulse Ox 01/11/20 12:00 100 22 H 118/59 L 94 L 01/11/20 08:34 95 01/11/20 08:00 97.9 F 90 20 126/79 96 01/11/20 03:49 97.8 F 85 18 130/60 97 Weight Weight 190 lb I&O: 01/10/20 01/11/20 01/12/20 06:59 06:59 06:59 Intake Total 580 1320 Balance 580 1320 Result Diagrams: 01/11/20 11:43 01/10/20 06:02 Hospitalist ROS - Review of Systems Respiratory: reports: shortness of breath Cardiovascular: denies: chest pain, palpitations, orthopnea, paroxysmal noc. dyspnea, edema, light headedness, other Gastrointestinal: denies: nausea, vomiting, abdominal pain, diarrhea, consti pation, melena, hematochezia, other Genitourinary: denies: dysuria, frequency, incontinence, hematuria, retention, other - Medication Medications: Active Medications Generic Name Dose Route Start Last Admin Trade Name Freq PRN Reason Stop Dose Admin Acetaminophen 650 mg 01/04/20 14:24 01/06/20 00:34 Acetaminophen 325 Mg Tab PO 650 mg Q4H PRN Administration Headache/Fever/Mild Pain (1-3) Hydrocodone Bitart/Acetaminophen 1 tab 01/07/20 18:00 01/11/20 11:17 Hydrocodone/Acetaminophen 10/325 Mg Tablet PO 1 tab Q3HR ADAM Administration Albuterol/Ipratropium 0 gm 01/06/20 10:32 01/10/20 17:12 Ipratropium/Albuterol Sulfate 4 Gm Aer IH 2 inh Q4H PRN Administration Dyspnea/Wheezing/SOB Amiodarone HCl 200 mg 01/06/20 09:00 01/11/20 07:44 Amiodarone 200 Mg Tab PO 200 mg DAILY ADAM Administration Amlodipine Besylate 10 mg 01/07/20 09:00 01/09/20 09:53 Amlodipine 10 Mg Tab PO 10 mg DAILY ADAM Administration Atorvastatin Calcium 20 mg 01/06/20 21:00 01/10/20 20:09 Atorvastatin Calcium 20 Mg Tab PO 20 mg HS ADAM Administration Benzonatate 100 mg 01/05/20 15:00 01/11/20 07:45 Benzonatate 100 Mg Cap PO 100 mg TID ADAM Administration Cholecalciferol 5,000 units 01/07/20 09:00 01/11/20 07:44 Cholecalciferol 1,000 Units (25 Mcg) Tab PO 5,000 units DAILY ADAM Administration Dexamethasone 6 mg 01/07/20 09:00 01/11/20 07:45 Dexamethasone 4 Mg/Ml Vial SLOW IVP 6 mg DAILY ADAM Administration Diclofenac Sodium 4 gm 01/06/20 15:00 01/11/20 07:47 Diclofenac 1% 100 Gm Gel TP 4 gm TID ADAM Administration Docusate Sodium 100 mg 01/06/20 21:00 01/11/20 07:43 Docusate 100 Mg Cap PO 100 mg BID ADAM Administration Escitalopram Oxalate 10 mg 01/06/20 09:00 01/11/20 07:45 Escitalopram Oxalate 10 Mg Tablet PO 10 mg DAILY ADAM Administration Folic Acid 1 mg 01/07/20 09:00 01/11/20 07:43 Folic Acid 1 Mg Tab PO 1 mg DAILY ADAM Administration Furosemide 40 mg 01/07/20 09:00 01/07/20 08:16 Furosemide 40 Mg Tab PO 40 mg DAILY ADAM Administration Guaifenesin 600 mg 01/07/20 09:00 01/11/20 07:44 Guaifenesin Er 600 Mg Tab PO 600 mg DAILY ADAM Administration Guaifenesin/Dextromethorphan 10 ml 01/06/20 09:06 01/10/20 11:20 Guaifenesin Dm 100-10/5 Ml Udcup PO 10 ml PRN PRN Administration Cough Heparin Sodium (Porcine) 5,000 units 01/06/20 14:00 01/10/20 04:56 Heparin 5,000 Units/Ml Vial SC 5,000 units Q8HR ADAM Administration Ketorolac Tromethamine 1 drop 01/06/20 15:00 01/11/20 07:46 Ketorolac Tromethamine 0.5% Ophth Soln 3 Ml Bottle R EYE 1 drop TID ADAM Administration Levothyroxine Sodium 50 mcg 01/06/20 06:00 01/11/20 05:59 Levothyroxine Sodium 25 Mcg Tab PO 50 mcg 0600 ADAM Administration Lidocaine/Prilocaine 1 gm 01/06/20 10:26 01/11/20 07:42 Lidocaine-Prilocaine 2.5% Cream 5 Gm Tube TOP 1 gm PRN PRN Administration Pain/IV STARTS Mometasone Furoate 1 puff 01/10/20 18:30 01/11/20 07:45 Mometasone Furoate 120 Puff 220 Mcg INH 1 puff BID-RT ADAM Administration Ondansetron HCl 4 mg 01/04/20 14:24 01/11/20 03:26 Ondansetron Pf 4 Mg/2 Ml Vial IVP 4 mg Q6H PRN Administration Nausea/Vomiting Prednisolone Acetate 1 drop 01/07/20 09:00 01/11/20 07:47 Prednisolone 1% Ophth Susp 5 Ml Bottle EA EYE 1 drop DAILY ADAM Administration Senna 2 tab 01/07/20 09:00 01/11/20 07:45 Senokot 8.6 Mg Tab PO 2 tab DAILY ADAM Administration Sevelamer Carbonate 800 mg 01/06/20 12:00 01/11/20 11:18 Sevelamer Carbonate 800 Mg Tab PO 800 mg TID-WM ADAM Administration Temazepam 15 mg 01/05/20 11:37 01/10/20 20:09 Temazepam 15 Mg Cap PO 15 mg HS PRN Administration Insomnia Zinc Sulfate 220 mg 01/07/20 09:00 01/11/20 07:44 Zinc Sulfate 220 Mg Cap PO 220 mg DAILY ADAM Administration - Exam Neck: negative: supple, symmetric, no JVD, no thyromegaly, no lymphadenopathy, no carotid bruit, JVD Heart: negative: RRR, no murmur, no gallops, no rubs, normal peripheral pulses, irregular, diminshed peripheral pulses, murmur present, II/IV, III/IV Respiratory: rhonchi Gastrointestinal: negative: soft, non-tender, non-distended, normal bowel sounds, no palpable masses, no hepatomegaly, no splenomegaly, no bruit, no guarding, no rigidity, tender to palpation, distended, diminished bowl sounds, voluntary guarding Hosp A/P (1) Acute hypoxemic respiratory failure Code(s): J96.01 - ACUTE RESPIRATORY FAILURE WITH HYPOXIA Status: Acute (2) COVID-19 Code(s): U07.1 - COVID-19 Status: Acute (3) Hypertension Code(s): I10 - ESSENTIAL (PRIMARY) HYPERTENSION Status: Chronic Qualifiers: Hypertension type: essential hypertension Qualified Code(s): I10 - Essential (primary) hypertension (4) Hypothyroidism Code(s): E03.9 - HYPOTHYROIDISM, UNSPECIFIED Status: Chronic (5) ESRD on peritoneal dialysis Code(s): N18.6 - END STAGE RENAL DISEASE; Z99.2 - DEPENDENCE ON RENAL DIALYSIS Status: Chronic - Plan will continue steroids/dvt ppx. will continue current meds. she is on high flow. Her inflammatory markers are high. nephrology has been consulted. 01/06 will continue steroids and dvt ppx. cxr unchanged. will continue high flow. nephrology for dialysis. 01/07 we will continue steroids and DVT prophylaxis. Patient continues to be on high flow and desats on minimal exertion. Nephrology continues to dialyze patient. Her CRP continues to trend down. 01/08 we will continue to trend CRP. DVT prophylaxis and steroids. Patient still on high flow we will check with RT to see if we can start titrating her high flow down. She does have some old blood that she coughs up. We will continue to monitor. Cough medications ordered 01/09 patient continues to be on high flow. We will add inhaled steroid. Patient has been coughing up some old dark blood. She received 1 unit of PRBCs with dialysis yesterday. We will continue to monitor. I did examine patient sputum it has a mild blood-streaked. Patient is on DVT prophylaxis. We will a dd Ensure since she is not eating very much. Patient states that she cannot eat cold food. 01/10 we will continue current treatment. Patient continues to be on high flow. Her high flow oxygen saturations have been turned down we will continue to monitor. Will check labs in the morning. Continue to have DVT prophylaxis. Will make Ensure 3 times daily.
[2020-01-11] MEDS: Heparin 5,000 UNITS/ML VIAL SC SCH ×2 (14:06→21:14)
[2020-01-11] MEDS: Atorvastatin Calcium 20 MG TAB PO SCH (21:15)
[2020-01-11] MEDS: Temazepam 15 MG CAP PO PRN (21:15)
[2020-01-12] MEDS: Ondansetron PF 4 MG/2 ML Vial IVP PRN ×3 (00:19→18:42)
[2020-01-12] MEDS: HYDROcodone/Acetaminophen 10/325 mg Tablet PO SCH ×8 (00:19→22:02)
[2020-01-12] MEDS: Guaifenesin DM 100-10/5 ML UDCUP PO PRN (03:30)
[2020-01-12 06:07] LABS: ALT (SGPT) Less than 7 U/L (8-55); AST (SGOT) 16 U/L (5-34); Albumin 2.5 g/dL (3.4-4.8); Alkaline Phosphatase 86 U/L (40-110); Anion Gap 20 mmol/L (10-20); BUN (Urea Nitrogen) 86 mg/dL (9.8-20.1); Bilirubin, Total 0.3 mg/dL (0.2-1.2); CRP (Inflammatory) 11.28 mg/dL (= or < 0.5); Calc. Creatinine Clearance 13 mL/min (70-130); Calcium 8.3 mg/dL (7.8-10.44); Carbon Dioxide 24 mmol/L (23-31); Chloride 90 mmol/L (98-107); Globulin 2.8 g/dL (2.4-3.5); Glucose 233 mg/dL (83-110); Potassium 5.5 mmol/L (3.5-5.1); Protein, Total 5.3 g/dL (6.0-8.3); Sodium 128 mmol/L (136-145)
[2020-01-12 06:20] LABS: Band 13 % (5-11); Hemoglobin 6.1 g/dL (12.0-16.0); Lymphocytes 18 % (21-51); MDiff Complete? YES; Mean Corpuscular HGB CONC 33.6 g/dL (32.0-36.0); Mean Corpuscular Hemoglobin 31.4 pg (27.0-31.0); Mean Corpuscular Volume 93.5 fL (78.0-98.0); Mean Platelet Volume 8.6 fL (7.4-10.4); Metamyelocyte 2 % (0-0); Monocytes 3 % (0-10); Neutrophil 64 % (42-75); Platelet Count 362 thou/uL (130-400); RBC Distribution Width 15.6 % (11.5-14.5); Red Blood Cell (RBC) Count 1.96 mill/uL (4.20-5.40)
[2020-01-12] MEDS: Heparin 5,000 UNITS/ML VIAL SC SCH ×3 (06:22→22:02)
[2020-01-12] MEDS: Levothyroxine Sodium 25 MCG TAB PO SCH (06:23)
[2020-01-12] MEDS: Mometasone Furoate 120 PUFF 220 MCG INH SCH ×2 (06:24→17:04)
[2020-01-12] MEDS: Diclofenac 1% 100 GM GEL TP SCH ×3 (08:01→22:00)
[2020-01-12] MEDS: Docusate 100 MG CAP PO SCH ×2 (08:02→22:36)
[2020-01-12] MEDS: Amiodarone 200 MG TAB PO SCH (08:02)
[2020-01-12] MEDS: Dexamethasone 4 mg/ml Vial SLOW IVP SCH (08:02)
[2020-01-12] MEDS: Senokot 8.6 MG TAB PO SCH (08:02)
[2020-01-12] MEDS: Sevelamer Carbonate 800 MG TAB PO SCH ×3 (08:02→17:04)
[2020-01-12] MEDS: Benzonatate 100 MG CAP PO SCH ×3 (08:03→22:02)
[2020-01-12] MEDS: Zinc Sulfate 220 MG CAP PO SCH (08:03)
[2020-01-12] MEDS: Cholecalciferol 1,000 UNITS (25 MCG) TAB PO SCH (08:03)
[2020-01-12] MEDS: Amlodipine 10 MG TAB PO SCH (08:05)
[2020-01-12] MEDS: Furosemide 40 MG TAB PO SCH (08:06)
[2020-01-12] MEDS: guaiFENesin ER 600 MG TAB PO SCH (08:06)
[2020-01-12] MEDS: Escitalopram Oxalate 10 mg Tablet PO SCH (08:06)
[2020-01-12] MEDS: Folic Acid 1 MG TAB PO SCH (08:06)
[2020-01-12] MEDS: prednisoLONE 1% Ophth Susp 5 ml Bottle EA EYE SCH (08:08)
[2020-01-12] MEDS: Ketorolac Tromethamine 0.5% Ophth Soln 3 ml Bottle R EYE SCH ×3 (08:08→22:01)
--- NOTE | 2020-01-12 08:25 | PRG ---
DATE OF SERVICE: 01/12/2020 SUBJECTIVE: An 84-year-old female being seen for end-stage renal disease. The patient denies any nausea, vomiting, or chest pain. OBJECTIVE: General: The patient is awake, alert. Vital Signs: Pulse 94, breathing 16, blood pressure 136/70. Extremities: Shows no edema. LABS: Show hemoglobin 6.1. Potassium . ASSESSMENT AND PLAN: 1. Stage 6 chronic kidney disease. Plan dialysis. 2. Anemia. Plan transfusion. Medication based on GFR appropriate. Job ID: [id number] MTDD
--- NOTE | 2020-01-12 10:23 | RAD ---
PORTABLE CHEST: Date: 01/12/2020 HISTORY: Leukocytosis. COMPARISON: 01/07/2020. FINDINGS: Cardiomegaly. Hazy bilateral infiltrates again noted although there appears to be interval improvemen t when compared to 01/07/2020. Significant improvement when compared to exam of 01/04/2020. IMPRESSION: Improving bilateral infiltrates. POS: OFF
--- NOTE | 2020-01-12 18:53 | PDOC.HOSPP ---
- Subjective Encounter Date: 01/12/20 Encounter Time: 11:45 Subjective: Patient up in bed getting dialysis feels tired today. - Objective Vital Signs & Weight: Vital Signs (12 hours) Temp Pulse Resp BP Pulse Ox 01/12/20 16:00 98.5 F 103 H 22 H 108/71 94 L 01/12/20 08:00 98.4 F 74 22 H 139/74 94 L Weight Weight 190 lb I&O: 01/11/20 01/12/20 01/13/20 06:59 06:59 06:59 Intake Total 1320 1460 1080 Output Total 0 2300 Balance 1320 1460 -1220 Result Diagrams: 01/12/20 05:23 01/12/20 05:23 Hospitalist ROS - Review of Systems Constitutional: reports: weakness Respiratory: denies: cough, dry, shortness of breath, hemoptysis, SOB with excertion, pleuritic pain, sputum, wheezing, other Cardiovascular: denies: chest pain, palpitations, orthopnea, paroxysmal noc. dyspnea, edema, light headedness, other Gastrointestinal: denies: nausea, vomiting, abdominal pain, diarrhea, constipation, melena, hematochezia, other - Medication Medications: Active Medications Generic Name Dose Route Start Last Admin Trade Name Freq PRN Reason Stop Dose Admin Acetaminophen 650 mg 01/04/20 14:24 01/06/20 00:34 Acetaminophen 325 Mg Tab PO 650 mg Q4H PRN Administration Headache/Fever/Mild Pain (1-3) Hydrocodone Bitart/Acetaminophen 1 tab 01/07/20 18:00 01/12/20 17:04 Hydrocodone/Acetaminophen 10/325 Mg Tablet PO 1 tab Q3HR ADAM Administration Albuterol/Ipratropium 0 gm 01/06/20 10:32 01/10/20 17:12 Ipratropium/Albuterol Sulfate 4 Gm Aer IH 2 inh Q4H PRN Administration Dyspnea/Wheezing/SOB Amiodarone HCl 200 mg 01/06/20 09:00 01/12/20 08:02 Amiodarone 200 Mg Tab PO 200 mg DAILY ADAM Administration Amlodipine Besylate 10 mg 01/07/20 09:00 01/12/20 08:05 Amlodipine 10 Mg Tab PO 10 mg DAILY ADAM Administration Atorvastatin Calcium 20 mg 01/06/20 21:00 01/11/20 21:15 Atorvastatin Calcium 20 Mg Tab PO 20 mg HS ADAM Administration Benzonatate 100 mg 01/05/20 15:00 01/12/20 13:39 Benzonatate 100 Mg Cap PO 100 mg TID ADAM Administration Cholecalciferol 5,000 units 01/07/20 09:00 01/12/20 08:03 Cholecalciferol 1,000 Units (25 Mcg) Tab PO 5,000 units DAILY ADAM Administration Dexamethasone 6 mg 01/07/20 09:00 01/12/20 08:02 Dexamethasone 4 Mg/Ml Vial SLOW IVP 6 mg DAILY ADAM Administration Diclofenac Sodium 4 gm 01/06/20 15:00 01/12/20 13:39 Diclofenac 1% 100 Gm Gel TP 4 gm TID [facility] Administration Docusate Sodium 100 mg 01/06/20 21:00 01/12/20 08:02 Docusate 100 Mg Cap PO 100 mg BID ADAM Administration Escitalopram Oxalate 10 mg 01/06/20 09:00 01/12/20 08:06 Escitalopram Oxalate 10 Mg Tablet PO 10 mg DAILY ADAM Administration Folic Acid 1 mg 01/07/20 09:00 01/12/20 08:06 Folic Acid 1 Mg Tab PO 1 mg DAILY ADAM Administration Furosemide 40 mg 01/07/20 09:00 01/12/20 08:06 Furosemide 40 Mg Tab PO 40 mg DAILY ADAM Administration Guaifenesin 600 mg 01/07/20 09:00 01/12/20 08:06 Guaifenesin Er 600 Mg Tab PO 600 mg DAILY ADAM Administration Guaifenesin/Dextromethorphan 10 ml 01/06/20 09:06 01/12/20 03:30 Guaifenesin Dm 100-10/5 Ml Udcup PO 10 ml PRN PRN Administration Cough Heparin Sodium (Porcine) 5,000 units 01/06/20 14:00 01/12/20 13:08 Heparin 5,000 Units/Ml Vial SC Not Given Q8HR [facility] Ketorolac Tromethamine 1 drop 01/06/20 15:00 01/12/20 13:40 Ketorolac Tromethamine 0.5% Ophth Soln 3 Ml Bottle R EYE 1 drop TID ADAM Administration Levothyroxine Sodium 50 mcg 01/06/20 06:00 01/12/20 06:23 Levothyroxine Sodium 25 Mcg Tab PO 50 mcg 0600 ADAM Administration Lidocaine/Prilocaine 1 gm 01/06/20 10:26 01/11/20 07:42 Lidocaine-Prilocaine 2.5% Cream 5 Gm Tube TOP 1 gm PRN PRN Administration Pain/IV STARTS Mometasone Furoate 1 puff 01/10/20 18:30 01/12/20 17:04 Mometasone Furoate 120 Puff 220 Mcg INH 1 puff BID-RT ADAM Administration Ondansetron HCl 4 mg 01/04/20 14:24 01/12/20 18:42 Ondansetron Pf 4 Mg/2 Ml Vial IVP 4 mg Q6H PRN Administration Nausea/Vomiting Prednisolone Acetate 1 drop 01/07/20 09:00 01/12/20 08:08 Prednisolone 1% Ophth Susp 5 Ml Bottle EA EYE 1 drop DAILY ADAM Administration Senna 2 tab 01/07/20 09:00 01/12/20 08:02 Senokot 8.6 Mg Tab PO 2 tab DAILY ADAM Administration Sevelamer Carbonate 800 mg 01/06/20 12:00 01/12/20 17:04 Sevelamer Carbonate 800 Mg Tab PO 800 mg TID-WM ADAM Administration Temazepam 15 mg 01/05/20 11:37 01/11/20 21:15 Temazepam 15 Mg Cap PO 15 mg HS PRN Administration Insomnia Zinc Sulfate 220 mg 01/07/20 09:00 01/12/20 08:03 Zinc Sulfate 220 Mg Cap PO 220 mg DAILY ADAM Administration - Exam Neck: negative: supple, symmetric, no JVD, no thyromegaly, no lymphadenopathy, no carotid bruit, JVD Heart: negative: RRR, no murmur, no gallops, no rubs, normal peripheral pulses, irregular, diminshed peripheral pulses, murmur present, II/IV, III/IV Respiratory: negative: CTAB, no wheezes, no rales, no ronchi, normal chest expansion, no tachypnea, normal percussion, rales, rhonchi, tachypneic, wheezes Gastrointestinal: negative: soft, non-tender, non-distended, normal bowel sounds, no palpable masses, no hepatomegaly, no splenomegaly, no bruit, no guarding, no rigidity, tender to palpation, distended, diminished bowl sounds, voluntary guarding Hosp A/P (1) Acute hypoxemic respiratory failure Code(s): J96.01 - ACUTE RESPIRATORY FAILURE WITH HYPOXIA Status: Acute (2) COVID-19 Code(s): U07.1 - COVID-19 Status: Acute (3) Hypertension Code(s): I10 - ESSENTIAL (PRIMARY) HYPERTENSION Status: Chronic Qualifiers: Hypertension type: essential hypertension Qualified Code(s): I10 - Essential (primary) hypertension (4) Hypothyroidism Code(s): E03.9 - HYPOTHYROIDISM, UNSPECIFIED Status: Chronic (5) ESRD on peritoneal dialysis Code(s): N18.6 - END STAGE RENAL DISEASE; Z99.2 - DEPENDENCE ON RENAL DIALYSIS Status: Chronic - Plan will continue steroids/dvt ppx. will continue current meds. she is on high flow. Her inflammatory markers are high. nephrology has been consulted. 01/06 will continue steroids and dvt ppx. cxr unchanged. will continue high flow. nephrology for dialysis. 01/07 we will continue steroids and DVT prophylaxis. Patient continues to be on high flow and desats on minimal exertion. Nephrology continues to dialyze patient. Her CRP continues to trend down. 01/08 we will continue to trend CRP. DVT prophylaxis and steroids. Patient still on high flow we will check with RT to see if we can start titrating her high flow down. She does have some old blood that she coughs up. We will continue to monitor. Cough medications ordered 01/09 patient continues to be on high flow. We will add inhaled steroid. Patient has been coughing up some old dark blood. She received 1 unit of PRBCs with dialysis yesterday. We will continue to monitor. I did examine patient sputum it has a mild blood-streaked. Patient is on DVT prophylaxis. We will add Ensure since she is not eating very much. Patient states that she cannot eat cold food. 01/10 we will continue current treatment. Patient continues to be on high flow. Her high flow oxygen saturations have been turned down we will continue to monitor. Will check labs in the morning. Continue to have DVT prophylaxis. Will make Ensure 3 times daily. 01/11 patient currently still on high flow we will continue to titrate her FiO2 down. She still not eating very much have encouraged her to eat more. She has been drinking Ensure. We will continue DVT prophylaxis. Her CRP worsened today. She did have elevated WBCs however no fever will check labs in the morning. She is currently not on any antibiotics.
[2020-01-12] MEDS: Atorvastatin Calcium 20 MG TAB PO SCH (22:02)
[2020-01-13] MEDS: HYDROcodone/Acetaminophen 10/325 mg Tablet PO SCH ×8 (00:11→21:29)
[2020-01-13 05:57] LABS: Mean Corpuscular HGB CONC 33.9 g/dL (32.0-36.0); Mean Corpuscular Hemoglobin 31.4 pg (27.0-31.0); Mean Corpuscular Volume 92.6 fL (78.0-98.0); Mean Platelet Volume 8.4 fL (7.4-10.4); Platelet Count 272 thou/uL (130-400); RBC Distribution Width 14.8 % (11.5-14.5); Red Blood Cell (RBC) Count 2.24 mill/uL (4.20-5.40); White Blood Cell (WBC) Count 17.1 thou/uL (4.8-10.8)
[2020-01-13 06:01] LABS: Anion Gap 19 mmol/L (10-20); BUN (Urea Nitrogen) 68 mg/dL (9.8-20.1); Calc. Creatinine Clearance 17 mL/min (70-130); Calcium 8.3 mg/dL (7.8-10.44); Carbon Dioxide 24 mmol/L (23-31); Chloride 94 mmol/L (98-107); Glucose 140 mg/dL (83-110); Potassium 4.9 mmol/L (3.5-5.1); Sodium 132 mmol/L (136-145)
[2020-01-13 06:22] LABS: Band 6 % (5-11); Lymphocytes 10 % (21-51); MDiff Complete? YES; Metamyelocyte 1 % (0-0); Monocytes 2 % (0-10); Myelocyte 1 % (0-0); Neutrophil 80 % (42-75)
[2020-01-13] MEDS: Mometasone Furoate 120 PUFF 220 MCG INH SCH ×2 (06:22→18:46)
[2020-01-13] MEDS: Heparin 5,000 UNITS/ML VIAL SC SCH ×2 (06:23→14:57)
[2020-01-13] MEDS: Levothyroxine Sodium 25 MCG TAB PO SCH (06:23)
[2020-01-13] MEDS: Cholecalciferol 1,000 UNITS (25 MCG) TAB PO SCH (09:11)
[2020-01-13] MEDS: Amlodipine 10 MG TAB PO SCH ×2 (09:13→09:30)
[2020-01-13] MEDS: Docusate 100 MG CAP PO SCH ×3 (09:13→21:29)
[2020-01-13] MEDS: Senokot 8.6 MG TAB PO SCH ×2 (09:13)
[2020-01-13] MEDS: Escitalopram Oxalate 10 mg Tablet PO SCH (09:13)
[2020-01-13] MEDS: Sevelamer Carbonate 800 MG TAB PO SCH ×4 (09:13→18:48)
[2020-01-13] MEDS: guaiFENesin ER 600 MG TAB PO SCH (09:14)
[2020-01-13] MEDS: Zinc Sulfate 220 MG CAP PO SCH (09:14)
[2020-01-13] MEDS: Dexamethasone 4 mg/ml Vial SLOW IVP SCH (09:14)
[2020-01-13] MEDS: Furosemide 40 MG TAB PO SCH (09:14)
[2020-01-13] MEDS: Benzonatate 100 MG CAP PO SCH ×3 (09:14→21:29)
[2020-01-13] MEDS: Folic Acid 1 MG TAB PO SCH (09:14)
[2020-01-13] MEDS: Amiodarone 200 MG TAB PO SCH (09:14)
--- NOTE | 2020-01-13 09:16 | PRG ---
DATE OF SERVICE: 01/13/2020 SUBJECTIVE: Patient on COVID isolation. OBJECTIVE: VITAL SIGNS: Temperature 98.2, pulse 90, respiratory rate 20, blood pressure 129/63. She is on high-flow oxygen. Patient on COVID isolation. LABORATORY DATA: Potassium 4.9, BUN is 68, creatinine is 3.3. ASSESSMENT AND PLAN: 1. End-stage renal disease, had dialysis yesterday. 2. Hyperkalemia better. Hyponatremia. Limit fluid intake. We will continue fluid removal with dialysis. 3. Anemia, status post transfusion. Recheck labs. 4. Edema. 5. History of hypertension. 6. Cardiorenal syndrome. 7. Recheck labs in the morning and continue dialysis as tolerated. Job ID: [id number]
[2020-01-13] MEDS: prednisoLONE 1% Ophth Susp 5 ml Bottle EA EYE SCH (10:28)
[2020-01-13] MEDS: Ketorolac Tromethamine 0.5% Ophth Soln 3 ml Bottle R EYE SCH ×3 (10:29→21:31)
[2020-01-13] MEDS: Diclofenac 1% 100 GM GEL TP SCH ×3 (10:30→21:31)
[2020-01-13] MEDS: Lorazepam 0.5 MG TAB PO PRN ×2 (12:13→18:44)
[2020-01-13] MEDS ORDERED: Pantoprazole 40 MG VIAL IVP SCH (15:00)
[2020-01-13 16:57] LABS: Hemoglobin 6.8 g/dL (12.0-16.0)
--- NOTE | 2020-01-13 17:52 | EKG ---
Test Reason : DYSPNEA Blood Pressure : / mmHG Vent. Rate : 105 BPM Atrial Rate : 110 BPM P-R Int : 000 ms QRS Dur : 088 ms QT Int : 306 ms P-R-T Axes : 000 -06 054 degrees QTc Int : 404 ms Atrial fibrillation with rapid ventricular response Low voltage QRS Septal infarct , age undetermined Abnormal ECG Confirmed by KRISHNA CHA, ISSAC ([id number]), editorial cartoonist AMBER WILSON ([id number]) on 01/13/2020 5:52:04 PM Referred By: KRISHNA Confirmed By:ISSAC KELLER MD
--- NOTE | 2020-01-13 18:12 | PDOC.HOSPP ---
- Subjective Encounter Date: 01/13/20 Encounter Time: 11:00 Subjective: Patient was seen and examined in bed. She complains of ongoing respiratory distress with intermittent cough and dry throat. She also complains of generalized weakness. Overnight she got a unit of blood transfusion for low hemoglobin of 6.8. Hemoglobin recovered to 7.0. Otherwise she denies any chest pain or palpitations. - Objective Vital Signs & Weight: Vital Signs (12 hours) Temp Pulse Resp BP Pulse Ox 01/13/20 12:34 97.7 F 91 16 120/62 98 01/13/20 09:32 95 01/13/20 07:30 98.6 F 104 H 20 98 Weight Weight 190 lb I&O: 01/12/20 01/13/20 01/14/20 06:59 06:59 06:59 Intake Total 1460 1560 Output Total 0 2300 Balance 1460 -740 Result Diagrams: 01/13/20 16:48 01/13/20 05:32 Hospitalist ROS - Medication Medications: Active Medications Generic Name Dose Route Start Last Admin Trade Name Freq PRN Reason Stop Dose Admin Acetaminophen 650 mg 01/04/20 14:24 01/06/20 00:34 Acetaminophen 325 Mg Tab PO 650 mg Q4H PRN Administration Headache/Fever/Mild Pain (1-3) Hydrocodone Bitart/Acetaminophen 1 tab 01/07/20 18:00 01/13/20 15:55 Hydrocodone/Acetaminophen 10/325 Mg Tablet PO 1 tab Q3HR ADAM Administration Albuterol/Ipratropium 0 gm 01/06/20 10:32 01/10/20 17:12 Ipratropium/Albuterol Sulfate 4 Gm Aer IH 2 inh Q4H PRN Administration Dyspnea/Wheezing/SOB Amiodarone HCl 200 mg 01/06/20 09:00 01/13/20 09:14 Amiodarone 200 Mg Tab PO 200 mg DAILY ADAM Administration Amlodipine Besylate 10 mg 01/07/20 09:00 01/13/20 09:30 Amlodipine 10 Mg Tab PO Not Given DAILY ADAM Atorvastatin Calcium 20 mg 01/06/20 21:00 01/12/20 22:02 Atorvastatin Calcium 20 Mg Tab PO 20 mg HS ADAM Administration Benzonatate 100 mg 01/05/20 15:00 01/13/20 15:55 Benzonatate 100 Mg Cap PO 100 mg TID ADAM Administration Cholecalciferol 5,000 units 01/07/20 09:00 01/13/20 09:11 Cholecalciferol 1,000 Units (25 Mcg) Tab PO 5,000 units DAILY ADAM Administration Dexamethasone 6 mg 01/07/20 09:00 01/13/20 09:14 Dexamethasone 4 Mg/Ml Vial SLOW IVP 6 mg DAILY ADAM Administration Diclofenac Sodium 4 gm 01/06/20 15:00 01/13/20 16:01 Diclofenac 1% 100 Gm Gel TP 4 gm TID ADAM Administration Docusate Sodium 100 mg 01/06/20 21:00 01/13/20 09:13 Docusate 100 Mg Cap PO 100 mg BID ADAM Administration Escitalopram Oxalate 10 mg 01/06/20 09:00 01/13/20 09:13 Escitalopram Oxalate 10 Mg Tablet PO 10 mg DAILY ADAM Administration Folic Acid 1 mg 01/07/20 09:00 01/13/20 09:14 Folic Acid 1 Mg Tab PO 1 mg DAILY ADAM Administration Furosemide 40 mg 01/07/20 09:00 01/13/20 09:14 Furosemide 40 Mg Tab PO 40 mg DAILY ADAM Administration Guaifenesin 600 mg 01/07/20 09:00 01/13/20 09:14 Guaifenesin Er 600 Mg Tab PO 600 mg DAILY ADAM Administration Guaifenesin/Dextromethorphan 10 ml 01/06/20 09:06 01/12/20 03:30 Guaifenesin Dm 100-10/5 Ml Udcup PO 10 ml PRN PRN Administration Cough Ketorolac Tromethamine 1 drop 01/06/20 15:00 01/13/20 16:04 Ketorolac Tromethamine 0.5% Ophth Soln 3 Ml Bottle R EYE 1 drop TID ADAM Administration Levothyroxine Sodium 50 mcg 01/06/20 06:00 01/13/20 06:23 Levothyroxine Sodium 25 Mcg Tab PO 50 mcg 0600 ADAM Administration Lidocaine/Prilocaine 1 gm 01/06/20 10:26 01/11/20 07:42 Lidocaine-Prilocaine 2.5% Cream 5 Gm Tube TOP 1 gm PRN PRN Administration Pain/IV STARTS Lorazepam 0.5 mg 01/13/20 11:53 01/13/20 12:13 Lorazepam 0.5 Mg Tab PO 0.5 mg Q4H PRN Administration Anxiety Mometasone Furoate 1 puff 01/10/20 18:30 01/13/20 06:22 Mometasone Furoate 120 Puff 220 Mcg INH 1 puff BID-RT ADAM Administration Ondansetron HCl 4 mg 01/04/20 14:24 01/12/20 18:42 Ondansetron Pf 4 Mg/2 Ml Vial IVP 4 mg Q6H PRN Administration Nausea/Vomiting Prednisolone Acetate 1 drop 01/07/20 09:00 01/13/20 10:28 Prednisolone 1% Ophth Susp 5 Ml Bottle EA EYE 1 drop DAILY ADAM Administration Senna 2 tab 01/07/20 09:00 01/13/20 09:13 Senokot 8.6 Mg Tab PO 2 tab DAILY ADAM Administration Sevelamer Carbonate 800 mg 01/06/20 12:00 01/13/20 12:34 Sevelamer Carbonate 800 Mg Tab PO Not Given TID-WM ADAM Temazepam 15 mg 01/05/20 11:37 01/11/20 21:15 Temazepam 15 Mg Cap PO 15 mg HS PRN Administration Insomnia Zinc Sulfate 220 mg 01/07/20 09:00 01/13/20 09:14 Zinc Sulfate 220 Mg Cap PO 220 mg DAILY ADAM Administration - Exam General Appearance: ill appearing Eye - other findings: Pale, no icterus Heart - other findings: S1-S2 present. No medical service. Respiratory - other findings: Reduced air entry bilaterally. Gastrointestinal - other findings: No tenderness or rebound tenderness. Extremities: no cyanosis, no clubbing Hosp A/P - Plan This is an 84-year-old female patient with a history of hypertension, ESRD, gout and recent recurrent falls admitted on account of Covid pneumonia. He is feeling generally weak with dark tarry stools noted this morning. Acute hypoxic respiratory failure Continue on high flow oxygen and wean. Pneumonia due to Covid Continue steroids Discontinue anticoagulation on account of GI bleed GI bleeding Likely upper due to melena Anticoagulation discontinued Started on Protonix H&H every 6 Transfuse if hemoglobin less than 7 GI consulted ESRD Dialysis per nephrology Hypertension Holding blood pressure medications because of possible GI bleed Monitor BP Hyponatremia Mild Monitor A. fib Hold anticoagulation Recent frequent falls Monitor on telemetry Fall precaution PT evaluation once stable CODE STATUSfull code VTE prophylaxishold heparin on account of GI bleed
[2020-01-13] MEDS: Atorvastatin Calcium 20 MG TAB PO SCH (21:29)
[2020-01-13] MEDS: Pantoprazole 40 MG VIAL IVP SCH (21:31)
[2020-01-13 22:31] LABS: Hemoglobin 6.7 g/dL (12.0-16.0)
[2020-01-14] MEDS: HYDROcodone/Acetaminophen 10/325 mg Tablet PO SCH ×8 (01:27→21:12)
[2020-01-14 04:14] LABS: Anion Gap 18 mmol/L (10-20); BUN (Urea Nitrogen) 89 mg/dL (9.8-20.1); Calc. Creatinine Clearance 13 mL/min (70-130); Calcium 8.5 mg/dL (7.8-10.44); Carbon Dioxide 26 mmol/L (23-31); Chloride 92 mmol/L (98-107); Glucose 231 mg/dL (83-110); Potassium 5.3 mmol/L (3.5-5.1); Sodium 131 mmol/L (136-145)
[2020-01-14 05:14] LABS: Band 7 % (5-11); Hemoglobin 9.1 g/dL (12.0-16.0); Lymphocytes 16 % (21-51); MDiff Complete? YES; Mean Corpuscular HGB CONC 34.4 g/dL (32.0-36.0); Mean Corpuscular Hemoglobin 32.2 pg (27.0-31.0); Mean Corpuscular Volume 93.5 fL (78.0-98.0); Mean Platelet Volume 8.3 fL (7.4-10.4); Monocytes 4 % (0-10); Neutrophil 73 % (42-75); Platelet Count 293 thou/uL (130-400); Red Blood Cell (RBC) Count 2.82 mill/uL (4.20-5.40); White Blood Cell (WBC) Count 17.1 thou/uL (4.8-10.8)
[2020-01-14] MEDS: Levothyroxine Sodium 25 MCG TAB PO SCH (06:09)
[2020-01-14] MEDS ORDERED: Dextrose 5% in Water 1,000 ML IV PRN (08:01)
[2020-01-14] MEDS ORDERED: Dextrose 50% Abboject 50 ML SYRINGE SLOW IVP PRN (08:01)
[2020-01-14] MEDS: Docusate 100 MG CAP PO SCH ×3 (08:30→21:12)
[2020-01-14] MEDS: Cholecalciferol 1,000 UNITS (25 MCG) TAB PO SCH (08:30)
[2020-01-14] MEDS: Sevelamer Carbonate 800 MG TAB PO SCH ×4 (08:30→18:34)
[2020-01-14] MEDS: Senokot 8.6 MG TAB PO SCH ×2 (08:30→08:31)
[2020-01-14] MEDS: Furosemide 40 MG TAB PO SCH (08:31)
[2020-01-14] MEDS: Zinc Sulfate 220 MG CAP PO SCH (08:31)
[2020-01-14] MEDS: Benzonatate 100 MG CAP PO SCH ×3 (08:31→21:12)
[2020-01-14] MEDS: Amiodarone 200 MG TAB PO SCH (08:31)
[2020-01-14] MEDS: Diclofenac 1% 100 GM GEL TP SCH ×2 (08:32→15:25)
[2020-01-14] MEDS: Mometasone Furoate 120 PUFF 220 MCG INH SCH ×2 (08:32→18:41)
[2020-01-14] MEDS: prednisoLONE 1% Ophth Susp 5 ml Bottle EA EYE SCH (08:33)
[2020-01-14] MEDS: Folic Acid 1 MG TAB PO SCH (08:34)
[2020-01-14] MEDS: Escitalopram Oxalate 10 mg Tablet PO SCH (08:34)
[2020-01-14] MEDS: guaiFENesin ER 600 MG TAB PO SCH (08:35)
[2020-01-14] MEDS: Ketorolac Tromethamine 0.5% Ophth Soln 3 ml Bottle R EYE SCH ×2 (08:35→15:26)
[2020-01-14] MEDS: Lorazepam 0.5 MG TAB PO PRN ×2 (08:39→12:13)
[2020-01-14 11:51] LABS: Hemoglobin 8.5 g/dL (12.0-16.0)
--- NOTE | 2020-01-14 12:04 | PRG ---
DATE OF SERVICE: 01/14/2020 SUBJECTIVE: The patient on COVID isolation. Pt seen at bedside. She is somnolent and lethargic. No N/V. reports that sob is better.no cp or palpitation. OBJECTIVE: VITAL SIGNS: Temperature 92. Heart Rate 85. Respiratory rate 22. Blood pressure 163/89. The patient is in COVID isolation. HEENT: Atraumatic and normocephalic Neck: supple CVS: S1S2 normal Extremities: trace edema Neuro: somnolent Awake to verbal stimuli LABORATORY DATA: Potassium 5.3, BUN is 89, and creatinine is 4.3. ASSESSMENT AND PLAN: 1. End-stage renal disease. Continue dialysis on Wednesday, Wednesday, and Wednesday. 2. Anemia. Monitor hemoglobin. 3. Edema. 4. Hypertension. 5. Mild hyperkalemia. 6. Monitor labs. Continue dialysis on Wednesday, Wednesday, and Wednesday. Job ID: [id number] MTDD
[2020-01-14 14:24] LABS: Actual Bicarbonate (HCO3a) 23.1 mEq/L (22-28); Base Excess (BEa) -1.3 mEq/L (-2.0 to +3.0); CO2 Tension 36.8 mmHg (35.0-45.0); Calcium, Ionized (arterial) 1.09 mmol/L (1.12-1.30); Carboxyhemoglobin (COHb) 0.6 gm% (0.0-3.0); Hemoglobin (Hb) 8.8 g/dL (12.0-16.0); Potassium - ABG Lab 4.84 mmol/L (3.70-5.30); pH, Arterial 7.42 (7.35-7.45)
[2020-01-14 14:28] LABS: O2 Tension (PaO2), arterial 50.3 mmHg (> 60.0); Puncture Site RRA
[2020-01-14] MEDS ORDERED: Labetalol HCl 100 MG/20 ML VIAL SLOW IVP PRN (16:51)
[2020-01-14] MEDS ORDERED: hydrALAZINE 20 MG/ML VIAL SLOW IVP PRN (16:52)
--- NOTE | 2020-01-14 17:24 | PDOC.HOSPP ---
- Subjective Encounter Date: 01/14/20 Encounter Time: 10:00 Subjective: Patient was seen and examined in bed. Overnight she has been intermittently confused. She had a transfusion of 1 unit of blood on account of anemia. No other significant events. - Objective Vital Signs & Weight: Vital Signs (12 hours) Temp Pulse Resp BP Pulse Ox 01/14/20 12:47 93 L 01/14/20 12:25 98.0 F 97 20 167/77 H 95 01/14/20 09:20 80 20 95 01/14/20 08:31 95 01/14/20 05:49 95 Weight Weight 190 lb I&O: 01/13/20 01/14/20 01/15/20 06:59 06:59 06:59 Intake Total 1560 1410 Output Total 2300 Balance -740 1410 Result Diagrams: 01/14/20 11:43 01/14/20 03:41 Hospitalist ROS - Medication Medications: Active Medications Generic Name Dose Route Start Last Admin Trade Name Freq PRN Reason Stop Dose Admin Acetaminophen 650 mg 01/04/20 14:24 01/06/20 00:34 Acetaminophen 325 Mg Tab PO 650 mg Q4H PRN Administration Headache/Fever/Mild Pain (1-3) Hydrocodone Bitart/Acetaminophen 1 tab 01/07/20 18:00 01/14/20 15:23 Hydrocodone/Acetaminophen 10/325 Mg Tablet PO 1 tab Q3HR ADAM Administration Albuterol/Ipratropium 0 gm 01/06/20 10:32 01/10/20 17:12 Ipratropium/Albuterol Sulfate 4 Gm Aer IH 2 inh Q4H PRN Administration Dyspnea/Wheezing/SOB Amiodarone HCl 200 mg 01/06/20 09:00 01/14/20 08:31 Amiodarone 200 Mg Tab PO 200 mg DAILY ADAM Administration Atorvastatin Calcium 20 mg 01/06/20 21:00 01/13/20 21:29 Atorvastatin Calcium 20 Mg Tab PO 20 mg HS ADAM Administration Benzonatate 100 mg 01/05/20 15:00 01/14/20 15:25 Benzonatate 100 Mg Cap PO 100 mg TID ADAM Administration Cholecalciferol 5,000 units 01/07/20 09:00 01/14/20 08:30 Cholecalciferol 1,000 Units (25 Mcg) Tab PO 5,000 units DAILY ADAM Administration Dexamethasone 6 mg 01/07/20 09:00 01/13/20 09:14 Dexamethasone 4 Mg/Ml Vial SLOW IVP 6 mg DAILY [facility] Administration Diclofenac Sodium 4 gm 01/06/20 15:00 01/14/20 15:25 Diclofenac 1% 100 Gm Gel TP 4 gm TID ADAM Administration Docusate Sodium 100 mg 01/06/20 21:00 01/14/20 08:30 Docusate 100 Mg Cap PO Not Given BID [facility] Escitalopram Oxalate 10 mg 01/06/20 09:00 01/14/20 08:34 Escitalopram Oxalate 10 Mg Tablet PO 10 mg DAILY [facility] Administration Folic Acid 1 mg 01/07/20 09:00 01/14/20 08:34 Folic Acid 1 Mg Tab PO 1 mg DAILY [facility] Administration Furosemide 40 mg 01/07/20 09:00 01/14/20 08:31 Furosemide 40 Mg Tab PO 40 mg DAILY ADAM Administration Guaifenesin 600 mg 01/07/20 09:00 01/14/20 08:35 Guaifenesin Er 600 Mg Tab PO 600 mg DAILY [facility] Administration Guaifenesin/Dextromethorphan 10 ml 01/06/20 09:06 01/12/20 03:30 Guaifenesin Dm 100-10/5 Ml Udcup PO 10 ml PRN PRN Administration Cough Ketorolac Tromethamine 1 drop 01/06/20 15:00 01/14/20 15:26 Ketorolac Tromethamine 0.5% Ophth Soln 3 Ml Bottle R EYE 1 drop TID [facility] Administration Levothyroxine Sodium 50 mcg 01/06/20 06:00 01/14/20 06:09 Levothyroxine Sodium 25 Mcg Tab PO 50 mcg 0600 ADAM Administration Lidocaine/Prilocaine 1 gm 01/06/20 10:26 01/11/20 07:42 Lidocaine-Prilocaine 2.5% Cream 5 Gm Tube TOP 1 gm PRN PRN Administration Pain/IV STARTS Lorazepam 0.5 mg 01/13/20 11:53 01/14/20 12:13 Lorazepam 0.5 Mg Tab PO 0.5 mg Q4H PRN Administration Anxiety Mometasone Furoate 1 puff 01/10/20 18:30 01/14/20 08:32 Mometasone Furoate 120 Puff 220 Mcg INH 1 puff BID-RT [facility] Administration Ondansetron HCl 4 mg 01/04/20 14:24 01/12/20 18:42 Ondansetron Pf 4 Mg/2 Ml Vial IVP 4 mg Q6H PRN Administration Nausea/Vomiting Pantoprazole Sodium 40 mg 01/13/20 21:00 01/13/20 21:31 Pantoprazole 40 Mg Vial IVP 40 mg Q12HR ADAM Administration Prednisolone Acetate 1 drop 01/07/20 09:00 01/14/20 08:33 Prednisolone 1% Ophth Susp 5 Ml Bottle EA EYE 1 drop DAILY ADAM Administration Senna 2 tab 01/07/20 09:00 01/14/20 08:30 Senokot 8.6 Mg Tab PO Not Given DAILY ADAM Sevelamer Carbonate 800 mg 01/06/20 12:00 01/14/20 13:30 Sevelamer Carbonate 800 Mg Tab PO Not Given TID-WM ADAM Temazepam 15 mg 01/05/20 11:37 01/11/20 21:15 Temazepam 15 Mg Cap PO 15 mg HS PRN Administration Insomnia Zinc Sulfate 220 mg 01/07/20 09:00 01/14/20 08:31 Zinc Sulfate 220 Mg Cap PO 220 mg DAILY ADAM Administration - Exam Heart: RRR, no murmur, no gallops Respiratory: no wheezes, no rales, no tachypnea Respiratory - other findings: Reduced air entry bilaterally. Gastrointestinal: soft, non-tender, non-distended, normal bowel sounds Extremities: no cyanosis, no clubbing, 1+ LE edema Neurological: cranial nerve grossly intact, no focal deficits Psychiatric - other findings: Oriented to person and place. Not to time. Drowsy and falls off to sleep. Hosp A/P - Plan This is an 84-year-old female patient with a history of hypertension, ESRD, gout and recent recurrent falls admitted on account of Covid pneumonia. Received 2 units yesterday on account of anemia with black tarry stools. Anticoagulation was stopped Acute hypoxic respiratory failure Continue on high flow oxygen and wean. Pneumonia due to Covid Continue steroids Discontinue anticoagulation on account of GI bleed Anemia secondary to GI bleed Received 2 units Hemoglobin improved to above 9. Monitor H&H. ESRD Dialysis per nephrology Hypertension Holding blood pressure medications because of possible GI bleed Monitor BP Hyponatremia Mild Monitor A. fib Hold anticoagulation Recent frequent falls Monitor on telemetry Fall precaution PT evaluation once stable Hypokalemia Mild with potassium at 5.3 We will monitor Nephrology following. Leukocytosis In the setting of Covid Likely due to steroid Continue monitoring. CODE STATUSfull code VTE prophylaxishold heparin on account of GI bleedSCD
[2020-01-14] MEDS: Dexamethasone 4 mg/ml Vial SLOW IVP SCH (18:33)
[2020-01-14] MEDS: Pantoprazole 40 MG VIAL IVP SCH ×2 (18:34→21:13)
[2020-01-14 19:32] LABS: Hemoglobin 8.3 g/dL (12.0-16.0)
[2020-01-14] MEDS: Atorvastatin Calcium 20 MG TAB PO SCH (21:12)
[2020-01-14 23:46] LABS: Hemoglobin 8.3 g/dL (12.0-16.0)
[2020-01-15] MEDS: HYDROcodone/Acetaminophen 10/325 mg Tablet PO SCH ×9 (02:35→21:24)
--- NOTE | 2020-01-15 06:15 | CON ---
DATE OF CONSULTATION: 01/14/2020 REASON FOR CONSULTATION: History of black tarry stool, anemia. HISTORY OF PRESENT ILLNESS: Ms. Radha Crane is an 84-year-old female, hospitalized on 01/04/2020 with dyspnea, COVID-19 pneumonia, and worsening shortness of breath. The patient is not in isolation. She has history of atrial fibrillation, gout, and also history of hypertension and chronic kidney disease. The patient has been on heparin because of risk of venous thrombosis with COVID-19 infection. The patient had episode of black tarry stool yesterday. Her blood count did drop down, so she has been transfused. Since yesterday, she has had no stool. She had no stool through the night and she had no stool today. The patient abdominal pain, nausea, vomiting. She has been transfused and blood count is coming up nicely today to hemoglobin 9.1, hematocrit 26.3, and MCV 93.5. No relevant history. Since the bleeding, the heparin has been stopped. ALLERGIES: 1. ALLOPURINOL. 2. AMITRIPTYLINE. 3. LISINOPRIL. 4. PENICILLIN. SOCIAL HISTORY: No history of smoking or alcohol abuse. MEDICAL ILLNESS: 1. Chronic kidney disease, on dialysis. 2. Hypertension. 3. Hyperlipidemia. 4. Hypothyroidism. 5. Recurrent falls. 6. Recent COVID pneumonia. PAST SURGICAL HISTORY: Appendectomy, hysterectomy. DICTATION ENDS HERE Job ID: [id number]
[2020-01-15] MEDS: Mometasone Furoate 120 PUFF 220 MCG INH SCH ×2 (06:58→16:20)
[2020-01-15] MEDS: Levothyroxine Sodium 25 MCG TAB PO SCH (06:58)
[2020-01-15] MEDS ORDERED: OLANZapine 10 MG VIAL IM PRN (07:39)
--- NOTE | 2020-01-15 11:16 | PRG ---
DATE OF SERVICE: 01/15/2020 SUBJECTIVE: The patient is on COVID isolation. OBJECTIVE: VITAL SIGNS: Temperature 98.5, pulse 105, respiratory rate 22, blood pressure 142/69. LABORATORY DATA: Not done today. ASSESSMENT AND PLAN: 1. End-stage renal disease. Continue dialysis. 2. Hyperkalemia. We will have dialysis. 3. Anemia of chronic disease. 4. Edema. Continue Epogen with dialysis. Continue dialysis. Limit potassium intake. We will follow. Job ID: [id number]
[2020-01-15] MEDS ORDERED: Albumin 25% 25 GM/100 ML BOT IVPB SCH (11:30)
[2020-01-15 11:47] LABS: #Lymphocytes 0.7 thou/uL (1.20-3.40); #Monocytes 0.4 thou/uL (0.11-0.59); #Neutrophils 7.8 thou/uL (1.40-6.50); %Basophils 0.1 % (0.0-1.0); %Eosinophils 0.5 % (0.0-10.0); %Lymphocytes 8.1 % (21.0-51.0); %Monocytes 4.5 % (0.0-10.0); %Neutrophils 86.8 % (42.0-75.0); Hemoglobin 7.9 g/dL (12.0-16.0); Mean Corpuscular HGB CONC 33.7 g/dL (32.0-36.0); Mean Corpuscular Hemoglobin 31.6 pg (27.0-31.0); Mean Corpuscular Volume 93.7 fL (78.0-98.0); Platelet Count 243 thou/uL (130-400); RBC Distribution Width 13.9 % (11.5-14.5); Red Blood Cell (RBC) Count 2.51 mill/uL (4.20-5.40)
[2020-01-15 12:21] LABS: Anion Gap 14 mmol/L (10-20); BUN (Urea Nitrogen) 64 mg/dL (9.8-20.1); Calc. Creatinine Clearance 17 mL/min (70-130); Calcium 7.6 mg/dL (7.8-10.44); Carbon Dioxide 29 mmol/L (23-31); Chloride 94 mmol/L (98-107); Glucose 103 mg/dL (83-110); Potassium 3.6 mmol/L (3.5-5.1); Sodium 133 mmol/L (136-145)
[2020-01-15] MEDS: Sevelamer Carbonate 800 MG TAB PO SCH ×2 (12:31→16:19)
[2020-01-15] MEDS: Benzonatate 100 MG CAP PO SCH ×3 (12:31→21:20)
[2020-01-15] MEDS: Diclofenac 1% 100 GM GEL TP SCH ×4 (12:32→21:23)
[2020-01-15] MEDS: Docusate 100 MG CAP PO SCH ×2 (12:32→21:22)
[2020-01-15] MEDS: Amiodarone 200 MG TAB PO SCH (16:16)
[2020-01-15] MEDS: Cholecalciferol 1,000 UNITS (25 MCG) TAB PO SCH (16:16)
[2020-01-15] MEDS: Dexamethasone 4 mg/ml Vial SLOW IVP SCH (16:16)
[2020-01-15] MEDS: Furosemide 40 MG TAB PO SCH (16:17)
[2020-01-15] MEDS: Folic Acid 1 MG TAB PO SCH (16:17)
[2020-01-15] MEDS: guaiFENesin ER 600 MG TAB PO SCH (16:17)
[2020-01-15] MEDS: Escitalopram Oxalate 10 mg Tablet PO SCH (16:17)
[2020-01-15] MEDS: Pantoprazole 40 MG VIAL IVP SCH ×2 (16:18→21:30)
[2020-01-15] MEDS: prednisoLONE 1% Ophth Susp 5 ml Bottle EA EYE SCH (16:18)
[2020-01-15] MEDS: Ketorolac Tromethamine 0.5% Ophth Soln 3 ml Bottle R EYE SCH ×3 (16:18→22:04)
[2020-01-15] MEDS: Zinc Sulfate 220 MG CAP PO SCH (16:19)
[2020-01-15] MEDS: Senokot 8.6 MG TAB PO SCH (16:19)
--- NOTE | 2020-01-15 16:22 | PDOC.HOSPP ---
- Subjective Encounter Date: 01/15/20 Subjective: Patient was seen and examined in bed. She was having dilated the time. Also eating. Slightly confused however no worsening dyspnea or chest pain. No significant events overnight. - Objective Vital Signs & Weight: Vital Signs (12 hours) Temp Pulse Resp BP Pulse Ox 01/15/20 15:17 96.5 F L 98 22 H 102/59 L 96 01/15/20 09:00 98.5 F 105 H 22 H 142/69 H 94 L 01/15/20 05:42 94 L Weight Admit Weight 190 lb Weight 190 lb I&O: 01/14/20 01/15/20 01/16/20 06:59 06:59 06:59 Intake Total 1410 270 Output Total 0 1999 Balance 1410 270 -1999 Result Diagrams: 01/15/20 11:00 01/15/20 11:00 Additional Labs: Accuchecks 01/15/20 01/14/20 01/14/20 07:38 17:44 12:06 POC Glucose 100 131 H 198 H Hospitalist ROS - Medication Medications: Active Medications Generic Name Dose Route Start Last Admin Trade Name Freq PRN Reason Stop Dose Admin Acetaminophen 650 mg 01/04/20 14:24 01/06/20 00:34 Acetaminophen 325 Mg Tab PO 650 mg Q4H PRN Administration Headache/Fever/Mild Pain (1-3) Hydrocodone Bitart/Acetaminophen 1 tab 01/07/20 18:00 01/15/20 12:28 Hydrocodone/Acetaminophen 10/325 Mg Tablet PO 1 tab Q3HR ADAM Administration Albumin Human 25 gm 01/15/20 11:30 01/15/20 11:30 Albumin 25% 25 Gm/100 Ml Bot IVPB 25 gm WILLCALL ADAM Administration Albuterol/Ipratropium 0 gm 01/06/20 10:32 01/10/20 17:12 Ipratropium/Albuterol Sulfate 4 Gm Aer IH 2 inh Q4H PRN Administration Dyspnea/Wheezing/SOB Amiodarone HCl 200 mg 01/06/20 09:00 01/14/20 08:31 Amiodarone 200 Mg Tab PO 200 mg DAILY ADAM Administration Atorvastatin Calcium 20 mg 01/06/20 21:00 01/14/20 21:12 Atorvastatin Calcium 20 Mg Tab PO 20 mg HS ADAM Administration Benzonatate 100 mg 01/05/20 15:00 01/15/20 12:31 Benzonatate 100 Mg Cap PO Not Given TID [facility] Cholecalciferol 5,000 units 01/07/20 09:00 01/14/20 08:30 Cholecalciferol 1,000 Units (25 Mcg) Tab PO 5,000 units DAILY [facility] Administration Dexamethasone 6 mg 01/07/20 09:00 01/14/20 18:33 Dexamethasone 4 Mg/Ml Vial SLOW IVP Not Given DAILY [facility] Diclofenac Sodium 4 gm 01/06/20 15:00 01/15/20 12:32 Diclofenac 1% 100 Gm Gel TP Not Given TID [facility] Docusate Sodium 100 mg 01/06/20 21:00 01/15/20 12:32 Docusate 100 Mg Cap PO Not Given BID [facility] Escitalopram Oxalate 10 mg 01/06/20 09:00 01/14/20 08:34 Escitalopram Oxalate 10 Mg Tablet PO 10 mg DAILY [facility] Administration Folic Acid 1 mg 01/07/20 09:00 01/14/20 08:34 Folic Acid 1 Mg Tab PO 1 mg DAILY [facility] Administration Furosemide 40 mg 01/07/20 09:00 01/14/20 08:31 Furosemide 40 Mg Tab PO 40 mg DAILY [facility] Administration Guaifenesin 600 mg 01/07/20 09:00 01/14/20 08:35 Guaifenesin Er 600 Mg Tab PO 600 mg DAILY [facility] Administration Guaifenesin/Dextromethorphan 10 ml 01/06/20 09:06 01/12/20 03:30 Guaifenesin Dm 100-10/5 Ml Udcup PO 10 ml PRN PRN Administration Cough Ketorolac Tromethamine 1 drop 01/06/20 15:00 01/15/20 00:00 Ketorolac Tromethamine 0.5% Ophth Soln 3 Ml Bottle R EYE 1 drop TID [facility] Administration Levothyroxine Sodium 50 mcg 01/06/20 06:00 01/15/20 06:58 Levothyroxine Sodium 25 Mcg Tab PO 50 mcg 0600 [facility] Administration Lidocaine/Prilocaine 1 gm 01/06/20 10:26 01/11/20 07:42 Lidocaine-Prilocaine 2.5% Cream 5 Gm Tube TOP 1 gm PRN PRN Administration Pain/IV STARTS Mometasone Furoate 1 puff 01/10/20 18:30 01/15/20 06:58 Mometasone Furoate 120 Puff 220 Mcg INH 1 puff BID-RT ADAM Administration Ondansetron HCl 4 mg 01/04/20 14:24 01/12/20 18:42 Ondansetron Pf 4 Mg/2 Ml Vial IVP 4 mg Q6H PRN Administration Nausea/Vomiting Pantoprazole Sodium 40 mg 01/13/20 21:00 01/14/20 21:13 Pantoprazole 40 Mg Vial IVP 40 mg Q12HR ADAM Administration Prednisolone Acetate 1 drop 01/07/20 09:00 01/14/20 08:33 Prednisolone 1% Ophth Susp 5 Ml Bottle EA EYE 1 drop DAILY ADAM Administration Senna 2 tab 01/07/20 09:00 01/14/20 08:30 Senokot 8.6 Mg Tab PO Not Given DAILY ADAM Sevelamer Carbonate 800 mg 01/06/20 12:00 01/15/20 12:31 Sevelamer Carbonate 800 Mg Tab PO Not Given TID-WM ADAM Zinc Sulfate 220 mg 01/07/20 09:00 01/14/20 08:31 Zinc Sulfate 220 Mg Cap PO 220 mg DAILY ADAM Administration - Exam General - other findings: Awake, slightly drowsy. Heart: RRR, no murmur, no gallops, normal peripheral pulses Respiratory - other findings: Reduced air entry bilaterally Gastrointestinal: soft, non-tender, non-distended, normal bowel sounds Extremities: no cyanosis, no clubbing, no edema Neurological: cranial nerve grossly intact Psychiatric: A&O x 3 Hosp A/P - Plan This is an 84-year-old female patient with a history of hypertension, ESRD, gout and recent recurrent falls admitted on account of Covid pneumonia. Received 2 units of blood on this admission on account of anemia with black tarry stools. Anticoagulation was stopped Acute hypoxic respiratory failure Continue on high flow oxygen and wean. Pneumonia due to Covid Continue steroids Discontinue anticoagulation on account of GI bleed Anemia secondary to GI bleed Received 2 units Hemoglobin stable above 7 Monitor H&H. ESRD Dialysis per nephrology Hypertension Holding blood pressure medications because of possible GI bleed Monitor BP Hyponatremia Mild Monitor A. fib Hold anticoagulation Recent frequent falls Monitor on telemetry Fall precaution PT evaluation once stable Hypokalemia Mild with potassium at 5.3 We will monitor Nephrology following. Leukocytosis In the setting of Covid Likely due to steroid Continue monitoring. Delirium Improved We will monitor As needed Zyprexa No benzodiazepine CODE STATUSfull code VTE prophylaxishold heparin on account of GI bleedSCD
[2020-01-15] MEDS: EPOETIN ALFA-EPBX (ESRD) 10,000 UNIT/ML VIAL IVP SCH (21:19)
[2020-01-15] MEDS: Atorvastatin Calcium 20 MG TAB PO SCH (21:20)
[2020-01-16] MEDS: HYDROcodone/Acetaminophen 10/325 mg Tablet PO SCH ×6 (01:00→20:08)
[2020-01-16 05:45] LABS: Anion Gap 18 mmol/L (10-20); BUN (Urea Nitrogen) 65 mg/dL (9.8-20.1); Calc. Creatinine Clearance 14 mL/min (70-130); Calcium 7.6 mg/dL (7.8-10.44); Carbon Dioxide 25 mmol/L (23-31); Chloride 94 mmol/L (98-107); Glucose 188 mg/dL (83-110); Potassium 4.8 mmol/L (3.5-5.1); Sodium 132 mmol/L (136-145)
[2020-01-16] MEDS: Levothyroxine Sodium 25 MCG TAB PO SCH (06:45)
[2020-01-16] MEDS: HumaLOG 300 UNITS/3 ML VIAL SC PRN ×3 (06:48→18:10)
[2020-01-16] MEDS: Mometasone Furoate 120 PUFF 220 MCG INH SCH ×2 (06:59→17:56)
[2020-01-16] MEDS: guaiFENesin ER 600 MG TAB PO SCH (07:45)
[2020-01-16] MEDS: Zinc Sulfate 220 MG CAP PO SCH (07:45)
[2020-01-16] MEDS: Pantoprazole 40 MG VIAL IVP SCH ×2 (07:45→20:11)
[2020-01-16] MEDS: Sevelamer Carbonate 800 MG TAB PO SCH ×4 (07:45→18:45)
[2020-01-16] MEDS: Furosemide 40 MG TAB PO SCH (07:45)
[2020-01-16] MEDS: Benzonatate 100 MG CAP PO SCH ×3 (07:45→20:09)
[2020-01-16] MEDS: Dexamethasone 4 mg/ml Vial SLOW IVP SCH (07:46)
[2020-01-16] MEDS: Folic Acid 1 MG TAB PO SCH (07:46)
[2020-01-16] MEDS: Cholecalciferol 1,000 UNITS (25 MCG) TAB PO SCH (07:47)
[2020-01-16] MEDS: Amiodarone 200 MG TAB PO SCH (07:48)
[2020-01-16] MEDS: Escitalopram Oxalate 10 mg Tablet PO SCH (07:48)
[2020-01-16] MEDS: Diclofenac 1% 100 GM GEL TP SCH ×3 (07:49→20:06)
[2020-01-16] MEDS: prednisoLONE 1% Ophth Susp 5 ml Bottle EA EYE SCH (07:50)
[2020-01-16] MEDS: Docusate 100 MG CAP PO SCH ×2 (08:10→20:10)
[2020-01-16] MEDS: Senokot 8.6 MG TAB PO SCH (08:11)
[2020-01-16] MEDS: Ketorolac Tromethamine 0.5% Ophth Soln 3 ml Bottle R EYE SCH ×3 (08:51→20:10)
[2020-01-16 09:50] LABS: #Lymphocytes 0.6 thou/uL (1.20-3.40); #Monocytes 0.4 thou/uL (0.11-0.59); #Neutrophils 9.5 thou/uL (1.40-6.50); %Eosinophils 0.2 % (0.0-10.0); %Lymphocytes 5.9 % (21.0-51.0); Hemoglobin 7.2 g/dL (12.0-16.0); Mean Corpuscular HGB CONC 32.8 g/dL (32.0-36.0); Mean Corpuscular Volume 94.4 fL (78.0-98.0); Mean Platelet Volume 8.5 fL (7.4-10.4); Platelet Count 189 thou/uL (130-400); RBC Distribution Width 14.2 % (11.5-14.5); Red Blood Cell (RBC) Count 2.32 mill/uL (4.20-5.40); White Blood Cell (WBC) Count 10.5 thou/uL (4.8-10.8)
--- NOTE | 2020-01-16 10:25 | PRG ---
DATE OF SERVICE: 01/16/2020 SUBJECTIVE: The patient is on COVID isolation. OBJECTIVE: VITAL SIGNS: Temperature 98.2, pulse 94, respiratory rate 16, and blood pressure 137/76. LABORATORY DATA: Potassium 4.8, BUN is 65, creatinine is 4.1. ASSESSMENT AND PLAN: 1. End-stage renal disease, had dialysis yesterday and tolerated well. 2. Hyperkalemia. 3. Anemia of chronic disease. 4. Edema. 5. Fluid overload. 6. COVID-19 infection. 7. Continue dialysis as tolerated. Job ID: [id number] [facility]
[2020-01-16] MEDS ORDERED: HYDROcodone/Acetaminophen 10/325 mg Tablet PO SCH (11:00)
[2020-01-16 14:28] LABS: Hemoglobin 6.9 g/dL (12.0-16.0)
--- NOTE | 2020-01-16 15:42 | PDOC.HOSPP ---
- Subjective Encounter Date: 01/16/20 Subjective: Patient was seen and examined in bed. She was slightly confused otherwise not in distress. She denied any chest pain or shortness of breath. - Objective Vital Signs & Weight: Vital Signs (12 hours) Temp Pulse Pulse Pulse Resp BP BP 01/16/20 14:15 78 86 128/66 130/74 01/16/20 12:00 98.4 F 94 22 H 01/16/20 08:02 98.2 F 94 16 01/16/20 07:46 01/16/20 04:00 97.4 F L 99 16 BP Pulse Ox Pulse Ox Pulse Ox 01/16/20 14:15 100 100 01/16/20 12:00 123/62 99 01/16/20 08:02 137/76 100 01/16/20 07:46 98 01/16/20 04:00 142/71 H 98 Weight Admit Weight 190 lb Weight 189 lb 9.561 oz I&O: 01/15/20 01/16/20 01/17/20 06:59 06:59 06:59 Intake Total 270 480 Output Total 0 2000 Balance 270 -1520 Result Diagrams: 01/16/20 14:22 01/16/20 05:07 Additional Labs: Accuchecks 01/16/20 01/15/20 10:55 16:36 POC Glucose 244 H 89 Hospitalist ROS - Medication Medications: Active Medications Generic Name Dose Route Start Last Admin Trade Name Freq PRN Reason Stop Dose Admin Acetaminophen 650 mg 01/04/20 14:24 01/06/20 00:34 Acetaminophen 325 Mg Tab PO 650 mg Q4H PRN Administration Headache/Fever/Mild Pain (1-3) Hydrocodone Bitart/Acetaminophen 1 tab 01/16/20 11:00 01/16/20 11:54 Hydrocodone/Acetaminophen 10/325 Mg Tablet PO 1 tab Q4H ADAM Administration Albuterol/Ipratropium 0 gm 01/06/20 10:32 01/10/20 17:12 Ipratropium/Albuterol Sulfate 4 Gm Aer IH 2 inh Q4H PRN Administration Dyspnea/Wheezing/SOB Amiodarone HCl 200 mg 01/06/20 09:00 01/16/20 07:48 Amiodarone 200 Mg Tab PO 200 mg DAILY ADAM Administration Atorvastatin Calcium 20 mg 01/06/20 21:00 01/15/20 21:20 Atorvastatin Calcium 20 Mg Tab PO 20 mg HS ADAM Administration Benzonatate 100 mg 01/05/20 15:00 01/16/20 07:45 Benzonatate 100 Mg Cap PO 100 mg TID ADAM Administration Cholecalciferol 5,000 units 01/07/20 09:00 01/16/20 07:47 Cholecalciferol 1,000 Units (25 Mcg) Tab PO 5,000 units DAILY ADAM Administration Dexamethasone 6 mg 01/07/20 09:00 01/16/20 07:46 Dexamethasone 4 Mg/Ml Vial SLOW IVP 6 mg DAILY ADAM Administration Diclofenac Sodium 4 gm 01/06/20 15:00 01/16/20 07:49 Diclofenac 1% 100 Gm Gel TP 4 gm TID [facility] Administration Docusate Sodium 100 mg 01/06/20 21:00 01/16/20 08:10 Docusate 100 Mg Cap PO Not Given BID ADAM Epoetin Rome-epbx 10,000 unit 01/15/20 10:46 01/15/20 21:19 Epoetin [place]-Epbx (Esrd) 10,000 Unit/Ml Vial IVP 10,000 unit MoWeFr ADAM Administration Escitalopram Oxalate 10 mg 01/06/20 09:00 01/16/20 07:48 Escitalopram Oxalate 10 Mg Tablet PO 10 mg DAILY [facility] Administration Folic Acid 1 mg 01/07/20 09:00 01/16/20 07:46 Folic Acid 1 Mg Tab PO 1 mg DAILY ADAM Administration Furosemide 40 mg 01/07/20 09:00 01/16/20 07:45 Furosemide 40 Mg Tab PO 40 mg DAILY ADAM Administration Guaifenesin 600 mg 01/07/20 09:00 01/16/20 07:45 Guaifenesin Er 600 Mg Tab PO 600 mg DAILY ADAM Administration Guaifenesin/Dextromethorphan 10 ml 01/06/20 09:06 01/12/20 03:30 Guaifenesin Dm 100-10/5 Ml Udcup PO 10 ml PRN PRN Administration Cough Insulin Human Lispro 0 units 01/14/20 08:01 01/16/20 11:55 Humalog 300 Units/3 Ml Vial SC 3 unit .MILD SLIDING SCALE PRN Administration Mild Correctional Scale Ketorolac Tromethamine 1 drop 01/06/20 15:00 01/16/20 08:51 Ketorolac Tromethamine 0.5% Ophth Soln 3 Ml Bottle R EYE 1 drop TID ADAM Administration Levothyroxine Sodium 50 mcg 01/06/20 06:00 01/16/20 06:45 Levothyroxine Sodium 25 Mcg Tab PO 50 mcg 0600 ADAM Administration Lidocaine/Prilocaine 1 gm 01/06/20 10:26 01/11/20 07:42 Lidocaine-Prilocaine 2.5% Cream 5 Gm Tube TOP 1 gm PRN PRN Administration Pain/IV STARTS Mometasone Furoate 1 puff 01/10/20 18:30 01/16/20 06:59 Mometasone Furoate 120 Puff 220 Mcg INH 1 puff BID-RT ADAM Administration Ondansetron HCl 4 mg 01/04/20 14:24 01/12/20 18:42 Ondansetron Pf 4 Mg/2 Ml Vial IVP 4 mg Q6H PRN Administration Nausea/Vomiting Pantoprazole Sodium 40 mg 01/13/20 21:00 01/16/20 07:45 Pantoprazole 40 Mg Vial IVP 40 mg Q12HR ADAM Administration Prednisolone Acetate 1 drop 01/07/20 09:00 01/16/20 07:50 Prednisolone 1% Ophth Susp 5 Ml Bottle EA EYE 1 drop DAILY ADAM Administration Senna 2 tab 01/07/20 09:00 01/16/20 08:11 Senokot 8.6 Mg Tab PO Not Given DAILY ADAM Sevelamer Carbonate 800 mg 01/06/20 12:00 01/16/20 11:55 Sevelamer Carbonate 800 Mg Tab PO 800 mg TID-WM ADAM Administration Sodium Chloride 10 ml 01/15/20 09:00 01/16/20 07:50 Flush - Normal Saline 10 Ml Syringe IVF 10 ml Q12HR ADAM Administration Zinc Sulfate 220 mg 01/07/20 09:00 01/16/20 07:45 Zinc Sulfate 220 Mg Cap PO 220 mg DAILY ADAM Administration - Exam General - other findings: Awake, slightly confused. Heart: RRR, no murmur, no gallops Respiratory - other findings: Reduced air entry bilaterally. High flow nasal cannula. Gastrointestinal: soft, non-tender, non-distended, normal bowel sounds Extremities: no cyanosis, no clubbing, no edema Neurological: cranial nerve grossly intact Psychiatric - other findings: Oriented to person and place Hosp A/P - Plan This is an 84-year-old female patient with a history of hypertension, ESRD, gout and recent recurrent falls admitted on account of Covid pneumonia. Received 2 units of blood on this admission on account of anemia with black tarry stools. Anticoagulation was stopped Acute hypoxic respiratory failure Continue on high flow oxygen and wean. Pneumonia due to Covid Continue steroids Discontinue anticoagulation on account of GI bleed Anemia secondary to GI bleed Received 2 units Globin 6.9 this afternoon Transfuse for hemoglobin is at 7 Monitor H&H. ESRD Dialysis per nephrology Hypertension Holding blood pressure medications because of possible GI bleed Monitor BP Hyponatremia Mild Monitor A. fib Hold anticoagulation Recent frequent falls Monitor on telemetry Fall precaution PT evaluation once stable Hypokalemia Resolved Continue BMP monitoring Leukocytosis In the setting of Covid Likely due to steroid Continue monitoring. Delirium Improved We will monitor As needed Zyprexa No benzodiazepine CODE STATUSfull code VTE prophylaxishold heparin on account of GI bleedSCD
[2020-01-16 18:39] LABS: Hemoglobin 6.9 g/dL (12.0-16.0)
[2020-01-16] MEDS: Atorvastatin Calcium 20 MG TAB PO SCH (20:09)
[2020-01-17] MEDS: HYDROcodone/Acetaminophen 10/325 mg Tablet PO SCH ×6 (04:00→21:46)
[2020-01-17] MEDS: Mometasone Furoate 120 PUFF 220 MCG INH SCH ×2 (05:25→18:41)
[2020-01-17] MEDS: Levothyroxine Sodium 25 MCG TAB PO SCH (05:25)
[2020-01-17 05:56] LABS: Hemoglobin 8.2 g/dL (12.0-16.0)
[2020-01-17] MEDS: Pantoprazole 40 MG VIAL IVP SCH ×2 (08:04→21:45)
[2020-01-17] MEDS: Sevelamer Carbonate 800 MG TAB PO SCH ×3 (08:05→18:35)
[2020-01-17] MEDS: Folic Acid 1 MG TAB PO SCH (08:05)
[2020-01-17] MEDS: Cholecalciferol 1,000 UNITS (25 MCG) TAB PO SCH (08:05)
[2020-01-17] MEDS: Benzonatate 100 MG CAP PO SCH ×3 (08:05→21:43)
[2020-01-17] MEDS: Amiodarone 200 MG TAB PO SCH (08:06)
[2020-01-17] MEDS: Dexamethasone 4 mg/ml Vial SLOW IVP SCH (08:06)
[2020-01-17] MEDS: Furosemide 40 MG TAB PO SCH (08:06)
[2020-01-17] MEDS: Zinc Sulfate 220 MG CAP PO SCH (08:07)
[2020-01-17] MEDS: guaiFENesin ER 600 MG TAB PO SCH (08:09)
[2020-01-17] MEDS: Ketorolac Tromethamine 0.5% Ophth Soln 3 ml Bottle R EYE SCH ×3 (08:09→21:44)
[2020-01-17] MEDS: Escitalopram Oxalate 10 mg Tablet PO SCH (08:09)
[2020-01-17] MEDS: Diclofenac 1% 100 GM GEL TP SCH ×3 (08:10→21:44)
[2020-01-17] MEDS: prednisoLONE 1% Ophth Susp 5 ml Bottle EA EYE SCH (08:11)
[2020-01-17] MEDS: Senokot 8.6 MG TAB PO SCH (09:00)
[2020-01-17] MEDS: Docusate 100 MG CAP PO SCH ×2 (09:00→21:47)
[2020-01-17] MEDS: EPOETIN ALFA-EPBX (ESRD) 10,000 UNIT/ML VIAL IVP SCH (09:47)
--- NOTE | 2020-01-17 11:33 | PRG ---
DATE OF SERVICE: 01/17/2020 SUBJECTIVE: The patient is on COVID isolation. OBJECTIVE: VITAL SIGNS: Temperature 96.3, pulse 104, respiratory rate 18, blood pressure 162/70. ASSESSMENT AND PLAN: 1. End-stage renal disease. Continue dialysis Wednesday, Wednesday, Wednesday. 2. Hyperkalemia, better. 3. Edema. 4. Fluid overload. 5. COVID-19 infection. 6. Monitor labs. 7. Continue dialysis as tolerated. 8. We will follow. Job ID: [id number]
[2020-01-17 11:59] LABS: Hemoglobin 7.8 g/dL (12.0-16.0)
--- NOTE | 2020-01-17 15:35 | PDOC.HOSPP ---
- Subjective Encounter Date: 01/17/20 Encounter Time: 15:33 Subjective: Patient was seen and examined in bed. She has significant improvement in her mental status overnight. Cough is improved. She denies any chest pain or worsening shortness of breath. No melanotic stools noted overnight. She had 1 unit of blood yesterday - Objective Vital Signs & Weight: Vital Signs (12 hours) Temp Pulse Resp BP Pulse Ox 01/17/20 13:14 97.8 F 92 21 H 122/83 96 01/17/20 08:17 98.3 F 104 H 17 162/70 H 94 L 01/17/20 08:10 94 L 01/17/20 07:57 97 Weight Admit Weight 190 lb Weight 189 lb 9.561 oz I&O: 01/16/20 01/17/20 01/18/20 06:59 06:59 06:59 Intake Total 480 860 Output Total 2000 Balance -1520 860 Result Diagrams: 01/17/20 11:54 01/16/20 05:07 Additional Labs: Accuchecks 01/17/20 01/17/20 01/16/20 10:59 05:33 20:49 POC Glucose 157 H 150 H 210 H 01/16/20 17:13 POC Glucose 232 H EKG Reviewed by me: Yes (She has had A. fib without RVR) Hospitalist ROS - Medication Medications: Active Medications Generic Name Dose Route Start Last Admin Trade Name Freq PRN Reason Stop Dose Admin Acetaminophen 650 mg 01/04/20 14:24 01/06/20 00:34 Acetaminophen 325 Mg Tab PO 650 mg Q4H PRN Administration Headache/Fever/Mild Pain (1-3) Hydrocodone Bitart/Acetaminophen 1 tab 01/16/20 11:00 01/17/20 15:16 Hydrocodone/Acetaminophen 10/325 Mg Tablet PO 1 tab Q4H ADAM Administration Albuterol/Ipratropium 0 gm 01/06/20 10:32 01/10/20 17:12 Ipratropium/Albuterol Sulfate 4 Gm Aer IH 2 inh Q4H PRN Administration Dyspnea/Wheezing/SOB Amiodarone HCl 200 mg 01/06/20 09:00 01/17/20 08:06 Amiodarone 200 Mg Tab PO 200 mg DAILY ADAM Administration Atorvastatin Calcium 20 mg 01/06/20 21:00 01/16/20 20:09 Atorvastatin Calcium 20 Mg Tab PO 20 mg HS ADAM Administration Benzonatate 100 mg 01/05/20 15:00 01/17/20 15:16 Benzonatate 100 Mg Cap PO 100 mg TID ADAM Administration Cholecalciferol 5,000 units 01/07/20 09:00 01/17/20 08:05 Cholecalciferol 1,000 Units (25 Mcg) Tab PO 5,000 units DAILY ADAM Administration Dexamethasone 6 mg 01/07/20 09:00 01/17/20 08:06 Dexamethasone 4 Mg/Ml Vial SLOW IVP 6 mg DAILY ADAM Administration Diclofenac Sodium 4 gm 01/06/20 15:00 01/17/20 15:19 Diclofenac 1% 100 Gm Gel TP 4 gm TID ADAM Administration Docusate Sodium 100 mg 01/06/20 21:00 01/17/20 09:00 Docusate 100 Mg Cap PO Not Given BID ADAM Epoetin Rome-epbx 10,000 unit 01/15/20 10:46 01/17/20 09:47 Epoetin Rome-Epbx (Esrd) 10,000 Unit/Ml Vial IVP 10,000 unit MoWeFr ADAM Administration Escitalopram Oxalate 10 mg 01/06/20 09:00 01/17/20 08:09 Escitalopram Oxalate 10 Mg Tablet PO 10 mg DAILY ADAM Administration Folic Acid 1 mg 01/07/20 09:00 01/17/20 08:05 Folic Acid 1 Mg Tab PO 1 mg DAILY ADAM Administration Furosemide 40 mg 01/07/20 09:00 01/17/20 08:06 Furosemide 40 Mg Tab PO 40 mg DAILY ADAM Administration Guaifenesin 600 mg 01/07/20 09:00 01/17/20 08:09 Guaifenesin Er 600 Mg Tab PO 600 mg DAILY ADAM Administration Guaifenesin/Dextromethorphan 10 ml 01/06/20 09:06 01/12/20 03:30 Guaifenesin Dm 100-10/5 Ml Udcup PO 10 ml PRN PRN Administration Cough Insulin Human Lispro 0 units 01/14/20 08:01 01/16/20 18:10 Humalog 300 Units/3 Ml Vial SC 3 unit .MILD SLIDING SCALE PRN Administration Mild Correctional Scale Ketorolac Tromethamine 1 drop 01/06/20 15:00 01/17/20 15:18 Ketorolac Tromethamine 0.5% Ophth Soln 3 Ml Bottle R EYE 1 drop TID ADAM Administration Levothyroxine Sodium 50 mcg 01/06/20 06:00 01/17/20 05:25 Levothyroxine Sodium 25 Mcg Tab PO 50 mcg 0600 ADAM Administration Lidocaine/Prilocaine 1 gm 01/06/20 10:26 01/11/20 07:42 Lidocaine-Prilocaine 2.5% Cream 5 Gm Tube TOP 1 gm PRN PRN Administration Pain/IV STARTS Mometasone Furoate 1 puff 01/10/20 18:30 01/17/20 05:25 Mometasone Furoate 120 Puff 220 Mcg INH 1 puff BID-RT AADM Administration Ondansetron HCl 4 mg 01/04/20 14:24 01/12/20 18:42 Ondansetron Pf 4 Mg/2 Ml Vial IVP 4 mg Q6H PRN Administration Nausea/Vomiting Pantoprazole Sodium 40 mg 01/13/20 21:00 01/17/20 08:04 Pantoprazole 40 Mg Vial IVP 40 mg Q12HR ADAM Administration Prednisolone Acetate 1 drop 01/07/20 09:00 01/17/20 08:11 Prednisolone 1% Ophth Susp 5 Ml Bottle EA EYE 1 drop DAILY ADAM Administration Senna 2 tab 01/07/20 09:00 01/17/20 09:00 Senokot 8.6 Mg Tab PO Not Given DAILY ADAM Sevelamer Carbonate 800 mg 01/06/20 12:00 01/17/20 13:20 Sevelamer Carbonate 800 Mg Tab PO 800 mg TID-WM ADAM Administration Sodium Chloride 10 ml 01/15/20 09:00 01/17/20 08:12 Flush - Normal Saline 10 Ml Syringe IVF 10 ml Q12HR ADAM Administration Zinc Sulfate 220 mg 01/07/20 09:00 01/17/20 08:07 Zinc Sulfate 220 Mg Cap PO 220 mg DAILY ADAM Administration - Exam General Appearance: awake alert Heart: RRR, no murmur, no gallops Respiratory - other findings: Reduced air entry bilaterally. Gastrointestinal: soft, non-tender, non-distended Extremities: no cyanosis, no clubbing, 1+ LE edema Neurological: cranial nerve grossly intact Psychiatric: A&O x 3 Psychiatric - other findings: Sometimes slightly confused. Hosp A/P - Plan This is an 84-year-old female patient with a history of hypertension, ESRD, gout and recent recurrent falls admitted on account of Covid pneumonia. Received 3 units of blood on this admission on account of anemia with black tarry stools. Anticoagulation was stopped. She continues to improve with O2 being weaned down on high flow oxygen Acute hypoxic respiratory failure Continue on high flow oxygen and wean. Pneumonia due to Covid Completed steroids Discontinue anticoagulation on account of GI bleed Generally improvingcontinue close monitoring. Anemia secondary to GI bleed Completed 1 unit transfusion yesterday. Hemoglobin is 7.8. Transfuse for hemoglobin is at 7 Monitor H&H. GI has been following for ESRD Dialysis per nephrology Hypertension Blood pressure has been stable off antihypertensives except for Lasix Monitor BP Hyponatremia Mild Monitor A. fib Hold anticoagulation Recent frequent falls Monitor on telemetry Fall precaution PT evaluation once stable Hypokalemia Resolved Continue BMP monitoring Leukocytosis In the setting of Covid Likely due to steroid Continue monitoring. Delirium Improved We will monitor As needed Zyprexa No benzodiazepine CODE STATUSfull code VTE prophylaxishold heparin on account of GI bleedSCD
[2020-01-17] MEDS: HumaLOG 300 UNITS/3 ML VIAL SC PRN (18:36)
[2020-01-17 18:42] LABS: Hemoglobin 8.2 g/dL (12.0-16.0)
[2020-01-17] MEDS: Atorvastatin Calcium 20 MG TAB PO SCH (21:43)
[2020-01-17] MEDS: Temazepam 15 MG CAP PO PRN (23:57)
[2020-01-18 00:05] LABS: Hemoglobin 8.1 g/dL (12.0-16.0)
[2020-01-18] MEDS: HYDROcodone/Acetaminophen 10/325 mg Tablet PO SCH ×6 (04:00→22:57)
[2020-01-18] MEDS: HumaLOG 300 UNITS/3 ML VIAL SC PRN (06:02)
[2020-01-18] MEDS: Levothyroxine Sodium 25 MCG TAB PO SCH (06:04)
[2020-01-18] MEDS: Mometasone Furoate 120 PUFF 220 MCG INH SCH ×2 (06:08→17:17)
[2020-01-18 06:21] LABS: Anion Gap 17 mmol/L (10-20); BUN (Urea Nitrogen) 44 mg/dL (9.8-20.1); Calc. Creatinine Clearance 15 mL/min (70-130); Calcium 7.9 mg/dL (7.8-10.44); Carbon Dioxide 26 mmol/L (23-31); Chloride 94 mmol/L (98-107); Glucose 157 mg/dL (83-110); Potassium 3.8 mmol/L (3.5-5.1); Sodium 133 mmol/L (136-145)
[2020-01-18 06:26] LABS: Band 3 % (5-11); Hemoglobin 8.3 g/dL (12.0-16.0); Lymphocytes 9 % (21-51); MDiff Complete? YES; Mean Corpuscular HGB CONC 33.5 g/dL (32.0-36.0); Mean Corpuscular Hemoglobin 30.8 pg (27.0-31.0); Mean Corpuscular Volume 91.9 fL (78.0-98.0); Mean Platelet Volume 8.6 fL (7.4-10.4); Monocytes 4 % (0-10); Neutrophil 84 % (42-75); Platelet Count 227 thou/uL (130-400); RBC Distribution Width 14.2 % (11.5-14.5); White Blood Cell (WBC) Count 19.3 thou/uL (4.8-10.8)
[2020-01-18] MEDS: Cholecalciferol 1,000 UNITS (25 MCG) TAB PO SCH (10:02)
[2020-01-18] MEDS: Amiodarone 200 MG TAB PO SCH (10:03)
[2020-01-18] MEDS: Sevelamer Carbonate 800 MG TAB PO SCH ×3 (10:03→17:17)
[2020-01-18] MEDS: Docusate 100 MG CAP PO SCH ×2 (10:03→21:04)
[2020-01-18] MEDS: Furosemide 40 MG TAB PO SCH (10:03)
[2020-01-18] MEDS: guaiFENesin ER 600 MG TAB PO SCH (10:03)
[2020-01-18] MEDS: Folic Acid 1 MG TAB PO SCH (10:03)
[2020-01-18] MEDS: Benzonatate 100 MG CAP PO SCH ×3 (10:04→21:04)
[2020-01-18] MEDS: Senokot 8.6 MG TAB PO SCH (10:04)
[2020-01-18] MEDS: Escitalopram Oxalate 10 mg Tablet PO SCH (10:04)
[2020-01-18] MEDS: Zinc Sulfate 220 MG CAP PO SCH (10:04)
[2020-01-18] MEDS: Pantoprazole 40 MG VIAL IVP SCH ×2 (10:05→21:04)
[2020-01-18] MEDS: prednisoLONE 1% Ophth Susp 5 ml Bottle EA EYE SCH ×2 (10:06→15:32)
[2020-01-18] MEDS: Diclofenac 1% 100 GM GEL TP SCH ×3 (10:06→21:05)
[2020-01-18] MEDS: Ketorolac Tromethamine 0.5% Ophth Soln 3 ml Bottle R EYE SCH ×3 (10:09→21:05)
--- NOTE | 2020-01-18 12:07 | PDOC.HOSPP ---
- Subjective Encounter Date: 01/18/20 Encounter Time: 11:30 Subjective: is on high flow, responds well to verbal stimuli is moving all extremities, says she can walk but has not ambulated yet due to spo2 dropping quickly - Objective Vital Signs & Weight: Vital Signs (12 hours) Temp Pulse Resp BP Pulse Ox 01/18/20 11:17 99 01/18/20 08:30 97.7 F 68 14 148/83 H 97 01/18/20 03:44 98.4 F 77 22 H 144/71 H 95 Weight Admit Weight 190 lb Weight 196 lb 10.437 oz I&O: 01/17/20 01/18/20 01/19/20 06:59 06:59 06:59 Intake Total 860 1080 Output Total 2400 Balance 860 -1320 Result Diagrams: 01/18/20 05:39 01/18/20 05:38 Additional Labs: Accuchecks 01/18/20 01/18/20 01/17/20 10:39 05:50 21:01 POC Glucose 110 H 161 H 180 H 01/17/20 16:56 POC Glucose 282 H Hospitalist ROS - Medication Medications: Active Medications Generic Name Dose Route Start Last Admin Trade Name Freq PRN Reason Stop Dose Admin Acetaminophen 650 mg 01/04/20 14:24 01/06/20 00:34 Acetaminophen 325 Mg Tab PO 650 mg Q4H PRN Administration Headache/Fever/Mild Pain (1-3) Hydrocodone Bitart/Acetaminophen 1 tab 01/16/20 11:00 01/18/20 10:12 Hydrocodone/Acetaminophen 10/325 Mg Tablet PO 1 tab Q4H ADAM Administration Albuterol/Ipratropium 0 gm 01/06/20 10:32 01/10/20 17:12 Ipratropium/Albuterol Sulfate 4 Gm Aer IH 2 inh Q4H PRN Administration Dyspnea/Wheezing/SOB Amiodarone HCl 200 mg 01/06/20 09:00 01/18/20 10:03 Amiodarone 200 Mg Tab PO 200 mg DAILY ADAM Administration Atorvastatin Calcium 20 mg 01/06/20 21:00 01/17/20 21:43 Atorvastatin Calcium 20 Mg Tab PO 20 mg HS ADAM Administration Benzonatate 100 mg 01/05/20 15:00 01/18/20 10:04 Benzonatate 100 Mg Cap PO 100 mg TID ADAM Administration Cholecalciferol 5,000 units 01/07/20 09:00 01/18/20 10:02 Cholecalciferol 1,000 Units (25 Mcg) Tab PO 5,000 units DAILY ADAM Administration Diclofenac Sodium 4 gm 01/06/20 15:00 01/18/20 10:06 Diclofenac 1% 100 Gm Gel TP 4 gm TID ADAM Administration Docusate Sodium 100 mg 01/06/20 21:00 01/18/20 10:03 Docusate 100 Mg Cap PO 100 mg BID ADAM Administration Epoetin Rome-epbx 10,000 unit 01/15/20 10:46 01/17/20 09:47 Epoetin [place]-Epbx (Esrd) 10,000 Unit/Ml Vial IVP 10,000 unit MoWeFr ADAM Administration Escitalopram Oxalate 10 mg 01/06/20 09:00 01/18/20 10:04 Escitalopram Oxalate 10 Mg Tablet PO 10 mg DAILY ADAM Administration Folic Acid 1 mg 01/07/20 09:00 01/18/20 10:03 Folic Acid 1 Mg Tab PO 1 mg DAILY ADAM Administration Furosemide 40 mg 01/07/20 09:00 01/18/20 10:03 Furosemide 40 Mg Tab PO 40 mg DAILY ADAM Administration Guaifenesin 600 mg 01/07/20 09:00 01/18/20 10:03 Guaifenesin Er 600 Mg Tab PO 600 mg DAILY ADAM Administration Guaifenesin/Dextromethorphan 10 ml 01/06/20 09:06 01/12/20 03:30 Guaifenesin Dm 100-10/5 Ml Udcup PO 10 ml PRN PRN Administration Cough Insulin Human Lispro 0 units 01/14/20 08:01 01/18/20 06:02 Humalog 300 Units/3 Ml Vial SC 2 unit .MILD SLIDING SCALE PRN Administration Mild Correctional Scale Ketorolac Tromethamine 1 drop 01/06/20 15:00 01/18/20 10:09 Ketorolac Tromethamine 0.5% Ophth Soln 3 Ml Bottle R EYE 1 drop TID ADAM Administration Levothyroxine Sodium 50 mcg 01/06/20 06:00 01/18/20 06:04 Levothyroxine Sodium 25 Mcg Tab PO 50 mcg 0600 ADAM Administration Lidocaine/Prilocaine 1 gm 01/06/20 10:26 01/11/20 07:42 Lidocaine-Prilocaine 2.5% Cream 5 Gm Tube TOP 1 gm PRN PRN Administration Pain/IV STARTS Mometasone Furoate 1 puff 01/10/20 18:30 01/18/20 06:08 Mometasone Furoate 120 Puff 220 Mcg INH 1 puff BID-RT ADAM Administration Ondansetron HCl 4 mg 01/04/20 14:24 01/12/20 18:42 Ondansetron Pf 4 Mg/2 Ml Vial IVP 4 mg Q6H PRN Administration Nausea/Vomiting Pantoprazole Sodium 40 mg 01/13/20 21:00 01/18/20 10:05 Pantoprazole 40 Mg Vial IVP 40 mg Q12HR ADAM Administration Prednisolone Acetate 1 drop 01/07/20 09:00 01/18/20 10:06 Prednisolone 1% Ophth Susp 5 Ml Bottle EA EYE 1 drop DAILY ADAM Administration Senna 2 tab 01/07/20 09:00 01/18/20 10:04 Senokot 8.6 Mg Tab PO 2 tab DAILY ADAM Administration Sevelamer Carbonate 800 mg 01/06/20 12:00 01/18/20 11:21 Sevelamer Carbonate 800 Mg Tab PO 800 mg TID-WM ADAM Administration Sodium Chloride 10 ml 01/15/20 09:00 01/18/20 10:04 Flush - Normal Saline 10 Ml Syringe IVF 10 ml Q12HR ADAM Administration Temazepam 15 mg 01/17/20 23:41 01/17/20 23:57 Temazepam 15 Mg Cap PO 15 mg HSPRN PRN Administration Insomnia Zinc Sulfate 220 mg 01/07/20 09:00 01/18/20 10:04 Zinc Sulfate 220 Mg Cap PO 220 mg DAILY ADAM Administration - Exam General Appearance: awake alert Eye: PERRL, anicteric sclera ENT: no oropharyngeal lesions, moist mucosa Neck: supple, no JVD Heart: RRR, no murmur Respiratory: no wheezes, rales, rhonchi Gastrointestinal: soft, non-tender, non-distended, normal bowel sounds Extremities: no cyanosis, no edema Neurological: cranial nerve grossly intact, no focal deficits Psychiatric: A&O x 3 Hosp A/P (1) Pneumonia due to COVID-19 virus Code(s): U07.1 - COVID-19; J12.89 - OTHER VIRAL PNEUMONIA Status: Acute (2) Acute respiratory failure with hypoxia Code(s): J96.01 - ACUTE RESPIRATORY FAILURE WITH HYPOXIA Status: Acute (3) Obesity (BMI 30.0-34.9) Code(s): E66.9 - OBESITY, UNSPECIFIED Status: Chronic (4) Physical deconditioning Code(s): R53.81 - OTHER MALAISE Status: Acute (5) Anemia in chronic kidney disease Code(s): N18.9 - CHRONIC KIDNEY DISEASE, UNSPECIFIED; D63.1 - ANEMIA IN CHRONIC KIDNEY DISEASE Status: Chronic Qualifiers: Chronic kidney disease stage: on chronic dialysis Qualified Code(s): N18.6 - End stage renal disease; D63.1 - Anemia in chronic kidney disease; Z99.2 - Dependence on renal dialysis (6) Atrial fibrillation Code(s): I48.91 - UNSPECIFIED ATRIAL FIBRILLATION Status: Chronic Qualifiers: Atrial fibrillation type: paroxysmal Qualified Code(s): I48.0 - Paroxysmal atrial fibrillation (7) Dyslipidemia Code(s): E78.5 - HYPERLIPIDEMIA, UNSPECIFIED Status: Chronic (8) ESRD (end stage renal disease) on dialysis Code(s): N18.6 - END STAGE RENAL DISEASE; Z99.2 - DEPENDENCE ON RENAL DIALYSIS Status: Chronic (9) Hypertension Code(s): I10 - ESSENTIAL (PRIMARY) HYPERTENSION Status: Chronic Qualifiers: Hypertension type: essential hypertension Qualified Code(s): I10 - Essential (primary) hypertension (10) Hypothyroidism Code(s): E03.9 - HYPOTHYROIDISM, UNSPECIFIED Status: Chronic Qualifiers: Hypothyroidism type: unspecified Qualified Code(s): E03.9 - Hypothyroidism, unspecified - Plan is on high flow with fio2 of 70%, nebs, deconditioning PT to mobilize with high flow as tolerated prognosis guarded, palliative care for code status continue amiodarone, lipitor, lasix daily (may dc if ok with nephrology), synthorid, zyprexa and protonix she recieved one unit prbc for ac on chr anemia will need ltac placement if she remains on high flow HD per nephrology adv
--- NOTE | 2020-01-18 12:15 | PRG ---
DATE OF SERVICE: 01/18/2020 SUBJECTIVE: The patient is on COVID isolation. OBJECTIVE: VITAL SIGNS: Temperature 97.7, pulse 60, respiratory rate 14, blood pressure 148/83. LABORATORY DATA: Potassium is 3.8, BUN is 44, creatinine is 3.8. ASSESSMENT: 1. End-stage renal disease. Continue dialysis on Wednesday, Wednesday, and Wednesday. 2. Hyperkalemia, better. 3. Fluid overload. 4. COVID-19 infection. 5. Chronic pain. PLAN: Plan to have dialysis as tolerated. Job ID: [id number]
[2020-01-18 12:35] LABS: Hemoglobin 8.9 g/dL (12.0-16.0)
[2020-01-18 18:19] LABS: Hemoglobin 9.3 g/dL (12.0-16.0)
[2020-01-18] MEDS: Atorvastatin Calcium 20 MG TAB PO SCH (21:04)
[2020-01-18] MEDS: Temazepam 15 MG CAP PO PRN (22:57)
[2020-01-19 00:28] LABS: Hemoglobin 8.7 g/dL (12.0-16.0)
[2020-01-19] MEDS: HYDROcodone/Acetaminophen 10/325 mg Tablet PO SCH ×4 (04:53→18:30)
[2020-01-19] MEDS: Levothyroxine Sodium 25 MCG TAB PO SCH (06:13)
[2020-01-19] MEDS: Mometasone Furoate 120 PUFF 220 MCG INH SCH ×2 (06:13→18:31)
[2020-01-19 06:43] LABS: Hemoglobin 8.6 g/dL (12.0-16.0)
[2020-01-19] MEDS: Ipratropium/Albuterol Sulfate 4 GM AER IH PRN (06:47)
[2020-01-19] MEDS: Lidocaine-Prilocaine 2.5% Cream 5 GM TUBE TOP PRN (08:00)
[2020-01-19] MEDS: Guaifenesin DM 100-10/5 ML UDCUP PO PRN (11:19)
[2020-01-19] MEDS: Benzonatate 100 MG CAP PO SCH ×3 (11:20→19:15)
[2020-01-19 13:51] LABS: Hemoglobin 9.2 g/dL (12.0-16.0)
[2020-01-19] MEDS: Sevelamer Carbonate 800 MG TAB PO SCH ×3 (14:46→18:30)
[2020-01-19] MEDS: Diclofenac 1% 100 GM GEL TP SCH ×4 (14:47→21:34)
[2020-01-19] MEDS: Amiodarone 200 MG TAB PO SCH (14:47)
[2020-01-19] MEDS: Folic Acid 1 MG TAB PO SCH (14:48)
[2020-01-19] MEDS: Furosemide 40 MG TAB PO SCH (14:48)
[2020-01-19] MEDS: Docusate 100 MG CAP PO SCH ×2 (14:48→19:15)
[2020-01-19] MEDS: guaiFENesin ER 600 MG TAB PO SCH (14:48)
[2020-01-19] MEDS: Senokot 8.6 MG TAB PO SCH (14:49)
[2020-01-19] MEDS: Pantoprazole 40 MG VIAL IVP SCH ×2 (14:49→16:12)
[2020-01-19] MEDS: Cholecalciferol 1,000 UNITS (25 MCG) TAB PO SCH (14:49)
[2020-01-19] MEDS: Ketorolac Tromethamine 0.5% Ophth Soln 3 ml Bottle R EYE SCH ×3 (14:49→21:36)
[2020-01-19] MEDS: Escitalopram Oxalate 10 mg Tablet PO SCH (14:53)
[2020-01-19] MEDS: Zinc Sulfate 220 MG CAP PO SCH (14:54)
--- NOTE | 2020-01-19 14:56 | PDOC.HOSPP ---
- Subjective Encounter Date: 01/19/20 - Objective Vital Signs & Weight: Vital Signs (12 hours) Temp Pulse Resp BP Pulse Ox 01/19/20 11:40 97.9 F 95 20 119/61 96 01/19/20 07:15 97.4 F L 74 20 147/78 H 93 L 01/19/20 06:50 95 01/19/20 02:55 82 18 138/76 96 Weight Admit Weight 190 lb Weight 196 lb 10.437 oz I&O: 01/18/20 01/19/20 01/20/20 06:59 06:59 06:59 Intake Total 1080 1100 Output Total 2400 Balance -1320 1100 Result Diagrams: 01/19/20 13:35 01/18/20 05:38 Additional Labs: Accuchecks 01/19/20 01/18/20 01/18/20 05:29 21:18 17:25 POC Glucose 99 129 H 164 H Hospitalist ROS - Medication Medications: Active Medications Generic Name Dose Route Start Last Admin Trade Name Freq PRN Reason Stop Dose Admin Acetaminophen 650 mg 01/04/20 14:24 01/06/20 00:34 Acetaminophen 325 Mg Tab PO 650 mg Q4H PRN Administration Headache/Fever/Mild Pain (1-3) Hydrocodone Bitart/Acetaminophen 1 tab 01/16/20 11:00 01/19/20 14:46 Hydrocodone/Acetaminophen 10/325 Mg Tablet PO Not Given Q4H ADAM Albuterol/Ipratropium 0 gm 01/06/20 10:32 01/19/20 06:47 Ipratropium/Albuterol Sulfate 4 Gm Aer IH 2 inh Q4H PRN Administration Dyspnea/Wheezing/SOB Amiodarone HCl 200 mg 01/06/20 09:00 01/19/20 14:47 Amiodarone 200 Mg Tab PO 200 mg DAILY ADAM Administration Atorvastatin Calcium 20 mg 01/06/20 21:00 01/18/20 21:04 Atorvastatin Calcium 20 Mg Tab PO 20 mg HS ADAM Administration Benzonatate 100 mg 01/05/20 15:00 01/19/20 11:20 Benzonatate 100 Mg Cap PO Not Given TID ADAM Cholecalciferol 5,000 units 01/07/20 09:00 01/19/20 14:49 Cholecalciferol 1,000 Units (25 Mcg) Tab PO Not Given DAILY ADAM Diclofenac Sodium 4 gm 01/06/20 15:00 01/19/20 14:50 Diclofenac 1% 100 Gm Gel TP Not Given TID [facility] Docusate Sodium 100 mg 01/06/20 21:00 01/19/20 14:48 Docusate 100 Mg Cap PO 100 mg BID ADAM Administration Epoetin Rmoe-epbx 10,000 unit 01/15/20 10:46 01/17/20 09:47 Epoetin Rome-Epbx (Esrd) 10,000 Unit/Ml Vial IVP 10,000 unit MoWeFr [facility] Administration Escitalopram Oxalate 10 mg 01/06/20 09:00 01/18/20 10:04 Escitalopram Oxalate 10 Mg Tablet PO 10 mg DAILY [facility] Administration Folic Acid 1 mg 01/07/20 09:00 01/19/20 14:48 Folic Acid 1 Mg Tab PO 1 mg DAILY [facility] Administration Furosemide 40 mg 01/07/20 09:00 01/19/20 14:48 Furosemide 40 Mg Tab PO 40 mg DAILY [facility] Administration Guaifenesin 600 mg 01/07/20 09:00 01/19/20 14:48 Guaifenesin Er 600 Mg Tab PO 600 mg DAILY [facility] Administration Guaifenesin/Dextromethorphan 10 ml 01/06/20 09:06 01/19/20 11:19 Guaifenesin Dm 100-10/5 Ml Udcup PO 10 ml PRN PRN Administration Cough Insulin Human Lispro 0 units 01/14/20 08:01 01/18/20 06:02 Humalog 300 Units/3 Ml Vial SC 2 unit .MILD SLIDING SCALE PRN Administration Mild Correctional Scale Ketorolac Tromethamine 1 drop 01/06/20 15:00 01/19/20 14:50 Ketorolac Tromethamine 0.5% Ophth Soln 3 Ml Bottle R EYE 1 drop TID [facility] Administration Levothyroxine Sodium 50 mcg 01/06/20 06:00 01/19/20 06:13 Levothyroxine Sodium 25 Mcg Tab PO 50 mcg 0600 [facility] Administration Lidocaine/Prilocaine 1 gm 01/06/20 10:26 01/11/20 07:42 Lidocaine-Prilocaine 2.5% Cream 5 Gm Tube TOP 1 gm PRN PRN Administration Pain/IV STARTS Mometasone Furoate 1 puff 01/10/20 18:30 01/19/20 06:13 Mometasone Furoate 120 Puff 220 Mcg INH 1 puff BID-RT ADAM Administration Ondansetron HCl 4 mg 01/04/20 14:24 01/12/20 18:42 Ondansetron Pf 4 Mg/2 Ml Vial IVP 4 mg Q6H PRN Administration Nausea/Vomiting Pantoprazole Sodium 40 mg 01/13/20 21:00 01/19/20 14:49 Pantoprazole 40 Mg Vial IVP Not Given Q12HR ADAM Prednisolone Acetate 1 drop 01/07/20 09:00 01/18/20 15:32 Prednisolone 1% Ophth Susp 5 Ml Bottle EA EYE 1 drop DAILY ADAM Administration Senna 2 tab 01/07/20 09:00 01/19/20 14:49 Senokot 8.6 Mg Tab PO Not Given DAILY ADAM Sevelamer Carbonate 800 mg 01/06/20 12:00 01/19/20 14:47 Sevelamer Carbonate 800 Mg Tab PO 800 mg TID-WM ADAM Administration Sodium Chloride 10 ml 01/15/20 09:00 01/19/20 14:50 Flush - Normal Saline 10 Ml Syringe IVF 10 ml Q12HR ADAM Administration Temazepam 15 mg 01/17/20 23:41 01/18/20 22:57 Temazepam 15 Mg Cap PO 15 mg HSPRN PRN Administration Insomnia Zinc Sulfate 220 mg 01/07/20 09:00 01/18/20 10:04 Zinc Sulfate 220 Mg Cap PO 220 mg DAILY ADAM Administration - Exam General Appearance: awake alert ENT: normocephalic atraumatic Neck: supple, no JVD Heart: RRR Respiratory: normal chest expansion, no tachypnea Gastrointestinal: soft Neurological: no weakness, no focal deficits Hosp A/P (1) Acute respiratory failure with hypoxia Code(s): J96.01 - ACUTE RESPIRATORY FAILURE WITH HYPOXIA Status: Acute (2) Physical deconditioning Code(s): R53.81 - OTHER MALAISE Status: Acute (3) Pneumonia due to COVID-19 virus Code(s): U07.1 - COVID-19; J12.89 - OTHER VIRAL PNEUMONIA Status: Acute (4) Atrial fibrillation Code(s): I48.91 - UNSPECIFIED ATRIAL FIBRILLATION Status: Chronic Qualifiers: Atrial fibrillation type: paroxysmal Qualified Code(s): I48.0 - Paroxysmal atrial fibrillation (5) ESRD (end stage renal disease) on dialysis Code(s): N18.6 - END STAGE RENAL DISEASE; Z99.2 - DEPENDENCE ON RENAL DIALYSIS Status: Chronic (6) Hypertension Code(s): I10 - ESSENTIAL (PRIMARY) HYPERTENSION Status: Chronic Qualifiers: Hypertension type: essential hypertension Qualified Code(s): I10 - Essential (primary) hypertension - Plan 01/17: This is an 84-year-old female patient with a history of hypertension, ESRD, gout and recent recurrent falls admitted on account of Covid pneumonia. Received 3 units of blood on this admission on account of anemia with black tarry stools. Anticoagulation was stopped. She continues to improve with O2 being weaned down on high flow oxygen Acute hypoxic respiratory failure Continue on high flow oxygen and wean. Pneumonia due to Covid Completed steroids Discontinue anticoagulation on account of GI bleed Generally improvingcontinue close monitoring. Anemia secondary to GI bleed Completed 1 unit transfusion yesterday. Hemoglobin is 7.8. Transfuse for hemoglobin is at 7 Monitor H&H. GI has been following for ESRD Dialysis per nephrology Hypertension Blood pressure has been stable off antihypertensives except for Lasix Monitor BP Hyponatremia Mild Monitor A. fib Hold anticoagulation Recent frequent falls Monitor on telemetry Fall precaution PT evaluation once stable Hypokalemia Resolved Continue BMP monitoring Leukocytosis In the setting of Covid Likely due to steroid Continue monitoring. Delirium Improved We will monitor As needed Zyprexa No benzodiazepine CODE STATUSfull code VTE prophylaxishold heparin on account of GI bleedSCD 01/18: The patient remains on high flow nasal cannula. She is tolerating dialysis. No evidence of significant volume overload clinically. H&H stable at 8.6. Anticoagulation remains on hold due to possible GI bleeding.
[2020-01-19] MEDS: EPOETIN ALFA-EPBX (ESRD) 10,000 UNIT/ML VIAL IVP SCH (16:12)
[2020-01-19 18:39] LABS: Hemoglobin 8.1 g/dL (12.0-16.0)
[2020-01-19] MEDS: Atorvastatin Calcium 20 MG TAB PO SCH (19:15)
[2020-01-19 23:58] LABS: Hemoglobin 7.4 g/dL (12.0-16.0)
[2020-01-20] MEDS: HYDROcodone/Acetaminophen 10/325 mg Tablet PO SCH ×8 (00:13→22:34)
--- NOTE | 2020-01-20 04:43 | PRG ---
DATE OF SERVICE: 01/19/2020 SUBJECTIVE: Patient was seen and examined at bedside and overnight events noted. Patient denies any shortness of breath or chest pain or palpitation. No history of nausea or vomiting or diarrhea or fever or chills or cramps. OBJECTIVE: General: This is a well-built female, in no acute distress. Vital Signs: Temperature 97.4. Heart Rate 74. Respiratory rate 20. Blood pressure 147/78. HEENT: Atraumatic, normocephalic. Oral mucosa is moist. Neck: Supple. Cardiovascular: S1, S2 heard. Rate and rhythm regular. Respiratory: Clear to auscultation. Gastrointestinal: Abdomen is soft. Musculoskeletal: No tenderness. No edema. Dermatologic: No skin rash. Neurologic: Alert and awake and oriented x3. No focal neurologic deficits. Moving all the extremities. Psychiatric: Mood and affect normal. LABORATORY DATA: ASSESSMENT AND PLAN: 1. End-stage renal disease. Continue dialysis Wednesday, Wednesday and Wednesday. 2. Hyperkalemia, better. 3. Fluid overload. Advised to limit fluid intake. 4. COVID-19 infection. 5. Chronic pain with confusion with narcotics. Advised to reduce the narcotic usage. We will follow. Job ID: [id number]
[2020-01-20] MEDS: Levothyroxine Sodium 25 MCG TAB PO SCH (05:28)
[2020-01-20] MEDS: Mometasone Furoate 120 PUFF 220 MCG INH SCH ×2 (05:28→17:32)
[2020-01-20 07:26] LABS: Hemoglobin 7.6 g/dL (12.0-16.0)
[2020-01-20] MEDS: prednisoLONE 1% Ophth Susp 5 ml Bottle EA EYE SCH (08:51)
[2020-01-20] MEDS: Ketorolac Tromethamine 0.5% Ophth Soln 3 ml Bottle R EYE SCH ×3 (08:51→20:03)
[2020-01-20] MEDS: Diclofenac 1% 100 GM GEL TP SCH ×3 (08:51→20:03)
[2020-01-20] MEDS: Docusate 100 MG CAP PO SCH ×2 (08:53→20:02)
[2020-01-20] MEDS: Sevelamer Carbonate 800 MG TAB PO SCH ×3 (08:53→17:31)
[2020-01-20] MEDS: Senokot 8.6 MG TAB PO SCH (08:53)
[2020-01-20] MEDS: Furosemide 40 MG TAB PO SCH (08:53)
[2020-01-20] MEDS: guaiFENesin ER 600 MG TAB PO SCH (08:53)
[2020-01-20] MEDS: Pantoprazole 40 MG VIAL IVP SCH ×2 (08:53→20:02)
[2020-01-20] MEDS: Folic Acid 1 MG TAB PO SCH (08:53)
[2020-01-20] MEDS: Escitalopram Oxalate 10 mg Tablet PO SCH (08:53)
[2020-01-20] MEDS: Amiodarone 200 MG TAB PO SCH (08:53)
[2020-01-20] MEDS: Cholecalciferol 1,000 UNITS (25 MCG) TAB PO SCH (08:54)
[2020-01-20] MEDS: Zinc Sulfate 220 MG CAP PO SCH (08:54)
[2020-01-20] MEDS: Benzonatate 100 MG CAP PO SCH ×3 (08:54→20:02)
--- NOTE | 2020-01-20 10:08 | PRG ---
DATE OF SERVICE: 01/20/2020 SUBJECTIVE: The patient on COVID isolation. OBJECTIVE: VITAL SIGNS: Temperature 98.1, pulse 88, respiratory rate 18, and blood pressure 120/55. LABORATORY DATA: Not done today. ASSESSMENT AND PLAN: 1. End-stage renal disease. Continue dialysis on Wednesday, Wednesday, and Wednesday. The patient is seen during dialysis yesterday. 2. Hyperkalemia. Monitor. 3. Fluid overload. Advised limit fluid intake. 4. COVID-19 infection. 5. Edema. 6. History of hypertension, stable. 7. Chronic pain on narcotics. Advised to limit narcotic use to prevent altered mentation or somnolence. We will follow. Job ID: [id number]
[2020-01-20] MEDS: HumaLOG 300 UNITS/3 ML VIAL SC PRN (12:30)
[2020-01-20] MEDS: Guaifenesin DM 100-10/5 ML UDCUP PO PRN (12:33)
--- NOTE | 2020-01-20 12:56 | PDOC.HOSPP ---
- Subjective Encounter Date: 01/20/20 - Objective Vital Signs & Weight: Vital Signs (12 hours) Temp Pulse Resp BP BP Pulse Ox 01/20/20 10:55 98.2 F 89 20 109/55 L 95 01/20/20 07:30 96.6 F L 92 20 122/65 100 01/20/20 03:30 98.1 F 88 18 120/55 L 99 01/20/20 01:26 99 Weight Admit Weight 190 lb Weight 196 lb 10.437 oz I&O: 01/19/20 01/20/20 01/21/20 06:59 06:59 06:59 Intake Total 1100 940 Output Total 2200 Balance 1100 -1260 Result Diagrams: 01/20/20 06:52 01/18/20 05:38 Additional Labs: Accuchecks 01/20/20 01/20/20 01/19/20 10:49 05:32 20:14 POC Glucose 157 H 119 H 163 H 01/19/20 16:34 POC Glucose 142 H Hospitalist ROS - Medication Medications: Active Medications Generic Name Dose Route Start Last Admin Trade Name Freq PRN Reason Stop Dose Admin Acetaminophen 650 mg 01/04/20 14:24 01/06/20 00:34 Acetaminophen 325 Mg Tab PO 650 mg Q4H PRN Administration Headache/Fever/Mild Pain (1-3) Hydrocodone Bitart/Acetaminophen 1 tab 01/16/20 11:00 01/20/20 10:46 Hydrocodone/Acetaminophen 10/325 Mg Tablet PO 1 tab Q4H ADAM Administration Albuterol/Ipratropium 0 gm 01/06/20 10:32 01/19/20 06:47 Ipratropium/Albuterol Sulfate 4 Gm Aer IH 2 inh Q4H PRN Administration Dyspnea/Wheezing/SOB Amiodarone HCl 200 mg 01/06/20 09:00 01/20/20 08:53 Amiodarone 200 Mg Tab PO 200 mg DAILY ADAM Administration Atorvastatin Calcium 20 mg 01/06/20 21:00 01/19/20 19:15 Atorvastatin Calcium 20 Mg Tab PO 20 mg HS ADAM Administration Benzonatate 100 mg 01/05/20 15:00 01/20/20 08:54 Benzonatate 100 Mg Cap PO 100 mg TID ADAM Administration Cholecalciferol 5,000 units 01/07/20 09:00 01/20/20 08:54 Cholecalciferol 1,000 Units (25 Mcg) Tab PO 5,000 units DAILY ADAM Administration Diclofenac Sodium 4 gm 01/06/20 15:00 01/20/20 08:51 Diclofenac 1% 100 Gm Gel TP 4 gm TID ADAM Administration Docusate Sodium 100 mg 01/06/20 21:00 01/20/20 08:53 Docusate 100 Mg Cap PO 100 mg BID ADAM Administration Epoetin Rome-epbx 10,000 unit 01/15/20 10:46 01/19/20 16:12 Epoetin Rome-Epbx (Esrd) 10,000 Unit/Ml Vial IVP 10,000 unit MoWeFr ADAM Administration Escitalopram Oxalate 10 mg 01/06/20 09:00 01/20/20 08:53 Escitalopram Oxalate 10 Mg Tablet PO 10 mg DAILY ADAM Administration Folic Acid 1 mg 01/07/20 09:00 01/20/20 08:53 Folic Acid 1 Mg Tab PO 1 mg DAILY ADAM Administration Furosemide 40 mg 01/07/20 09:00 01/20/20 08:53 Furosemide 40 Mg Tab PO 40 mg DAILY ADAM Administration Guaifenesin 600 mg 01/07/20 09:00 01/20/20 08:53 Guaifenesin Er 600 Mg Tab PO 600 mg DAILY ADAM Administration Guaifenesin/Dextromethorphan 10 ml 01/06/20 09:06 01/20/20 12:33 Guaifenesin Dm 100-10/5 Ml Udcup PO 10 ml PRN PRN Administration Cough Insulin Human Lispro 0 units 01/14/20 08:01 01/20/20 12:30 Humalog 300 Units/3 Ml Vial SC 2 unit .MILD SLIDING SCALE PRN Administration Mild Correctional Scale Ketorolac Tromethamine 1 drop 01/06/20 15:00 01/20/20 08:51 Ketorolac Tromethamine 0.5% Ophth Soln 3 Ml Bottle R EYE 1 drop TID ADAM Administration Levothyroxine Sodium 50 mcg 01/06/20 06:00 01/20/20 05:28 Levothyroxine Sodium 25 Mcg Tab PO 50 mcg 0600 ADAM Administration Lidocaine/Prilocaine 1 gm 01/06/20 10:26 01/19/20 08:00 Lidocaine-Prilocaine 2.5% Cream 5 Gm Tube TOP 1 gm PRN PRN Administration Pain/IV STARTS Mometasone Furoate 1 puff 01/10/20 18:30 01/20/20 05:28 Mometasone Furoate 120 Puff 220 Mcg INH 1 puff BID-RT ADAM Administration Ondansetron HCl 4 mg 01/04/20 14:24 01/12/20 18:42 Ondansetron Pf 4 Mg/2 Ml Vial IVP 4 mg Q6H PRN Administration Nausea/Vomiting Pantoprazole Sodium 40 mg 01/13/20 21:00 01/20/20 08:53 Pantoprazole 40 Mg Vial IVP 40 mg Q12HR ADAM Administration Prednisolone Acetate 1 drop 01/07/20 09:00 01/20/20 08:51 Prednisolone 1% Ophth Susp 5 Ml Bottle EA EYE 1 drop DAILY ADAM Administration Senna 2 tab 01/07/20 09:00 01/20/20 08:53 Senokot 8.6 Mg Tab PO 2 tab DAILY ADAM Administration Sevelamer Carbonate 800 mg 01/06/20 12:00 01/20/20 12:33 Sevelamer Carbonate 800 Mg Tab PO 800 mg TID-WM ADAM Administration Sodium Chloride 10 ml 01/15/20 09:00 01/20/20 08:52 Flush - Normal Saline 10 Ml Syringe IVF 10 ml Q12HR ADAM Administration Sodium Chloride 10 ml 01/15/20 08:00 01/19/20 16:12 Flush - Normal Saline 10 Ml Syringe IVF 10 ml PRN PRN Administration Saline Flush Temazepam 15 mg 01/17/20 23:41 01/18/20 22:57 Temazepam 15 Mg Cap PO 15 mg HSPRN PRN Administration Insomnia Zinc Sulfate 220 mg 01/07/20 09:00 01/20/20 08:54 Zinc Sulfate 220 Mg Cap PO 220 mg DAILY ADAM Administration - Exam General Appearance: awake alert ENT: normocephalic atraumatic Neck: supple, no JVD Respiratory: normal chest expansion, no tachypnea Gastrointestinal: soft Extremities: no cyanosis Neurological: cranial nerve grossly intact, no focal deficits Hosp A/P (1) Acute respiratory failure with hypoxia Code(s): J96.01 - ACUTE RESPIRATORY FAILURE WITH HYPOXIA Status: Acute (2) Physical deconditioning Code(s): R53.81 - OTHER MALAISE Status: Acute (3) Pneumonia due to COVID-19 virus Code(s): U07.1 - COVID-19; J12.89 - OTHER VIRAL PNEUMONIA Status: Acute (4) Atrial fibrillation Code(s): I48.91 - UNSPECIFIED ATRIAL FIBRILLATION Status: Chronic Qualifiers: Atrial fibrillation type: paroxysmal Qualified Code(s): I48.0 - Paroxysmal atrial fibrillation (5) ESRD (end stage renal disease) on dialysis Code(s): N18.6 - END STAGE RENAL DISEASE; Z99.2 - DEPENDENCE ON RENAL DIALYSIS Status: Chronic (6) Hypertension Code(s): I10 - ESSENTIAL (PRIMARY) HYPERTENSION Status: Chronic Qualifiers: Hypertension type: essential hypertension Qualified Code(s): I10 - Essential (primary) hypertension - Plan 01/17: This is an 84-year-old female patient with a history of hypertension, ESRD, gout and recent recurrent falls admitted on account of Covid pneumonia. Received 3 units of blood on this admission on account of anemia with black tarry stools. Anticoagulation was stopped. She continues to improve with O2 being weaned down on high flow oxygen Acute hypoxic respiratory failure Continue on high flow oxygen and wean. Pneumonia due to Covid Completed steroids Discontinue anticoagulation on account of GI bleed Generally improvingcontinue close monitoring. Anemia secondary to GI bleed Completed 1 unit transfusion yesterday. Hemoglobin is 7.8. Transfuse for hemoglobin is at 7 Monitor H&H. GI has been following for ESRD Dialysis per nephrology Hypertension Blood pressure has been stable off antihypertensives except for Lasix Monitor BP Hyponatremia Mild Monitor A. fib Hold anticoagulation Recent frequent falls Monitor on telemetry Fall precaution PT evaluation once stable Hypokalemia Resolved Continue BMP monitoring Leukocytosis In the setting of Covid Likely due to steroid Continue monitoring. Delirium Improved We will monitor As needed Zyprexa No benzodiazepine CODE STATUSfull code VTE prophylaxishold heparin on account of GI bleedSCD 01/18: The patient remains on high flow nasal cannula. She is tolerating dialysis. No evidence of significant volume overload clinically. H&H stable at 8.6. Anticoagulation remains on hold due to possible GI bleeding. 01/19: The patient is on 80% high flow nasal cannula. Still having black stools per nursing staff. Hemoglobin level dropped slightly but remains above 7. Recheck CBC in the morning. Discussed with GI, will avoid intervention unless hemoglobin drops significantly or the patient has a large bleed or hemodynamic instability.
[2020-01-20] MEDS: Temazepam 15 MG CAP PO PRN (20:02)
[2020-01-20] MEDS: Atorvastatin Calcium 20 MG TAB PO SCH (20:02)
[2020-01-21] MEDS: HYDROcodone/Acetaminophen 10/325 mg Tablet PO SCH ×6 (04:03→23:57)
[2020-01-21 05:26] LABS: #Eosinphils 0.2 thou/uL (0.0-0.7); #Lymphocytes 1.4 thou/uL (1.20-3.40); #Monocytes 0.5 thou/uL (0.11-0.59); #Neutrophils 8.7 thou/uL (1.40-6.50); %Basophils 0.5 % (0.0-1.0); %Eosinophils 1.6 % (0.0-10.0); %Lymphocytes 12.7 % (21.0-51.0); %Neutrophils 80.4 % (42.0-75.0); Hemoglobin 7.6 g/dL (12.0-16.0); Mean Corpuscular HGB CONC 32.1 g/dL (32.0-36.0); Mean Corpuscular Hemoglobin 30.3 pg (27.0-31.0); Mean Corpuscular Volume 94.4 fL (78.0-98.0); Platelet Count 161 thou/uL (130-400); RBC Distribution Width 14.4 % (11.5-14.5); Red Blood Cell (RBC) Count 2.51 mill/uL (4.20-5.40); White Blood Cell (WBC) Count 10.8 thou/uL (4.8-10.8)
[2020-01-21 05:49] LABS: Anion Gap 15 mmol/L (10-20); BUN (Urea Nitrogen) 43 mg/dL (9.8-20.1); Calc. Creatinine Clearance 13 mL/min (70-130); Calcium 7.7 mg/dL (7.8-10.44); Carbon Dioxide 25 mmol/L (23-31); Chloride 95 mmol/L (98-107); Glucose 85 mg/dL (83-110); Potassium 3.8 mmol/L (3.5-5.1); Sodium 131 mmol/L (136-145)
[2020-01-21] MEDS: Mometasone Furoate 120 PUFF 220 MCG INH SCH ×2 (06:07→18:11)
[2020-01-21] MEDS: Levothyroxine Sodium 25 MCG TAB PO SCH (06:07)
[2020-01-21] MEDS: Diclofenac 1% 100 GM GEL TP SCH ×3 (07:36→20:19)
[2020-01-21] MEDS: prednisoLONE 1% Ophth Susp 5 ml Bottle EA EYE SCH (07:37)
[2020-01-21] MEDS: Ketorolac Tromethamine 0.5% Ophth Soln 3 ml Bottle R EYE SCH ×3 (07:37→20:20)
[2020-01-21] MEDS: Pantoprazole 40 MG VIAL IVP SCH ×2 (07:37→20:19)
[2020-01-21] MEDS: Cholecalciferol 1,000 UNITS (25 MCG) TAB PO SCH (07:38)
[2020-01-21] MEDS: Zinc Sulfate 220 MG CAP PO SCH (07:38)
[2020-01-21] MEDS: Sevelamer Carbonate 800 MG TAB PO SCH ×4 (07:38→18:12)
[2020-01-21] MEDS: Amiodarone 200 MG TAB PO SCH (07:39)
[2020-01-21] MEDS: Folic Acid 1 MG TAB PO SCH (07:39)
[2020-01-21] MEDS: Benzonatate 100 MG CAP PO SCH ×3 (07:39→20:19)
[2020-01-21] MEDS: guaiFENesin ER 600 MG TAB PO SCH (07:39)
[2020-01-21] MEDS: Furosemide 40 MG TAB PO SCH (07:40)
[2020-01-21] MEDS: Escitalopram Oxalate 10 mg Tablet PO SCH (07:40)
[2020-01-21] MEDS: Docusate 100 MG CAP PO SCH ×2 (08:41→20:19)
[2020-01-21] MEDS: Senokot 8.6 MG TAB PO SCH (08:41)
--- NOTE | 2020-01-21 08:41 | PRG ---
DATE OF SERVICE: SUBJECTIVE: The patient on COVID isolation. OBJECTIVE: VITAL SIGNS: Temperature 97.6, pulse 64, respiratory rate 20, blood pressure 103/53. LABORATORY DATA: Sodium 131, potassium 3.8, BUN 43, creatinine is 4.5. ASSESSMENT AND PLAN: 1. End-stage renal disease. Continue dialysis Wednesday, Wednesday, and Wednesday. 2. Fluid overload. Limit fluid intake. 3. Hyperkalemia, better. 4. Edema. 5. Hypertension. 6. Chronic pain syndrome. 7. We will continue dialysis Wednesday, Wednesday, Wednesday as tolerated. Job ID: [id number]
--- NOTE | 2020-01-21 10:02 | RAD ---
EXAM: Single view of the chest HISTORY: Hypoxia COMPARISON: 01/12/2020 FINDINGS: Single view of the chest shows an enlarged cardiomediastinal silhouette. Atherosclerotic c alcifications are seen in the aorta. Scattered multifocal infiltrates are seen . These appear to have worsened compared to the prior exam. No acute osseous abnormality. IMPRESSION: Worsening multifocal infiltrates
[2020-01-21] MEDS ORDERED: Dexamethasone 4 mg/ml Vial SLOW IVP SCH (13:15)
--- NOTE | 2020-01-21 14:47 | PDOC.HOSPP ---
- Subjective Encounter Date: 01/21/20 - Objective Vital Signs & Weight: Vital Signs (12 hours) Temp Pulse Resp BP Pulse Ox 01/21/20 12:24 98.6 F 90 15 126/64 96 01/21/20 11:01 98.3 F 83 18 105/55 L 98 01/21/20 07:50 98.5 F 86 18 112/63 97 01/21/20 06:00 97.6 F 65 20 103/53 L 98 Weight Admit Weight 190 lb Weight 196 lb 10.437 oz I&O: 01/20/20 01/21/20 01/22/20 06:59 06:59 06:59 Intake Total 940 1040 Output Total 2200 0 Balance -1260 1040 Result Diagrams: 01/21/20 05:08 01/21/20 05:08 Additional Labs: Accuchecks 01/21/20 01/20/20 01/20/20 10:59 20:09 17:49 POC Glucose 137 H 137 H 114 H Hospitalist ROS - Medication Medications: Active Medications Generic Name Dose Route Start Last Admin Trade Name Freq PRN Reason Stop Dose Admin Acetaminophen 650 mg 01/04/20 14:24 01/06/20 00:34 Acetaminophen 325 Mg Tab PO 650 mg Q4H PRN Administration Headache/Fever/Mild Pain (1-3) Hydrocodone Bitart/Acetaminophen 1 tab 01/16/20 11:00 01/21/20 12:20 Hydrocodone/Acetaminophen 10/325 Mg Tablet PO 1 tab Q4H ADAM Administration Albuterol/Ipratropium 0 gm 01/06/20 10:32 01/19/20 06:47 Ipratropium/Albuterol Sulfate 4 Gm Aer IH 2 inh Q4H PRN Administration Dyspnea/Wheezing/SOB Amiodarone HCl 200 mg 01/06/20 09:00 01/21/20 07:39 Amiodarone 200 Mg Tab PO 200 mg DAILY ADAM Administration Atorvastatin Calcium 20 mg 01/06/20 21:00 01/20/20 20:02 Atorvastatin Calcium 20 Mg Tab PO 20 mg HS ADAM Administration Benzonatate 100 mg 01/05/20 15:00 01/21/20 14:09 Benzonatate 100 Mg Cap PO 100 mg TID ADAM Administration Cholecalciferol 5,000 units 01/07/20 09:00 01/21/20 07:38 Cholecalciferol 1,000 Units (25 Mcg) Tab PO 5,000 units DAILY ADAM Administration Dexamethasone 6 mg 01/21/20 13:15 01/21/20 14:08 Dexamethasone 4 Mg/Ml Vial SLOW IVP 01/21/20 15:15 6 mg NOW ADAM Administration Diclofenac Sodium 4 gm 01/06/20 15:00 01/21/20 14:08 Diclofenac 1% 100 Gm Gel TP 4 gm TID ADAM Administration Docusate Sodium 100 mg 01/06/20 21:00 01/21/20 08:41 Docusate 100 Mg Cap PO Not Given BID [facility] Epoetin [place]-epbx 10,000 unit 01/15/20 10:46 01/19/20 16:12 Epoetin [place]-Epbx (Esrd) 10,000 Unit/Ml Vial IVP 10,000 unit MoWeFr ADAM Administration Escitalopram Oxalate 10 mg 01/06/20 09:00 01/21/20 07:40 Escitalopram Oxalate 10 Mg Tablet PO 10 mg DAILY ADAM Administration Folic Acid 1 mg 01/07/20 09:00 01/21/20 07:39 Folic Acid 1 Mg Tab PO 1 mg DAILY ADAM Administration Furosemide 40 mg 01/07/20 09:00 01/21/20 07:40 Furosemide 40 Mg Tab PO 40 mg DAILY ADAM Administration Guaifenesin 600 mg 01/07/20 09:00 01/21/20 07:39 Guaifenesin Er 600 Mg Tab PO 600 mg DAILY ADAM Administration Guaifenesin/Dextromethorphan 10 ml 01/06/20 09:06 01/20/20 12:33 Guaifenesin Dm 100-10/5 Ml Udcup PO 10 ml PRN PRN Administration Cough Insulin Human Lispro 0 units 01/14/20 08:01 01/20/20 12:30 Humalog 300 Units/3 Ml Vial SC 2 unit .MILD SLIDING SCALE PRN Administration Mild Correctional Scale Ketorolac Tromethamine 1 drop 01/06/20 15:00 01/21/20 14:10 Ketorolac Tromethamine 0.5% Ophth Soln 3 Ml Bottle R EYE 1 drop TID ADAM Administration Levothyroxine Sodium 50 mcg 01/06/20 06:00 01/21/20 06:07 Levothyroxine Sodium 25 Mcg Tab PO 50 mcg 0600 ADAM Administration Lidocaine/Prilocaine 1 gm 01/06/20 10:26 01/19/20 08:00 Lidocaine-Prilocaine 2.5% Cream 5 Gm Tube TOP 1 gm PRN PRN Administration Pain/IV STARTS Mometasone Furoate 1 puff 01/10/20 18:30 01/21/20 06:07 Mometasone Furoate 120 Puff 220 Mcg INH 1 puff BID-RT ADAM Administration Ondansetron HCl 4 mg 01/04/20 14:24 01/12/20 18:42 Ondansetron Pf 4 Mg/2 Ml Vial IVP 4 mg Q6H PRN Administration Nausea/Vomiting Pantoprazole Sodium 40 mg 01/13/20 21:00 01/21/20 07:37 Pantoprazole 40 Mg Vial IVP 40 mg Q12HR ADAM Administration Prednisolone Acetate 1 drop 01/07/20 09:00 01/21/20 07:37 Prednisolone 1% Ophth Susp 5 Ml Bottle EA EYE 1 drop DAILY ADAM Administration Senna 2 tab 01/07/20 09:00 01/21/20 08:41 Senokot 8.6 Mg Tab PO Not Given DAILY ADAM Sevelamer Carbonate 800 mg 01/06/20 12:00 01/21/20 12:20 Sevelamer Carbonate 800 Mg Tab PO 800 mg TID-WM ADAM Administration Sodium Chloride 10 ml 01/15/20 09:00 01/21/20 07:38 Flush - Normal Saline 10 Ml Syringe IVF 10 ml Q12HR ADAM Administration Sodium Chloride 10 ml 01/15/20 08:00 01/19/20 16:12 Flush - Normal Saline 10 Ml Syringe IVF 10 ml PRN PRN Administration Saline Flush Temazepam 15 mg 01/17/20 23:41 01/20/20 20:02 Temazepam 15 Mg Cap PO 15 mg HSPRN PRN Administration Insomnia Zinc Sulfate 220 mg 01/07/20 09:00 01/21/20 07:38 Zinc Sulfate 220 Mg Cap PO 220 mg DAILY ADAM Administration - Exam General Appearance: awake alert ENT: normocephalic atraumatic Neck: supple, no JVD Heart: RRR Respiratory: normal chest expansion, no tachypnea Gastrointestinal: soft Neurological: cranial nerve grossly intact, no focal deficits Hosp A/P (1) Acute respiratory failure with hypoxia Code(s): J96.01 - ACUTE RESPIRATORY FAILURE WITH HYPOXIA Status: Acute (2) Physical deconditioning Code(s): R53.81 - OTHER MALAISE Status: Acute (3) Pneumonia due to COVID-19 virus Code(s): U07.1 - COVID-19; J12.89 - OTHER VIRAL PNEUMONIA Status: Acute (4) Atrial fibrillation Code(s): I48.91 - UNSPECIFIED ATRIAL FIBRILLATION Status: Chronic Qualifiers: Atrial fibrillation type: paroxysmal Qualified Code(s): I48.0 - Paroxysmal atrial fibrillation (5) ESRD (end stage renal disease) on dialysis Code(s): N18.6 - END STAGE RENAL DISEASE; Z99.2 - DEPENDENCE ON RENAL DIALYSIS Status: Chronic (6) Hypertension Code(s): I10 - ESSENTIAL (PRIMARY) HYPERTENSION Status: Chronic Qualifiers: Hypertension type: essential hypertension Qualified Code(s): I10 - Esse ntial (primary) hypertension - Plan 01/17: This is an 84-year-old female patient with a history of hypertension, ESRD, gout and recent recurrent falls admitted on account of Covid pneumonia. Received 3 units of blood on this admission on account of anemia with black t arry stools. Anticoagulation was stopped. She continues to improve with O2 being weaned down on high flow oxygen Acute hypoxic respiratory failure Continue on high flow oxygen and wean. Pneumonia due to Covid Completed steroids Discontinue anticoagulation on account of GI bleed Generally improvingcontinue close monitoring. Anemia secondary to GI bleed Completed 1 unit transfusion yesterday. Hemoglobin is 7.8. Transfuse for hemoglobin is at 7 Monitor H&H. GI has been following for ESRD Dialysis per nephrology Hypertension Blood pressure has been stable off antihypertensives except for Lasix Monitor BP Hyponatremia Mild Monitor A. fib Hold anticoagulation Recent frequent falls Monitor on telemetry Fall precaution PT evaluation once stable Hypokalemia Resolved Continue BMP monitoring Leukocytosis In the setting of Covid Likely due to steroid Continue monitoring. Delirium Improved We will monitor As needed Zyprexa No benzodiazepine CODE STATUSfull code VTE prophylaxishold heparin on account of GI bleedSCD 01/18: The patient remains on high flow nasal cannula. She is tolerating dialysis. No evidence of significant volume overload clinically. H&H stable at 8.6. Anticoagulation remains on hold due to possible GI bleeding. 01/19: The patient is on 80% high flow nasal cannula. Still having black stools per nursing staff. Hemoglobin level dropped slightly but remains above 7. Recheck CBC in the morning. Discussed with GI, will avoid intervention unless hemoglobin drops significantly or the patient has a large bleed or hemodynamic instability. 01/20: The patient remains on high flow nasal cannula. Discussed her condition with pulmonology. We will restart her on dexamethasone. Palliative care consult tomorrow. Repeat x-ray showed worsening infiltrates. Check inflammatory markers tomorrow. Patient is stable.
[2020-01-21] MEDS: HumaLOG 300 UNITS/3 ML VIAL SC PRN ×2 (18:12→21:21)
[2020-01-21] MEDS: Atorvastatin Calcium 20 MG TAB PO SCH (20:19)
[2020-01-21] MEDS: Temazepam 15 MG CAP PO PRN (20:31)
[2020-01-22] MEDS: HYDROcodone/Acetaminophen 10/325 mg Tablet PO SCH ×6 (04:40→22:10)
[2020-01-22 05:47] LABS: INR-International Normal Ratio 1.1; Prothrombin Time 14.3 sec (12.0-14.7)
[2020-01-22 05:56] LABS: D-Dimer Test 8.98 *mcg/mL (0.27-0.43)
[2020-01-22] MEDS: Levothyroxine Sodium 25 MCG TAB PO SCH (06:06)
[2020-01-22] MEDS: Mometasone Furoate 120 PUFF 220 MCG INH SCH ×2 (06:07→18:14)
[2020-01-22] MEDS: HumaLOG 300 UNITS/3 ML VIAL SC PRN ×3 (06:07→21:46)
[2020-01-22] MEDS: Diclofenac 1% 100 GM GEL TP SCH ×2 (07:25→15:27)
[2020-01-22] MEDS: prednisoLONE 1% Ophth Susp 5 ml Bottle EA EYE SCH (07:25)
[2020-01-22] MEDS: Zinc Sulfate 220 MG CAP PO SCH (07:26)
[2020-01-22] MEDS: Pantoprazole 40 MG VIAL IVP SCH ×2 (07:26→21:47)
[2020-01-22] MEDS: Cholecalciferol 1,000 UNITS (25 MCG) TAB PO SCH (07:26)
[2020-01-22] MEDS: Ketorolac Tromethamine 0.5% Ophth Soln 3 ml Bottle R EYE SCH ×2 (07:26→15:28)
[2020-01-22] MEDS: Benzonatate 100 MG CAP PO SCH ×3 (07:27→21:48)
[2020-01-22] MEDS: guaiFENesin ER 600 MG TAB PO SCH (07:27)
[2020-01-22] MEDS: Dexamethasone 4 mg/ml Vial SLOW IVP SCH (07:28)
[2020-01-22] MEDS: Escitalopram Oxalate 10 mg Tablet PO SCH (07:28)
[2020-01-22] MEDS: Folic Acid 1 MG TAB PO SCH (07:28)
[2020-01-22] MEDS: Furosemide 40 MG TAB PO SCH (07:28)
[2020-01-22] MEDS: Amiodarone 200 MG TAB PO SCH (07:28)
[2020-01-22] MEDS: Sevelamer Carbonate 800 MG TAB PO SCH ×4 (07:29→18:34)
[2020-01-22] MEDS: Docusate 100 MG CAP PO SCH ×2 (07:31→21:47)
[2020-01-22] MEDS: Senokot 8.6 MG TAB PO SCH (07:31)
--- NOTE | 2020-01-22 09:59 | PRG ---
DATE OF SERVICE: 01/22/2020 SUBJECTIVE: The patient is on COVID isolation. OBJECTIVE: VITAL SIGNS: Temperature 97.9, pulse 84, respiratory rate 20, blood pressure 136/69. LABORATORY DATA: Hemoglobin 7.6. ASSESSMENT AND PLAN: 1. End-stage renal disease. Continue dialysis on Wednesday, Wednesday, and Wednesday. 2. COVID-19 infection. 3. Chronic pain. 4. Hyperkalemia. 5. Edema. 6. Hypertension. 7. Continue dialysis as tolerated. Job ID: [id number]
--- NOTE | 2020-01-22 14:37 | PDOC.HOSPP ---
- Subjective Encounter Date: 01/22/20 - Objective Vital Signs & Weight: Vital Signs (12 hours) Temp Pulse Resp BP Pulse Ox 01/22/20 10:40 98.3 F 77 11 L 136/85 95 01/22/20 07:25 97.9 F 84 20 136/69 98 01/22/20 04:20 96.7 F L 79 15 119/61 94 L Weight Admit Weight 190 lb Weight 196 lb 10.437 oz I&O: 01/21/20 01/22/20 01/23/20 06:59 06:59 06:59 Intake Total 1040 880 Output Total 0 0 Balance 1040 880 Result Diagrams: 01/21/20 05:08 01/21/20 05:08 Additional Labs: Accuchecks 01/22/20 01/22/20 01/21/20 10:49 04:18 20:20 POC Glucose 242 H 168 H 252 H 01/21/20 01/19/20 16:29 11:32 POC Glucose 218 H 109 H Hospitalist ROS - Medication Medications: Active Medications Generic Name Dose Route Start Last Admin Trade Name Freq PRN Reason Stop Dose Admin Acetaminophen 650 mg 01/04/20 14:24 01/06/20 00:34 Acetaminophen 325 Mg Tab PO 650 mg Q4H PRN Administration Headache/Fever/Mild Pain (1-3) Hydrocodone Bitart/Acetaminophen 1 tab 01/16/20 11:00 01/22/20 11:27 Hydrocodone/Acetaminophen 10/325 Mg Tablet PO 1 tab Q4H ADAM Administration Albuterol/Ipratropium 0 gm 01/06/20 10:32 01/19/20 06:47 Ipratropium/Albuterol Sulfate 4 Gm Aer IH 2 inh Q4H PRN Administration Dyspnea/Wheezing/SOB Amiodarone HCl 200 mg 01/06/20 09:00 01/22/20 07:28 Amiodarone 200 Mg Tab PO 200 mg DAILY ADAM Administration Atorvastatin Calcium 20 mg 01/06/20 21:00 01/21/20 20:19 Atorvastatin Calcium 20 Mg Tab PO 20 mg HS ADAM Administration Benzonatate 100 mg 01/05/20 15:00 01/22/20 07:27 Benzonatate 100 Mg Cap PO 100 mg TID ADAM Administration Cholecalciferol 5,000 units 01/07/20 09:00 01/22/20 07:26 Cholecalciferol 1,000 Units (25 Mcg) Tab PO 5,000 units DAILY ADAM Administration Dexamethasone 6 mg 01/22/20 09:00 01/22/20 07:28 Dexamethasone 4 Mg/Ml Vial SLOW IVP 6 mg DAILY ADAM Administration Diclofenac Sodium 4 gm 01/06/20 15:00 01/22/20 07:25 Diclofenac 1% 100 Gm Gel TP 4 gm TID ADAM Administration Docusate Sodium 100 mg 01/06/20 21:00 01/22/20 07:31 Docusate 100 Mg Cap PO Not Given BID [facility] Epoetin [place]-epbx 10,000 unit 01/15/20 10:46 01/19/20 16:12 Epoetin [place]-Epbx (Esrd) 10,000 Unit/Ml Vial IVP 10,000 unit MoWeFr ADAM Administration Escitalopram Oxalate 10 mg 01/06/20 09:00 01/22/20 07:28 Escitalopram Oxalate 10 Mg Tablet PO 10 mg DAILY ADAM Administration Folic Acid 1 mg 01/07/20 09:00 01/22/20 07:28 Folic Acid 1 Mg Tab PO 1 mg DAILY ADAM Administration Furosemide 40 mg 01/07/20 09:00 01/22/20 07:28 Furosemide 40 Mg Tab PO 40 mg DAILY ADAM Administration Guaifenesin 600 mg 01/07/20 09:00 01/22/20 07:27 Guaifenesin Er 600 Mg Tab PO 600 mg DAILY ADAM Administration Guaifenesin/Dextromethorphan 10 ml 01/06/20 09:06 01/20/20 12:33 Guaifenesin Dm 100-10/5 Ml Udcup PO 10 ml PRN PRN Administration Cough Insulin Human Lispro 0 units 01/14/20 08:01 01/22/20 11:29 Humalog 300 Units/3 Ml Vial SC 3 unit .MILD SLIDING SCALE PRN Administration Mild Correctional Scale Insulin Human Lispro 0 units 01/21/20 20:48 01/21/20 21:21 Humalog 300 Units/3 Ml Vial SC 3 unit .BEDTIME SLIDING SC PRN Administration Bedtime Correctional Scale Ketorolac Tromethamine 1 drop 01/06/20 15:00 01/22/20 07:26 Ketorolac Tromethamine 0.5% Ophth Soln 3 Ml Bottle R EYE 1 drop TID ADAM Administration Levothyroxine Sodium 50 mcg 01/06/20 06:00 01/22/20 06:06 Levothyroxine Sodium 25 Mcg Tab PO 50 mcg 0600 ADAM Administration Lidocaine/Prilocaine 1 gm 01/06/20 10:26 01/19/20 08:00 Lidocaine-Prilocaine 2.5% Cream 5 Gm Tube TOP 1 gm PRN PRN Administration Pain/IV STARTS Mometasone Furoate 1 puff 01/10/20 18:30 01/22/20 06:07 Mometasone Furoate 120 Puff 220 Mcg INH 1 puff BID-RT ADAM Administration Ondansetron HCl 4 mg 01/04/20 14:24 01/12/20 18:42 Ondansetron Pf 4 Mg/2 Ml Vial IVP 4 mg Q6H PRN Administration Nausea/Vomiting Pantoprazole Sodium 40 mg 01/13/20 21:00 01/22/20 07:26 Pantoprazole 40 Mg Vial IVP 40 mg Q12HR ADAM Administration Prednisolone Acetate 1 drop 01/07/20 09:00 01/22/20 07:25 Prednisolone 1% Ophth Susp 5 Ml Bottle EA EYE 1 drop DAILY ADAM Administration Senna 2 tab 01/07/20 09:00 01/22/20 07:31 Senokot 8.6 Mg Tab PO Not Given DAILY ADAM Sevelamer Carbonate 800 mg 01/06/20 12:00 01/22/20 11:41 Sevelamer Carbonate 800 Mg Tab PO 800 mg TID-WM ADAM Administration Sodium Chloride 10 ml 01/15/20 09:00 01/22/20 07:26 Flush - Normal Saline 10 Ml Syringe IVF 10 ml Q12HR ADAM Administration Sodium Chloride 10 ml 01/15/20 08:00 01/19/20 16:12 Flush - Normal Saline 10 Ml Syringe IVF 10 ml PRN PRN Administration Saline Flush Temazepam 15 mg 01/17/20 23:41 01/21/20 20:31 Temazepam 15 Mg Cap PO 15 mg HSPRN PRN Administration Insomnia Zinc Sulfate 220 mg 01/07/20 09:00 01/22/20 07:26 Zinc Sulfate 220 Mg Cap PO 220 mg DAILY ADAM Administration - Exam General Appearance: awake alert ENT: normocephalic atraumatic Neck: supple, no JVD Heart: RRR Respiratory: no tachypnea, rhonchi Gastrointestinal: soft Extremities: no cyanosis, no clubbing Hosp A/P (1) Acute respiratory failure with hypoxia Code(s): J96.01 - ACUTE RESPIRATORY FAILURE WITH HYPOXIA Status: Acute (2) Physical deconditioning Code(s): R53.81 - OTHER MALAISE Status: Acute (3) Pneumonia due to COVID-19 virus Code(s): U07.1 - COVID-19; J12.89 - OTHER VIRAL PNEUMONIA Status: Acute (4) Atrial fibrillation Code(s): I48.91 - UNSPECIFIED ATRIAL FIBRILLATION Status: Chronic Qualifiers: Atrial fibrillation type: paroxysmal Qualified Code(s): I48.0 - Paroxysmal atrial fibrillation (5) ESRD (end stage renal disease) on dialysis Code(s): N18.6 - END STAGE RENAL DISEASE; Z99.2 - DEPENDENCE ON RENAL DIALYSIS Status: Chronic (6) Hypertension Code(s): I10 - ESSENTIAL (PRIMARY) HYPERTENSION Status: Chronic Qualifiers: Hypertension type: essential hypertension Qualified Code(s): I10 - Essential (primary) hypertension - Plan 01/17: This is an 84-year-old female patient with a history of hypertension, ESRD, gout and recent recurrent falls admitted on account of Covid pneumonia. Received 3 units of blood on this admission on account of anemia with black tarry stools. Anticoagulation was stopped. She continues to improve with O2 being weaned down on high flow oxygen Acute hypoxic respiratory failure Continue on high flow oxygen and wean. Pneumonia due to Covid Completed steroids Discontinue anticoagulation on account of GI bleed Generally improvingcontinue close monitoring. Anemia secondary to GI bleed Completed 1 unit transfusion yesterday. Hemoglobin is 7.8. Transfuse for hemoglobin is at 7 Monitor H&H. GI has been following for ESRD Dialysis per nephrology Hypertension Blood pressure has been stable off antihypertensives except for Lasix Monitor BP Hyponatremia Mild Monitor A. fib Hold anticoagulation Recent frequent falls Monitor on telemetry Fall precaution PT evaluation once stable Hypokalemia Resolved Continue BMP monitoring Leukocytosis In the setting of Covid Likely due to steroid Continue monitoring. Delirium Improved We will monitor As needed Zyprexa No benzodiazepine CODE STATUSfull code VTE prophylaxishold heparin on account of GI bleedSCD 01/18: The patient remains on high flow nasal cannula. She is tolerating dialysis. No evidence of significant volume overload clinically. H&H stable at 8.6. Anticoagulation remains on hold due to possible GI bleeding. 01/19: The patient is on 80% high flow nasal cannula. Still having black stools per nursing staff. Hemoglobin level dropped slightly but remains above 7. Recheck CBC in the morning. Discussed with GI, will avoid intervention unless hemoglobin drops significantly or the patient has a large bleed or hemodynamic instability. 01/20: The patient remains on high flow nasal cannula. Discussed her condition with pulmonology. We will restart her on dexamethasone. Palliative care consult tomorrow. Repeat x-ray showed worsening infiltrates. Check inflammatory markers tomorrow. Patient is stable. 01/21: The patient is requiring less oxygen today. I was able to decrease her high oh w nasal cannula to 60% and she tolerated it well. Continue to wean off as tolerated. Continue dexamethasone.
[2020-01-22] MEDS: EPOETIN ALFA-EPBX (ESRD) 10,000 UNIT/ML VIAL IVP SCH (16:55)
[2020-01-22] MEDS: Atorvastatin Calcium 20 MG TAB PO SCH (21:48)
[2020-01-22] MEDS: Temazepam 15 MG CAP PO PRN (21:48)
[2020-01-22] MEDS: Ondansetron PF 4 MG/2 ML Vial IVP PRN (22:08)
[2020-01-23] MEDS: Guaifenesin DM 100-10/5 ML UDCUP PO PRN (01:16)
[2020-01-23] MEDS: Ketorolac Tromethamine 0.5% Ophth Soln 3 ml Bottle R EYE SCH ×4 (01:30→21:53)
[2020-01-23] MEDS: Diclofenac 1% 100 GM GEL TP SCH ×4 (01:30→21:54)
[2020-01-23] MEDS: HYDROcodone/Acetaminophen 10/325 mg Tablet PO SCH ×5 (02:36→18:35)
[2020-01-23 05:45] LABS: Anion Gap 14 mmol/L (10-20); BUN (Urea Nitrogen) 27 mg/dL (9.8-20.1); Calc. Creatinine Clearance 0 mL/min (70-130); Calcium 8.3 mg/dL (7.8-10.44); Carbon Dioxide 30 mmol/L (23-31); Chloride 93 mmol/L (98-107); Glucose 146 mg/dL (83-110); Potassium 4.1 mmol/L (3.5-5.1); Sodium 133 mmol/L (136-145)
[2020-01-23 05:57] LABS: Band 4 % (5-11); Hemoglobin 8.3 g/dL (12.0-16.0); Hypochromia SLIGHT = 6-15 cells (100X) (0-5/hpf); Lymphocytes 6 % (21-51); MDiff Complete? YES; Mean Corpuscular HGB CONC 32.1 g/dL (32.0-36.0); Mean Corpuscular Hemoglobin 30.1 pg (27.0-31.0); Mean Corpuscular Volume 93.7 fL (78.0-98.0); Mean Platelet Volume 8.6 fL (7.4-10.4); Monocytes 1 % (0-10); Neutrophil 89 % (42-75); Platelet Count 203 thou/uL (130-400); Platelet Morphology Comment Appears Adequate; RBC Distribution Width 13.9 % (11.5-14.5); Red Blood Cell (RBC) Count 2.75 mill/uL (4.20-5.40); White Blood Cell (WBC) Count 11.3 thou/uL (4.8-10.8)
[2020-01-23] MEDS: Levothyroxine Sodium 25 MCG TAB PO SCH (06:07)
[2020-01-23] MEDS: Mometasone Furoate 120 PUFF 220 MCG INH SCH ×2 (06:07→18:37)
[2020-01-23] MEDS: guaiFENesin ER 600 MG TAB PO SCH (09:27)
[2020-01-23] MEDS: Folic Acid 1 MG TAB PO SCH (09:28)
[2020-01-23] MEDS: Sevelamer Carbonate 800 MG TAB PO SCH ×3 (09:28→17:10)
[2020-01-23] MEDS: Docusate 100 MG CAP PO SCH ×2 (09:28→21:51)
[2020-01-23] MEDS: Amiodarone 200 MG TAB PO SCH (09:28)
[2020-01-23] MEDS: Furosemide 40 MG TAB PO SCH (09:28)
[2020-01-23] MEDS: Escitalopram Oxalate 10 mg Tablet PO SCH (09:28)
[2020-01-23] MEDS: Senokot 8.6 MG TAB PO SCH (09:28)
[2020-01-23] MEDS: Benzonatate 100 MG CAP PO SCH ×3 (09:28→21:51)
[2020-01-23] MEDS: Dexamethasone 4 mg/ml Vial SLOW IVP SCH (09:29)
[2020-01-23] MEDS: Cholecalciferol 1,000 UNITS (25 MCG) TAB PO SCH (09:29)
[2020-01-23] MEDS: Pantoprazole 40 MG VIAL IVP SCH ×2 (09:30→21:51)
[2020-01-23] MEDS: Zinc Sulfate 220 MG CAP PO SCH (09:35)
--- NOTE | 2020-01-23 09:45 | PRG ---
DATE OF SERVICE: 01/23/2020 SUBJECTIVE: Patient was seen and examined at bedside and overnight events noted. Patient denies any shortness of breath or chest pain or palpitation. No history of nausea or vomiting or diarrhea or fever or chills or cramps. OBJECTIVE: GENERAL: This is a well-built female in no apparent distress. VITAL SIGNS: Temperature 98.1. Heart rate 107. Respiratory rate 20. Blood pressure 138/63. HEENT: Atraumatic, normocephalic. Oral mucosa is moist NECK: Supple. CARDIOVASCULAR: S1, S2 heard. Rate and rhythm regular. RESPIRATORY: Clear to auscultation. GASTROINTESTINAL: Abdomen is soft. MUSCULOSKELETAL: No tenderness. No edema. DERMATOLOGIC: No skin rash. NEUROLOGIC: Alert and awake and oriented X3. No focal neurologic deficits. Moving all the extremities. PSYCHIATRIC: Mood and affect normal. LABORATORY DATA: Potassium is 4.1, BUN is 27, and creatinine is 3.1. ASSESSMENT AND PLAN: 1. End-stage renal disease, had dialysis yesterday, tolerated well. We will continue dialysis Wednesday, Wednesday, and Wednesday. 2. Acute hypoxic respiratory failure secondary to COVID-19 infection. Advised limit fluid intake. Also has hyponatremia, limit fluid intake. 3. Hypertension. 4. Anemia. 5. COVID-19 infection. The patient is seen at the room and advised limit fluid and salt intake and we will continue dialysis Wednesday, Wednesday, and Wednesday. Job ID: [id number]
[2020-01-23] MEDS: prednisoLONE 1% Ophth Susp 5 ml Bottle EA EYE SCH (10:04)
[2020-01-23] MEDS: HumaLOG 300 UNITS/3 ML VIAL SC PRN ×2 (11:47→17:10)
--- NOTE | 2020-01-23 14:22 | PDOC.HOSPP ---
- Subjective Encounter Date: 01/23/20 Subjective: No new events overnight. - Objective Vital Signs & Weight: Vital Signs (12 hours) Temp Pulse Resp BP Pulse Ox 01/23/20 12:00 98.1 F 94 18 160/87 H 95 01/23/20 07:35 98.1 F 107 H 20 138/63 95 01/23/20 03:10 97.7 F 104 H 17 127/58 L 93 L Weight Admit Weight 190 lb Weight 6.85 oz I&O: 01/22/20 01/23/20 01/24/20 06:59 06:59 06:59 Intake Total 880 560 Output Total 0 Balance 880 560 Result Diagrams: 01/23/20 05:04 01/23/20 05:04 Additional Labs: Accuchecks 01/23/20 01/23/20 01/22/20 11:40 04:58 20:21 POC Glucose 165 H 157 H 243 H 01/22/20 16:49 POC Glucose 247 H Hospitalist ROS - Medication Medications: Active Medications Generic Name Dose Route Start Last Admin Trade Name Freq PRN Reason Stop Dose Admin Acetaminophen 650 mg 01/04/20 14:24 01/06/20 00:34 Acetaminophen 325 Mg Tab PO 650 mg Q4H PRN Administration Headache/Fever/Mild Pain (1-3) Hydrocodone Bitart/Acetaminophen 1 tab 01/16/20 11:00 01/23/20 11:46 Hydrocodone/Acetaminophen 10/325 Mg Tablet PO 1 tab Q4H ADAM Administration Albuterol/Ipratropium 0 gm 01/06/20 10:32 01/19/20 06:47 Ipratropium/Albuterol Sulfate 4 Gm Aer IH 2 inh Q4H PRN Administration Dyspnea/Wheezing/SOB Amiodarone HCl 200 mg 01/06/20 09:00 01/23/20 09:28 Amiodarone 200 Mg Tab PO 200 mg DAILY ADAM Administration Atorvastatin Calcium 20 mg 01/06/20 21:00 01/22/20 21:48 Atorvastatin Calcium 20 Mg Tab PO 20 mg HS ADAM Administration Benzonatate 100 mg 01/05/20 15:00 01/23/20 09:28 Benzonatate 100 Mg Cap PO 100 mg TID ADAM Administration Cholecalciferol 5,000 units 01/07/20 09:00 12/01/20 09:29 Cholecalciferol 1,000 Units (25 Mcg) Tab PO 5,000 units DAILY ADAM Administration Dexamethasone 6 mg 01/22/20 09:00 01/23/20 09:29 Dexamethasone 4 Mg/Ml Vial SLOW IVP 6 mg DAILY ADAM Administration Diclofenac Sodium 4 gm 01/06/20 15:00 01/23/20 10:04 Diclofenac 1% 100 Gm Gel TP 1 gm TID ADAM Administration Docusate Sodium 100 mg 01/06/20 21:00 01/23/20 09:28 Docusate 100 Mg Cap PO 100 mg BID ADAM Administration Epoetin Rome-epbx 10,000 unit 01/15/20 10:46 01/22/20 16:55 Epoetin [place]-Epbx (Esrd) 10,000 Unit/Ml Vial IVP 10,000 unit MoWeFr ADAM Administration Escitalopram Oxalate 10 mg 01/06/20 09:00 01/23/20 09:28 Escitalopram Oxalate 10 Mg Tablet PO 10 mg DAILY ADAM Administration Folic Acid 1 mg 01/07/20 09:00 01/23/20 09:28 Folic Acid 1 Mg Tab PO 1 mg DAILY ADAM Administration Furosemide 40 mg 01/07/20 09:00 01/23/20 09:28 Furosemide 40 Mg Tab PO 40 mg DAILY ADAM Administration Guaifenesin 600 mg 01/07/20 09:00 01/23/20 09:27 Guaifenesin Er 600 Mg Tab PO 600 mg DAILY ADAM Administration Guaifenesin/Dextromethorphan 10 ml 01/06/20 09:06 01/23/20 01:16 Guaifenesin Dm 100-10/5 Ml Udcup PO 10 ml PRN PRN Administration Cough Insulin Human Lispro 0 units 01/14/20 08:01 01/23/20 11:47 Humalog 300 Units/3 Ml Vial SC 2 unit .MILD SLIDING SCALE PRN Administration Mild Correctional Scale Insulin Human Lispro 0 units 01/21/20 20:48 01/22/20 21:46 Humalog 300 Units/3 Ml Vial SC 2 unit .BEDTIME SLIDING SC PRN Administration Bedtime Correctional Scale Ketorolac Tromethamine 1 drop 01/06/20 15:00 01/23/20 10:04 Ketorolac Tromethamine 0.5% Ophth Soln 3 Ml Bottle R EYE 1 drop TID ADAM Administration Levothyroxine Sodium 50 mcg 01/06/20 06:00 01/23/20 06:07 Levothyroxine Sodium 25 Mcg Tab PO 50 mcg 0600 ADAM Administration Lidocaine/Prilocaine 1 gm 01/06/20 10:26 01/19/20 08:00 Lidocaine-Prilocaine 2.5% Cream 5 Gm Tube TOP 1 gm PRN PRN Administration Pain/IV STARTS Mometasone Furoate 1 puff 01/10/20 18:30 01/23/20 06:07 Mometasone Furoate 120 Puff 220 Mcg INH 1 puff BID-RT ADAM Administration Ondansetron HCl 4 mg 01/04/20 14:24 01/22/20 22:08 Ondansetron Pf 4 Mg/2 Ml Vial IVP 4 mg Q6H PRN Administration Nausea/Vomiting Pantoprazole Sodium 40 mg 01/13/20 21:00 01/23/20 09:30 Pantoprazole 40 Mg Vial IVP 40 mg Q12HR ADAM Administration Prednisolone Acetate 1 drop 01/07/20 09:00 01/23/20 10:04 Prednisolone 1% Ophth Susp 5 Ml Bottle EA EYE 1 drop DAILY ADAM Administration Senna 2 tab 01/07/20 09:00 01/23/20 09:28 Senokot 8.6 Mg Tab PO 2 tab DAILY ADAM Administration Sevelamer Carbonate 800 mg 01/06/20 12:00 01/23/20 11:46 Sevelamer Carbonate 800 Mg Tab PO 800 mg TID-WM ADAM Administration Sodium Chloride 10 ml 01/15/20 09:00 01/23/20 10:05 Flush - Normal Saline 10 Ml Syringe IVF 10 ml Q12HR ADAM Administration Sodium Chloride 10 ml 01/15/20 08:00 01/19/20 16:12 Flush - Normal Saline 10 Ml Syringe IVF 10 ml PRN PRN Administration Saline Flush Temazepam 15 mg 01/17/20 23:41 01/22/20 21:48 Temazepam 15 Mg Cap PO 15 mg HSPRN PRN Administration Insomnia Zinc Sulfate 220 mg 01/07/20 09:00 01/23/20 09:35 Zinc Sulfate 220 Mg Cap PO 220 mg DAILY ADAM Administration - Exam General Appearance: awake alert ENT: normocephalic atraumatic Neck: supple, no JVD Respiratory: normal chest expansion, no tachypnea, rhonchi Extremities: no cyanosis, no clubbing Neurological: cranial nerve grossly intact Hosp A/P (1) Acute respiratory failure with hypoxia Code(s): J96.01 - ACUTE RESPIRATORY FAILURE WITH HYPOXIA Status: Acute (2) Physical deconditioning Code(s): R53.81 - OTHER MALAISE Status: Acute (3) Pneumonia due to COVID-19 virus Code(s): U07.1 - COVID-19; J12.89 - OTHER VIRAL PNEUMONIA Status: Acute (4) Atrial fibrillation Code(s): I48.91 - UNSPECIFIED ATRIAL FIBRILLATION Status: Chronic Qualifiers: Atrial fibrillation type: paroxysmal Qualified Code(s): I48.0 - Paroxysmal atrial fibrillation (5) ESRD (end stage renal disease) on dialysis Code(s): N18.6 - END STAGE RENAL DISEASE; Z99.2 - DEPENDENCE ON RENAL DIALYSIS Status: Chronic (6) Hypertension Code(s): I10 - ESSENTIAL (PRIMARY) HYPERTENSION Status: Chronic Qualifiers: Hypertension type: essential hypertension Qualified Code(s): I10 - Essential (primary) hypertension - Plan 01/17: This is an 84-year-old female patient with a history of hypertension, ESRD, gout and recent recurrent falls admitted on account of Covid pneumonia. Received 3 units of blood on this admission on account of anemia with black tarry stools. Anticoagulation was stopped. She continues to improve with O2 being weaned down on high flow oxygen Acute hypoxic respiratory failure Continue on high flow oxygen and wean. Pneumonia due to Covid Completed steroids Discontinue anticoagulation on account of GI bleed Generally improvingcontinue close monitoring. Anemia secondary to GI bleed Completed 1 unit transfusion yesterday. Hemoglobin is 7.8. Transfuse for hemoglobin is at 7 Monitor H&H. GI has been following for ESRD Dialysis per nephrology Hypertension Blood pressure has been stable off antihypertensives except for Lasix Monitor BP Hyponatremia Mild Monitor A. fib Hold anticoagulation Recent frequent falls Monitor on telemetry Fall precaution PT evaluation once stable Hypokalemia Resolved Continue BMP monitoring Leukocytosis In the setting of Covid Likely due to steroid Continue monitoring. Delirium Improved We will monitor As needed Zyprexa No benzodiazepine CODE STATUSfull code VTE prophylaxishold heparin on account of GI bleedSCD 01/18: The patient remains on high flow nasal cannula. She is tolerating dialysis. No evidence of significant volume overload clinically. H&H stable at 8.6. Anticoagulation remains on hold due to possible GI bleeding. 01/19: The patient is on 80% high flow nasal cannula. Still having black stools per nursing staff. Hemoglobin level dropped slightly but remains above 7. Recheck CBC in the morning. Discussed with GI, will avoid intervention unless hemoglobin drops significantly or the patient has a large bleed or hemodynamic instability. 01/20: The patient remains on high flow nasal cannula. Discussed her condition with pulmonology. We will restart her on dexamethasone. Palliative care consult tomorrow. Repeat x-ray showed worsening infiltrates. Check inflammatory markers tomorrow. Patient is stable. 01/21: The patient is requiring less oxygen today. I was able to decrease her high flow nasal cannula to 70% and she tolerated it well. Continue to wean off as tolerated. Continue dexamethasone. 01/22: The patient's FiO2 was decreased to 60% and she is currently saturating well. Continue dialysis per nephrology. Continue dexamethasone. No further episodes of GI bleeding.
[2020-01-23] MEDS: Acetaminophen 325 MG TAB PO PRN (21:50)
[2020-01-23] MEDS: Atorvastatin Calcium 20 MG TAB PO SCH (21:51)
[2020-01-23] MEDS: Temazepam 15 MG CAP PO PRN (21:51)
[2020-01-24] MEDS: HYDROcodone/Acetaminophen 10/325 mg Tablet PO SCH ×7 (03:44→23:44)
[2020-01-24 05:56] LABS: #Monocytes 0.6 thou/uL (0.11-0.59); #Neutrophils 6.5 thou/uL (1.40-6.50); %Basophils 0.2 % (0.0-1.0); %Eosinophils 0.4 % (0.0-10.0); %Lymphocytes 12.1 % (21.0-51.0); %Neutrophils 80.4 % (42.0-75.0); Hemoglobin 8.3 g/dL (12.0-16.0); Mean Corpuscular HGB CONC 31.7 g/dL (32.0-36.0); Mean Corpuscular Volume 94.6 fL (78.0-98.0); Mean Platelet Volume 8.3 fL (7.4-10.4); Platelet Count 202 thou/uL (130-400); RBC Distribution Width 13.8 % (11.5-14.5); Red Blood Cell (RBC) Count 2.75 mill/uL (4.20-5.40); White Blood Cell (WBC) Count 8.1 thou/uL (4.8-10.8)
[2020-01-24 06:18] LABS: Anion Gap 17 mmol/L (10-20); BUN (Urea Nitrogen) 40 mg/dL (9.8-20.1); Calc. Creatinine Clearance 0 mL/min (70-130); Calcium 8.4 mg/dL (7.8-10.44); Carbon Dioxide 27 mmol/L (23-31); Chloride 92 mmol/L (98-107); Glucose 92 mg/dL (83-110); Potassium 4.7 mmol/L (3.5-5.1); Sodium 131 mmol/L (136-145)
[2020-01-24] MEDS: Levothyroxine Sodium 25 MCG TAB PO SCH (06:18)
[2020-01-24] MEDS: Guaifenesin DM 100-10/5 ML UDCUP PO PRN (06:19)
[2020-01-24] MEDS: Mometasone Furoate 120 PUFF 220 MCG INH SCH ×2 (07:53→18:37)
[2020-01-24] MEDS: Sevelamer Carbonate 800 MG TAB PO SCH ×4 (07:55→16:43)
[2020-01-24] MEDS: Benzonatate 100 MG CAP PO SCH ×3 (07:55→19:54)
[2020-01-24] MEDS: Diclofenac 1% 100 GM GEL TP SCH ×3 (08:18→19:54)
[2020-01-24] MEDS: Lidocaine-Prilocaine 2.5% Cream 5 GM TUBE TOP PRN (08:20)
--- NOTE | 2020-01-24 09:29 | PRG ---
DATE OF SERVICE: 01/24/2020 SUBJECTIVE: The patient on COVID isolation. OBJECTIVE: VITAL SIGNS: Temperature 98.4, pulse 96, respiratory rate 20, blood pressure 153/140. LABORATORY DATA: Potassium is 4.7, BUN is 40, creatinine is 4.0. ASSESSMENT AND PLAN: 1. End-stage renal disease. Continue dialysis. 2. Acute hypoxic respiratory failure. 3. Hypertension. 4. Anemia. 5. COVID-19 infection. 6. Continue dialysis as tolerated. Job ID: [id number]
[2020-01-24] MEDS: Ketorolac Tromethamine 0.5% Ophth Soln 3 ml Bottle R EYE SCH ×3 (13:31→19:55)
[2020-01-24] MEDS: prednisoLONE 1% Ophth Susp 5 ml Bottle EA EYE SCH (13:32)
[2020-01-24] MEDS: Pantoprazole 40 MG VIAL IVP SCH (13:38)
[2020-01-24] MEDS: Dexamethasone 4 mg/ml Vial SLOW IVP SCH (13:38)
[2020-01-24] MEDS: Escitalopram Oxalate 10 mg Tablet PO SCH (13:40)
[2020-01-24] MEDS: Docusate 100 MG CAP PO SCH ×2 (13:40→19:53)
[2020-01-24] MEDS: Cholecalciferol 1,000 UNITS (25 MCG) TAB PO SCH (13:40)
[2020-01-24] MEDS: guaiFENesin ER 600 MG TAB PO SCH (13:40)
[2020-01-24] MEDS: Amiodarone 200 MG TAB PO SCH (13:40)
[2020-01-24] MEDS: Furosemide 40 MG TAB PO SCH (13:41)
[2020-01-24] MEDS: Folic Acid 1 MG TAB PO SCH (13:41)
[2020-01-24] MEDS: Zinc Sulfate 220 MG CAP PO SCH (13:41)
[2020-01-24] MEDS: Senokot 8.6 MG TAB PO SCH (13:42)
[2020-01-24] MEDS: Heparin 5,000 UNITS/ML VIAL SC SCH ×2 (13:51→19:55)
--- NOTE | 2020-01-24 14:07 | PDOC.HOSPP ---
- Subjective Encounter Date: 01/24/20 - Objective Vital Signs & Weight: Vital Signs (12 hours) Temp Pulse Resp BP Pulse Ox 01/24/20 13:18 83 18 102/75 97 01/24/20 10:28 100 01/24/20 08:20 97.3 F L 97 20 150/88 H 100 01/24/20 04:00 98.4 F 96 20 153/114 H 100 01/24/20 03:05 100 Weight Admit Weight 190 lb Weight 6.85 oz I&O: 01/23/20 01/24/20 01/25/20 06:59 06:59 06:59 Intake Total 560 980 237 Output Total 1 Balance 560 979 237 Result Diagrams: 01/24/20 05:35 01/24/20 05:35 Additional Labs: Accuchecks 01/24/20 01/23/20 01/23/20 05:18 20:39 16:39 POC Glucose 93 135 H 155 H Hospitalist ROS - Medication Medications: Active Medications Generic Name Dose Route Start Last Admin Trade Name Freq PRN Reason Stop Dose Admin Acetaminophen 650 mg 01/04/20 14:24 01/23/20 21:50 Acetaminophen 325 Mg Tab PO 650 mg Q4H PRN Administration Headache/Fever/Mild Pain (1-3) Hydrocodone Bitart/Acetaminophen 1 tab 01/16/20 11:00 01/24/20 11:49 Hydrocodone/Acetaminophen 10/325 Mg Tablet PO 1 tab Q4H ADAM Administration Albuterol/Ipratropium 0 gm 01/06/20 10:32 01/19/20 06:47 Ipratropium/Albuterol Sulfate 4 Gm Aer IH 2 inh Q4H PRN Administration Dyspnea/Wheezing/SOB Amiodarone HCl 200 mg 01/06/20 09:00 01/24/20 13:40 Amiodarone 200 Mg Tab PO 200 mg DAILY ADAM Administration Atorvastatin Calcium 20 mg 01/06/20 21:00 01/23/20 21:51 Atorvastatin Calcium 20 Mg Tab PO 20 mg HS ADAM Administration Benzonatate 100 mg 01/05/20 15:00 01/24/20 13:41 Benzonatate 100 Mg Cap PO 100 mg TID ADAM Administration Cholecalciferol 5,000 units 01/07/20 09:00 01/24/20 13:40 Cholecalciferol 1,000 Units (25 Mcg) Tab PO 5,000 units DAILY ADAM Administration Dexamethasone 6 mg 01/22/20 09:00 01/24/20 13:38 Dexamethasone 4 Mg/Ml Vial SLOW IVP 6 mg DAILY ADAM Administration Diclofenac Sodium 4 gm 01/06/20 15:00 01/24/20 13:44 Diclofenac 1% 100 Gm Gel TP 4 gm TID ADAM Administration Docusate Sodium 100 mg 01/06/20 21:00 01/24/20 13:40 Docusate 100 Mg Cap PO 100 mg BID ADAM Administration Epoetin Rome-epbx 10,000 unit 01/15/20 10:46 01/22/20 16:55 Epoetin [place]-Epbx (Esrd) 10,000 Unit/Ml Vial IVP 10,000 unit MoWeFr ADAM Administration Escitalopram Oxalate 10 mg 01/06/20 09:00 01/24/20 13:40 Escitalopram Oxalate 10 Mg Tablet PO 10 mg DAILY ADAM Administration Folic Acid 1 mg 01/07/20 09:00 01/24/20 13:41 Folic Acid 1 Mg Tab PO 1 mg DAILY ADAM Administration Furosemide 40 mg 01/07/20 09:00 01/24/20 13:41 Furosemide 40 Mg Tab PO 40 mg DAILY ADAM Administration Guaifenesin 600 mg 01/07/20 09:00 01/24/20 13:40 Guaifenesin Er 600 Mg Tab PO 600 mg DAILY ADAM Administration Guaifenesin/Dextromethorphan 10 ml 01/06/20 09:06 01/24/20 06:19 Guaifenesin Dm 100-10/5 Ml Udcup PO 10 ml PRN PRN Administration Cough Heparin Sodium (Porcine) 5,000 units 01/24/20 15:00 01/24/20 13:51 Heparin 5,000 Units/Ml Vial SC 5,000 units TID ADAM Administration Insulin Human Lispro 0 units 01/14/20 08:01 01/23/20 17:10 Humalog 300 Units/3 Ml Vial SC 2 unit .MILD SLIDING SCALE PRN Administration Mild Correctional Scale Insulin Human Lispro 0 units 01/21/20 20:48 01/22/20 21:46 Humalog 300 Units/3 Ml Vial SC 2 unit .BEDTIME SLIDING SC PRN Administration Bedtime Correctional Scale Ketorolac Tromethamine 1 drop 01/06/20 15:00 01/24/20 13:32 Ketorolac Tromethamine 0.5% Ophth Soln 3 Ml Bottle R EYE 1 drop TID ADAM Administration Levothyroxine Sodium 50 mcg 01/06/20 06:00 01/24/20 06:18 Levothyroxine Sodium 25 Mcg Tab PO 50 mcg 0600 ADAM Administration Lidocaine/Prilocaine 1 gm 01/06/20 10:26 01/24/20 08:20 Lidocaine-Prilocaine 2.5% Cream 5 Gm Tube TOP 1 gm PRN PRN Administration Pain/IV STARTS Mometasone Furoate 1 puff 01/10/20 18:30 01/24/20 07:53 Mometasone Furoate 120 Puff 220 Mcg INH 1 puff BID-RT ADAM Administration Ondansetron HCl 4 mg 01/04/20 14:24 01/22/20 22:08 Ondansetron Pf 4 Mg/2 Ml Vial IVP 4 mg Q6H PRN Administration Nausea/Vomiting Prednisolone Acetate 1 drop 01/07/20 09:00 01/24/20 13:32 Prednisolone 1% Ophth Susp 5 Ml Bottle EA EYE 1 drop DAILY ADAM Administration Senna 2 tab 01/07/20 09:00 01/24/20 13:42 Senokot 8.6 Mg Tab PO 2 tab DAILY ADAM Administration Sevelamer Carbonate 800 mg 01/06/20 12:00 01/24/20 13:41 Sevelamer Carbonate 800 Mg Tab PO 800 mg TID-WM ADAM Administration Sodium Chloride 10 ml 01/15/20 09:00 01/24/20 13:29 Flush - Normal Saline 10 Ml Syringe IVF 10 ml Q12HR ADAM Administration Sodium Chloride 10 ml 01/15/20 08:00 01/19/20 16:12 Flush - Normal Saline 10 Ml Syringe IVF 10 ml PRN PRN Administration Saline Flush Temazepam 15 mg 01/17/20 23:41 01/23/20 21:51 Temazepam 15 Mg Cap PO 15 mg HSPRN PRN Administration Insomnia Zinc Sulfate 220 mg 01/07/20 09:00 01/24/20 13:41 Zinc Sulfate 220 Mg Cap PO 220 mg DAILY ADAM Administration - Exam General Appearance: awake alert ENT: normocephalic atraumatic Neck: supple Respiratory: normal chest expansion, no tachypnea Gastrointestinal: soft Extremities: no cyanosis Hosp A/P (1) Acute respiratory failure with hypoxia Code(s): J96.01 - ACUTE RESPIRATORY FAILURE WITH HYPOXIA Status: Acute (2) Physical deconditioning Code(s): R53.81 - OTHER MALAISE Status: Acute (3) Pneumonia due to COVID-19 virus Code(s): U07.1 - COVID-19; J12.89 - OTHER VIRAL PNEUMONIA Status: Acute (4) Atrial fibrillation Code(s): I48.91 - UNSPECIFIED ATRIAL FIBRILLATION Status: Chronic Qualifiers: Atrial fibrillation type: paroxysmal Qualified Code(s): I48.0 - Paroxysmal atrial fibrillation (5) ESRD (end stage renal disease) on dialysis Code(s): N18.6 - END STAGE RENAL DISEASE; Z99.2 - DEPENDENCE ON RENAL DIALYSIS Status: Chronic (6) Hypertension Code(s): I10 - ESSENTIAL (PRIMARY) HYPERTENSION Status: Chronic Qualifiers: Hypertension type: essential hypertension Qualified Code(s): I10 - Essential (primary) hypertension - Plan 01/17: This is an 84-year-old female patient with a history of hypertension, ESRD, gout and recent recurrent falls admitted on account of Covid pneumonia. Received 3 units of blood on this admission on account of anemia with black tarry stools. Anticoagulation was stopped. She continues to improve with O2 being weaned down on high flow oxygen Acute hypoxic respiratory failure Continue on high flow oxygen and wean. Pneumonia due to Covid Completed steroids Discontinue anticoagulation on account of GI bleed Generally improvingcontinue close monitoring. Anemia secondary to GI bleed Completed 1 unit transfusion yesterday. Hemoglobin is 7.8. Transfuse for hemoglobin is at 7 Monitor H&H. GI has been following for ESRD Dialysis per nephrology Hypertension Blood pressure has been stable off antihypertensives except for Lasix Monitor BP Hyponatremia Mild Monitor A. fib Hold anticoagulation Recent frequent falls Monitor on telemetry Fall precaution PT evaluation once stable Hypokalemia Resolved Continue BMP monitoring Leukocytosis In the setting of Covid Likely due to steroid Continue monitoring. Delirium Improved We will monitor As needed Zyprexa No benzodiazepine CODE STATUSfull code VTE prophylaxishold heparin on account of GI bleedSCD 01/18: The patient remains on high flow nasal cannula. She is tolerating dialysis. No evidence of significant volume overload clinically. H&H stable at 8.6. Anticoagulation remains on hold due to possible GI bleeding. 01/19: The patient is on 80% high flow nasal cannula. Still having black stools per nursing staff. Hemoglobin level dropped slightly but remains above 7. Recheck CBC in the morning. Discussed with GI, will avoid intervention unless hemoglobin drops significantly or the patient has a large bleed or hemodynamic instability. 01/20: The patient remains on high flow nasal cannula. Discussed her condition with pulmonology. We will restart her on dexamethasone. Palliative care consult tomorrow. Repeat x-ray showed worsening infiltrates. Check inflammatory markers tomorrow. Patient is stable. 01/21: The patient is requiring less oxygen today. I was able to decrease her high flow nasal cannula to 70% and she tolerated it well. Continue to wean off as tolerated. Continue dexamethasone. 01/22: The patient's FiO2 was decreased to 60% and she is currently saturating well. Continue dialysis per nephrology. Continue dexamethasone. No further episodes of GI bleeding. 01/23: The patient is tolerating dialysis. Currently saturating well on FiO2 of 50%. Continue dexamethasone. The patient's D-dimer is elevated and there is no evidence of bleeding so I would start the patient on prophylactic heparin dose. Continue to monitor for any signs of bleeding. Check H&H tomorrow.
[2020-01-24] MEDS: HumaLOG 300 UNITS/3 ML VIAL SC PRN ×2 (18:38→20:08)
[2020-01-24] MEDS: Pantoprazole 40 MG GRANULES PACKET PO SCH (19:53)
[2020-01-24] MEDS: Atorvastatin Calcium 20 MG TAB PO SCH (19:54)
[2020-01-24] MEDS: Temazepam 15 MG CAP PO PRN (19:54)
[2020-01-24] MEDS: EPOETIN ALFA-EPBX (ESRD) 10,000 UNIT/ML VIAL IVP SCH (19:55)
[2020-01-25] MEDS: HYDROcodone/Acetaminophen 10/325 mg Tablet PO SCH ×6 (03:39→22:45)
[2020-01-25] MEDS: Guaifenesin DM 100-10/5 ML UDCUP PO PRN ×2 (03:40→13:32)
[2020-01-25 04:49] LABS: #Lymphocytes 0.7 thou/uL (1.20-3.40); #Monocytes 0.5 thou/uL (0.11-0.59); #Neutrophils 4.9 thou/uL (1.40-6.50); %Basophils 0.2 % (0.0-1.0); %Eosinophils 0.2 % (0.0-10.0); %Lymphocytes 11.3 % (21.0-51.0); %Monocytes 7.9 % (0.0-10.0); %Neutrophils 80.5 % (42.0-75.0); Hemoglobin 7.8 g/dL (12.0-16.0); Mean Corpuscular HGB CONC 31.8 g/dL (32.0-36.0); Mean Corpuscular Hemoglobin 29.7 pg (27.0-31.0); Mean Corpuscular Volume 93.4 fL (78.0-98.0); Mean Platelet Volume 8.3 fL (7.4-10.4); Platelet Count 201 thou/uL (130-400); RBC Distribution Width 13.8 % (11.5-14.5); Red Blood Cell (RBC) Count 2.61 mill/uL (4.20-5.40); White Blood Cell (WBC) Count 6.1 thou/uL (4.8-10.8)
[2020-01-25 05:13] LABS: Anion Gap 13 mmol/L (10-20); BUN (Urea Nitrogen) 26 mg/dL (9.8-20.1); Calc. Creatinine Clearance 0 mL/min (70-130); Calcium 8.1 mg/dL (7.8-10.44); Carbon Dioxide 29 mmol/L (23-31); Chloride 92 mmol/L (98-107); Glucose 137 mg/dL (83-110); Potassium 4.2 mmol/L (3.5-5.1); Sodium 130 mmol/L (136-145)
[2020-01-25] MEDS: Mometasone Furoate 120 PUFF 220 MCG INH SCH ×2 (06:27→18:01)
[2020-01-25] MEDS: Levothyroxine Sodium 25 MCG TAB PO SCH (06:28)
[2020-01-25] MEDS: Sevelamer Carbonate 800 MG TAB PO SCH ×3 (08:24→16:01)
[2020-01-25] MEDS: Amiodarone 200 MG TAB PO SCH (08:24)
[2020-01-25] MEDS: Benzonatate 100 MG CAP PO SCH ×3 (08:24→20:22)
[2020-01-25] MEDS: Furosemide 40 MG TAB PO SCH (08:25)
[2020-01-25] MEDS: Cholecalciferol 1,000 UNITS (25 MCG) TAB PO SCH (08:25)
[2020-01-25] MEDS: Dexamethasone 4 mg/ml Vial SLOW IVP SCH ×2 (08:25→14:15)
[2020-01-25] MEDS: Folic Acid 1 MG TAB PO SCH (08:25)
[2020-01-25] MEDS: Docusate 100 MG CAP PO SCH ×2 (08:25→20:21)
[2020-01-25] MEDS: Escitalopram Oxalate 10 mg Tablet PO SCH (08:25)
[2020-01-25] MEDS: guaiFENesin ER 600 MG TAB PO SCH (08:26)
[2020-01-25] MEDS: Senokot 8.6 MG TAB PO SCH (08:26)
[2020-01-25] MEDS: Heparin 5,000 UNITS/ML VIAL SC SCH ×3 (08:26→20:21)
[2020-01-25] MEDS: Pantoprazole 40 MG GRANULES PACKET PO SCH ×2 (08:26→20:18)
[2020-01-25] MEDS: Zinc Sulfate 220 MG CAP PO SCH (08:27)
--- NOTE | 2020-01-25 10:09 | PRG ---
DATE OF SERVICE: 01/25/2020 SUBJECTIVE: The patient is on COVID-19 isolation. OBJECTIVE: VITAL SIGNS: Temperature 97.7, pulse 95, respiratory rate 20, oxygen saturation 97% on high-flow oxygen, 65% FiO2, blood pressure 144/88. LABORATORY DATA: Potassium 4.2, sodium 130, BUN 26, creatinine is 2.7. ASSESSMENT AND PLAN: 1. End-stage renal disease. We will continue dialysis Wednesday, Wednesday, and Wednesday. 2. Acute hypoxic respiratory failure secondary to COVID-19 infection. 3. Hypertension. 4. Anemia of chronic disease. 5. COVID-19 infection. Continue care per primary team for COVID-19. We will continue dialysis Wednesday, Wednesday, and Wednesday. The patient was advised to limit fluid and salt intake. Job ID: [id number]
[2020-01-25] MEDS: Diclofenac 1% 100 GM GEL TP SCH ×3 (11:28→20:19)
[2020-01-25] MEDS: Ketorolac Tromethamine 0.5% Ophth Soln 3 ml Bottle R EYE SCH ×3 (11:30→20:19)
[2020-01-25] MEDS: prednisoLONE 1% Ophth Susp 5 ml Bottle EA EYE SCH (11:30)
[2020-01-25] MEDS ORDERED: Bisacodyl 10 MG SUPP PR PRN (14:35)
[2020-01-25] MEDS ORDERED: Dexamethasone 4 MG TAB PO SCH (14:45)
--- NOTE | 2020-01-25 14:51 | PDOC.HOSPP ---
- Subjective Encounter Date: 01/25/20 - Objective Vital Signs & Weight: Vital Signs (12 hours) Temp Pulse Resp BP Pulse Ox 01/25/20 11:47 116/79 01/25/20 11:42 97.6 F 116 H 22 H 173/83 H 96 01/25/20 09:00 97.7 F 95 20 144/88 H 97 01/25/20 08:09 94 L 01/25/20 03:39 98.1 F 92 22 H 173/92 H 94 L Weight Admit Weight 190 lb Weight 6.85 oz I&O: 01/24/20 01/25/20 01/26/20 06:59 06:59 06:59 Intake Total 980 1227 360 Output Total 1 2004 Balance 959 -971 669 Result Diagrams: 01/25/20 04:37 01/25/20 04:37 Additional Labs: Accuchecks 01/24/20 01/24/20 20:06 16:59 POC Glucose 268 H 222 H Hospitalist ROS - Medication Medications: Active Medications Generic Name Dose Route Start Last Admin Trade Name Freq PRN Reason Stop Dose Admin Acetaminophen 650 mg 01/04/20 14:24 01/23/20 21:50 Acetaminophen 325 Mg Tab PO 650 mg Q4H PRN Administration Headache/Fever/Mild Pain (1-3) Hydrocodone Bitart/Acetaminophen 1 tab 01/16/20 11:00 01/25/20 11:31 Hydrocodone/Acetaminophen 10/325 Mg Tablet PO 1 tab Q4H ADAM Administration Albuterol/Ipratropium 0 gm 01/06/20 10:32 01/19/20 06:47 Ipratropium/Albuterol Sulfate 4 Gm Aer IH 2 inh Q4H PRN Administration Dyspnea/Wheezing/SOB Amiodarone HCl 200 mg 01/06/20 09:00 01/25/20 08:24 Amiodarone 200 Mg Tab PO 200 mg DAILY ADAM Administration Atorvastatin Calcium 20 mg 01/06/20 21:00 01/24/20 19:54 Atorvastatin Calcium 20 Mg Tab PO 20 mg HS ADAM Administration Benzonatate 100 mg 01/05/20 15:00 01/25/20 08:24 Benzonatate 100 Mg Cap PO 100 mg TID ADAM Administration Cholecalciferol 5,000 units 01/07/20 09:00 01/25/20 08:25 Cholecalciferol 1,000 Units (25 Mcg) Tab PO 5,000 units DAILY ADAM Administration Diclofenac Sodium 4 gm 01/06/20 15:00 01/25/20 11:28 Diclofenac 1% 100 Gm Gel TP 4 gm TID ADAM Administration Docusate Sodium 100 mg 01/06/20 21:00 01/25/20 08:25 Docusate 100 Mg Cap PO 100 mg BID ADAM Administration Epoetin Rome-epbx 10,000 unit 01/15/20 10:46 01/24/20 19:55 Epoetin Rome-Epbx (Esrd) 10,000 Unit/Ml Vial IVP 10,000 unit MoWeFr ADAM Administration Escitalopram Oxalate 10 mg 01/06/20 09:00 01/25/20 08:25 Escitalopram Oxalate 10 Mg Tablet PO 10 mg DAILY ADAM Administration Folic Acid 1 mg 01/07/20 09:00 01/25/20 08:25 Folic Acid 1 Mg Tab PO 1 mg DAILY ADAM Administration Furosemide 40 mg 01/07/20 09:00 01/25/20 08:25 Furosemide 40 Mg Tab PO 40 mg DAILY ADAM Administration Guaifenesin 600 mg 01/07/20 09:00 01/25/20 08:26 Guaifenesin Er 600 Mg Tab PO 600 mg DAILY ADAM Administration Guaifenesin/Dextromethorphan 10 ml 01/06/20 09:06 01/25/20 13:32 Guaifenesin Dm 100-10/5 Ml Udcup PO 10 ml PRN PRN Administration Cough Heparin Sodium (Porcine) 5,000 units 01/24/20 15:00 01/25/20 08:26 Heparin 5,000 Units/Ml Vial SC 5,000 units TID ADAM Administration Insulin Human Lispro 0 units 01/14/20 08:01 01/24/20 18:38 Humalog 300 Units/3 Ml Vial SC 3 unit .MILD SLIDING SCALE PRN Administration Mild Correctional Scale Insulin Human Lispro 0 units 01/21/20 20:48 01/24/20 20:08 Humalog 300 Units/3 Ml Vial SC 3 unit .BEDTIME SLIDING SC PRN Administration Bedtime Correctional Scale Ketorolac Tromethamine 1 drop 01/06/20 15:00 01/25/20 11:30 Ketorolac Tromethamine 0.5% Ophth Soln 3 Ml Bottle R EYE 1 drop TID ADAM Administration Levothyroxine Sodium 50 mcg 01/06/20 06:00 01/25/20 06:28 Levothyroxine Sodium 25 Mcg Tab PO 50 mcg 0600 ADAM Administration Lidocaine/Prilocaine 1 gm 01/06/20 10:26 01/24/20 08:20 Lidocaine-Prilocaine 2.5% Cream 5 Gm Tube TOP 1 gm PRN PRN Administration Pain/IV STARTS Mometasone Furoate 1 puff 01/10/20 18:30 01/25/20 06:27 Mometasone Furoate 120 Puff 220 Mcg INH 1 puff BID-RT ADAM Administration Ondansetron HCl 4 mg 01/04/20 14:24 01/22/20 22:08 Ondansetron Pf 4 Mg/2 Ml Vial IVP 4 mg Q6H PRN Administration Nausea/Vomiting Pantoprazole Sodium 40 mg 01/24/20 21:00 01/25/20 08:26 Pantoprazole 40 Mg Granules Packet PO 40 mg BID ADAM Administration Prednisolone Acetate 1 drop 01/07/20 09:00 01/25/20 11:30 Prednisolone 1% Ophth Susp 5 Ml Bottle EA EYE 1 drop DAILY ADAM Administration Senna 2 tab 01/07/20 09:00 01/25/20 08:26 Senokot 8.6 Mg Tab PO 2 tab DAILY ADAM Administration Sevelamer Carbonate 800 mg 01/06/20 12:00 01/25/20 11:31 Sevelamer Carbonate 800 Mg Tab PO 800 mg TID-WM ADAM Administration Sodium Chloride 10 ml 01/15/20 09:00 01/25/20 08:27 Flush - Normal Saline 10 Ml Syringe IVF 10 ml Q12HR ADAM Administration Sodium Chloride 10 ml 01/15/20 08:00 01/19/20 16:12 Flush - Normal Saline 10 Ml Syringe IVF 10 ml PRN PRN Administration Saline Flush Temazepam 15 mg 01/17/20 23:41 01/24/20 19:54 Temazepam 15 Mg Cap PO 15 mg HSPRN PRN Administration Insomnia Zinc Sulfate 220 mg 01/07/20 09:00 01/25/20 08:27 Zinc Sulfate 220 Mg Cap PO 220 mg DAILY ADAM Administration - Exam General Appearance: awake alert ENT: normocephalic atraumatic Neck: supple, no JVD Heart: RRR Respiratory: normal chest expansion, no tachypnea Gastrointestinal: soft Extremities: no cyanosis, no clubbing Hosp A/P (1) Acute respiratory failure with hypoxia Code(s): J96.01 - ACUTE RESPIRATORY FAILURE WITH HYPOXIA Status: Acute (2) Physical deconditioning Code(s): R53.81 - OTHER MALAISE Status: Acute (3) Pneumonia due to COVID-19 virus Code(s): U07.1 - COVID-19; J12.89 - OTHER VIRAL PNEUMONIA Status: Acute (4) Atrial fibrillation Code(s): I48.91 - UNSPECIFIED ATRIAL FIBRILLATION Status: Chronic Qualifiers: Atrial fibrillation type: paroxysmal Qualified Code(s): I48.0 - Paroxysmal atrial fibrillation (5) ESRD (end stage renal disease) on dialysis Code(s): N18.6 - END STAGE RENAL DISEASE; Z99.2 - DEPENDENCE ON RENAL DIALYSIS Status: Chronic (6) Hypertension Code(s): I10 - ESSENTIAL (PRIMARY) HYPERTENSION Status: Chronic Qualifiers: Hypertension type: essential hypertension Qualified Code(s): I10 - Essential (primary) hypertension - Plan 01/17: This is an 84-year-old female patient with a history of hypertension, ESRD, gout and recent recurrent falls admitted on account of Covid pneumonia. Received 3 units of blood on this admission on account of anemia with black tarry stools. Anticoagulation was stopped. She continues to improve with O2 being weaned down on high flow oxygen Acute hypoxic respiratory failure Continue on high flow oxygen and wean. Pneumonia due to Covid Completed steroids Discontinue anticoagulation on account of GI bleed Generally improvingcontinue close monitoring. Anemia secondary to GI bleed Completed 1 unit transfusion yesterday. Hemoglobin is 7.8. Transfuse for hemoglobin is at 7 Monitor H&H. GI has been following for ESRD Dialysis per nephrology Hypertension Blood pressure has been stable off antihypertensives except for Lasix Monitor BP Hyponatremia Mild Monitor A. fib Hold anticoagulation Recent frequent falls Monitor on telemetry Fall precaution PT evaluation once stable Hypokalemia Resolved Continue BMP monitoring Leukocytosis In the setting of Covid Likely due to steroid Continue monitoring. Delirium Improved We will monitor As needed Zyprexa No benzodiazepine CODE STATUSfull code VTE prophylaxishold heparin on account of GI bleedSCD 01/18: The patient remains on high flow nasal cannula. She is tolerating dialysis. No evidence of significant volume overload clinically. H&H stable at 8.6. Anticoagulation remains on hold due to possible GI bleeding. 01/19: The patient is on 80% high flow nasal cannula. Still having black stools per nursing staff. Hemoglobin level dropped slightly but remains above 7. Recheck CBC in the morning. Discussed with GI, will avoid intervention unless hemoglobin drops significantly or the patient has a large bleed or hemodynamic instability. 01/20: The patient remains on high flow nasal cannula. Discussed her condition with pulmonology. We will restart her on dexamethasone. Palliative care consult tomorrow. Repeat x-ray showed worsening infiltrates. Check inflammatory markers tomorrow. Patient is stable. 01/21: The patient is requiring less oxygen today. I was able to decrease her high flow nasal cannula to 70% and she tolerated it well. Continue to wean off as tolerated. Continue dexamethasone. 01/22: The patient's FiO2 was decreased to 60% and she is currently saturating well. Continue dialysis per nephrology. Continue dexamethasone. No further episodes of GI bleeding. 01/23: The patient is tolerating dialysis. Currently saturating well on FiO2 of 50%. Continue dexamethasone. The patient's D-dimer is elevated and there is no evidence of bleeding so I would start the patient on prophylactic heparin dose. Continue to monitor for any signs of bleeding. Check H&H tomorrow. 01/24: The patient still on high flow nasal cannula and not ready for further titration. Continue dialysis per nephrology. Continue dexamethasone. Continue heparin for anticoagulation.
[2020-01-25] MEDS: Temazepam 15 MG CAP PO PRN (20:18)
[2020-01-25] MEDS: Atorvastatin Calcium 20 MG TAB PO SCH (20:18)
[2020-01-26] MEDS: HYDROcodone/Acetaminophen 10/325 mg Tablet PO SCH ×4 (03:15→19:54)
[2020-01-26 05:39] LABS: #Lymphocytes 0.6 thou/uL (1.20-3.40); #Monocytes 0.3 thou/uL (0.11-0.59); #Neutrophils 3.8 thou/uL (1.40-6.50); %Basophils 0.8 % (0.0-1.0); %Eosinophils 0.3 % (0.0-10.0); %Lymphocytes 12.4 % (21.0-51.0); %Monocytes 7.1 % (0.0-10.0); %Neutrophils 79.5 % (42.0-75.0); Hemoglobin 7.6 g/dL (12.0-16.0); Mean Corpuscular HGB CONC 31.9 g/dL (32.0-36.0); Mean Corpuscular Hemoglobin 29.7 pg (27.0-31.0); Mean Corpuscular Volume 93.1 fL (78.0-98.0); Mean Platelet Volume 8.1 fL (7.4-10.4); Platelet Count 224 thou/uL (130-400); RBC Distribution Width 14.4 % (11.5-14.5); Red Blood Cell (RBC) Count 2.55 mill/uL (4.20-5.40); White Blood Cell (WBC) Count 4.8 thou/uL (4.8-10.8)
[2020-01-26 06:01] LABS: Anion Gap 15 mmol/L (10-20); BUN (Urea Nitrogen) 37 mg/dL (9.8-20.1); Calc. Creatinine Clearance 0 mL/min (70-130); Calcium 8.1 mg/dL (7.8-10.44); Carbon Dioxide 29 mmol/L (23-31); Chloride 91 mmol/L (98-107); Glucose 125 mg/dL (83-110); Potassium 4.8 mmol/L (3.5-5.1); Sodium 130 mmol/L (136-145)
[2020-01-26] MEDS: Mometasone Furoate 120 PUFF 220 MCG INH SCH ×2 (06:17→17:40)
[2020-01-26] MEDS: Levothyroxine Sodium 25 MCG TAB PO SCH (06:18)
[2020-01-26] MEDS: Sevelamer Carbonate 800 MG TAB PO SCH ×3 (08:05→17:39)
[2020-01-26] MEDS: Ketorolac Tromethamine 0.5% Ophth Soln 3 ml Bottle R EYE SCH ×3 (08:06→19:55)
[2020-01-26] MEDS: prednisoLONE 1% Ophth Susp 5 ml Bottle EA EYE SCH (08:06)
[2020-01-26] MEDS: Diclofenac 1% 100 GM GEL TP SCH ×3 (08:07→19:52)
--- NOTE | 2020-01-26 08:25 | PRG ---
DATE OF SERVICE: 01/26/2020 SUBJECTIVE: The patient is on COVID-19 isolation. OBJECTIVE: VITAL SIGNS: Temperature 98.2, pulse 95, respiratory rate 18, and blood pressure 122/61. LABORATORY DATA: Potassium 4.8, sodium 130, BUN is 37, and creatinine is 3.89. ASSESSMENT AND PLAN: 1. End-stage renal disease. Continue dialysis Wednesday, Wednesday, and Wednesday. 2. Acute hypoxic respiratory failure. 3. COVID-19 infection. 4. Hypertension. 5. Anemia of chronic disease. 6. Hyponatremia. 7. Fluid overload. The patient was advised to limit fluid intake. We will continue dialysis as tolerated. Job ID: [id number]
[2020-01-26] MEDS: Acetaminophen 325 MG TAB PO PRN (12:30)
[2020-01-26] MEDS: Benzonatate 100 MG CAP PO SCH ×3 (13:26→19:54)
[2020-01-26] MEDS: Amiodarone 200 MG TAB PO SCH (13:26)
[2020-01-26] MEDS: Cholecalciferol 1,000 UNITS (25 MCG) TAB PO SCH (13:26)
[2020-01-26] MEDS: Furosemide 40 MG TAB PO SCH (13:27)
[2020-01-26] MEDS: guaiFENesin ER 600 MG TAB PO SCH (13:27)
[2020-01-26] MEDS: Dexamethasone 4 MG TAB PO SCH (13:27)
[2020-01-26] MEDS: Escitalopram Oxalate 10 mg Tablet PO SCH (13:27)
[2020-01-26] MEDS: Docusate 100 MG CAP PO SCH ×2 (13:27→19:54)
[2020-01-26] MEDS: Folic Acid 1 MG TAB PO SCH (13:27)
[2020-01-26] MEDS: Senokot 8.6 MG TAB PO SCH (13:28)
[2020-01-26] MEDS: Heparin 5,000 UNITS/ML VIAL SC SCH ×3 (13:28→19:56)
[2020-01-26] MEDS: Pantoprazole 40 MG GRANULES PACKET PO SCH ×2 (13:28→19:55)
[2020-01-26] MEDS: Zinc Sulfate 220 MG CAP PO SCH (13:28)
[2020-01-26] MEDS: Lidocaine-Prilocaine 2.5% Cream 5 GM TUBE TOP PRN (13:30)
--- NOTE | 2020-01-26 16:51 | PDOC.HOSPP ---
- Subjective Encounter Date: 01/26/20 Subjective: The patient is tolerating dialysis. She is requiring more oxygen through high flow nasal cannula today. - Objective Vital Signs & Weight: Vital Signs (12 hours) Pulse Pulse Pulse Resp BP BP BP 01/26/20 15:41 01/26/20 13:25 85 82 120/61 131/60 01/26/20 08:37 97 20 175/79 H 01/26/20 06:17 95 18 Pulse Ox Pulse Ox Pulse Ox 01/26/20 15:41 94 L 01/26/20 13:25 92 L 92 L 01/26/20 08:37 96 01/26/20 06:17 98 Weight Admit Weight 190 lb Weight 6.85 oz I&O: 01/25/20 01/26/20 01/27/20 06:59 06:59 06:59 Intake Total 1227 480 480 Output Total 2004 0 2500 Balance -778 480 Result Diagrams: 01/26/20 05:23 01/26/20 05:23 Additional Labs: Accuchecks 01/25/20 01/25/20 20:28 11:07 POC Glucose 227 H 119 H Hospitalist ROS - Medication Medications: Active Medications Generic Name Dose Route Start Last Admin Trade Name Freq PRN Reason Stop Dose Admin Acetaminophen 650 mg 01/04/20 14:24 01/26/20 12:30 Acetaminophen 325 Mg Tab PO 650 mg Q4H PRN Administration Headache/Fever/Mild Pain (1-3) Albuterol/Ipratropium 0 gm 01/06/20 10:32 01/19/20 06:47 Ipratropium/Albuterol Sulfate 4 Gm Aer IH 2 inh Q4H PRN Administration Dyspnea/Wheezing/SOB Amiodarone HCl 200 mg 01/06/20 09:00 01/26/20 13:26 Amiodarone 200 Mg Tab PO 200 mg DAILY ADAM Administration Atorvastatin Calcium 20 mg 01/06/20 21:00 01/25/20 20:18 Atorvastatin Calcium 20 Mg Tab PO 20 mg HS ADAM Administration Benzonatate 100 mg 01/05/20 15:00 01/26/20 13:29 Benzonatate 100 Mg Cap PO 100 mg TID ADAM Administration Cholecalciferol 5,000 units 01/07/20 09:00 01/26/20 13:26 Cholecalciferol 1,000 Units (25 Mcg) Tab PO 5,000 units DAILY ADAM Administration Dexamethasone 6 mg 01/26/20 09:00 01/26/20 13:27 Dexamethasone 4 Mg Tab PO 6 mg QAM ADAM Administration Diclofenac Sodium 4 gm 01/06/20 15:00 01/26/20 08:07 Diclofenac 1% 100 Gm Gel TP 4 gm TID ADAM Administration Docusate Sodium 100 mg 01/06/20 21:00 01/26/20 13:27 Docusate 100 Mg Cap PO 100 mg BID ADAM Administration Epoetin Rome-epbx 10,000 unit 01/15/20 10:46 01/24/20 19:55 Epoetin [place]-Epbx (Esrd) 10,000 Unit/Ml Vial IVP 10,000 unit MoWeFr ADAM Administration Escitalopram Oxalate 10 mg 01/06/20 09:00 01/26/20 13:27 Escitalopram Oxalate 10 Mg Tablet PO 10 mg DAILY ADAM Administration Folic Acid 1 mg 01/07/20 09:00 01/26/20 13:27 Folic Acid 1 Mg Tab PO 1 mg DAILY ADAM Administration Furosemide 40 mg 01/07/20 09:00 01/26/20 13:27 Furosemide 40 Mg Tab PO 40 mg DAILY ADAM Administration Guaifenesin 600 mg 01/07/20 09:00 01/26/20 13:27 Guaifenesin Er 600 Mg Tab PO 600 mg DAILY ADAM Administration Guaifenesin/Dextromethorphan 10 ml 01/06/20 09:06 01/25/20 13:32 Guaifenesin Dm 100-10/5 Ml Udcup PO 10 ml PRN PRN Administration Cough Heparin Sodium (Porcine) 5,000 units 01/24/20 15:00 01/26/20 13:28 Heparin 5,000 Units/Ml Vial SC 5,000 units TID ADAM Administration Insulin Human Lispro 0 units 01/14/20 08:01 01/24/20 18:38 Humalog 300 Units/3 Ml Vial SC 3 unit .MILD SLIDING SCALE PRN Administration Mild Correctional Scale Insulin Human Lispro 0 units 01/21/20 20:48 01/24/20 20:08 Humalog 300 Units/3 Ml Vial SC 3 unit .BEDTIME SLIDING SC PRN Administration Bedtime Correctional Scale Ketorolac Tromethamine 1 drop 01/06/20 15:00 01/26/20 08:06 Ketorolac Tromethamine 0.5% Ophth Soln 3 Ml Bottle R EYE 1 drop TID ADAM Administration Levothyroxine Sodium 50 mcg 01/06/20 06:00 01/26/20 06:18 Levothyroxine Sodium 25 Mcg Tab PO 50 mcg 0600 ADAM Administration Lidocaine/Prilocaine 1 gm 01/06/20 10:26 01/26/20 13:30 Lidocaine-Prilocaine 2.5% Cream 5 Gm Tube TOP 1 gm PRN PRN Administration Pain/IV STARTS Mometasone Furoate 1 puff 01/10/20 18:30 01/26/20 06:17 Mometasone Furoate 120 Puff 220 Mcg INH 1 puff BID-RT ADAM Administration Ondansetron HCl 4 mg 01/04/20 14:24 01/22/20 22:08 Ondansetron Pf 4 Mg/2 Ml Vial IVP 4 mg Q6H PRN Administration Nausea/Vomiting Pantoprazole Sodium 40 mg 01/24/20 21:00 01/26/20 13:28 Pantoprazole 40 Mg Granules Packet PO 40 mg BID ADAM Administration Prednisolone Acetate 1 drop 01/07/20 09:00 01/26/20 08:06 Prednisolone 1% Ophth Susp 5 Ml Bottle EA EYE 1 drop DAILY ADAM Administration Senna 2 tab 01/07/20 09:00 01/26/20 13:28 Senokot 8.6 Mg Tab PO 2 tab DAILY ADAM Administration Sevelamer Carbonate 800 mg 01/06/20 12:00 01/26/20 12:30 Sevelamer Carbonate 800 Mg Tab PO 800 mg TID-WM ADAM Administration Sodium Chloride 10 ml 01/15/20 09:00 01/26/20 08:07 Flush - Normal Saline 10 Ml Syringe IVF Not Given Q12HR ADAM Sodium Chloride 10 ml 01/15/20 08:00 01/19/20 16:12 Flush - Normal Saline 10 Ml Syringe IVF 10 ml PRN PRN Administration Saline Flush Temazepam 15 mg 01/17/20 23:41 01/25/20 20:18 Temazepam 15 Mg Cap PO 15 mg HSPRN PRN Administration Insomnia Zinc Sulfate 220 mg 01/07/20 09:00 01/26/20 13:28 Zinc Sulfate 220 Mg Cap PO 220 mg DAILY ADAM Administration - Exam General Appearance: awake alert ENT: normocephalic atraumatic Neck: supple, no JVD Heart: RRR Respiratory: normal chest expansion, no tachypnea Gastrointestinal: soft Extremities: no cyanosis, no clubbing Hosp A/P (1) Acute respiratory failure with hypoxia Code(s): J96.01 - ACUTE RESPIRATORY FAILURE WITH HYPOXIA Status: Acute (2) Physical deconditioning Code(s): R53.81 - OTHER MALAISE Status: Acute (3) Pneumonia due to COVID-19 virus Code(s): U07.1 - COVID-19; J12.89 - OTHER VIRAL PNEUMONIA Status: Acute (4) Atrial fibrillation Code(s): I48.91 - UNSPECIFIED ATRIAL FIBRILLATION Status: Chronic Qualifiers: Atrial fibrillation type: paroxysmal Qualified Code(s): I48.0 - Paroxysmal atrial fibrillation (5) ESRD (end stage renal disease) on dialysis Code(s): N18.6 - END STAGE RENAL DISEASE; Z99.2 - DEPENDENCE ON RENAL DIALYSIS Status: Chronic (6) Hypertension Code(s): I10 - ESSENTIAL (PRIMARY) HYPERTENSION Status: Chronic Qualifiers: Hypertension type: essential hypertension Qualified Code(s): I10 - Essential (primary) hypertension - Plan This is an 84-year-old female patient with a history of hypertension, ESRD, gout and recent recurrent falls admitted on account of Covid pneumonia. Her oxygenation gradually deteriorated until she peaked at requiring 80% FiO2. Since then we have been gradually improving especially after her dialysis days. FiO2 was down to 50% yesterday but she is requiring a bit more today. Continue management with dexamethasone. DVT prophylaxis has been restarted due to elevated D-dimer and high risk of thrombosis with COVID-19. No further episodes of bleeding. The patient was having black tarry stools early in her presentation and she was not deemed to be stable enough for endoscopic evaluation. Continue PPI. Dialysis per nephrology.
[2020-01-26] MEDS: Atorvastatin Calcium 20 MG TAB PO SCH (19:54)
[2020-01-26] MEDS: Temazepam 15 MG CAP PO PRN (19:54)
[2020-01-26] MEDS: EPOETIN ALFA-EPBX (ESRD) 10,000 UNIT/ML VIAL IVP SCH (22:17)
[2020-01-27] MEDS: HYDROcodone/Acetaminophen 10/325 mg Tablet PO SCH ×6 (03:05→21:21)
[2020-01-27 05:18] LABS: #Lymphocytes 0.6 thou/uL (1.20-3.40); #Monocytes 0.3 thou/uL (0.11-0.59); #Neutrophils 6.3 thou/uL (1.40-6.50); %Basophils 0.1 % (0.0-1.0); %Eosinophils 0.1 % (0.0-10.0); %Lymphocytes 8.1 % (21.0-51.0); %Neutrophils 87.8 % (42.0-75.0); Hemoglobin 8.2 g/dL (12.0-16.0); Mean Corpuscular HGB CONC 31.5 g/dL (32.0-36.0); Mean Corpuscular Hemoglobin 29.3 pg (27.0-31.0); Mean Platelet Volume 8.1 fL (7.4-10.4); Platelet Count 253 thou/uL (130-400); RBC Distribution Width 14.9 % (11.5-14.5); Red Blood Cell (RBC) Count 2.79 mill/uL (4.20-5.40); White Blood Cell (WBC) Count 7.2 thou/uL (4.8-10.8)
[2020-01-27 05:39] LABS: Anion Gap 15 mmol/L (10-20); BUN (Urea Nitrogen) 22 mg/dL (9.8-20.1); Calc. Creatinine Clearance 0 mL/min (70-130); Calcium 8.3 mg/dL (7.8-10.44); Carbon Dioxide 28 mmol/L (23-31); Chloride 97 mmol/L (98-107); Glucose 152 mg/dL (83-110); Sodium 136 mmol/L (136-145)
[2020-01-27] MEDS: Levothyroxine Sodium 25 MCG TAB PO SCH (06:30)
[2020-01-27] MEDS: Mometasone Furoate 120 PUFF 220 MCG INH SCH ×2 (06:31→16:59)
[2020-01-27] MEDS: Cholecalciferol 1,000 UNITS (25 MCG) TAB PO SCH (07:50)
[2020-01-27] MEDS: Senokot 8.6 MG TAB PO SCH (07:51)
[2020-01-27] MEDS: Dexamethasone 4 MG TAB PO SCH (07:51)
[2020-01-27] MEDS: Heparin 5,000 UNITS/ML VIAL SC SCH ×3 (07:51→21:25)
[2020-01-27] MEDS: Zinc Sulfate 220 MG CAP PO SCH (07:51)
[2020-01-27] MEDS: Escitalopram Oxalate 10 mg Tablet PO SCH (07:51)
[2020-01-27] MEDS: Folic Acid 1 MG TAB PO SCH (07:52)
[2020-01-27] MEDS: Furosemide 40 MG TAB PO SCH (07:52)
[2020-01-27] MEDS: Benzonatate 100 MG CAP PO SCH ×3 (07:52→21:26)
[2020-01-27] MEDS: guaiFENesin ER 600 MG TAB PO SCH (07:52)
[2020-01-27] MEDS: Docusate 100 MG CAP PO SCH ×2 (07:52→21:24)
[2020-01-27] MEDS: Sevelamer Carbonate 800 MG TAB PO SCH ×3 (07:52→16:58)
[2020-01-27] MEDS: Pantoprazole 40 MG GRANULES PACKET PO SCH ×2 (07:52→21:23)
[2020-01-27] MEDS: Ketorolac Tromethamine 0.5% Ophth Soln 3 ml Bottle R EYE SCH ×3 (07:53→21:24)
[2020-01-27] MEDS: Amiodarone 200 MG TAB PO SCH (07:53)
[2020-01-27] MEDS: Diclofenac 1% 100 GM GEL TP SCH ×3 (07:53→21:26)
[2020-01-27] MEDS: prednisoLONE 1% Ophth Susp 5 ml Bottle EA EYE SCH (07:55)
--- NOTE | 2020-01-27 14:35 | PDOC.HOSPP ---
- Subjective Subjective: Patient remains on high flow nasal cannula with the rate of 40, and FiO2 of 67%. No other acute events overnight. - Objective Vital Signs & Weight: Vital Signs (12 hours) Temp Pulse Resp BP BP Pulse Ox 01/27/20 10:45 97.6 F 96 20 134/94 H 100 01/27/20 08:05 98.1 F 100 20 167/77 H 99 01/27/20 03:32 100 01/27/20 03:25 97.7 F 99 20 167/90 H 100 Weight Admit Weight 190 lb Weight 6.85 oz I&O: 01/26/20 01/27/20 01/28/20 06:59 06:59 06:59 Intake Total 480 960 Output Total 0 2500 Balance 480 -1540 Result Diagrams: 01/27/20 04:59 01/27/20 04:59 Additional Labs: Accuchecks 01/26/20 01/26/20 20:04 16:50 POC Glucose 208 H 189 H Radiology Reviewed by me: Yes EKG Reviewed by me: Yes Hospitalist ROS - Medication Medications: Active Medications Generic Name Dose Route Start Last Admin Trade Name Freq PRN Reason Stop Dose Admin Acetaminophen 650 mg 01/04/20 14:24 01/26/20 12:30 Acetaminophen 325 Mg Tab PO 650 mg Q4H PRN Administration Headache/Fever/Mild Pain (1-3) Hydrocodone Bitart/Acetaminophen 1 tab 01/26/20 21:00 01/27/20 12:10 Hydrocodone/Acetaminophen 10/325 Mg Tablet PO 1 tab Q4HR ADAM Administration Albuterol/Ipratropium 0 gm 01/06/20 10:32 01/19/20 06:47 Ipratropium/Albuterol Sulfate 4 Gm Aer IH 2 inh Q4H PRN Administration Dyspnea/Wheezing/SOB Amiodarone HCl 200 mg 01/06/20 09:00 01/27/20 07:53 Amiodarone 200 Mg Tab PO 200 mg DAILY ADAM Administration Atorvastatin Calcium 20 mg 01/06/20 21:00 01/26/20 19:54 Atorvastatin Calcium 20 Mg Tab PO 20 mg HS ADAM Administration Benzonatate 100 mg 01/05/20 15:00 01/27/20 07:52 Benzonatate 100 Mg Cap PO 100 mg TID ADAM Administration Cholecalciferol 5,000 units 01/07/20 09:00 01/27/20 07:50 Cholecalciferol 1,000 Units (25 Mcg) Tab PO 5,000 units DAILY ADAM Administration Dexamethasone 6 mg 01/26/20 09:00 01/27/20 07:51 Dexamethasone 4 Mg Tab PO 6 mg QAM ADAM Administration Diclofenac Sodium 4 gm 01/06/20 15:00 01/27/20 07:53 Diclofenac 1% 100 Gm Gel TP 4 gm TID ADAM Administration Docusate Sodium 100 mg 01/06/20 21:00 01/27/20 07:52 Docusate 100 Mg Cap PO 100 mg BID ADAM Administration Epoetin Rome-epbx 10,000 unit 01/15/20 10:46 01/26/20 22:17 Epoetin [place]-Epbx (Esrd) 10,000 Unit/Ml Vial IVP 10,000 unit MoWeFr ADAM Administration Escitalopram Oxalate 10 mg 01/06/20 09:00 01/27/20 07:51 Escitalopram Oxalate 10 Mg Tablet PO 10 mg DAILY ADAM Administration Folic Acid 1 mg 01/07/20 09:00 01/27/20 07:52 Folic Acid 1 Mg Tab PO 1 mg DAILY ADAM Administration Furosemide 40 mg 01/07/20 09:00 01/27/20 07:52 Furosemide 40 Mg Tab PO 40 mg DAILY ADAM Administration Guaifenesin 600 mg 01/07/20 09:00 01/27/20 07:52 Guaifenesin Er 600 Mg Tab PO 600 mg DAILY ADAM Administration Guaifenesin/Dextromethorphan 10 ml 01/06/20 09:06 01/25/20 13:32 Guaifenesin Dm 100-10/5 Ml Udcup PO 10 ml PRN PRN Administration Cough Heparin Sodium (Porcine) 5,000 units 01/24/20 15:00 01/27/20 07:51 Heparin 5,000 Units/Ml Vial SC 5,000 units TID ADAM Administration Insulin Human Lispro 0 units 01/14/20 08:01 01/24/20 18:38 Humalog 300 Units/3 Ml Vial SC 3 unit .MILD SLIDING SCALE PRN Administration Mild Correctional Scale Insulin Human Lispro 0 units 01/21/20 20:48 01/24/20 20:08 Humalog 300 Units/3 Ml Vial SC 3 unit .BEDTIME SLIDING SC PRN Administration Bedtime Correctional Scale Ketorolac Tromethamine 1 drop 01/06/20 15:00 01/27/20 07:53 Ketorolac Tromethamine 0.5% Ophth Soln 3 Ml Bottle R EYE 1 drop TID ADAM Administration Lactulose 20 gm 01/26/20 16:17 01/26/20 17:39 Lactulose 20 Gm/30 Ml Udcup PO 20 gm BID PRN Administration Constipation Levothyroxine Sodium 50 mcg 01/06/20 06:00 01/27/20 06:30 Levothyroxine Sodium 25 Mcg Tab PO 50 mcg 0600 ADAM Administration Lidocaine/Prilocaine 1 gm 01/06/20 10:26 01/26/20 13:30 Lidocaine-Prilocaine 2.5% Cream 5 Gm Tube TOP 1 gm PRN PRN Administration Pain/IV STARTS Mometasone Furoate 1 puff 01/10/20 18:30 01/27/20 06:31 Mometasone Furoate 120 Puff 220 Mcg INH 1 puff BID-RT ADAM Administration Ondansetron HCl 4 mg 01/04/20 14:24 01/22/20 22:08 Ondansetron Pf 4 Mg/2 Ml Vial IVP 4 mg Q6H PRN Administration Nausea/Vomiting Pantoprazole Sodium 40 mg 01/24/20 21:00 01/27/20 07:52 Pantoprazole 40 Mg Granules Packet PO 40 mg BID ADAM Administration Prednisolone Acetate 1 drop 01/07/20 09:00 01/27/20 07:55 Prednisolone 1% Ophth Susp 5 Ml Bottle EA EYE 1 drop DAILY ADAM Administration Senna 2 tab 01/07/20 09:00 01/27/20 07:51 Senokot 8.6 Mg Tab PO 2 tab DAILY ADAM Administration Sevelamer Carbonate 800 mg 01/06/20 12:00 01/27/20 12:10 Sevelamer Carbonate 800 Mg Tab PO 800 mg TID-WM ADAM Administration Sodium Chloride 10 ml 01/15/20 09:00 01/27/20 07:56 Flush - Normal Saline 10 Ml Syringe IVF 10 ml Q12HR ADAM Administration Sodium Chloride 10 ml 01/15/20 08:00 01/19/20 16:12 Flush - Normal Saline 10 Ml Syringe IVF 10 ml PRN PRN Administration Saline Flush Temazepam 15 mg 01/17/20 23:41 01/26/20 19:54 Temazepam 15 Mg Cap PO 15 mg HSPRN PRN Administration Insomnia Zinc Sulfate 220 mg 01/07/20 09:00 01/27/20 07:51 Zinc Sulfate 220 Mg Cap PO 220 mg DAILY ADAM Administration - Exam General Appearance: NAD Eye: PERRL ENT: normocephalic atraumatic Neck: supple Heart: RRR Respiratory: rhonchi Gastrointestinal: soft, non-tender Skin: normal turgor Neurological: cranial nerve grossly intact Musculoskeletal: normal tone Psychiatric: normal affect, normal behavior, A&O x 3 Hosp A/P - Plan The patient is a pleasant 84 years old female who has significant past medical history of ESRD on dialysis, hypothyroidism, dyslipidemia, hypertension who presented with SOB, she was tested positive for COVID on 01/01/2020: Acute hypoxic respiratory failure secondary to COVID-19 pneumonia --Status post convalescent plasma. Continue Decadron. Wean O2 as tolerated. Continue supportive cares. Not a candidate for remdesivir due to chronic kidney disease --cont Heparin sq TID for DVT ppx COVID-19 pneumonia --Management as above ESRD on dialysis --Continue dialysis as per nephrology on Wednesday/Wednesday/Wednesday Paroxysmal atrial fib --cont Amio, NSR Melena --not a candidate for endoscopic evaluation d/t above. --cont supportive cares. s/p transfusions. Follow H&H. Pt was restarted back on Heparin sq for DVT ppx --cont PPI Hypothyroidism --cont home med Dyslipidemia --cont statin Physical deconditioning --cont PT DVT ppx: Heparin subcu GI ppx: PPI Code Status: Full Anticipated Dispo: TBD
[2020-01-27] MEDS: Atorvastatin Calcium 20 MG TAB PO SCH (21:23)
[2020-01-27] MEDS: Temazepam 15 MG CAP PO PRN (21:24)
[2020-01-27] MEDS: Ondansetron ODT 4 MG TAB PO PRN (23:25)
[2020-01-27] MEDS: Acetaminophen 325 MG TAB PO PRN (23:25)
[2020-01-28] MEDS: HYDROcodone/Acetaminophen 10/325 mg Tablet PO SCH ×6 (02:54→21:09)
[2020-01-28 05:15] LABS: #Eosinphils 0.1 thou/uL (0.0-0.7); #Lymphocytes 1.2 thou/uL (1.20-3.40); #Monocytes 0.5 thou/uL (0.11-0.59); #Neutrophils 6.4 thou/uL (1.40-6.50); %Eosinophils 0.7 % (0.0-10.0); %Lymphocytes 14.3 % (21.0-51.0); %Monocytes 5.9 % (0.0-10.0); Hemoglobin 7.9 g/dL (12.0-16.0); Mean Corpuscular HGB CONC 31.8 g/dL (32.0-36.0); Mean Corpuscular Hemoglobin 30.2 pg (27.0-31.0); Mean Platelet Volume 8.2 fL (7.4-10.4); Platelet Count 260 thou/uL (130-400); White Blood Cell (WBC) Count 8.1 thou/uL (4.8-10.8)
[2020-01-28 05:27] LABS: Anion Gap 15 mmol/L (10-20); BUN (Urea Nitrogen) 34 mg/dL (9.8-20.1); CRP (Inflammatory) 1.62 mg/dL (= or < 0.5); Calc. Creatinine Clearance 0 mL/min (70-130); Calcium 8.2 mg/dL (7.8-10.44); Carbon Dioxide 28 mmol/L (23-31); Chloride 94 mmol/L (98-107); Glucose 109 mg/dL (83-110); Sodium 133 mmol/L (136-145)
--- NOTE | 2020-01-28 05:43 | PRG ---
DATE OF SERVICE: 01/27/2020 SUBJECTIVE: The patient on COVID isolation. OBJECTIVE: VITAL SIGNS: Temperature 97.6, pulse 93, respiratory rate 20, blood pressure 134/94. LABORATORY DATA: Potassium 4.0, BUN is 22, creatinine is 2.6. ASSESSMENT AND PLAN: 1. End-stage renal disease. Continue hemodialysis. 2. Acute hypoxic respiratory failure. 3. COVID-19 infection. 4. Hypertension. 5. Anemia of chronic disease. 6. Hyponatremia. 7. Fluid overload. Labs are better. Continue dialysis Wednesday, Wednesday, and Wednesday. Might attempt to have extra dialysis on Wednesday, tomorrow, if needed for fluid removal. Job ID: [id number]
[2020-01-28] MEDS: Levothyroxine Sodium 25 MCG TAB PO SCH (06:19)
[2020-01-28] MEDS: Mometasone Furoate 120 PUFF 220 MCG INH SCH ×2 (06:19→17:58)
[2020-01-28] MEDS: Amiodarone 200 MG TAB PO SCH (09:01)
[2020-01-28] MEDS: Folic Acid 1 MG TAB PO SCH (09:01)
[2020-01-28] MEDS: guaiFENesin ER 600 MG TAB PO SCH (09:01)
[2020-01-28] MEDS: Sevelamer Carbonate 800 MG TAB PO SCH ×3 (09:01→15:58)
[2020-01-28] MEDS: Dexamethasone 4 MG TAB PO SCH (09:01)
[2020-01-28] MEDS: Docusate 100 MG CAP PO SCH ×2 (09:02→21:06)
[2020-01-28] MEDS: Furosemide 40 MG TAB PO SCH (09:02)
[2020-01-28] MEDS: Senokot 8.6 MG TAB PO SCH (09:02)
[2020-01-28] MEDS: Pantoprazole 40 MG GRANULES PACKET PO SCH ×2 (09:03→21:08)
[2020-01-28] MEDS: Cholecalciferol 1,000 UNITS (25 MCG) TAB PO SCH (09:04)
[2020-01-28] MEDS: Escitalopram Oxalate 10 mg Tablet PO SCH (09:04)
[2020-01-28] MEDS: Benzonatate 100 MG CAP PO SCH ×3 (09:04→21:06)
[2020-01-28] MEDS: Zinc Sulfate 220 MG CAP PO SCH (09:04)
[2020-01-28] MEDS: Heparin 5,000 UNITS/ML VIAL SC SCH ×3 (09:04→21:06)
[2020-01-28] MEDS: prednisoLONE 1% Ophth Susp 5 ml Bottle EA EYE SCH (09:52)
[2020-01-28] MEDS: Ketorolac Tromethamine 0.5% Ophth Soln 3 ml Bottle R EYE SCH ×3 (09:53→21:10)
[2020-01-28] MEDS: Diclofenac 1% 100 GM GEL TP SCH ×3 (09:53→21:10)
[2020-01-28] MEDS: HumaLOG 300 UNITS/3 ML VIAL SC PRN ×2 (13:15→16:09)
--- NOTE | 2020-01-28 14:49 | PRG ---
DATE OF SERVICE: 01/28/2020 SUBJECTIVE: The patient is on COVID isolation. OBJECTIVE: VITAL SIGNS: Temperature 97.6, pulse 92, respiratory rate 18, blood pressure 156/76. LABORATORY DATA: Potassium 4.0, sodium 133, BUN is 34, and creatinine 3.6. ASSESSMENT AND PLAN: 1. End-stage renal disease. Continue hemodialysis. 2. Acute hypoxic respiratory failure. 3. COVID-19 infection. 4. Hypertension. 5. Hyponatremia. 6. Fluid overload. 7. Patient was advised to limit fluid intake. We will continue dialysis as tolerated. Job ID: [id number]
--- NOTE | 2020-01-28 16:18 | PDOC.HOSPP ---
- Subjective Subjective: Patient was seen examined at bedside. Patient stated she is feeling better. She has been weaned down to rate of 40 with FiO2 of 60. Her CRP has been trended down. She still very dyspneic with minimal exertion while walking with PT. - Objective Vital Signs & Weight: Vital Signs (12 hours) Temp Pulse Resp BP BP Pulse Ox 01/28/20 11:58 97.8 F 92 18 156/72 H 99 01/28/20 09:30 97.8 F 101 H 16 138/71 100 01/28/20 04:55 98.0 F 72 17 126/73 100 01/28/20 04:45 99 Weight Admit Weight 190 lb Weight 6.85 oz I&O: 01/27/20 01/28/20 01/29/20 06:59 06:59 06:59 Intake Total 960 1450 Output Total 2500 Balance -1540 1450 Result Diagrams: 01/28/20 04:29 01/28/20 04:29 Additional Labs: Accuchecks 01/28/20 01/28/20 01/27/20 16:08 11:54 20:43 POC Glucose 199 H 190 H 168 H Hospitalist ROS - Medication Medications: Active Medications Generic Name Dose Route Start Last Admin Trade Name Freq PRN Reason Stop Dose Admin Acetaminophen 650 mg 01/04/20 14:24 01/27/20 23:25 Acetaminophen 325 Mg Tab PO 650 mg Q4H PRN Administration Headache/Fever/Mild Pain (1-3) Hydrocodone Bitart/Acetaminophen 1 tab 01/26/20 21:00 01/28/20 16:04 Hydrocodone/Acetaminophen 10/325 Mg Tablet PO 1 tab Q4HR ADAM Administration Albuterol/Ipratropium 0 gm 01/06/20 10:32 01/19/20 06:47 Ipratropium/Albuterol Sulfate 4 Gm Aer IH 2 inh Q4H PRN Administration Dyspnea/Wheezing/SOB Amiodarone HCl 200 mg 01/06/20 09:00 01/28/20 09:01 Amiodarone 200 Mg Tab PO 200 mg DAILY ADAM Administration Atorvastatin Calcium 20 mg 01/06/20 21:00 01/27/20 21:23 Atorvastatin Calcium 20 Mg Tab PO 20 mg HS ADAM Administration Benzonatate 100 mg 01/05/20 15:00 01/28/20 15:58 Benzonatate 100 Mg Cap PO 100 mg TID ADAM Administration Cholecalciferol 5,000 units 01/07/20 09:00 01/28/20 09:04 Cholecalciferol 1,000 Units (25 Mcg) Tab PO 5,000 units DAILY ADAM Administration Dexamethasone 6 mg 01/26/20 09:00 01/28/20 09:01 Dexamethasone 4 Mg Tab PO 6 mg QAM ADAM Administration Diclofenac Sodium 4 gm 01/06/20 15:00 01/28/20 09:53 Diclofenac 1% 100 Gm Gel TP 4 gm TID ADAM Administration Docusate Sodium 100 mg 01/06/20 21:00 01/28/20 09:02 Docusate 100 Mg Cap PO 100 mg BID ADAM Administration Epoetin Rome-epbx 10,000 unit 01/15/20 10:46 01/26/20 22:17 Epoetin [place]-Epbx (Esrd) 10,000 Unit/Ml Vial IVP 10,000 unit MoWeFr ADAM Administration Escitalopram Oxalate 10 mg 01/06/20 09:00 01/28/20 09:04 Escitalopram Oxalate 10 Mg Tablet PO 10 mg DAILY ADAM Administration Folic Acid 1 mg 01/07/20 09:00 01/28/20 09:01 Folic Acid 1 Mg Tab PO 1 mg DAILY ADAM Administration Furosemide 40 mg 01/07/20 09:00 01/28/20 09:02 Furosemide 40 Mg Tab PO 40 mg DAILY ADAM Administration Guaifenesin 600 mg 01/07/20 09:00 01/28/20 09:01 Guaifenesin Er 600 Mg Tab PO 600 mg DAILY ADAM Administration Guaifenesin/Dextromethorphan 10 ml 01/06/20 09:06 01/25/20 13:32 Guaifenesin Dm 100-10/5 Ml Udcup PO 10 ml PRN PRN Administration Cough Heparin Sodium (Porcine) 5,000 units 01/24/20 15:00 01/28/20 15:58 Heparin 5,000 Units/Ml Vial SC 5,000 units TID ADAM Administration Insulin Human Lispro 0 units 01/14/20 08:01 01/28/20 13:15 Humalog 300 Units/3 Ml Vial SC 2 unit .MILD SLIDING SCALE PRN Administration Mild Correctional Scale Insulin Human Lispro 0 units 01/21/20 20:48 01/24/20 20:08 Humalog 300 Units/3 Ml Vial SC 3 unit .BEDTIME SLIDING SC PRN Administration Bedtime Correctional Scale Ketorolac Tromethamine 1 drop 01/06/20 15:00 01/28/20 09:53 Ketorolac Tromethamine 0.5% Ophth Soln 3 Ml Bottle R EYE 1 drop TID ADAM Administration Lactulose 20 gm 01/26/20 16:17 01/26/20 17:39 Lactulose 20 Gm/30 Ml Udcup PO 20 gm BID PRN Administration Constipation Levothyroxine Sodium 50 mcg 01/06/20 06:00 01/28/20 06:19 Levothyroxine Sodium 25 Mcg Tab PO 50 mcg 0600 ADAM Administration Lidocaine/Prilocaine 1 gm 01/06/20 10:26 01/26/20 13:30 Lidocaine-Prilocaine 2.5% Cream 5 Gm Tube TOP 1 gm PRN PRN Administration Pain/IV STARTS Mometasone Furoate 1 puff 01/10/20 18:30 01/28/20 06:19 Mometasone Furoate 120 Puff 220 Mcg INH 1 puff BID-RT ADAM Administration Ondansetron HCl 4 mg 01/04/20 14:24 01/27/20 23:25 Ondansetron Odt 4 Mg Tab PO 4 mg Q6H PRN Administration Nausea/Vomiting Ondansetron HCl 4 mg 01/04/20 14:24 01/22/20 22:08 Ondansetron Pf 4 Mg/2 Ml Vial IVP 4 mg Q6H PRN Administration Nausea/Vomiting Pantoprazole Sodium 40 mg 01/24/20 21:00 01/28/20 09:03 Pantoprazole 40 Mg Granules Packet PO 40 mg BID ADAM Administration Prednisolone Acetate 1 drop 01/07/20 09:00 01/28/20 09:52 Prednisolone 1% Ophth Susp 5 Ml Bottle EA EYE 1 drop DAILY ADAM Administration Senna 2 tab 01/07/20 09:00 01/28/20 09:02 Senokot 8.6 Mg Tab PO 2 tab DAILY ADAM Administration Sevelamer Carbonate 800 mg 01/06/20 12:00 01/28/20 15:58 Sevelamer Carbonate 800 Mg Tab PO 800 mg TID-WM ADAM Administration Sodium Chloride 10 ml 01/15/20 09:00 01/28/20 09:07 Flush - Normal Saline 10 Ml Syringe IVF 10 ml Q12HR ADAM Administration Sodium Chloride 10 ml 01/15/20 08:00 01/19/20 16:12 Flush - Normal Saline 10 Ml Syringe IVF 10 ml PRN PRN Administration Saline Flush Zinc Sulfate 220 mg 01/07/20 09:00 01/28/20 09:04 Zinc Sulfate 220 Mg Cap PO 220 mg DAILY ADAM Administration - Exam General Appearance: NAD Eye: PERRL ENT: normocephalic atraumatic Neck: supple Heart: RRR, no murmur Respiratory: CTAB Gastrointestinal: soft, non-tender Extremities: no cyanosis Skin: normal turgor Neurological: cranial nerve grossly intact Musculoskeletal: normal tone Psychiatric: normal affect, normal behavior Hosp A/P - Plan The patient is a pleasant 84 years old female who has significant past medical history of ESRD on dialysis, hypothyroidism, dyslipidemia, hypertension who presented with SOB, she was tested positive for COVID on 01/01/2020: Acute hypoxic respiratory failure secondary to COVID-19 pneumonia --Status post convalescent plasma. Continue Decadron. Wean O2 as tolerated. Continue supportive cares. Not a candidate for remdesivir due to chronic kidney disease --cont Heparin sq TID for DVT ppx COVID-19 pneumonia --Management as above ESRD on dialysis --Continue dialysis as per nephrology on Wednesday/Wednesday/Wednesday Paroxysmal atrial fib --cont Amio, NSR Melena --not a candidate for endoscopic evaluation d/t above. --cont supportive cares. s/p transfusions. Follow H&H. Pt was restarted back on Heparin sq for DVT ppx --cont PPI Hypothyroidism --cont home med Dyslipidemia --cont statin Physical deconditioning --cont PT DVT ppx: Heparin subcu GI ppx: PPI Code Status: Full Anticipated Dispo: TBD
[2020-01-28] MEDS: Atorvastatin Calcium 20 MG TAB PO SCH (21:06)
[2020-01-28] MEDS: Temazepam 15 MG CAP PO PRN (22:28)
[2020-01-29] MEDS: HYDROcodone/Acetaminophen 10/325 mg Tablet PO SCH ×6 (01:01→20:48)
[2020-01-29 03:32] LABS: #Lymphocytes 0.8 thou/uL (1.20-3.40); #Monocytes 0.4 thou/uL (0.11-0.59); #Neutrophils 6.9 thou/uL (1.40-6.50); %Basophils 0.3 % (0.0-1.0); %Eosinophils 0.3 % (0.0-10.0); %Lymphocytes 9.9 % (21.0-51.0); %Monocytes 4.5 % (0.0-10.0); Hemoglobin 8.3 g/dL (12.0-16.0); Mean Corpuscular HGB CONC 31.9 g/dL (32.0-36.0); Mean Corpuscular Hemoglobin 30.4 pg (27.0-31.0); Mean Corpuscular Volume 95.4 fL (78.0-98.0); Mean Platelet Volume 8.4 fL (7.4-10.4); Platelet Count 273 thou/uL (130-400); Red Blood Cell (RBC) Count 2.72 mill/uL (4.20-5.40); White Blood Cell (WBC) Count 8.1 thou/uL (4.8-10.8)
[2020-01-29 03:51] LABS: Anion Gap 18 mmol/L (10-20); BUN (Urea Nitrogen) 46 mg/dL (9.8-20.1); CRP (Inflammatory) 1.67 mg/dL (= or < 0.5); Calc. Creatinine Clearance 14 mL/min (70-130); Calcium 8.4 mg/dL (7.8-10.44); Carbon Dioxide 26 mmol/L (23-31); Chloride 91 mmol/L (98-107); Glucose 129 mg/dL (83-110); Potassium 4.7 mmol/L (3.5-5.1); Sodium 130 mmol/L (136-145)
[2020-01-29] MEDS: Mometasone Furoate 120 PUFF 220 MCG INH SCH ×2 (05:15→18:18)
[2020-01-29] MEDS: Levothyroxine Sodium 25 MCG TAB PO SCH (05:15)
[2020-01-29] MEDS: prednisoLONE 1% Ophth Susp 5 ml Bottle EA EYE SCH (07:45)
[2020-01-29] MEDS: Diclofenac 1% 100 GM GEL TP SCH ×3 (07:46→20:51)
[2020-01-29] MEDS: Senokot 8.6 MG TAB PO SCH (07:47)
[2020-01-29] MEDS: Furosemide 40 MG TAB PO SCH (07:48)
[2020-01-29] MEDS: guaiFENesin ER 600 MG TAB PO SCH (07:48)
[2020-01-29] MEDS: Escitalopram Oxalate 10 mg Tablet PO SCH (07:48)
[2020-01-29] MEDS: Folic Acid 1 MG TAB PO SCH (07:48)
[2020-01-29] MEDS: Sevelamer Carbonate 800 MG TAB PO SCH ×3 (07:48→18:18)
[2020-01-29] MEDS: Cholecalciferol 1,000 UNITS (25 MCG) TAB PO SCH (07:48)
[2020-01-29] MEDS: Docusate 100 MG CAP PO SCH ×2 (07:48→20:48)
[2020-01-29] MEDS: Zinc Sulfate 220 MG CAP PO SCH (07:49)
[2020-01-29] MEDS: Pantoprazole 40 MG GRANULES PACKET PO SCH ×2 (07:49→20:49)
[2020-01-29] MEDS: Amiodarone 200 MG TAB PO SCH (07:49)
[2020-01-29] MEDS: Benzonatate 100 MG CAP PO SCH ×3 (07:49→20:47)
[2020-01-29] MEDS: Dexamethasone 4 MG TAB PO SCH (07:50)
[2020-01-29] MEDS: Heparin 5,000 UNITS/ML VIAL SC SCH ×3 (07:52→20:46)
[2020-01-29] MEDS: Ketorolac Tromethamine 0.5% Ophth Soln 3 ml Bottle R EYE SCH ×3 (07:53→20:51)
--- NOTE | 2020-01-29 10:49 | PRG ---
DATE OF SERVICE: 01/29/2020 SUBJECTIVE: The patient is in COVID isolation. OBJECTIVE: VITAL SIGNS: Temperature 98.1, pulse 72, respiratory rate 18, blood pressure 160/85. LABORATORY DATA: Potassium 4.7, BUN is 46, creatinine is 4.7. ASSESSMENT AND PLAN: 1. End-stage renal disease. Continue dialysis Wednesday, Wednesday, and Wednesday. 2. Acute hypoxic respiratory failure. 3. COVID-19. 4. Hypertension. 5. Hyponatremia. 6. Fluid overload. Plan to have dialysis as tolerated. Job ID: [id number]
[2020-01-29] MEDS: EPOETIN ALFA-EPBX (ESRD) 10,000 UNIT/ML VIAL IVP SCH (12:07)
--- NOTE | 2020-01-29 16:12 | PDOC.HOSPP ---
- Subjective Subjective: Patient was seen examined at bedside. No acute events overnight. No change in her oxygen requirement, patient remains on high flow. She is being dialyzed today. - Objective Vital Signs & Weight: Vital Signs (12 hours) Temp Pulse Resp BP BP Pulse Ox 01/29/20 10:39 81 20 127/71 100 01/29/20 08:00 98.1 F 70 14 160/85 H 100 01/29/20 04:11 97.7 F 84 22 H 164/104 H 100 Weight Admit Weight 190 lb Weight 205 lb 9.6 oz I&O: 01/28/20 01/29/20 01/30/20 06:59 06:59 06:59 Intake Total 1450 940 Balance 1450 940 Result Diagrams: 01/29/20 02:47 01/29/20 02:47 Additional Labs: Accuchecks 01/29/20 01/28/20 01/28/20 10:35 20:35 16:08 POC Glucose 156 H 143 H 199 H 01/27/20 10:34 POC Glucose 118 H Radiology Reviewed by me: Yes Hospitalist ROS - Medication Medications: Active Medications Generic Name Dose Route Start Last Admin Trade Name Freq PRN Reason Stop Dose Admin Acetaminophen 650 mg 01/04/20 14:24 01/27/20 23:25 Acetaminophen 325 Mg Tab PO 650 mg Q4H PRN Administration Headache/Fever/Mild Pain (1-3) Hydrocodone Bitart/Acetaminophen 1 tab 01/26/20 21:00 01/29/20 13:49 Hydrocodone/Acetaminophen 10/325 Mg Tablet PO 1 tab Q4HR ADAM Administration Albuterol/Ipratropium 0 gm 01/06/20 10:32 01/19/20 06:47 Ipratropium/Albuterol Sulfate 4 Gm Aer IH 2 inh Q4H PRN Administration Dyspnea/Wheezing/SOB Amiodarone HCl 200 mg 01/06/20 09:00 01/29/20 07:49 Amiodarone 200 Mg Tab PO 200 mg DAILY ADAM Administration Atorvastatin Calcium 20 mg 01/06/20 21:00 01/28/20 21:06 Atorvastatin Calcium 20 Mg Tab PO 20 mg HS ADAM Administration Benzonatate 100 mg 01/05/20 15:00 01/29/20 13:49 Benzonatate 100 Mg Cap PO 100 mg TID ADAM Administration Cholecalciferol 5,000 units 01/07/20 09:00 01/29/20 07:48 Cholecalciferol 1,000 Units (25 Mcg) Tab PO 5,000 units DAILY ADAM Administration Dexamethasone 6 mg 01/26/20 09:00 01/29/20 07:50 Dexamethasone 4 Mg Tab PO 6 mg QAM ADAM Administration Diclofenac Sodium 4 gm 01/06/20 15:00 01/29/20 13:52 Diclofenac 1% 100 Gm Gel TP 4 gm TID ADAM Administration Docusate Sodium 100 mg 01/06/20 21:00 01/29/20 07:48 Docusate 100 Mg Cap PO 100 mg BID ADAM Administration Epoetin Rome-epbx 10,000 unit 01/15/20 10:46 01/29/20 12:07 Epoetin [place]-Epbx (Esrd) 10,000 Unit/Ml Vial IVP 10,000 unit MoWeFr ADAM Administration Escitalopram Oxalate 10 mg 01/06/20 09:00 01/29/20 07:48 Escitalopram Oxalate 10 Mg Tablet PO 10 mg DAILY ADAM Administration Folic Acid 1 mg 01/07/20 09:00 01/29/20 07:48 Folic Acid 1 Mg Tab PO 1 mg DAILY ADAM Administration Furosemide 40 mg 01/07/20 09:00 01/29/20 07:48 Furosemide 40 Mg Tab PO 40 mg DAILY ADAM Administration Guaifenesin 600 mg 01/07/20 09:00 01/29/20 07:48 Guaifenesin Er 600 Mg Tab PO 600 mg DAILY ADAM Administration Guaifenesin/Dextromethorphan 10 ml 01/06/20 09:06 01/25/20 13:32 Guaifenesin Dm 100-10/5 Ml Udcup PO 10 ml PRN PRN Administration Cough Heparin Sodium (Porcine) 5,000 units 01/24/20 15:00 01/29/20 13:49 Heparin 5,000 Units/Ml Vial SC 5,000 units TID ADAM Administration Insulin Human Lispro 0 units 01/14/20 08:01 01/28/20 16:09 Humalog 300 Units/3 Ml Vial SC 2 unit .MILD SLIDING SCALE PRN Administration Mild Correctional Scale Insulin Human Lispro 0 units 01/21/20 20:48 01/24/20 20:08 Humalog 300 Units/3 Ml Vial SC 3 unit .BEDTIME SLIDING SC PRN Administration Bedtime Correctional Scale Ketorolac Tromethamine 1 drop 01/06/20 15:00 01/29/20 13:53 Ketorolac Tromethamine 0.5% Ophth Soln 3 Ml Bottle R EYE 1 drop TID ADAM Administration Labetalol HCl 10 mg 01/14/20 16:51 01/28/20 23:58 Labetalol Hcl 100 Mg/20 Ml Vial SLOW IVP 10 mg Q4H PRN Administration SBP Greater Than 180 Lactulose 20 gm 01/26/20 16:17 01/26/20 17:39 Lactulose 20 Gm/30 Ml Udcup PO 20 gm BID PRN Administration Constipation Levothyroxine Sodium 50 mcg 01/06/20 06:00 01/29/20 05:15 Levothyroxine Sodium 25 Mcg Tab PO 50 mcg 0600 ADAM Administration Lidocaine/Prilocaine 1 gm 01/06/20 10:26 01/26/20 13:30 Lidocaine-Prilocaine 2.5% Cream 5 Gm Tube TOP 1 gm PRN PRN Administration Pain/IV STARTS Mometasone Furoate 1 puff 01/10/20 18:30 01/29/20 05:15 Mometasone Furoate 120 Puff 220 Mcg INH 1 puff BID-RT ADAM Administration Ondansetron HCl 4 mg 01/04/20 14:24 01/27/20 23:25 Ondansetron Odt 4 Mg Tab PO 4 mg Q6H PRN Administration Nausea/Vomiting Ondansetron HCl 4 mg 01/04/20 14:24 01/22/20 22:08 Ondansetron Pf 4 Mg/2 Ml Vial IVP 4 mg Q6H PRN Administration Nausea/Vomiting Pantoprazole Sodium 40 mg 01/24/20 21:00 01/29/20 07:49 Pantoprazole 40 Mg Granules Packet PO 40 mg BID ADAM Administration Prednisolone Acetate 1 drop 01/07/20 09:00 01/29/20 07:45 Prednisolone 1% Ophth Susp 5 Ml Bottle EA EYE 1 drop DAILY ADAM Administration Senna 2 tab 01/07/20 09:00 01/29/20 07:47 Senokot 8.6 Mg Tab PO 2 tab DAILY ADAM Administration Sevelamer Carbonate 800 mg 01/06/20 12:00 01/29/20 13:49 Sevelamer Carbonate 800 Mg Tab PO 800 mg TID-WM ADAM Administration Sodium Chloride 10 ml 01/15/20 09:00 01/29/20 07:47 Flush - Normal Saline 10 Ml Syringe IVF 10 ml Q12HR ADAM Administration Sodium Chloride 10 ml 01/15/20 08:00 01/28/20 23:58 Flush - Normal Saline 10 Ml Syringe IVF 10 ml PRN PRN Administration Saline Flush Temazepam 15 mg 01/28/20 20:00 01/28/20 22:28 Temazepam 15 Mg Cap PO 01/30/20 20:01 15 mg HSPRN PRN Administration Insomnia Zinc Sulfate 220 mg 01/07/20 09:00 01/29/20 07:49 Zinc Sulfate 220 Mg Cap PO 220 mg DAILY ADAM Administration - Exam General Appearance: NAD Eye: PERRL ENT: normocephalic atraumatic Neck: supple Heart: RRR, no murmur Respiratory: rhonchi Gastrointestinal: soft, non-tender Extremities: no cyanosis Skin: normal turgor Neurological: cranial nerve grossly intact Psychiatric: normal affect, normal behavior, A&O x 3 Hosp A/P - Plan The patient is a pleasant 84 years old female who has significant past medical history of ESRD on dialysis, hypothyroidism, dyslipidemia, hypertension who presented with SOB, she was tested positive for COVID on 01/01/2020: Acute hypoxic respiratory failure secondary to COVID-19 pneumonia --Status post convalescent plasma. Continue Decadron. Wean O2 as tolerated. Continue supportive cares. Not a candidate for remdesivir due to chronic kidney disease --cont Heparin sq TID for DVT ppx COVID-19 pneumonia --Management as above ESRD on dialysis --Continue dialysis as per nephrology on Wednesday/Wednesday/Wednesday Paroxysmal atrial fib --cont Amio, NSR Melena --not a candidate for endoscopic evaluation d/t above. --cont supportive cares. s/p transfusions. Follow H&H. Pt was restarted back on Heparin sq for DVT ppx --cont PPI Hypothyroidism --cont home med Dyslipidemia --cont statin Physical deconditioning --cont PT DVT ppx: Heparin subcu GI ppx: PPI Code Status: Full Anticipated Dispo: TBD
[2020-01-29] MEDS: Atorvastatin Calcium 20 MG TAB PO SCH (20:47)
[2020-01-29] MEDS: Temazepam 15 MG CAP PO PRN (23:24)
[2020-01-30] MEDS: HYDROcodone/Acetaminophen 10/325 mg Tablet PO SCH ×6 (03:18→21:02)
[2020-01-30 05:14] LABS: #Eosinphils 0.1 thou/uL (0.0-0.7); #Lymphocytes 1.2 thou/uL (1.20-3.40); #Monocytes 0.4 thou/uL (0.11-0.59); %Eosinophils 0.8 % (0.0-10.0); %Lymphocytes 15.3 % (21.0-51.0); %Monocytes 5.4 % (0.0-10.0); %Neutrophils 78.5 % (42.0-75.0); Hemoglobin 8.9 g/dL (12.0-16.0); Mean Corpuscular HGB CONC 30.5 g/dL (32.0-36.0); Mean Corpuscular Hemoglobin 29.6 pg (27.0-31.0); Mean Corpuscular Volume 97.1 fL (78.0-98.0); Mean Platelet Volume 8.1 fL (7.4-10.4); Platelet Count 276 thou/uL (130-400); RBC Distribution Width 15.5 % (11.5-14.5); Red Blood Cell (RBC) Count 2.99 mill/uL (4.20-5.40); White Blood Cell (WBC) Count 7.7 thou/uL (4.8-10.8)
[2020-01-30 05:36] LABS: Anion Gap 16 mmol/L (10-20); BUN (Urea Nitrogen) 25 mg/dL (9.8-20.1); CRP (Inflammatory) 1.49 mg/dL (= or < 0.5); Calc. Creatinine Clearance 20 mL/min (70-130); Calcium 8.4 mg/dL (7.8-10.44); Carbon Dioxide 28 mmol/L (23-31); Chloride 94 mmol/L (98-107); Glucose 113 mg/dL (83-110); Sodium 134 mmol/L (136-145)
[2020-01-30] MEDS: Levothyroxine Sodium 25 MCG TAB PO SCH (05:57)
[2020-01-30] MEDS: Mometasone Furoate 120 PUFF 220 MCG INH SCH ×2 (06:09→18:36)
--- NOTE | 2020-01-30 07:48 | RAD ---
Portable frontal chest radiograph: 01/30/2020 COMPARISON: 01/21/2020 HISTORY: Respiratory failure FINDINGS: There is extensive pulmonary parenchymal opacity bilaterally, which has worsened since the 01/21/2020 exam. There is diffuse prominent airspace disease/consolidation with a perihilar and bibasilar predominance. New opacities are seen in the upper lobes and the perihilar and basilar opaci ties have worsened. There is atherosclerotic calcification of the aortic arch. IMPRESSION: Diffuse interstitial and alveolar opacity with multi focal consolidation, significantly w orsened since the prior exam.
[2020-01-30] MEDS: Sevelamer Carbonate 800 MG TAB PO SCH ×3 (10:01→16:46)
[2020-01-30] MEDS: Docusate 100 MG CAP PO SCH ×2 (10:01→21:02)
[2020-01-30] MEDS: Dexamethasone 4 MG TAB PO SCH (10:02)
[2020-01-30] MEDS: Senokot 8.6 MG TAB PO SCH (10:02)
[2020-01-30] MEDS: Amiodarone 200 MG TAB PO SCH (10:03)
[2020-01-30] MEDS: Benzonatate 100 MG CAP PO SCH ×3 (10:03→21:01)
[2020-01-30] MEDS: Folic Acid 1 MG TAB PO SCH (10:03)
[2020-01-30] MEDS: Cholecalciferol 1,000 UNITS (25 MCG) TAB PO SCH (10:03)
[2020-01-30] MEDS: guaiFENesin ER 600 MG TAB PO SCH (10:03)
[2020-01-30] MEDS: Escitalopram Oxalate 10 mg Tablet PO SCH (10:04)
[2020-01-30] MEDS: Furosemide 40 MG TAB PO SCH (10:04)
[2020-01-30] MEDS: Pantoprazole 40 MG GRANULES PACKET PO SCH ×2 (10:04→21:00)
[2020-01-30] MEDS: Heparin 5,000 UNITS/ML VIAL SC SCH ×3 (10:04→21:00)
[2020-01-30] MEDS: Zinc Sulfate 220 MG CAP PO SCH (10:08)
[2020-01-30] MEDS: Diclofenac 1% 100 GM GEL TP SCH ×3 (10:09→21:03)
[2020-01-30] MEDS: prednisoLONE 1% Ophth Susp 5 ml Bottle EA EYE SCH (10:11)
[2020-01-30] MEDS: Ketorolac Tromethamine 0.5% Ophth Soln 3 ml Bottle R EYE SCH ×3 (10:12→21:04)
--- NOTE | 2020-01-30 16:26 | PDOC.HOSPP ---
- Subjective Subjective: chest xr looks worst today but clinically about the same. no change in O2 requirements. - Objective Vital Signs & Weight: Vital Signs (12 hours) Temp Pulse Pulse Pulse Resp BP BP 01/30/20 14:10 76 81 131/70 124/63 01/30/20 13:26 97.7 F 94 16 01/30/20 10:49 97.4 F L 85 18 01/30/20 08:00 BP Pulse Ox Pulse Ox Pulse Ox 01/30/20 14:10 100 100 01/30/20 13:26 153/82 H 01/30/20 10:49 159/79 H 100 01/30/20 08:00 100 Weight Admit Weight 190 lb Weight 205 lb 9.6 oz I&O: 01/29/20 01/30/20 01/31/20 06:59 06:59 06:59 Intake Total 940 1140 Output Total 0 Balance 940 1140 Result Diagrams: 01/30/20 04:45 01/30/20 04:45 Additional Labs: Accuchecks 01/30/20 01/30/20 01/29/20 16:02 10:29 20:59 POC Glucose 239 H 96 171 H 01/29/20 16:40 POC Glucose 233 H Radiology Reviewed by me: Yes EKG Reviewed by me: Yes Hospitalist ROS - Medication Medications: Active Medications Generic Name Dose Route Start Last Admin Trade Name Freq PRN Reason Stop Dose Admin Acetaminophen 650 mg 01/04/20 14:24 01/27/20 23:25 Acetaminophen 325 Mg Tab PO 650 mg Q4H PRN Administration Headache/Fever/Mild Pain (1-3) Hydrocodone Bitart/Acetaminophen 1 tab 01/26/20 21:00 01/30/20 13:13 Hydrocodone/Acetaminophen 10/325 Mg Tablet PO 1 tab Q4HR ADAM Administration Albuterol/Ipratropium 0 gm 01/06/20 10:32 01/19/20 06:47 Ipratropium/Albuterol Sulfate 4 Gm Aer IH 2 inh Q4H PRN Administration Dyspnea/Wheezing/SOB Amiodarone HCl 200 mg 01/06/20 09:00 01/30/20 10:03 Amiodarone 200 Mg Tab PO 200 mg DAILY AADM Administration Atorvastatin Calcium 20 mg 01/06/20 21:00 01/29/20 20:47 Atorvastatin Calcium 20 Mg Tab PO 20 mg HS ADAM Administration Benzonatate 100 mg 01/05/20 15:00 01/30/20 15:49 Benzonatate 100 Mg Cap PO 100 mg TID ADAM Administration Cholecalciferol 5,000 units 01/07/20 09:00 01/30/20 10:03 Cholecalciferol 1,000 Units (25 Mcg) Tab PO 5,000 units DAILY ADAM Administration Dexamethasone 6 mg 01/26/20 09:00 01/30/20 10:02 Dexamethasone 4 Mg Tab PO 6 mg QAM ADAM Administration Diclofenac Sodium 4 gm 01/06/20 15:00 01/30/20 15:49 Diclofenac 1% 100 Gm Gel TP 4 gm TID ADAM Administration Docusate Sodium 100 mg 01/06/20 21:00 01/30/20 10:01 Docusate 100 Mg Cap PO 100 mg BID ADAM Administration Epoetin Rome-epbx 10,000 unit 01/15/20 10:46 01/29/20 12:07 Epoetin [place]-Epbx (Esrd) 10,000 Unit/Ml Vial IVP 10,000 unit MoWeFr ADAM Administration Escitalopram Oxalate 10 mg 01/06/20 09:00 01/30/20 10:04 Escitalopram Oxalate 10 Mg Tablet PO 10 mg DAILY ADAM Administration Folic Acid 1 mg 01/07/20 09:00 01/30/20 10:03 Folic Acid 1 Mg Tab PO 1 mg DAILY ADAM Administration Furosemide 40 mg 01/07/20 09:00 01/30/20 10:04 Furosemide 40 Mg Tab PO 40 mg DAILY ADAM Administration Guaifenesin 600 mg 01/07/20 09:00 01/30/20 10:03 Guaifenesin Er 600 Mg Tab PO 600 mg DAILY ADAM Administration Guaifenesin/Dextromethorphan 10 ml 01/06/20 09:06 01/25/20 13:32 Guaifenesin Dm 100-10/5 Ml Udcup PO 10 ml PRN PRN Administration Cough Heparin Sodium (Porcine) 5,000 units 01/24/20 15:00 01/30/20 15:50 Heparin 5,000 Units/Ml Vial SC 5,000 units TID ADAM Administration Insulin Human Lispro 0 units 01/14/20 08:01 01/28/20 16:09 Humalog 300 Units/3 Ml Vial SC 2 unit .MILD SLIDING SCALE PRN Administration Mild Correctional Scale Insulin Human Lispro 0 units 01/21/20 20:48 01/24/20 20:08 Humalog 300 Units/3 Ml Vial SC 3 unit .BEDTIME SLIDING SC PRN Administration Bedtime Correctional Scale Ketorolac Tromethamine 1 drop 01/06/20 15:00 01/30/20 15:50 Ketorolac Tromethamine 0.5% Ophth Soln 3 Ml Bottle R EYE 1 drop TID ADAM Administration Labetalol HCl 10 mg 01/14/20 16:51 01/28/20 23:58 Labetalol Hcl 100 Mg/20 Ml Vial SLOW IVP 10 mg Q4H PRN Administration SBP Greater Than 180 Lactulose 20 gm 01/26/20 16:17 01/26/20 17:39 Lactulose 20 Gm/30 Ml Udcup PO 20 gm BID PRN Administration Constipation Levothyroxine Sodium 50 mcg 01/06/20 06:00 01/30/20 05:57 Levothyroxine Sodium 25 Mcg Tab PO 50 mcg 0600 ADAM Administration Lidocaine/Prilocaine 1 gm 01/06/20 10:26 01/26/20 13:30 Lidocaine-Prilocaine 2.5% Cream 5 Gm Tube TOP 1 gm PRN PRN Administration Pain/IV STARTS Mometasone Furoate 1 puff 01/10/20 18:30 01/30/20 06:09 Mometasone Furoate 120 Puff 220 Mcg INH 1 puff BID-RT ADAM Administration Ondansetron HCl 4 mg 01/04/20 14:24 01/27/20 23:25 Ondansetron Odt 4 Mg Tab PO 4 mg Q6H PRN Administration Nausea/Vomiting Ondansetron HCl 4 mg 01/04/20 14:24 01/22/20 22:08 Ondansetron Pf 4 Mg/2 Ml Vial IVP 4 mg Q6H PRN Administration Nausea/Vomiting Pantoprazole Sodium 40 mg 01/24/20 21:00 01/30/20 10:04 Pantoprazole 40 Mg Granules Packet PO 40 mg BID ADAM Administration Prednisolone Acetate 1 drop 01/07/20 09:00 01/30/20 10:11 Prednisolone 1% Ophth Susp 5 Ml Bottle EA EYE 1 drop DAILY ADAM Administration Senna 2 tab 01/07/20 09:00 01/30/20 10:02 Senokot 8.6 Mg Tab PO 2 tab DAILY ADAM Administration Sevelamer Carbonate 800 mg 01/06/20 12:00 01/30/20 13:15 Sevelamer Carbonate 800 Mg Tab PO 800 mg TID-WM ADAM Administration Sodium Chloride 10 ml 01/15/20 09:00 01/30/20 10:04 Flush - Normal Saline 10 Ml Syringe IVF 10 ml Q12HR ADAM Administration Sodium Chloride 10 ml 01/15/20 08:00 01/28/20 23:58 Flush - Normal Saline 10 Ml Syringe IVF 10 ml PRN PRN Administration Saline Flush Temazepam 15 mg 01/28/20 20:00 01/29/20 23:24 Temazepam 15 Mg Cap PO 01/30/20 20:01 15 mg HSPRN PRN Administration Insomnia Zinc Sulfate 220 mg 01/07/20 09:00 01/30/20 10:08 Zinc Sulfate 220 Mg Cap PO 220 mg DAILY ADAM Administration - Exam General Appearance: NAD Eye: PERRL ENT: normocephalic atraumatic Neck: supple Heart: RRR Respiratory: rhonchi Gastrointestinal: soft, non-tender Extremities: no cyanosis Skin: normal turgor Neurological: cranial nerve grossly intact Musculoskeletal: normal tone Psychiatric: normal affect, normal behavior, A&O x 3 Hosp A/P - Plan The patient is a pleasant 84 years old female who has significant past medical history of ESRD on dialysis, hypothyroidism, dyslipidemia, hypertension who presented with SOB, she was tested positive for COVID on 01/01/2020: Acute hypoxic respiratory failure secondary to COVID-19 pneumonia --Status post convalescent plasma. Continue Decadron. Wean O2 as tolerated. Continue supportive cares. Not a candidate for remdesivir due to chronic kidney disease --cont Heparin sq TID for DVT ppx COVID-19 pneumonia --Management as above ESRD on dialysis --Continue dialysis as per nephrology on Wednesday/Wednesday/Wednesday Paroxysmal atrial fib --cont Amio, NSR Melena --not a candidate for endoscopic evaluation d/t above. --cont supportive cares. s/p transfusions. Follow H&H. Pt was restarted back on Heparin sq for DVT ppx --cont PPI Hypothyroidism --cont home med Dyslipidemia --cont statin Physical deconditioning --cont PT DVT ppx: Heparin subcu GI ppx: PPI Code Status: Full Anticipated Dispo: TBD
--- NOTE | 2020-01-30 17:16 | PRG ---
DATE OF SERVICE: 01/30/2020 SUBJECTIVE: Patient was seen and examined at bedside and overnight events noted. Patient denies any shortness of breath or chest pain or palpitation. No history of nausea or vomiting or diarrhea or fever or chills or cramps. OBJECTIVE: GENERAL: This is a well-built female, in no apparent distress. VITAL SIGNS: Temperature 97.7. Heart rate 94. Respiratory rate 18. Blood pressure 139/70. HEENT: Atraumatic, normocephalic. Oral mucosa is moist NECK: Supple. CARDIOVASCULAR: S1, S2 heard. Rate and rhythm regular. RESPIRATORY: Clear to auscultation. GASTROINTESTINAL: Abdomen is soft. MUSCULOSKELETAL: No tenderness. No edema. DERMATOLOGIC: No skin rash. NEUROLOGIC: Alert and awake and oriented X3. No focal neurologic deficits. Moving all the extremities. PSYCHIATRIC: Mood and affect normal. LABORATORY DATA: Potassium 4.0, sodium 135, BUN 25, creatinine is 3.1. ASSESSMENT AND PLAN: 1. End-stage renal disease. Continue dialysis Wednesday, Wednesday, Wednesday. 2. Hyponatremia, limit fluid. 3. Acute hypoxic respiratory failure. 4. COVID-19 infection. 5. Fluid overload. 6. Hypertension. I have advised the patient to limit fluid intake. We will continue to follow. Continue dialysis Wednesday, Wednesday, and Wednesday. Job ID: [id number]
[2020-01-30] MEDS: Atorvastatin Calcium 20 MG TAB PO SCH (21:00)
[2020-01-30] MEDS: Temazepam 15 MG CAP PO PRN (23:43)
[2020-01-31] MEDS: HYDROcodone/Acetaminophen 10/325 mg Tablet PO SCH ×6 (00:55→21:09)
[2020-01-31] MEDS: Levothyroxine Sodium 25 MCG TAB PO SCH (05:41)
[2020-01-31] MEDS: Mometasone Furoate 120 PUFF 220 MCG INH SCH ×2 (05:42→18:22)
[2020-01-31 06:16] LABS: #Monocytes 0.4 thou/uL (0.11-0.59); #Neutrophils 4.6 thou/uL (1.40-6.50); %Basophils 0.1 % (0.0-1.0); %Eosinophils 0.8 % (0.0-10.0); %Lymphocytes 15.7 % (21.0-51.0); %Monocytes 6.6 % (0.0-10.0); %Neutrophils 76.8 % (42.0-75.0); Hemoglobin 8.4 g/dL (12.0-16.0); Mean Corpuscular HGB CONC 30.8 g/dL (32.0-36.0); Mean Corpuscular Hemoglobin 29.8 pg (27.0-31.0); Mean Platelet Volume 8.2 fL (7.4-10.4); Platelet Count 261 thou/uL (130-400); RBC Distribution Width 15.1 % (11.5-14.5); Red Blood Cell (RBC) Count 2.82 mill/uL (4.20-5.40)
[2020-01-31 06:31] LABS: Anion Gap 15 mmol/L (10-20); BUN (Urea Nitrogen) 38 mg/dL (9.8-20.1); CRP (Inflammatory) 1.07 mg/dL (= or < 0.5); Calc. Creatinine Clearance 16 mL/min (70-130); Calcium 8.3 mg/dL (7.8-10.44); Carbon Dioxide 28 mmol/L (23-31); Chloride 93 mmol/L (98-107); Glucose 101 mg/dL (83-110); Potassium 4.4 mmol/L (3.5-5.1); Sodium 132 mmol/L (136-145)
[2020-01-31] MEDS: Sevelamer Carbonate 800 MG TAB PO SCH ×3 (10:10→18:22)
--- NOTE | 2020-01-31 12:03 | PRG ---
DATE OF SERVICE: 01/31/2020 SUBJECTIVE: The patient is on COVID isolation. OBJECTIVE: VITAL SIGNS: Temperature 97.7, pulse 90, respiratory rate 18, blood pressure 133/48. LABORATORY DATA: Potassium 4.4, sodium 132, BUN is 38, creatinine is 4.06. ASSESSMENT AND PLAN: 1. End-stage renal disease. Continue on hemodialysis. 2. Edema. 3. Hypertension. 4. Anemia of chronic disease. 5. COVID-19 infection. Plan to continue on dialysis as tolerated. Job ID: [id number]
[2020-01-31] MEDS: Guaifenesin DM 100-10/5 ML UDCUP PO PRN (12:18)
[2020-01-31] MEDS: Zinc Sulfate 220 MG CAP PO SCH (12:19)
[2020-01-31] MEDS: Dexamethasone 4 MG TAB PO SCH (12:20)
[2020-01-31] MEDS: Cholecalciferol 1,000 UNITS (25 MCG) TAB PO SCH (12:20)
[2020-01-31] MEDS: Amiodarone 200 MG TAB PO SCH (12:20)
[2020-01-31] MEDS: Folic Acid 1 MG TAB PO SCH (12:20)
[2020-01-31] MEDS: Furosemide 40 MG TAB PO SCH (12:21)
[2020-01-31] MEDS: Benzonatate 100 MG CAP PO SCH ×3 (12:21→21:09)
[2020-01-31] MEDS: Pantoprazole 40 MG GRANULES PACKET PO SCH (12:21)
[2020-01-31] MEDS: Escitalopram Oxalate 10 mg Tablet PO SCH (12:21)
[2020-01-31] MEDS: guaiFENesin ER 600 MG TAB PO SCH (12:21)
[2020-01-31] MEDS: Docusate 100 MG CAP PO SCH ×2 (12:21→21:09)
[2020-01-31] MEDS: Senokot 8.6 MG TAB PO SCH (12:21)
[2020-01-31] MEDS: prednisoLONE 1% Ophth Susp 5 ml Bottle EA EYE SCH (12:23)
[2020-01-31] MEDS: Diclofenac 1% 100 GM GEL TP SCH ×3 (12:23→21:12)
[2020-01-31] MEDS: Heparin 5,000 UNITS/ML VIAL SC SCH ×3 (12:24→21:09)
[2020-01-31] MEDS: Ketorolac Tromethamine 0.5% Ophth Soln 3 ml Bottle R EYE SCH ×3 (12:24→21:12)
[2020-01-31] MEDS: EPOETIN ALFA-EPBX (ESRD) 10,000 UNIT/ML VIAL IVP SCH (12:41)
--- NOTE | 2020-01-31 17:25 | PDOC.HOSPP ---
- Subjective Subjective: pt has been here 27 days, i think we can safely dc isolation as she has no fever or cough. still on HiFO. she is being dialyze today - Objective Vital Signs & Weight: Vital Signs (12 hours) Temp Pulse Pulse Pulse Resp BP BP 01/31/20 13:18 98 100 128/57 L 116/59 L 01/31/20 11:27 97.6 F 94 20 01/31/20 10:46 01/31/20 10:05 97.7 F 90 20 01/31/20 03:27 98.2 F 65 18 BP Pulse Ox 01/31/20 13:18 01/31/20 11:27 108/50 L 99 01/31/20 10:46 100 01/31/20 10:05 133/48 L 97 01/31/20 03:27 131/82 Weight Admit Weight 190 lb Weight 208 lb 1.6 oz I&O: 01/30/20 01/31/20 02/01/20 06:59 06:59 06:59 Intake Total 1140 1080 Output Total 0 0 Balance 1140 1080 Result Diagrams: 01/31/20 05:20 01/31/20 05:20 Additional Labs: Accuchecks 01/31/20 01/30/20 01/30/20 11:26 20:27 16:02 POC Glucose 101 H 187 H 239 H Radiology Reviewed by me: Yes Hospitalist ROS - Medication Medications: Active Medications Generic Name Dose Route Start Last Admin Trade Name Freq PRN Reason Stop Dose Admin Acetaminophen 650 mg 01/04/20 14:24 01/27/20 23:25 Acetaminophen 325 Mg Tab PO 650 mg Q4H PRN Administration Headache/Fever/Mild Pain (1-3) Hydrocodone Bitart/Acetaminophen 1 tab 01/26/20 21:00 01/31/20 12:22 Hydrocodone/Acetaminophen 10/325 Mg Tablet PO 1 tab Q4HR ADAM Administration Albuterol/Ipratropium 0 gm 01/06/20 10:32 01/19/20 06:47 Ipratropium/Albuterol Sulfate 4 Gm Aer IH 2 inh Q4H PRN Administration Dyspnea/Wheezing/SOB Amiodarone HCl 200 mg 01/06/20 09:00 01/31/20 12:20 Amiodarone 200 Mg Tab PO 200 mg DAILY ADAM Administration Atorvastatin Calcium 20 mg 01/06/20 21:00 01/30/20 21:00 Atorvastatin Calcium 20 Mg Tab PO 20 mg HS ADAM Administration Benzonatate 100 mg 01/05/20 15:00 01/31/20 12:21 Benzonatate 100 Mg Cap PO 100 mg TID ADAM Administration Cholecalciferol 5,000 units 01/07/20 09:00 01/31/20 12:20 Cholecalciferol 1,000 Units (25 Mcg) Tab PO 5,000 units DAILY ADAM Administration Dexamethasone 6 mg 01/26/20 09:00 01/31/20 12:20 Dexamethasone 4 Mg Tab PO 6 mg QAM ADAM Administration Diclofenac Sodium 4 gm 01/06/20 15:00 01/31/20 12:23 Diclofenac 1% 100 Gm Gel TP 4 gm TID ADAM Administration Docusate Sodium 100 mg 01/06/20 21:00 01/31/20 12:21 Docusate 100 Mg Cap PO 100 mg BID ADAM Administration Epoetin Rome-epbx 10,000 unit 01/15/20 10:46 01/31/20 12:41 Epoetin [place]-Epbx (Esrd) 10,000 Unit/Ml Vial IVP 10,000 unit MoWeFr ADAM Administration Escitalopram Oxalate 10 mg 01/06/20 09:00 01/31/20 12:21 Escitalopram Oxalate 10 Mg Tablet PO 10 mg DAILY ADAM Administration Folic Acid 1 mg 01/07/20 09:00 01/31/20 12:20 Folic Acid 1 Mg Tab PO 1 mg DAILY ADAM Administration Furosemide 40 mg 01/07/20 09:00 01/31/20 12:21 Furosemide 40 Mg Tab PO 40 mg DAILY ADAM Administration Guaifenesin 600 mg 01/07/20 09:00 01/31/20 12:21 Guaifenesin Er 600 Mg Tab PO 600 mg DAILY ADAM Administration Guaifenesin/Dextromethorphan 10 ml 01/06/20 09:06 01/31/20 12:18 Guaifenesin Dm 100-10/5 Ml Udcup PO 10 ml PRN PRN Administration Cough Heparin Sodium (Porcine) 5,000 units 01/24/20 15:00 01/31/20 12:24 Heparin 5,000 Units/Ml Vial SC 5,000 units TID ADAM Administration Insulin Human Lispro 0 units 01/14/20 08:01 01/28/20 16:09 Humalog 300 Units/3 Ml Vial SC 2 unit .MILD SLIDING SCALE PRN Administration Mild Correctional Scale Insulin Human Lispro 0 units 01/21/20 20:48 01/24/20 20:08 Humalog 300 Units/3 Ml Vial SC 3 unit .BEDTIME SLIDING SC PRN Administration Bedtime Correctional Scale Ketorolac Tromethamine 1 drop 01/06/20 15:00 01/31/20 12:24 Ketorolac Tromethamine 0.5% Ophth Soln 3 Ml Bottle R EYE 1 drop TID ADAM Administration Labetalol HCl 10 mg 01/14/20 16:51 01/28/20 23:58 Labetalol Hcl 100 Mg/20 Ml Vial SLOW IVP 10 mg Q4H PRN Administration SBP Greater Than 180 Lactulose 20 gm 01/26/20 16:17 01/26/20 17:39 Lactulose 20 Gm/30 Ml Udcup PO 20 gm BID PRN Administration Constipation Levothyroxine Sodium 50 mcg 01/06/20 06:00 01/31/20 05:41 Levothyroxine Sodium 25 Mcg Tab PO 50 mcg 0600 ADAM Administration Lidocaine/Prilocaine 1 gm 01/06/20 10:26 01/26/20 13:30 Lidocaine-Prilocaine 2.5% Cream 5 Gm Tube TOP 1 gm PRN PRN Administration Pain/IV STARTS Mometasone Furoate 1 puff 01/10/20 18:30 01/31/20 05:42 Mometasone Furoate 120 Puff 220 Mcg INH 1 puff BID-RT ADAM Administration Ondansetron HCl 4 mg 01/04/20 14:24 01/27/20 23:25 Ondansetron Odt 4 Mg Tab PO 4 mg Q6H PRN Administration Nausea/Vomiting Ondansetron HCl 4 mg 01/04/20 14:24 01/22/20 22:08 Ondansetron Pf 4 Mg/2 Ml Vial IVP 4 mg Q6H PRN Administration Nausea/Vomiting Pantoprazole Sodium 40 mg 01/24/20 21:00 01/31/20 12:21 Pantoprazole 40 Mg Granules Packet PO 40 mg BID ADAM Administration Prednisolone Acetate 1 drop 01/07/20 09:00 01/31/20 12:23 Prednisolone 1% Ophth Susp 5 Ml Bottle EA EYE 1 drop DAILY ADAM Administration Senna 2 tab 01/07/20 09:00 01/31/20 12:21 Senokot 8.6 Mg Tab PO 2 tab DAILY ADAM Administration Sevelamer Carbonate 800 mg 01/06/20 12:00 01/31/20 12:20 Sevelamer Carbonate 800 Mg Tab PO 800 mg TID-WM ADAM Administration Sodium Chloride 10 ml 01/15/20 09:00 01/31/20 12:24 Flush - Normal Saline 10 Ml Syringe IVF 10 ml Q12HR ADAM Administration Sodium Chloride 10 ml 01/15/20 08:00 01/28/20 23:58 Flush - Normal Saline 10 Ml Syringe IVF 10 ml PRN PRN Administration Saline Flush Temazepam 15 mg 01/30/20 23:26 01/30/20 23:43 Temazepam 15 Mg Cap PO 15 mg HSPRN PRN Administration Insomnia Zinc Sulfate 220 mg 01/07/20 09:00 01/31/20 12:19 Zinc Sulfate 220 Mg Cap PO 220 mg DAILY ADAM Administration - Exam General Appearance: NAD Eye: PERRL ENT: normocephalic atraumatic Neck: supple Heart: RRR, no murmur Respiratory: CTAB, no wheezes, no rales, no ronchi Gastrointestinal: soft Extremities: no cyanosis Skin: normal turgor, no lesions Neurological: cranial nerve grossly intact Musculoskeletal: normal tone, normal strength Hosp A/P - Plan The patient is a pleasant 84 years old female who has significant past medical history of ESRD on dialysis, hypothyroidism, dyslipidemia, hypertension who presented with SOB, she was tested positive for COVID on 01/01/2020: Acute hypoxic respiratory failure secondary to COVID-19 pneumonia --Status post convalescent plasma. Continue Decadron. Wean O2 as tolerated. Continue supportive cares. Not a candidate for remdesivir due to chronic kidney disease --cont Heparin sq TID for DVT ppx --still remains on high oh COVID-19 pneumonia --Management as above ESRD on dialysis --Continue dialysis as per nephrology on Wednesday/Wednesday/Wednesday Paroxysmal atrial fib --cont Amio, NSR Melena --not a candidate for endoscopic evaluation d/t above. --cont supportive cares. s/p transfusions. Follow H&H. Pt was restarted back on Heparin sq for DVT ppx --cont PPI Hypothyroidism --cont home med Dyslipidemia --cont statin Physical deconditioning --cont PT DVT ppx: Heparin subcu GI ppx: PPI Code Status: Full Anticipated Dispo: TBD
[2020-01-31] MEDS: Atorvastatin Calcium 20 MG TAB PO SCH (21:09)
[2020-01-31] MEDS: Temazepam 15 MG CAP PO PRN (22:57)
[2020-02-01] MEDS: HYDROcodone/Acetaminophen 10/325 mg Tablet PO SCH ×6 (02:40→20:11)
[2020-02-01 05:32] LABS: #Lymphocytes 1.1 thou/uL (1.20-3.40); #Monocytes 0.5 thou/uL (0.11-0.59); #Neutrophils 5.7 thou/uL (1.40-6.50); %Basophils 0.4 % (0.0-1.0); %Eosinophils 0.3 % (0.0-10.0); %Lymphocytes 14.6 % (21.0-51.0); %Neutrophils 77.7 % (42.0-75.0); Mean Corpuscular HGB CONC 32.1 g/dL (32.0-36.0); Mean Corpuscular Hemoglobin 30.9 pg (27.0-31.0); Mean Corpuscular Volume 96.2 fL (78.0-98.0); Mean Platelet Volume 8.2 fL (7.4-10.4); Platelet Count 242 thou/uL (130-400); RBC Distribution Width 15.4 % (11.5-14.5); White Blood Cell (WBC) Count 7.4 thou/uL (4.8-10.8)
[2020-02-01 05:46] LABS: Anion Gap 14 mmol/L (10-20); BUN (Urea Nitrogen) 30 mg/dL (9.8-20.1); CRP (Inflammatory) 1.53 mg/dL (= or < 0.5); Calc. Creatinine Clearance 21 mL/min (70-130); Calcium 8.1 mg/dL (7.8-10.44); Carbon Dioxide 29 mmol/L (23-31); Chloride 94 mmol/L (98-107); Glucose 135 mg/dL (83-110); Potassium 3.9 mmol/L (3.5-5.1); Sodium 133 mmol/L (136-145)
[2020-02-01] MEDS: Levothyroxine Sodium 25 MCG TAB PO SCH (06:21)
[2020-02-01] MEDS: Mometasone Furoate 120 PUFF 220 MCG INH SCH ×2 (06:24→18:08)
[2020-02-01] MEDS: Amiodarone 200 MG TAB PO SCH (09:41)
[2020-02-01] MEDS: Sevelamer Carbonate 800 MG TAB PO SCH ×3 (09:41→18:10)
[2020-02-01] MEDS: Benzonatate 100 MG CAP PO SCH ×3 (09:42→20:09)
[2020-02-01] MEDS: Cholecalciferol 1,000 UNITS (25 MCG) TAB PO SCH (09:42)
[2020-02-01] MEDS: Diclofenac 1% 100 GM GEL TP SCH ×3 (09:43→20:09)
[2020-02-01] MEDS: Dexamethasone 4 MG TAB PO SCH (09:43)
[2020-02-01] MEDS: guaiFENesin ER 600 MG TAB PO SCH (09:45)
[2020-02-01] MEDS: Furosemide 40 MG TAB PO SCH (09:45)
[2020-02-01] MEDS: Escitalopram Oxalate 10 mg Tablet PO SCH (09:45)
[2020-02-01] MEDS: Docusate 100 MG CAP PO SCH ×2 (09:45→20:10)
[2020-02-01] MEDS: Folic Acid 1 MG TAB PO SCH (09:45)
[2020-02-01] MEDS: Ketorolac Tromethamine 0.5% Ophth Soln 3 ml Bottle R EYE SCH ×3 (09:46→20:13)
[2020-02-01] MEDS: prednisoLONE 1% Ophth Susp 5 ml Bottle EA EYE SCH (09:46)
[2020-02-01] MEDS: Zinc Sulfate 220 MG CAP PO SCH (09:47)
[2020-02-01] MEDS: Heparin 5,000 UNITS/ML VIAL SC SCH ×3 (09:47→20:10)
[2020-02-01] MEDS: Senokot 8.6 MG TAB PO SCH (09:47)
--- NOTE | 2020-02-01 12:00 | PRG ---
DATE OF SERVICE: SUBJECTIVE: The patient on COVID isolation. OBJECTIVE: VITAL SIGNS: Temperature 98, pulse 91, respiratory rate 18, blood pressure 138/77. LABORATORY DATA: Potassium 3.9, BUN is 30, and creatinine is 3.05. ASSESSMENT AND PLAN: 1. End-stage renal disease. Continue hemodialysis Wednesday, Wednesday, Fridays. 2. Edema. We will remove fluid. 3. Hyponatremia. Limit fluid intake. 4. Hypertension. 5. Anemia. 6. COVID-19 infection. Plan to continue dialysis as tolerated. Job ID: [id number]
[2020-02-01] MEDS: HumaLOG 300 UNITS/3 ML VIAL SC PRN ×2 (12:58→18:12)
--- NOTE | 2020-02-01 14:10 | PDOC.HOSPP ---
- Subjective Subjective: Pt was seen and examined at bedside. Oxygen has been weaned down significantly. Patient stated she is feeling better. - Objective Vital Signs & Weight: Vital Signs (12 hours) Temp Pulse Resp BP Pulse Ox 02/01/20 10:50 98 02/01/20 10:47 97.5 F L 88 18 115/63 100 02/01/20 07:26 98.0 F 91 18 138/77 100 02/01/20 02:49 97.9 F 86 20 128/65 95 Weight Admit Weight 190 lb Weight 197 lb 4.8 oz I&O: 01/31/20 02/01/20 02/02/20 06:59 06:59 06:59 Intake Total 1080 610 Output Total 0 0 Balance 1080 610 Result Diagrams: 02/01/20 05:04 02/01/20 05:04 Additional Labs: Accuchecks 02/01/20 01/31/20 01/31/20 10:46 21:19 17:01 POC Glucose 196 H 200 H 218 H Radiology Reviewed by me: Yes EKG Reviewed by me: Yes Hospitalist ROS - Medication Medications: Active Medications Generic Name Dose Route Start Last Admin Trade Name Freq PRN Reason Stop Dose Admin Acetaminophen 650 mg 01/04/20 14:24 01/27/20 23:25 Acetaminophen 325 Mg Tab PO 650 mg Q4H PRN Administration Headache/Fever/Mild Pain (1-3) Hydrocodone Bitart/Acetaminophen 1 tab 01/26/20 21:00 02/01/20 12:51 Hydrocodone/Acetaminophen 10/325 Mg Tablet PO 1 tab Q4HR ADAM Administration Albuterol/Ipratropium 0 gm 01/06/20 10:32 01/19/20 06:47 Ipratropium/Albuterol Sulfate 4 Gm Aer IH 2 inh Q4H PRN Administration Dyspnea/Wheezing/SOB Amiodarone HCl 200 mg 01/06/20 09:00 02/01/20 09:41 Amiodarone 200 Mg Tab PO 200 mg DAILY ADAM Administration Atorvastatin Calcium 20 mg 01/06/20 21:00 01/31/20 21:09 Atorvastatin Calcium 20 Mg Tab PO 20 mg HS ADAM Administration Benzonatate 100 mg 01/05/20 15:00 02/01/20 09:42 Benzonatate 100 Mg Cap PO 100 mg TID ADAM Administration Cholecalciferol 5,000 units 01/07/20 09:00 02/01/20 09:42 Cholecalciferol 1,000 Units (25 Mcg) Tab PO 5,000 units DAILY ADAM Administration Dexamethasone 6 mg 01/26/20 09:00 02/01/20 09:43 Dexamethasone 4 Mg Tab PO 6 mg QAM ADAM Administration Diclofenac Sodium 4 gm 01/06/20 15:00 02/01/20 09:43 Diclofenac 1% 100 Gm Gel TP 4 gm TID ADAM Administration Docusate Sodium 100 mg 01/06/20 21:00 02/01/20 09:45 Docusate 100 Mg Cap PO 100 mg BID ADAM Administration Epoetin Rome-epbx 10,000 unit 01/15/20 10:46 01/31/20 12:41 Epoetin [place]-Epbx (Esrd) 10,000 Unit/Ml Vial IVP 10,000 unit MoWeFr ADAM Administration Escitalopram Oxalate 10 mg 01/06/20 09:00 02/01/20 09:45 Escitalopram Oxalate 10 Mg Tablet PO 10 mg DAILY ADAM Administration Folic Acid 1 mg 01/07/20 09:00 02/01/20 09:45 Folic Acid 1 Mg Tab PO 1 mg DAILY ADAM Administration Furosemide 40 mg 01/07/20 09:00 02/01/20 09:45 Furosemide 40 Mg Tab PO 40 mg DAILY ADAM Administration Guaifenesin 600 mg 01/07/20 09:00 02/01/20 09:45 Guaifenesin Er 600 Mg Tab PO 600 mg DAILY ADAM Administration Guaifenesin/Dextromethorphan 10 ml 01/06/20 09:06 01/31/20 12:18 Guaifenesin Dm 100-10/5 Ml Udcup PO 10 ml PRN PRN Administration Cough Heparin Sodium (Porcine) 5,000 units 01/24/20 15:00 02/01/20 09:47 Heparin 5,000 Units/Ml Vial SC 5,000 units TID ADAM Administration Insulin Human Lispro 0 units 01/14/20 08:01 02/01/20 12:58 Humalog 300 Units/3 Ml Vial SC 2 unit .MILD SLIDING SCALE PRN Administration Mild Correctional Scale Insulin Human Lispro 0 units 01/21/20 20:48 01/24/20 20:08 Humalog 300 Units/3 Ml Vial SC 3 unit .BEDTIME SLIDING SC PRN Administration Bedtime Correctional Scale Ketorolac Tromethamine 1 drop 01/06/20 15:00 02/01/20 09:46 Ketorolac Tromethamine 0.5% Ophth Soln 3 Ml Bottle R EYE 1 drop TID ADAM Administration Labetalol HCl 10 mg 01/14/20 16:51 01/28/20 23:58 Labetalol Hcl 100 Mg/20 Ml Vial SLOW IVP 10 mg Q4H PRN Administration SBP Greater Than 180 Lactulose 20 gm 01/26/20 16:17 01/26/20 17:39 Lactulose 20 Gm/30 Ml Udcup PO 20 gm BID PRN Administration Constipation Levothyroxine Sodium 50 mcg 01/06/20 06:00 02/01/20 06:21 Levothyroxine Sodium 25 Mcg Tab PO 50 mcg 0600 ADAM Administration Lidocaine/Prilocaine 1 gm 01/06/20 10:26 01/26/20 13:30 Lidocaine-Prilocaine 2.5% Cream 5 Gm Tube TOP 1 gm PRN PRN Administration Pain/IV STARTS Mometasone Furoate 1 puff 01/10/20 18:30 02/01/20 06:24 Mometasone Furoate 120 Puff 220 Mcg INH 1 puff BID-RT ADAM Administration Ondansetron HCl 4 mg 01/04/20 14:24 01/27/20 23:25 Ondansetron Odt 4 Mg Tab PO 4 mg Q6H PRN Administration Nausea/Vomiting Ondansetron HCl 4 mg 01/04/20 14:24 01/22/20 22:08 Ondansetron Pf 4 Mg/2 Ml Vial IVP 4 mg Q6H PRN Administration Nausea/Vomiting Pantoprazole Sodium 40 mg 01/31/20 21:00 02/01/20 09:46 Pantoprazole 40 Mg Tab PO 40 mg BID ADAM Administration Prednisolone Acetate 1 drop 01/07/20 09:00 02/01/20 09:46 Prednisolone 1% Ophth Susp 5 Ml Bottle EA EYE 1 drop DAILY ADAM Administration Senna 2 tab 01/07/20 09:00 02/01/20 09:47 Senokot 8.6 Mg Tab PO 2 tab DAILY ADAM Administration Sevelamer Carbonate 800 mg 01/06/20 12:00 02/01/20 12:51 Sevelamer Carbonate 800 Mg Tab PO 800 mg TID-WM ADAM Administration Sodium Chloride 10 ml 01/15/20 09:00 02/01/20 09:47 Flush - Normal Saline 10 Ml Syringe IVF 10 ml Q12HR ADAM Administration Sodium Chloride 10 ml 01/15/20 08:00 01/28/20 23:58 Flush - Normal Saline 10 Ml Syringe IVF 10 ml PRN PRN Administration Saline Flush Temazepam 15 mg 01/30/20 23:26 01/31/20 22:57 Temazepam 15 Mg Cap PO 15 mg HSPRN PRN Administration Insomnia Zinc Sulfate 220 mg 01/07/20 09:00 02/01/20 09:47 Zinc Sulfate 220 Mg Cap PO 220 mg DAILY ADAM Administration - Exam General Appearance: NAD Eye: PERRL ENT: normocephalic atraumatic Neck: supple Heart: RRR Respiratory: rhonchi Gastrointestinal: soft Extremities: no cyanosis Skin: normal turgor Neurological: cranial nerve grossly intact Psychiatric: normal affect, normal behavior, A&O x 3 Hosp A/P - Plan The patient is a pleasant 84 years old female who has significant past medical history of ESRD on dialysis, hypothyroidism, dyslipidemia, hypertension who presented with SOB, she was tested positive for COVID on 01/01/2020: Acute hypoxic respiratory failure secondary to COVID-19 pneumonia --Status post convalescent plasma. Continue Decadron. Wean O2 as tolerated. Continue supportive cares. Not a candidate for remdesivir due to chronic kidney disease --cont Heparin sq TID for DVT ppx --still remains on high oh, but able to wean down significantly COVID-19 pneumonia --Management as above ESRD on dialysis --Continue dialysis as per nephrology on Wednesday/Wednesday/Wednesday Paroxysmal atrial fib --cont Amio, NSR Melena --not a candidate for endoscopic evaluation d/t above. --cont supportive cares. s/p transfusions. Follow H&H. Pt was restarted back on Heparin sq for DVT ppx --cont PPI Hypothyroidism --cont home med Dyslipidemia --cont statin Physical deconditioning --cont PT DVT ppx: Heparin subcu GI ppx: PPI Code Status: Full Anticipated Dispo: TBD
[2020-02-01] MEDS: Atorvastatin Calcium 20 MG TAB PO SCH (20:08)
[2020-02-02] MEDS: HYDROcodone/Acetaminophen 10/325 mg Tablet PO SCH ×6 (01:57→22:00)
[2020-02-02] MEDS: Mometasone Furoate 120 PUFF 220 MCG INH SCH ×2 (05:16→17:54)
[2020-02-02] MEDS: Levothyroxine Sodium 25 MCG TAB PO SCH (05:17)
[2020-02-02] MEDS: Docusate 100 MG CAP PO SCH ×2 (09:08→21:58)
[2020-02-02] MEDS: Sevelamer Carbonate 800 MG TAB PO SCH ×3 (09:08→17:53)
[2020-02-02] MEDS: Diclofenac 1% 100 GM GEL TP SCH ×3 (09:08→21:59)
[2020-02-02] MEDS: Ketorolac Tromethamine 0.5% Ophth Soln 3 ml Bottle R EYE SCH ×3 (09:09→22:00)
[2020-02-02] MEDS: prednisoLONE 1% Ophth Susp 5 ml Bottle EA EYE SCH (09:10)
[2020-02-02] MEDS: Lidocaine-Prilocaine 2.5% Cream 5 GM TUBE TOP PRN (09:11)
[2020-02-02] MEDS: Heparin 5,000 UNITS/ML VIAL SC SCH ×3 (10:49→21:57)
[2020-02-02] MEDS: EPOETIN ALFA-EPBX (ESRD) 10,000 UNIT/ML VIAL IVP SCH (10:49)
[2020-02-02] MEDS: Zinc Sulfate 220 MG CAP PO SCH (10:51)
[2020-02-02] MEDS: Dexamethasone 4 MG TAB PO SCH (10:51)
[2020-02-02] MEDS: guaiFENesin ER 600 MG TAB PO SCH (10:52)
[2020-02-02] MEDS: Furosemide 40 MG TAB PO SCH (10:52)
[2020-02-02] MEDS: Folic Acid 1 MG TAB PO SCH (10:52)
[2020-02-02] MEDS: Escitalopram Oxalate 10 mg Tablet PO SCH (10:52)
[2020-02-02] MEDS: Cholecalciferol 1,000 UNITS (25 MCG) TAB PO SCH (10:52)
[2020-02-02] MEDS: Benzonatate 100 MG CAP PO SCH ×3 (10:52→21:58)
[2020-02-02] MEDS: Senokot 8.6 MG TAB PO SCH (10:52)
[2020-02-02] MEDS: Amiodarone 200 MG TAB PO SCH (10:52)
--- NOTE | 2020-02-02 12:17 | PDOC.HOSPP ---
- Subjective Subjective: Seen examined at bedside. Patient had improved significantly for the last couple days, her oxygen had weaned down to the rate of 30, and 40% on FiO2 on high flow. Clinically patient is improving, status is feeling better. - Objective Vital Signs & Weight: Vital Signs (12 hours) Temp Pulse Resp BP BP Pulse Ox 02/02/20 10:40 97.8 F 87 20 133/75 100 02/02/20 07:30 97.6 F 76 16 159/72 H 96 02/02/20 05:15 98.3 F 79 18 131/75 99 02/02/20 01:39 100 02/02/20 00:35 100 Weight Admit Weight 190 lb Weight 195 lb 12.328 oz I&O: 02/01/20 02/02/20 02/03/20 06:59 06:59 06:59 Intake Total 610 520 Output Total 0 Balance 610 520 Result Diagrams: 02/01/20 05:04 02/01/20 05:04 Additional Labs: Accuchecks 02/02/20 02/02/20 02/01/20 10:38 05:09 19:59 POC Glucose 128 H 113 H 176 H 02/01/20 16:40 POC Glucose 210 H Radiology Reviewed by me: Yes EKG Reviewed by me: Yes Hospitalist ROS - Medication Medications: Active Medications Generic Name Dose Route Start Last Admin Trade Name Freq PRN Reason Stop Dose Admin Acetaminophen 650 mg 01/04/20 14:24 01/27/20 23:25 Acetaminophen 325 Mg Tab PO 650 mg Q4H PRN Administration Headache/Fever/Mild Pain (1-3) Hydrocodone Bitart/Acetaminophen 1 tab 01/26/20 21:00 02/02/20 09:08 Hydrocodone/Acetaminophen 10/325 Mg Tablet PO 1 tab Q4HR ADAM Administration Albuterol/Ipratropium 0 gm 01/06/20 10:32 01/19/20 06:47 Ipratropium/Albuterol Sulfate 4 Gm Aer IH 2 inh Q4H PRN Administration Dyspnea/Wheezing/SOB Amiodarone HCl 200 mg 01/06/20 09:00 02/02/20 10:52 Amiodarone 200 Mg Tab PO 200 mg DAILY ADAM Administration Atorvastatin Calcium 20 mg 01/06/20 21:00 02/01/20 20:08 Atorvastatin Calcium 20 Mg Tab PO 20 mg HS ADAM Administration Benzonatate 100 mg 01/05/20 15:00 02/02/20 10:52 Benzonatate 100 Mg Cap PO 100 mg TID ADAM Administration Cholecalciferol 5,000 units 01/07/20 09:00 02/02/20 10:52 Cholecalciferol 1,000 Units (25 Mcg) Tab PO 5,000 units DAILY ADAM Administration Dexamethasone 6 mg 01/26/20 09:00 02/02/20 10:51 Dexamethasone 4 Mg Tab PO 6 mg QAM ADAM Administration Diclofenac Sodium 4 gm 01/06/20 15:00 02/02/20 09:08 Diclofenac 1% 100 Gm Gel TP 4 gm TID ADAM Administration Docusate Sodium 100 mg 01/06/20 21:00 02/02/20 09:08 Docusate 100 Mg Cap PO 100 mg BID ADAM Administration Epoetin Rome-epbx 10,000 unit 01/15/20 10:46 02/02/20 10:49 Epoetin [place]-Epbx (Esrd) 10,000 Unit/Ml Vial IVP 10,000 unit MoWeFr ADAM Administration Escitalopram Oxalate 10 mg 01/06/20 09:00 02/02/20 10:52 Escitalopram Oxalate 10 Mg Tablet PO 10 mg DAILY ADAM Administration Folic Acid 1 mg 01/07/20 09:00 02/02/20 10:52 Folic Acid 1 Mg Tab PO 1 mg DAILY ADAM Administration Furosemide 40 mg 01/07/20 09:00 02/02/20 10:52 Furosemide 40 Mg Tab PO 40 mg DAILY ADAM Administration Guaifenesin 600 mg 01/07/20 09:00 02/02/20 10:52 Guaifenesin Er 600 Mg Tab PO 600 mg DAILY ADAM Administration Guaifenesin/Dextromethorphan 10 ml 01/06/20 09:06 01/31/20 12:18 Guaifenesin Dm 100-10/5 Ml Udcup PO 10 ml PRN PRN Administration Cough Heparin Sodium (Porcine) 5,000 units 01/24/20 15:00 02/02/20 10:49 Heparin 5,000 Units/Ml Vial SC 5,000 units TID ADAM Administration Insulin Human Lispro 0 units 01/14/20 08:01 02/01/20 18:12 Humalog 300 Units/3 Ml Vial SC 3 unit .MILD SLIDING SCALE PRN Administration Mild Correctional Scale Insulin Human Lispro 0 units 01/21/20 20:48 01/24/20 20:08 Humalog 300 Units/3 Ml Vial SC 3 unit .BEDTIME SLIDING SC PRN Administration Bedtime Correctional Scale Ketorolac Tromethamine 1 drop 01/06/20 15:00 02/02/20 09:09 Ketorolac Tromethamine 0.5% Ophth Soln 3 Ml Bottle R EYE 1 drop TID ADAM Administration Labetalol HCl 10 mg 01/14/20 16:51 01/28/20 23:58 Labetalol Hcl 100 Mg/20 Ml Vial SLOW IVP 10 mg Q4H PRN Administration SBP Greater Than 180 Lactulose 20 gm 01/26/20 16:17 02/01/20 18:10 Lactulose 20 Gm/30 Ml Udcup PO 20 gm BID PRN Administration Constipation Levothyroxine Sodium 50 mcg 01/06/20 06:00 02/02/20 05:17 Levothyroxine Sodium 25 Mcg Tab PO 50 mcg 0600 ADAM Administration Lidocaine/Prilocaine 1 gm 01/06/20 10:26 02/02/20 09:11 Lidocaine-Prilocaine 2.5% Cream 5 Gm Tube TOP 1 gm PRN PRN Administration Pain/IV STARTS Mometasone Furoate 1 puff 01/10/20 18:30 02/02/20 05:16 Mometasone Furoate 120 Puff 220 Mcg INH 1 puff BID-RT ADAM Administration Ondansetron HCl 4 mg 01/04/20 14:24 01/27/20 23:25 Ondansetron Odt 4 Mg Tab PO 4 mg Q6H PRN Administration Nausea/Vomiting Ondansetron HCl 4 mg 01/04/20 14:24 01/22/20 22:08 Ondansetron Pf 4 Mg/2 Ml Vial IVP 4 mg Q6H PRN Administration Nausea/Vomiting Pantoprazole Sodium 40 mg 01/31/20 21:00 02/02/20 10:52 Pantoprazole 40 Mg Tab PO 40 mg BID ADAM Administration Prednisolone Acetate 1 drop 01/07/20 09:00 02/02/20 09:10 Prednisolone 1% Ophth Susp 5 Ml Bottle EA EYE 1 drop DAILY ADAM Administration Senna 2 tab 01/07/20 09:00 02/02/20 10:52 Senokot 8.6 Mg Tab PO 2 tab DAILY ADAM Administration Sevelamer Carbonate 800 mg 01/06/20 12:00 02/02/20 10:51 Sevelamer Carbonate 800 Mg Tab PO 800 mg TID-WM ADAM Administration Sodium Chloride 10 ml 01/15/20 09:00 02/02/20 10:49 Flush - Normal Saline 10 Ml Syringe IVF 10 ml Q12HR ADAM Administration Sodium Chloride 10 ml 01/15/20 08:00 01/28/20 23:58 Flush - Normal Saline 10 Ml Syringe IVF 10 ml PRN PRN Administration Saline Flush Temazepam 15 mg 01/30/20 23:26 01/31/20 22:57 Temazepam 15 Mg Cap PO 15 mg HSPRN PRN Administration Insomnia Zinc Sulfate 220 mg 01/07/20 09:00 02/02/20 10:51 Zinc Sulfate 220 Mg Cap PO 220 mg DAILY ADAM Administration - Exam General Appearance: NAD Eye: PERRL ENT: normocephalic atraumatic Neck: supple Heart: RRR, no murmur Respiratory: CTAB Gastrointestinal: soft, non-tender Extremities: no cyanosis Skin: normal turgor Neurological: cranial nerve grossly intact Musculoskeletal: normal tone, normal strength Psychiatric: normal affect, normal behavior, A&O x 3 Hosp A/P - Plan The patient is a pleasant 84 years old female who has significant past medical history of ESRD on dialysis, hypothyroidism, dyslipidemia, hypertension who presented with SOB, she was tested positive for COVID on 01/01/2020: Acute hypoxic respiratory failure secondary to COVID-19 pneumonia --Status post convalescent plasma. Continue Decadron. Wean O2 as tolerated. Continue supportive cares. Not a candidate for remdesivir due to chronic kidney disease --cont Heparin sq TID for DVT ppx --still remains on high oh, but able to wean down significantly in the last couple days COVID-19 pneumonia --Management as above ESRD on dialysis --Continue dialysis as per nephrology on Wednesday/Wednesday/Wednesday Paroxysmal atrial fib --cont Amio, NSR Melena --not a candidate for endoscopic evaluation d/t above. --cont supportive cares. s/p transfusions. Follow H&H. Pt was restarted back on Heparin sq for DVT ppx --cont PPI Hypothyroidism --cont home med Dyslipidemia --cont statin Physical deconditioning --cont PT DVT ppx: Heparin subcu GI ppx: PPI Code Status: Full Anticipated Dispo: TBD
[2020-02-02] MEDS: Ondansetron ODT 4 MG TAB PO PRN (12:38)
--- NOTE | 2020-02-02 18:07 | PRG ---
DATE OF SERVICE: 02/02/2020 SUBJECTIVE: The patient is on COVID isolation. OBJECTIVE: VITAL SIGNS: Temperature 97.8, pulse 87, respiratory rate 20, and blood pressure 133/75. LABORATORY DATA: Potassium 3.9, BUN is 30, and creatinine is 3.05. ASSESSMENT AND PLAN: 1. End-stage renal disease, continue hemodialysis as tolerated. 2. Edema, controlled. 3. Hypertension. 4. Anemia of chronic disease. Continue on hemodialysis Wednesday, Wednesday, and Wednesday. Job ID: [id number]
[2020-02-02] MEDS: HumaLOG 300 UNITS/3 ML VIAL SC PRN (21:57)
[2020-02-02] MEDS: Atorvastatin Calcium 20 MG TAB PO SCH (21:58)
[2020-02-02] MEDS: Temazepam 15 MG CAP PO PRN (22:01)
[2020-02-03] MEDS: HYDROcodone/Acetaminophen 10/325 mg Tablet PO SCH ×7 (01:24→22:25)
[2020-02-03 05:11] LABS: #Lymphocytes 1.3 thou/uL (1.20-3.40); #Monocytes 0.7 thou/uL (0.11-0.59); #Neutrophils 5.6 thou/uL (1.40-6.50); %Basophils 0.1 % (0.0-1.0); %Eosinophils 0.5 % (0.0-10.0); %Lymphocytes 16.6 % (21.0-51.0); %Monocytes 8.6 % (0.0-10.0); %Neutrophils 74.3 % (42.0-75.0); Hemoglobin 9.3 g/dL (12.0-16.0); Mean Corpuscular HGB CONC 31.2 g/dL (32.0-36.0); Mean Corpuscular Volume 96.1 fL (78.0-98.0); Mean Platelet Volume 8.3 fL (7.4-10.4); Platelet Count 246 thou/uL (130-400); RBC Distribution Width 15.4 % (11.5-14.5); Red Blood Cell (RBC) Count 3.11 mill/uL (4.20-5.40); White Blood Cell (WBC) Count 7.6 thou/uL (4.8-10.8)
[2020-02-03 05:37] LABS: Anion Gap 16 mmol/L (10-20); BUN (Urea Nitrogen) 24 mg/dL (9.8-20.1); CRP (Inflammatory) 0.97 mg/dL (= or < 0.5); Calc. Creatinine Clearance 22 mL/min (70-130); Calcium 8.4 mg/dL (7.8-10.44); Carbon Dioxide 27 mmol/L (23-31); Chloride 98 mmol/L (98-107); Glucose 104 mg/dL (83-110); Magnesium 1.8 mg/dL (1.6-2.6); Potassium 3.5 mmol/L (3.5-5.1); Sodium 137 mmol/L (136-145)
[2020-02-03] MEDS: Mometasone Furoate 120 PUFF 220 MCG INH SCH ×2 (06:11→17:16)
[2020-02-03] MEDS: Levothyroxine Sodium 25 MCG TAB PO SCH (06:11)
[2020-02-03] MEDS: Furosemide 40 MG TAB PO SCH (09:28)
[2020-02-03] MEDS: Docusate 100 MG CAP PO SCH ×2 (09:28→20:29)
[2020-02-03] MEDS: Heparin 5,000 UNITS/ML VIAL SC SCH ×3 (09:28→20:31)
[2020-02-03] MEDS: Dexamethasone 4 MG TAB PO SCH (09:28)
[2020-02-03] MEDS: Benzonatate 100 MG CAP PO SCH ×3 (09:28→20:29)
[2020-02-03] MEDS: Amiodarone 200 MG TAB PO SCH (09:30)
[2020-02-03] MEDS: guaiFENesin ER 600 MG TAB PO SCH (09:30)
[2020-02-03] MEDS: Zinc Sulfate 220 MG CAP PO SCH (09:30)
[2020-02-03] MEDS: Sevelamer Carbonate 800 MG TAB PO SCH ×3 (09:30→17:15)
[2020-02-03] MEDS: Escitalopram Oxalate 10 mg Tablet PO SCH (09:30)
[2020-02-03] MEDS: Cholecalciferol 1,000 UNITS (25 MCG) TAB PO SCH (09:30)
[2020-02-03] MEDS: Senokot 8.6 MG TAB PO SCH (09:30)
[2020-02-03] MEDS: prednisoLONE 1% Ophth Susp 5 ml Bottle EA EYE SCH (09:32)
[2020-02-03] MEDS: Ketorolac Tromethamine 0.5% Ophth Soln 3 ml Bottle R EYE SCH ×3 (09:34→20:31)
[2020-02-03] MEDS: Diclofenac 1% 100 GM GEL TP SCH ×3 (09:47→20:30)
[2020-02-03] MEDS: Folic Acid 1 MG TAB PO SCH (10:51)
--- NOTE | 2020-02-03 12:19 | PDOC.HOSPP ---
- Subjective Encounter Date: 02/03/20 Encounter Time: 11:30 Subjective: Patient appears well she has no complaints seen and examined. She is satting well at 96% with 3 L oxygen by nasal cannula she is currently normotensive. She states that she has no shortness of breath with ambulation and minimal cough. - Objective Vital Signs & Weight: Vital Signs (12 hours) Temp Pulse Resp BP BP Pulse Ox 02/03/20 10:55 98.2 F 83 16 125/68 96 02/03/20 09:30 99 02/03/20 07:10 98.7 F 82 16 142/79 H 99 02/03/20 05:31 98.0 F 99 18 137/79 98 02/03/20 03:19 96 02/03/20 02:38 96 Weight Admit Weight 190 lb Weight 195 lb 4 oz I&O: 02/02/20 02/03/20 02/04/20 06:59 06:59 06:59 Intake Total 520 120 Balance 520 120 Result Diagrams: 02/03/20 04:44 02/03/20 04:44 Additional Labs: Accuchecks 02/03/20 02/02/20 10:55 21:15 POC Glucose 101 H 275 H Hospitalist ROS - Medication Medications: Active Medications Generic Name Dose Route Start Last Admin Trade Name Freq PRN Reason Stop Dose Admin Acetaminophen 650 mg 01/04/20 14:24 01/27/20 23:25 Acetaminophen 325 Mg Tab PO 650 mg Q4H PRN Administration Headache/Fever/Mild Pain (1-3) Hydrocodone Bitart/Acetaminophen 1 tab 01/26/20 21:00 02/03/20 09:29 Hydrocodone/Acetaminophen 10/325 Mg Tablet PO 1 tab Q4HR ADAM Administration Albuterol/Ipratropium 0 gm 01/06/20 10:32 01/19/20 06:47 Ipratropium/Albuterol Sulfate 4 Gm Aer IH 2 inh Q4H PRN Administration Dyspnea/Wheezing/SOB Amiodarone HCl 200 mg 01/06/20 09:00 02/03/20 09:30 Amiodarone 200 Mg Tab PO 200 mg DAILY ADAM Administration Atorvastatin Calcium 20 mg 01/06/20 21:00 02/02/20 21:58 Atorvastatin Calcium 20 Mg Tab PO 20 mg HS ADAM Administration Benzonatate 100 mg 01/05/20 15:00 02/03/20 09:28 Benzonatate 100 Mg Cap PO 100 mg TID ADAM Administration Cholecalciferol 5,000 units 01/07/20 09:00 02/03/20 09:30 Cholecalciferol 1,000 Units (25 Mcg) Tab PO 5,000 units DAILY ADAM Administration Dexamethasone 6 mg 01/26/20 09:00 02/03/20 09:28 Dexamethasone 4 Mg Tab PO 6 mg QAM ADAM Administration Diclofenac Sodium 4 gm 01/06/20 15:00 02/03/20 09:47 Diclofenac 1% 100 Gm Gel TP 4 gm TID ADAM Administration Docusate Sodium 100 mg 01/06/20 21:00 02/03/20 09:28 Docusate 100 Mg Cap PO 100 mg BID ADAM Administration Epoetin Rome-epbx 10,000 unit 01/15/20 10:46 02/02/20 10:49 Epoetin [place]-Epbx (Esrd) 10,000 Unit/Ml Vial IVP 10,000 unit MoWeFr ADAM Administration Escitalopram Oxalate 10 mg 01/06/20 09:00 02/03/20 09:30 Escitalopram Oxalate 10 Mg Tablet PO 10 mg DAILY ADAM Administration Folic Acid 1 mg 01/07/20 09:00 02/03/20 10:51 Folic Acid 1 Mg Tab PO 1 mg DAILY ADAM Administration Furosemide 40 mg 01/07/20 09:00 02/03/20 09:28 Furosemide 40 Mg Tab PO 40 mg DAILY ADAM Administration Guaifenesin 600 mg 01/07/20 09:00 02/03/20 09:30 Guaifenesin Er 600 Mg Tab PO 600 mg DAILY ADAM Administration Guaifenesin/Dextromethorphan 10 ml 01/06/20 09:06 01/31/20 12:18 Guaifenesin Dm 100-10/5 Ml Udcup PO 10 ml PRN PRN Administration Cough Heparin Sodium (Porcine) 5,000 units 01/24/20 15:00 02/03/20 09:28 Heparin 5,000 Units/Ml Vial SC 5,000 units TID ADAM Administration Insulin Human Lispro 0 units 01/14/20 08:01 02/01/20 18:12 Humalog 300 Units/3 Ml Vial SC 3 unit .MILD SLIDING SCALE PRN Administration Mild Correctional Scale Insulin Human Lispro 0 units 01/21/20 20:48 02/02/20 21:57 Humalog 300 Units/3 Ml Vial SC 3 unit .BEDTIME SLIDING SC PRN Administration Bedtime Correctional Scale Ketorolac Tromethamine 1 drop 01/06/20 15:00 02/03/20 09:34 Ketorolac Tromethamine 0.5% Ophth Soln 3 Ml Bottle R EYE 1 drop TID ADAM Administration Labetalol HCl 10 mg 01/14/20 16:51 01/28/20 23:58 Labetalol Hcl 100 Mg/20 Ml Vial SLOW IVP 10 mg Q4H PRN Administration SBP Greater Than 180 Lactulose 20 gm 01/26/20 16:17 02/01/20 18:10 Lactulose 20 Gm/30 Ml Udcup PO 20 gm BID PRN Administration Constipation Levothyroxine Sodium 50 mcg 01/06/20 06:00 02/03/20 06:11 Levothyroxine Sodium 25 Mcg Tab PO 50 mcg 0600 ADAM Administration Lidocaine/Prilocaine 1 gm 01/06/20 10:26 02/02/20 09:11 Lidocaine-Prilocaine 2.5% Cream 5 Gm Tube TOP 1 gm PRN PRN Administration Pain/IV STARTS Mometasone Furoate 1 puff 01/10/20 18:30 02/03/20 06:11 Mometasone Furoate 120 Puff 220 Mcg INH 1 puff BID-RT ADAM Administration Ondansetron HCl 4 mg 01/04/20 14:24 02/02/20 12:38 Ondansetron Odt 4 Mg Tab PO 4 mg Q6H PRN Administration Nausea/Vomiting Ondansetron HCl 4 mg 01/04/20 14:24 01/22/20 22:08 Ondansetron Pf 4 Mg/2 Ml Vial IVP 4 mg Q6H PRN Administration Nausea/Vomiting Pantoprazole Sodium 40 mg 01/31/20 21:00 02/03/20 09:28 Pantoprazole 40 Mg Tab PO 40 mg BID ADAM Administration Prednisolone Acetate 1 drop 01/07/20 09:00 02/03/20 09:32 Prednisolone 1% Ophth Susp 5 Ml Bottle EA EYE 1 drop DAILY ADAM Administration Senna 2 tab 01/07/20 09:00 02/03/20 09:30 Senokot 8.6 Mg Tab PO 2 tab DAILY ADAM Administration Sevelamer Carbonate 800 mg 01/06/20 12:00 02/03/20 09:30 Sevelamer Carbonate 800 Mg Tab PO 800 mg TID-WM ADAM Administration Sodium Chloride 10 ml 01/15/20 09:00 02/03/20 09:31 Flush - Normal Saline 10 Ml Syringe IVF 10 ml Q12HR ADAM Administration Sodium Chloride 10 ml 01/15/20 08:00 01/28/20 23:58 Flush - Normal Saline 10 Ml Syringe IVF 10 ml PRN PRN Administration Saline Flush Temazepam 15 mg 01/30/20 23:26 02/02/20 22:01 Temazepam 15 Mg Cap PO 15 mg HSPRN PRN Administration Insomnia Zinc Sulfate 220 mg 01/07/20 09:00 02/03/20 09:30 Zinc Sulfate 220 Mg Cap PO 220 mg DAILY ADAM Administration - Exam General Appearance: NAD, awake alert Eye: PERRL ENT: normocephalic atraumatic Neck: supple Gastrointestinal: soft, normal bowel sounds Neurological: no focal deficits Hosp A/P - Plan 84 years old female w.history of ESRD on dialysis, hypothyroidism, dyslipidemia, hypertension presented with SOB, - tested positive for COVID on 01/01/2020: Acute hypoxic respiratory failure secondary to COVID-19 pneumonia --Status post convalescent plasma. Continue Decadron. Continue supportive cares. Not a candidate for remdesivir due to chronic kidney disease -Improving currently on 3 L oxygen by nasal cannula COVID-19 pneumonia --Management as above ESRD on dialysis --Continue dialysis as per nephrology on Wednesday/Wednesday/Wednesday Paroxysmal atrial fib --cont Amio, NSR Melena --not a candidate for endoscopic evaluation d/t above. --cont supportive cares. s/p transfusions. Follow H&H. Pt was restarted back on Heparin sq for DVT ppx --cont PPI Hypothyroidism --cont home med Dyslipidemia --cont statin Physical deconditioning --cont PT DVT ppx: Heparin subcu GI ppx: PPI Code Status: Full Anticipated Dispo: TBD Patient states that her son lives nearby and available if needed for help.
--- NOTE | 2020-02-03 17:07 | PRG ---
DATE OF SERVICE: 02/03/2020 SUBJECTIVE: Patient was seen and examined at bedside and overnight events noted. Patient denies any shortness of breath or chest pain or palpitation. No history of nausea or vomiting or diarrhea or fever or chills or cramps. OBJECTIVE: GENERAL: This is a well-built female, in no apparent distress. VITAL SIGNS: Temperature 98.2. Heart rate 83. Respiratory rate 16. Blood pressure 125/68. HEENT: Atraumatic, normocephalic. Oral mucosa is moist. NECK: Supple. CARDIOVASCULAR: S1, S2 heard. Rate and rhythm regular. RESPIRATORY: Clear to auscultation. GASTROINTESTINAL: Abdomen is soft. MUSCULOSKELETAL: No tenderness. No edema. DERMATOLOGIC: No skin rash. NEUROLOGIC: Alert and awake and oriented x3. No focal neurologic deficits. Moving all the extremities. PSYCHIATRIC: Mood and affect normal. LABORATORY DATA: Potassium 3.5, BUN is 24, and creatinine is 2.6. ASSESSMENT AND PLAN: 1. End-stage renal disease, continue on hemodialysis as tolerated. 2. Edema. 3. History of hypertension. 4. Anemia of chronic disease. We will continue dialysis on Wednesday, Wednesday, and Wednesday as tolerated. Advised to limit fluid and salt intake. Job ID: [id number]
[2020-02-03] MEDS: HumaLOG 300 UNITS/3 ML VIAL SC PRN (17:15)
[2020-02-03] MEDS: Atorvastatin Calcium 20 MG TAB PO SCH (20:29)
[2020-02-03] MEDS: Temazepam 15 MG CAP PO PRN (20:29)
[2020-02-03] MEDS: Ondansetron ODT 4 MG TAB PO PRN (22:36)
[2020-02-04] MEDS: HYDROcodone/Acetaminophen 10/325 mg Tablet PO SCH ×6 (03:03→22:18)
[2020-02-04] MEDS ORDERED: Clopidogrel Bisulfate 75 MG TAB ONE (06:43)
[2020-02-04] MEDS: Levothyroxine Sodium 25 MCG TAB PO SCH (06:46)
[2020-02-04] MEDS: Mometasone Furoate 120 PUFF 220 MCG INH SCH ×2 (06:47→17:06)
[2020-02-04] MEDS: Docusate 100 MG CAP PO SCH ×2 (08:40→22:18)
[2020-02-04] MEDS: Senokot 8.6 MG TAB PO SCH (08:40)
[2020-02-04] MEDS: Sevelamer Carbonate 800 MG TAB PO SCH ×3 (08:40→17:06)
[2020-02-04] MEDS: Folic Acid 1 MG TAB PO SCH (08:40)
[2020-02-04] MEDS: Escitalopram Oxalate 10 mg Tablet PO SCH (08:40)
[2020-02-04] MEDS: Furosemide 40 MG TAB PO SCH (08:40)
[2020-02-04] MEDS: Amiodarone 200 MG TAB PO SCH (08:41)
[2020-02-04] MEDS: guaiFENesin ER 600 MG TAB PO SCH (08:41)
[2020-02-04] MEDS: Benzonatate 100 MG CAP PO SCH ×3 (08:41→22:18)
[2020-02-04] MEDS: Dexamethasone 4 MG TAB PO SCH (08:41)
[2020-02-04] MEDS: Cholecalciferol 1,000 UNITS (25 MCG) TAB PO SCH (08:41)
[2020-02-04] MEDS: Zinc Sulfate 220 MG CAP PO SCH (08:41)
[2020-02-04] MEDS: Diclofenac 1% 100 GM GEL TP SCH ×3 (08:42→22:26)
[2020-02-04] MEDS: Ketorolac Tromethamine 0.5% Ophth Soln 3 ml Bottle R EYE SCH ×3 (08:43→22:26)
[2020-02-04] MEDS: prednisoLONE 1% Ophth Susp 5 ml Bottle EA EYE SCH (08:43)
[2020-02-04] MEDS: Heparin 5,000 UNITS/ML VIAL SC SCH ×3 (08:43→22:17)
[2020-02-04] MEDS ORDERED: Amlodipine 5 MG TAB PO SCH (09:00)
[2020-02-04] MEDS: Amlodipine 5 MG TAB PO SCH ×2 (11:52→22:18)
--- NOTE | 2020-02-04 14:56 | PDOC.HOSPP ---
- Subjective Encounter Date: 02/04/20 Encounter Time: 02:30 Subjective: Patient is sleeping and not on awakening she has appropriate response. Discharge plan discussed possible inpatient rehab. Sats are good - Objective Vital Signs & Weight: Vital Signs (12 hours) Temp Pulse Resp BP BP Pulse Ox 02/04/20 10:15 98.4 F 86 17 139/63 100 02/04/20 08:50 98 02/04/20 07:40 98.2 F 94 18 162/86 H 98 02/04/20 04:12 97.9 F 83 16 148/67 H 100 Weight Admit Weight 190 lb Weight 195 lb 1 oz I&O: 02/03/20 02/04/20 02/05/20 06:59 06:59 06:59 Intake Total 120 800 Balance 120 800 Result Diagrams: 02/03/20 04:44 02/03/20 04:44 Additional Labs: Accuchecks 02/04/20 02/04/20 02/03/20 10:16 06:51 20:37 POC Glucose 130 H 105 H 145 H 02/03/20 17:05 POC Glucose 306 H Hospitalist ROS - Medication Medications: Active Medications Generic Name Dose Route Start Last Admin Trade Name Freq PRN Reason Stop Dose Admin Acetaminophen 650 mg 01/04/20 14:24 01/27/20 23:25 Acetaminophen 325 Mg Tab PO 650 mg Q4H PRN Administration Headache/Fever/Mild Pain (1-3) Hydrocodone Bitart/Acetaminophen 1 tab 01/26/20 21:00 02/04/20 13:12 Hydrocodone/Acetaminophen 10/325 Mg Tablet PO 1 tab Q4HR ADAM Administration Albuterol/Ipratropium 0 gm 01/06/20 10:32 01/19/20 06:47 Ipratropium/Albuterol Sulfate 4 Gm Aer IH 2 inh Q4H PRN Administration Dyspnea/Wheezing/SOB Amiodarone HCl 200 mg 01/06/20 09:00 02/04/20 08:41 Amiodarone 200 Mg Tab PO 200 mg DAILY ADAM Administration Amlodipine Besylate 5 mg 02/04/20 09:00 02/04/20 11:52 Amlodipine 5 Mg Tab PO 5 mg BID ADAM Administration Atorvastatin Calcium 20 mg 01/06/20 21:00 02/03/20 20:29 Atorvastatin Calcium 20 Mg Tab PO 20 mg HS ADAM Administration Benzonatate 100 mg 01/05/20 15:00 02/04/20 08:41 Benzonatate 100 Mg Cap PO 100 mg TID ADAM Administration Cholecalciferol 5,000 units 01/07/20 09:00 02/04/20 08:41 Cholecalciferol 1,000 Units (25 Mcg) Tab PO 5,000 units DAILY ADAM Administration Dexamethasone 6 mg 01/26/20 09:00 02/04/20 08:41 Dexamethasone 4 Mg Tab PO 6 mg QAM ADAM Administration Diclofenac Sodium 4 gm 01/06/20 15:00 02/04/20 08:42 Diclofenac 1% 100 Gm Gel TP 4 gm TID ADAM Administration Docusate Sodium 100 mg 01/06/20 21:00 02/04/20 08:40 Docusate 100 Mg Cap PO 100 mg BID ADAM Administration Epoetin Rome-epbx 10,000 unit 01/15/20 10:46 02/02/20 10:49 Epoetin [place]-Epbx (Esrd) 10,000 Unit/Ml Vial IVP 10,000 unit MoWeFr ADAM Administration Escitalopram Oxalate 10 mg 01/06/20 09:00 02/04/20 08:40 Escitalopram Oxalate 10 Mg Tablet PO 10 mg DAILY ADAM Administration Folic Acid 1 mg 01/07/20 09:00 02/04/20 08:40 Folic Acid 1 Mg Tab PO 1 mg DAILY ADAM Administration Furosemide 40 mg 01/07/20 09:00 02/04/20 08:40 Furosemide 40 Mg Tab PO 40 mg DAILY ADAM Administration Guaifenesin 600 mg 01/07/20 09:00 02/04/20 08:41 Guaifenesin Er 600 Mg Tab PO 600 mg DAILY ADAM Administration Guaifenesin/Dextromethorphan 10 ml 01/06/20 09:06 01/31/20 12:18 Guaifenesin Dm 100-10/5 Ml Udcup PO 10 ml PRN PRN Administration Cough Heparin Sodium (Porcine) 5,000 units 01/24/20 15:00 02/04/20 08:43 Heparin 5,000 Units/Ml Vial SC 5,000 units TID ADAM Administration Insulin Human Lispro 0 units 01/14/20 08:01 02/03/20 17:15 Humalog 300 Units/3 Ml Vial SC 5 unit .MILD SLIDING SCALE PRN Administration Mild Correctional Scale Insulin Human Lispro 0 units 01/21/20 20:48 02/02/20 21:57 Humalog 300 Units/3 Ml Vial SC 3 unit .BEDTIME SLIDING SC PRN Administration Bedtime Correctional Scale Ketorolac Tromethamine 1 drop 01/06/20 15:00 02/04/20 08:43 Ketorolac Tromethamine 0.5% Ophth Soln 3 Ml Bottle R EYE 1 drop TID ADAM Administration Labetalol HCl 10 mg 01/14/20 16:51 01/28/20 23:58 Labetalol Hcl 100 Mg/20 Ml Vial SLOW IVP 10 mg Q4H PRN Administration SBP Greater Than 180 Lactulose 20 gm 01/26/20 16:17 02/01/20 18:10 Lactulose 20 Gm/30 Ml Udcup PO 20 gm BID PRN Administration Constipation Levothyroxine Sodium 50 mcg 01/06/20 06:00 02/04/20 06:46 Levothyroxine Sodium 25 Mcg Tab PO 50 mcg 0600 ADAM Administration Lidocaine/Prilocaine 1 gm 01/06/20 10:26 02/02/20 09:11 Lidocaine-Prilocaine 2.5% Cream 5 Gm Tube TOP 1 gm PRN PRN Administration Pain/IV STARTS Mometasone Furoate 1 puff 01/10/20 18:30 02/04/20 06:47 Mometasone Furoate 120 Puff 220 Mcg INH 1 puff BID-RT ADAM Administration Ondansetron HCl 4 mg 01/04/20 14:24 02/03/20 22:36 Ondansetron Odt 4 Mg Tab PO 4 mg Q6H PRN Administration Nausea/Vomiting Ondansetron HCl 4 mg 01/04/20 14:24 01/22/20 22:08 Ondansetron Pf 4 Mg/2 Ml Vial IVP 4 mg Q6H PRN Administration Nausea/Vomiting Pantoprazole Sodium 40 mg 01/31/20 21:00 02/04/20 08:40 Pantoprazole 40 Mg Tab PO 40 mg BID AADM Administration Prednisolone Acetate 1 drop 01/07/20 09:00 02/04/20 08:43 Prednisolone 1% Ophth Susp 5 Ml Bottle EA EYE 1 drop DAILY ADAM Administration Senna 2 tab 01/07/20 09:00 02/04/20 08:40 Senokot 8.6 Mg Tab PO 2 tab DAILY ADAM Administration Sevelamer Carbonate 800 mg 01/06/20 12:00 02/04/20 11:52 Sevelamer Carbonate 800 Mg Tab PO 800 mg TID-WM ADAM Administration Sodium Chloride 10 ml 01/15/20 09:00 02/04/20 08:45 Flush - Normal Saline 10 Ml Syringe IVF Not Given Q12HR ADAM Sodium Chloride 10 ml 01/15/20 08:00 01/28/20 23:58 Flush - Normal Saline 10 Ml Syringe IVF 10 ml PRN PRN Administration Saline Flush Temazepam 15 mg 01/30/20 23:26 02/03/20 20:29 Temazepam 15 Mg Cap PO 15 mg HSPRN PRN Administration Insomnia Zinc Sulfate 220 mg 01/07/20 09:00 02/04/20 08:41 Zinc Sulfate 220 Mg Cap PO 220 mg DAILY ADAM Administration - Exam General Appearance: NAD, awake alert Eye: PERRL ENT: normocephalic atraumatic Neck: supple, no lymphadenopathy Heart: RRR, normal peripheral pulses Respiratory: CTAB, normal chest expansion Neurological: cranial nerve grossly intact, no focal deficits Musculoskeletal: normal tone Psychiatric: normal affect, normal behavior, A&O x 3 Hosp A/P - Plan 84 years old female w.history of ESRD on dialysis, hypothyroidism, dyslipidemia, hypertension presented with SOB, - tested positive for COVID on 01/01/2020: Acute hypoxic respiratory failure secondary to COVID-19 pneumonia --Status post convalescent plasma. Continue Decadron. Continue supportive c rachana. Not a candidate for remdesivir due to chronic kidney disease -Improving currently on 3 L oxygen by nasal cannula COVID-19 pneumonia --Management as above ESRD on dialysis --Continue dialysis as per nephrology on Wednesday/Wednesday/Wednesday Paroxysmal atrial fib --cont Amio, NSR Melena --not a candidate for endoscopic evaluation d/t above. --cont supportive cares. s/p transfusions. Follow H&H. Pt was restarted back on Heparin sq for DVT ppx --cont PPI Hypothyroidism --cont home med Dyslipidemia --cont statin Physical deconditioning --cont PT DVT ppx: Heparin subcu GI ppx: PPI Code Status: Full Anticipated Dispo: TBD Due to her generalized weakness, she would benefit with a transient rehab. Plan for next 1 or 2 days to go to the rehab Consult placed for pillowcase cleaner.
--- NOTE | 2020-02-04 16:18 | PRG ---
DATE OF SERVICE: 02/04/2020 SUBJECTIVE: Patient was seen and examined at bedside and overnight events noted. Patient denies any shortness of breath or chest pain or palpitation. No history of nausea or vomiting or diarrhea or fever or chills or cramps. OBJECTIVE: GENERAL: This is a well-built female, in no apparent distress. VITAL SIGNS: Temperature 98.4, pulse 82, respiratory rate 18, blood pressure 139/68. HEENT: Atraumatic, normocephalic. Oral mucosa is moist. NECK: Supple. CARDIOVASCULAR: S1, S2 heard. Rate and rhythm regular. RESPIRATORY: Clear to auscultation. GASTROINTESTINAL: Abdomen is soft. MUSCULOSKELETAL: No tenderness. No edema. DERMATOLOGIC: No skin rash. NEUROLOGIC: Alert and awake and oriented x3. No focal neurologic deficits. Moving all the extremities. PSYCHIATRIC: Mood and affect normal. LABORATORY DATA: Not done today. ASSESSMENT AND PLAN: 1. End-stage renal disease. Continue dialysis Wednesday, Wednesday, and Wednesday. 2. Edema. 3. Hypertension. 4. Anemia of chronic disease. Continue dialysis Wednesday, Wednesday, and Wednesday. Job ID: [id number]
[2020-02-04] MEDS: Temazepam 15 MG CAP PO PRN (22:09)
[2020-02-04] MEDS: Atorvastatin Calcium 20 MG TAB PO SCH (22:18)
[2020-02-05] MEDS: HYDROcodone/Acetaminophen 10/325 mg Tablet PO SCH ×6 (01:59→21:08)
[2020-02-05] MEDS: Levothyroxine Sodium 25 MCG TAB PO SCH (05:05)
[2020-02-05] MEDS: Mometasone Furoate 120 PUFF 220 MCG INH SCH ×2 (07:25→19:12)
[2020-02-05] MEDS: Ketorolac Tromethamine 0.5% Ophth Soln 3 ml Bottle R EYE SCH ×3 (07:26→21:12)
[2020-02-05] MEDS: prednisoLONE 1% Ophth Susp 5 ml Bottle EA EYE SCH (07:26)
[2020-02-05] MEDS: Cholecalciferol 1,000 UNITS (25 MCG) TAB PO SCH (07:27)
[2020-02-05] MEDS: Senokot 8.6 MG TAB PO SCH (07:27)
[2020-02-05] MEDS: Escitalopram Oxalate 10 mg Tablet PO SCH (07:27)
[2020-02-05] MEDS: Benzonatate 100 MG CAP PO SCH ×3 (07:28→21:08)
[2020-02-05] MEDS: Dexamethasone 4 MG TAB PO SCH (07:29)
[2020-02-05] MEDS: Sevelamer Carbonate 800 MG TAB PO SCH ×4 (07:29→17:45)
[2020-02-05] MEDS: Zinc Sulfate 220 MG CAP PO SCH (07:29)
[2020-02-05] MEDS: guaiFENesin ER 600 MG TAB PO SCH (07:30)
[2020-02-05] MEDS: Amiodarone 200 MG TAB PO SCH (07:30)
[2020-02-05] MEDS: Folic Acid 1 MG TAB PO SCH (07:30)
[2020-02-05] MEDS: Heparin 5,000 UNITS/ML VIAL SC SCH ×3 (07:30→21:07)
[2020-02-05] MEDS: Docusate 100 MG CAP PO SCH ×2 (07:31→21:09)
[2020-02-05] MEDS: Furosemide 40 MG TAB PO SCH (07:45)
[2020-02-05] MEDS: Diclofenac 1% 100 GM GEL TP SCH ×3 (07:52→21:10)
--- NOTE | 2020-02-05 08:18 | PRG ---
DATE OF SERVICE: 02/05/2020 SUBJECTIVE: An 84-year-old female being seen for end-stage renal disease. The patient denies any nausea, vomiting, or chest pain. OBJECTIVE: GENERAL: On exam, the patient is awake and alert. VITAL SIGNS: Afebrile, pulse 75, breathing at 16, and blood pressure 148/83. HEENT: Head normocephalic and atraumatic. Eyes intact, no ulcers. Nose intact, no ulcers. Ears intact, no ulcers. NECK: Supple. No JVD. CHEST: Symmetrical and clear. CARDIOVASCULAR: Shows S1 and S2, no rub, no murmur. GASTROINTESTINAL: Abdomen is soft, bowel sounds positive. EXTREMITIES: Show no edema or ulcers. SKIN: Shows no rash or petechiae. MUSCULOSKELETAL: Shows no joint swelling or stiffness. GENITOURINARY: Shows no Cabrera or CVA tenderness. NEUROLOGIC: Motor intact. Cranial nerves intact. LABORATORY DATA: Reviewed. ASSESSMENT AND PLAN: 1. Stage 6 chronic kidney disease. Plan dialysis. 2. Hypertension, stable. 3. Anemia, stable. 4. Medications based on glomerular filtration rate are appropriate. Job ID: [id number]
[2020-02-05] MEDS: EPOETIN ALFA-EPBX (ESRD) 10,000 UNIT/ML VIAL IVP SCH (10:12)
[2020-02-05 11:12] VITALS: BMI 32.8
--- NOTE | 2020-02-05 12:52 | PDOC.HOSPP ---
- Subjective Encounter Date: 02/05/20 Encounter Time: 10:20 Subjective: Patient seen in the dialysis area. She noted to have some nonsustained V. tach. She is asymptomatic. - Objective Vital Signs & Weight: Vital Signs (12 hours) Temp Pulse Resp BP Pulse Ox 02/05/20 07:45 98.1 F 79 16 146/82 H 98 02/05/20 07:15 98.4 F 94 18 148/83 H 100 02/05/20 03:23 97.7 F 78 18 171/80 H 100 Weight Admit Weight 190 lb Weight 197 lb I&O: 02/04/20 02/05/20 02/06/20 06:59 06:59 06:59 Intake Total 800 920 Balance 800 920 Result Diagrams: 02/03/20 04:44 02/03/20 04:44 Additional Labs: Accuchecks 02/05/20 02/05/20 02/04/20 10:34 06:16 20:00 POC Glucose 119 H 114 H 211 H 02/04/20 16:39 POC Glucose 213 H Hospitalist ROS - Medication Medications: Active Medications Generic Name Dose Route Start Last Admin Trade Name Freq PRN Reason Stop Dose Admin Acetaminophen 650 mg 01/04/20 14:24 01/27/20 23:25 Acetaminophen 325 Mg Tab PO 650 mg Q4H PRN Administration Headache/Fever/Mild Pain (1-3) Hydrocodone Bitart/Acetaminophen 1 tab 01/26/20 21:00 02/05/20 08:22 Hydrocodone/Acetaminophen 10/325 Mg Tablet PO Not Given Q4HR ADAM Albuterol/Ipratropium 0 gm 01/06/20 10:32 01/19/20 06:47 Ipratropium/Albuterol Sulfate 4 Gm Aer IH 2 inh Q4H PRN Administration Dyspnea/Wheezing/SOB Amiodarone HCl 200 mg 01/06/20 09:00 02/05/20 07:30 Amiodarone 200 Mg Tab PO 200 mg DAILY ADAM Administration Amlodipine Besylate 5 mg 02/04/20 09:00 02/04/20 22:18 Amlodipine 5 Mg Tab PO 5 mg BID ADAM Administration Atorvastatin Calcium 20 mg 01/06/20 21:00 02/04/20 22:18 Atorvastatin Calcium 20 Mg Tab PO 20 mg HS ADAM Administration Benzonatate 100 mg 01/05/20 15:00 02/05/20 07:28 Benzonatate 100 Mg Cap PO 100 mg TID ADAM Administration Cholecalciferol 5,000 units 01/07/20 09:00 02/05/20 07:27 Cholecalciferol 1,000 Units (25 Mcg) Tab PO 5,000 units DAILY ADAM Administration Dexamethasone 6 mg 01/26/20 09:00 02/05/20 07:29 Dexamethasone 4 Mg Tab PO 6 mg QAM ADAM Administration Diclofenac Sodium 4 gm 01/06/20 15:00 02/05/20 07:52 Diclofenac 1% 100 Gm Gel TP 4 gm TID ADAM Administration Docusate Sodium 100 mg 01/06/20 21:00 02/05/20 07:31 Docusate 100 Mg Cap PO 100 mg BID ADAM Administration Epoetin [place]-epbx 10,000 unit 01/15/20 10:46 02/05/20 10:12 Epoetin [place]-Epbx (Esrd) 10,000 Unit/Ml Vial IVP 10,000 unit MoWeFr ADAM Administration Escitalopram Oxalate 10 mg 01/06/20 09:00 02/05/20 07:27 Escitalopram Oxalate 10 Mg Tablet PO 10 mg DAILY ADAM Administration Folic Acid 1 mg 01/07/20 09:00 02/05/20 07:30 Folic Acid 1 Mg Tab PO 1 mg DAILY ADAM Administration Furosemide 40 mg 01/07/20 09:00 02/04/20 08:40 Furosemide 40 Mg Tab PO 40 mg DAILY ADAM Administration Guaifenesin 600 mg 01/07/20 09:00 02/05/20 07:30 Guaifenesin Er 600 Mg Tab PO 600 mg DAILY ADAM Administration Guaifenesin/Dextromethorphan 10 ml 01/06/20 09:06 01/31/20 12:18 Guaifenesin Dm 100-10/5 Ml Udcup PO 10 ml PRN PRN Administration Cough Heparin Sodium (Porcine) 5,000 units 01/24/20 15:00 02/05/20 07:30 Heparin 5,000 Units/Ml Vial SC 5,000 units TID ADAM Administration Insulin Human Lispro 0 units 01/14/20 08:01 02/03/20 17:15 Humalog 300 Units/3 Ml Vial SC 5 unit .MILD SLIDING SCALE PRN Administration Mild Correctional Scale Insulin Human Lispro 0 units 01/21/20 20:48 02/02/20 21:57 Humalog 300 Units/3 Ml Vial SC 3 unit .BEDTIME SLIDING SC PRN Administration Bedtime Correctional Scale Ketorolac Tromethamine 1 drop 01/06/20 15:00 02/05/20 07:26 Ketorolac Tromethamine 0.5% Ophth Soln 3 Ml Bottle R EYE 1 drop TID ADAM Administration Labetalol HCl 10 mg 01/14/20 16:51 01/28/20 23:58 Labetalol Hcl 100 Mg/20 Ml Vial SLOW IVP 10 mg Q4H PRN Administration SBP Greater Than 180 Lactulose 20 gm 01/26/20 16:17 02/01/20 18:10 Lactulose 20 Gm/30 Ml Udcup PO 20 gm BID PRN Administration Constipation Levothyroxine Sodium 50 mcg 01/06/20 06:00 02/05/20 05:05 Levothyroxine Sodium 25 Mcg Tab PO 50 mcg 0600 ADAM Administration Lidocaine/Prilocaine 1 gm 01/06/20 10:26 02/02/20 09:11 Lidocaine-Prilocaine 2.5% Cream 5 Gm Tube TOP 1 gm PRN PRN Administration Pain/IV STARTS Mometasone Furoate 1 puff 01/10/20 18:30 02/05/20 07:25 Mometasone Furoate 120 Puff 220 Mcg INH 1 puff BID-RT ADAM Administration Ondansetron HCl 4 mg 01/04/20 14:24 02/03/20 22:36 Ondansetron Odt 4 Mg Tab PO 4 mg Q6H PRN Administration Nausea/Vomiting Ondansetron HCl 4 mg 01/04/20 14:24 01/22/20 22:08 Ondansetron Pf 4 Mg/2 Ml Vial IVP 4 mg Q6H PRN Administration Nausea/Vomiting Pantoprazole Sodium 40 mg 01/31/20 21:00 02/05/20 07:29 Pantoprazole 40 Mg Tab PO 40 mg BID ADAM Administration Prednisolone Acetate 1 drop 01/07/20 09:00 02/05/20 07:26 Prednisolone 1% Ophth Susp 5 Ml Bottle EA EYE 1 drop DAILY ADAM Administration Senna 2 tab 01/07/20 09:00 02/05/20 07:27 Senokot 8.6 Mg Tab PO 2 tab DAILY ADAM Administration Sevelamer Carbonate 800 mg 01/06/20 12:00 02/05/20 08:24 Sevelamer Carbonate 800 Mg Tab PO Not Given TID-WM ADAM Sodium Chloride 10 ml 01/15/20 09:00 02/05/20 08:22 Flush - Normal Saline 10 Ml Syringe IVF Not Given Q12HR ADAM Sodium Chloride 10 ml 01/15/20 08:00 01/28/20 23:58 Flush - Normal Saline 10 Ml Syringe IVF 10 ml PRN PRN Administration Saline Flush Temazepam 15 mg 01/30/20 23:26 02/04/20 22:09 Temazepam 15 Mg Cap PO 15 mg HSPRN PRN Administration Insomnia Zinc Sulfate 220 mg 01/07/20 09:00 02/05/20 07:29 Zinc Sulfate 220 Mg Cap PO 220 mg DAILY ADAM Administration - Exam General Appearance: NAD, awake alert Eye: PERRL ENT: normocephalic atraumatic Neck: supple Heart: RRR Respiratory: CTAB, normal chest expansion Gastrointestinal: soft, normal bowel sounds Skin: normal turgor Neurological: no focal deficits Psychiatric: normal affect, normal behavior, A&O x 3 Hosp A/P - Plan 84 years old female w.history of ESRD on dialysis, hypothyroidism, dyslipidemia, hypertension presented with SOB, - tested positive for COVID on 01/01/2020: Acute hypoxic respiratory failure secondary to COVID-19 pneumonia--she was tested positive on December 31 --Status post convalescent plasma. Continue Decadron. Continue supportive cares. Not a candidate for remdesivir due to chronic kidney disease -Improving currently on 3 L oxygen by nasal cannula COVID-19 pneumonia --Management as above ESRD on dialysis --Continue dialysis as per nephrology on Wednesday/Wednesday/Wednesday Paroxysmal atrial fib --cont Amio, NSR Melena --not a candidate for endoscopic evaluation d/t above. --cont supportive cares. s/p transfusions. Follow H&H. Pt was restarted back on Heparin sq for DVT ppx --cont PPI Hypothyroidism --cont home med Dyslipidemia --cont statin Physical deconditioning --cont PT DVT ppx: Heparin subcu GI ppx: PPI Code Status: Full Anticipated Dispo: TBD Due to her generalized weakness, she would benefit with a transient rehab. Plan for next 1 or 2 days to go to the rehab--she is off the precautions and isolation for Covid. It is over 20-day window. Consult placed for case assistant.
[2020-02-05] MEDS: Amlodipine 5 MG TAB PO SCH ×2 (13:19→21:08)
[2020-02-05] MEDS: HumaLOG 300 UNITS/3 ML VIAL SC PRN (17:41)
[2020-02-05] MEDS: Atorvastatin Calcium 20 MG TAB PO SCH (21:11)
[2020-02-05] MEDS: Temazepam 15 MG CAP PO PRN (21:30)
[2020-02-06] MEDS: Magnesium Oxide 400 MG TAB PO SCH ×2 (01:36→01:54)
[2020-02-06] MEDS: HYDROcodone/Acetaminophen 10/325 mg Tablet PO PRN ×4 (01:52→20:43)
[2020-02-06] MEDS: Levothyroxine Sodium 25 MCG TAB PO SCH (06:26)
[2020-02-06] MEDS: Mometasone Furoate 120 PUFF 220 MCG INH SCH ×2 (06:27→17:19)
[2020-02-06 07:09] LABS: #Eosinphils 0.1 thou/uL (0.0-0.7); #Lymphocytes 1.9 thou/uL (1.20-3.40); #Monocytes 1.2 thou/uL (0.11-0.59); #Neutrophils 10.7 thou/uL (1.40-6.50); %Basophils 0.3 % (0.0-1.0); %Eosinophils 0.4 % (0.0-10.0); %Lymphocytes 13.8 % (21.0-51.0); %Monocytes 8.5 % (0.0-10.0); %Neutrophils 77.1 % (42.0-75.0); Hemoglobin 10.1 g/dL (12.0-16.0); Mean Corpuscular HGB CONC 31.9 g/dL (32.0-36.0); Mean Corpuscular Hemoglobin 30.9 pg (27.0-31.0); Mean Corpuscular Volume 96.9 fL (78.0-98.0); Mean Platelet Volume 8.3 fL (7.4-10.4); Platelet Count 253 thou/uL (130-400); RBC Distribution Width 15.9 % (11.5-14.5); Red Blood Cell (RBC) Count 3.28 mill/uL (4.20-5.40); White Blood Cell (WBC) Count 13.9 thou/uL (4.8-10.8)
[2020-02-06 07:22] LABS: Anion Gap 15 mmol/L (10-20); BUN (Urea Nitrogen) 31 mg/dL (9.8-20.1); Calc. Creatinine Clearance 18 mL/min (70-130); Calcium 8.6 mg/dL (7.8-10.44); Carbon Dioxide 29 mmol/L (23-31); Chloride 95 mmol/L (98-107); Glucose 121 mg/dL (83-110); Potassium 3.9 mmol/L (3.5-5.1); Sodium 135 mmol/L (136-145)
[2020-02-06] MEDS: Cholecalciferol 1,000 UNITS (25 MCG) TAB PO SCH (08:52)
[2020-02-06] MEDS: Senokot 8.6 MG TAB PO SCH (08:52)
[2020-02-06] MEDS: Zinc Sulfate 220 MG CAP PO SCH (08:52)
[2020-02-06] MEDS: Amlodipine 5 MG TAB PO SCH ×2 (08:53→20:32)
[2020-02-06] MEDS: Benzonatate 100 MG CAP PO SCH ×3 (08:53→20:32)
[2020-02-06] MEDS: Furosemide 40 MG TAB PO SCH (08:53)
[2020-02-06] MEDS: guaiFENesin ER 600 MG TAB PO SCH (08:54)
[2020-02-06] MEDS: Folic Acid 1 MG TAB PO SCH (08:54)
[2020-02-06] MEDS: Dexamethasone 4 MG TAB PO SCH (08:54)
[2020-02-06] MEDS: Escitalopram Oxalate 10 mg Tablet PO SCH (08:54)
[2020-02-06] MEDS: Acetaminophen 325 MG TAB PO PRN (08:55)
[2020-02-06] MEDS: Amiodarone 200 MG TAB PO SCH (08:55)
[2020-02-06] MEDS: Sevelamer Carbonate 800 MG TAB PO SCH ×3 (08:55→17:15)
[2020-02-06] MEDS: Docusate 100 MG CAP PO SCH ×2 (08:57→20:32)
[2020-02-06] MEDS: Diclofenac 1% 100 GM GEL TP SCH ×3 (08:57→22:12)
[2020-02-06] MEDS: prednisoLONE 1% Ophth Susp 5 ml Bottle EA EYE SCH (08:58)
[2020-02-06] MEDS: Ketorolac Tromethamine 0.5% Ophth Soln 3 ml Bottle R EYE SCH ×3 (08:59→20:35)
[2020-02-06] MEDS: Heparin 5,000 UNITS/ML VIAL SC SCH ×3 (09:00→20:41)
--- NOTE | 2020-02-06 11:18 | RAD ---
XR Chest 1 View Portable History: High white blood count Comparison: Radiograph January 30, 2020 Findings: Slight improved lung aeration. Heart size is enlarged. Peripheral lung fibrosis. Dense aortic calcifications. No pneumothorax. Impression: Findings concerning for fibrosis related to Covid 19 pneumonia.
--- NOTE | 2020-02-06 11:30 | PRG ---
DATE OF SERVICE: SUBJECTIVE: An 84-year-old female being seen for end-stage renal disease. The patient denies nausea, vomiting, or chest pain. PHYSICAL EXAMINATION: General: The patient is awake and alert. Vital Signs: Afebrile, pulse 95, breathing at 16, blood pressure . HEENT: Head normocephalic and atraumatic. Eyes intact, no ulcers. Nose intact, no ulcers. Ears intact, no ulcers. Neck: Supple. No JVD. Chest: Symmetrical and clear. Cardiovascular: Shows S1 and S2, no rub, no murmur. Gastrointestinal: Abdomen is soft, bowel sounds positive. Extremities: Show no edema or ulcers. Skin: Shows no rash or petechiae. Musculoskeletal: Shows no joint swelling or stiffness. Genitourinary: Shows no Cabrera or CVA tenderness. Neurologic: Motor intact. Cranial nerves intact. LABORATORY DATA: Reviewed. ASSESSMENT AND PLAN: Stage 6 chronic kidney disease, continue hemodialysis. Hypertension, stable. Anemia, stable. Medication based on GFR appropriate. Job ID: [id number]
[2020-02-06] MEDS: HumaLOG 300 UNITS/3 ML VIAL SC PRN ×3 (12:54→22:10)
--- NOTE | 2020-02-06 13:55 | PDOC.HOSPP ---
- Subjective Encounter Date: 02/06/20 Encounter Time: 11:30 Subjective: Patient appears quite is somnolent and lethargic. I talked to Dr. Jones this morning. Abnormality that is noted in the property assessment monitor yesterday including wide-complex tachycardia a few beats and 2 seconds past has been notified. Her electrolytes in the normal range. She is on amiodarone. Her temp was little low this morning 97.1 her chest x-ray showed Covid pneumonia complications including early onset of fibrosis. Other than that no dense infiltrate. She had no further arrhythmia episodes in the low monitor. Echo is pending. - Objective Vital Signs & Weight: Vital Signs (12 hours) Temp Pulse Resp BP Pulse Ox 02/06/20 11:51 97.1 F L 89 18 118/57 L 100 02/06/20 07:42 97.7 F 95 18 148/75 H 100 02/06/20 04:00 97.7 F 91 21 H 118/63 100 02/06/20 03:22 97 Weight Admit Weight 190 lb Weight 197 lb I&O: 02/05/20 02/06/20 02/07/20 06:59 06:59 06:59 Intake Total 920 1490 Output Total 2000 Balance 920 -510 Result Diagrams: 02/06/20 06:53 02/06/20 06:53 Additional Labs: Accuchecks 02/06/20 02/06/20 02/05/20 11:07 06:35 21:00 POC Glucose 197 H 129 H 188 H 02/05/20 17:32 POC Glucose 325 H Hospitalist ROS - Medication Medications: Active Medications Generic Name Dose Route Start Last Admin Trade Name Freq PRN Reason Stop Dose Admin Acetaminophen 650 mg 01/04/20 14:24 02/06/20 08:55 Acetaminophen 325 Mg Tab PO 650 mg Q4H PRN Administration Headache/Fever/Mild Pain (1-3) Hydrocodone Bitart/Acetaminophen 1 tab 02/06/20 01:24 02/06/20 12:58 Hydrocodone/Acetaminophen 10/325 Mg Tablet PO 1 tab Q4H PRN Administration Moderate to Severe Pain (6-10) Albuterol/Ipratropium 0 gm 01/06/20 10:32 01/19/20 06:47 Ipratropium/Albuterol Sulfate 4 Gm Aer IH 2 inh Q4H PRN Administration Dyspnea/Wheezing/SOB Amiodarone HCl 200 mg 01/06/20 09:00 02/06/20 08:55 Amiodarone 200 Mg Tab PO 200 mg DAILY ADAM Administration Amlodipine Besylate 5 mg 02/04/20 09:00 02/06/20 08:53 Amlodipine 5 Mg Tab PO 5 mg BID ADAM Administration Atorvastatin Calcium 20 mg 01/06/20 21:00 02/05/20 21:11 Atorvastatin Calcium 20 Mg Tab PO 20 mg HS ADAM Administration Benzonatate 100 mg 01/05/20 15:00 02/06/20 08:53 Benzonatate 100 Mg Cap PO 100 mg TID ADAM Administration Cholecalciferol 5,000 units 01/07/20 09:00 02/06/20 08:52 Cholecalciferol 1,000 Units (25 Mcg) Tab PO 5,000 units DAILY ADAM Administration Dexamethasone 6 mg 01/26/20 09:00 02/06/20 08:54 Dexamethasone 4 Mg Tab PO 6 mg QAM ADAM Administration Diclofenac Sodium 4 gm 01/06/20 15:00 02/06/20 08:57 Diclofenac 1% 100 Gm Gel TP 4 gm TID ADAM Administration Docusate Sodium 100 mg 01/06/20 21:00 02/06/20 08:57 Docusate 100 Mg Cap PO 100 mg BID ADAM Administration Epoetin Rome-epbx 10,000 unit 01/15/20 10:46 02/05/20 10:12 Epoetin Rome-Epbx (Esrd) 10,000 Unit/Ml Vial IVP 10,000 unit MoWeFr ADAM Administration Escitalopram Oxalate 10 mg 01/06/20 09:00 02/06/20 08:54 Escitalopram Oxalate 10 Mg Tablet PO 10 mg DAILY ADAM Administration Folic Acid 1 mg 01/07/20 09:00 02/06/20 08:54 Folic Acid 1 Mg Tab PO 1 mg DAILY ADAM Administration Furosemide 40 mg 01/07/20 09:00 02/06/20 08:53 Furosemide 40 Mg Tab PO 40 mg DAILY ADAM Administration Guaifenesin 600 mg 01/07/20 09:00 02/06/20 08:54 Guaifenesin Er 600 Mg Tab PO 600 mg DAILY ADAM Administration Guaifenesin/Dextromethorphan 10 ml 01/06/20 09:06 01/31/20 12:18 Guaifenesin Dm 100-10/5 Ml Udcup PO 10 ml PRN PRN Administration Cough Heparin Sodium (Porcine) 5,000 units 01/24/20 15:00 02/06/20 09:00 Heparin 5,000 Units/Ml Vial SC 5,000 units TID ADAM Administration Insulin Human Lispro 0 units 01/14/20 08:01 02/06/20 12:54 Humalog 300 Units/3 Ml Vial SC 2 unit .MILD SLIDING SCALE PRN Administration Mild Correctional Scale Insulin Human Lispro 0 units 01/21/20 20:48 02/02/20 21:57 Humalog 300 Units/3 Ml Vial SC 3 unit .BEDTIME SLIDING SC PRN Administration Bedtime Correctional Scale Ketorolac Tromethamine 1 drop 01/06/20 15:00 02/06/20 08:59 Ketorolac Tromethamine 0.5% Ophth Soln 3 Ml Bottle R EYE 1 drop TID ADAM Administration Labetalol HCl 10 mg 01/14/20 16:51 01/28/20 23:58 Labetalol Hcl 100 Mg/20 Ml Vial SLOW IVP 10 mg Q4H PRN Administration SBP Greater Than 180 Lactulose 20 gm 01/26/20 16:17 02/05/20 21:16 Lactulose 20 Gm/30 Ml Udcup PO 20 gm BID PRN Administration Constipation Levothyroxine Sodium 50 mcg 01/06/20 06:00 02/06/20 06:26 Levothyroxine Sodium 25 Mcg Tab PO 50 mcg 0600 ADAM Administration Lidocaine/Prilocaine 1 gm 01/06/20 10:26 02/02/20 09:11 Lidocaine-Prilocaine 2.5% Cream 5 Gm Tube TOP 1 gm PRN PRN Administration Pain/IV STARTS Magnesium Oxide 400 mg 02/05/20 23:45 02/06/20 01:54 Magnesium Oxide 400 Mg Tab PO 02/07/20 01:45 400 mg NOW ADAM Administration Mometasone Furoate 1 puff 01/10/20 18:30 02/06/20 06:27 Mometasone Furoate 120 Puff 220 Mcg INH 1 puff BID-RT ADAM Administration Ondansetron HCl 4 mg 01/04/20 14:24 02/03/20 22:36 Ondansetron Odt 4 Mg Tab PO 4 mg Q6H PRN Administration Nausea/Vomiting Ondansetron HCl 4 mg 01/04/20 14:24 01/22/20 22:08 Ondansetron Pf 4 Mg/2 Ml Vial IVP 4 mg Q6H PRN Administration Nausea/Vomiting Pantoprazole Sodium 40 mg 01/31/20 21:00 02/06/20 08:58 Pantoprazole 40 Mg Tab PO 40 mg BID ADAM Administration Prednisolone Acetate 1 drop 01/07/20 09:00 02/06/20 08:58 Prednisolone 1% Ophth Susp 5 Ml Bottle EA EYE 1 drop DAILY ADAM Administration Senna 2 tab 01/07/20 09:00 02/06/20 08:52 Senokot 8.6 Mg Tab PO 2 tab DAILY ADAM Administration Sevelamer Carbonate 800 mg 01/06/20 12:00 02/06/20 12:58 Sevelamer Carbonate 800 Mg Tab PO 800 mg TID-WM ADAM Administration Sodium Chloride 10 ml 01/15/20 09:00 02/06/20 08:58 Flush - Normal Saline 10 Ml Syringe IVF Not Given Q12HR ADAM Sodium Chloride 10 ml 01/15/20 08:00 01/28/20 23:58 Flush - Normal Saline 10 Ml Syringe IVF 10 ml PRN PRN Administration Saline Flush Temazepam 15 mg 01/30/20 23:26 02/05/20 21:30 Temazepam 15 Mg Cap PO 15 mg HSPRN PRN Administration Insomnia Zinc Sulfate 220 mg 01/07/20 09:00 02/06/20 08:52 Zinc Sulfate 220 Mg Cap PO 220 mg DAILY ADAM Administration - Exam General Appearance: NAD, awake alert, ill appearing Eye: PERRL ENT: normocephalic atraumatic Neck: supple Heart: RRR, normal peripheral pulses Respiratory: CTAB, normal chest expansion Gastrointestinal: soft, normal bowel sounds, no splenomegaly Neurological: no focal deficits Psychiatric: A&O x 3, somnolent, lethargic Hosp A/P - Plan 84 years old female w.history of ESRD on dialysis, hypothyroidism, dyslipidemia, hypertension presented with SOB, - tested positive for COVID on 01/01/2020: Acute hypoxic respiratory failure secondary to COVID-19 pneumonia--she was tested positive on December 31 --Status post convalescent plasma. Continue Decadron. Continue supportive cares. Not a candidate for remdesivir due to chronic kidney disease -Improving currently on 3 L oxygen by nasal cannula COVID-19 pneumonia --Management as above ESRD on dialysis --Continue dialysis as per nephrology on Wednesday/Wednesday/Wednesday Paroxysmal atrial fib --cont Amio, NSR Melena --not a candidate for endoscopic evaluation d/t above. --cont supportive cares. s/p transfusions. Follow H&H. Pt was restarted back on Heparin sq for DVT ppx --cont PPI Hypothyroidism --cont home med Dyslipidemia --cont statin Physical deconditioning --cont PT DVT ppx: Heparin subcu GI ppx: PPI Code Status: Full Anticipated Dispo: TBD 15tg Abnormality that is noted in the property assessment monitor yesterday including wide- complex tachycardia a few beats and 2 seconds past has been notified. Her electrolytes in the normal range. She is on amiodarone. Her temp was little low this morning 97.1 her chest x-ray showed Covid pneumonia complications including early onset of fibrosis. Other than that no dense infiltrate. She had no further arrhythmia episodes in the low monitor. Echo is pending. Unclear on her leukocytosis will check with UA as well - patient is on dialysis - hopefully will be able to get some sample with a straight cath. -Could be related to being on Decadron I will discontinue the Decadron as she completed the course over 10 days.
[2020-02-06 17:44] LABS: Bilirubin Negative (Negative); Blood, Urine Negative (Negative); Clarity Clear (Clear); Glucose, Urine (Dipstick) Normal (Negative); Ketone, Urine Negative (Negative); Leukocyte Negative Leu/uL (Negative); Nitrite Negative (Negative); Protein, Urine (Dipstick) 30 mg/dL (Neg-Trace); RBC/HPF 0-3 HPF (0-3); Specific Gravity, Urine 1.023 (1.002-1.036); Squamous Epithelial 0-3 HPF (0-3); Urobilinogen Normal mg/dL (Less than 2); pH, Urine 5.5 (5.0-9.0)
[2020-02-06 18:04] LABS: Bacteria/HPF 2+ HPF (None Seen)
[2020-02-06] MEDS: Atorvastatin Calcium 20 MG TAB PO SCH (20:32)
[2020-02-06] MEDS: Temazepam 15 MG CAP PO PRN (20:41)
[2020-02-07] MEDS: HYDROcodone/Acetaminophen 10/325 mg Tablet PO PRN ×3 (03:28→20:25)
[2020-02-07] MEDS: Mometasone Furoate 120 PUFF 220 MCG INH SCH ×2 (06:48→18:31)
[2020-02-07] MEDS: Levothyroxine Sodium 25 MCG TAB PO SCH (06:48)
[2020-02-07] MEDS: Sevelamer Carbonate 800 MG TAB PO SCH ×3 (07:47→18:31)
[2020-02-07] MEDS: Docusate 100 MG CAP PO SCH ×2 (07:47→20:30)
[2020-02-07] MEDS: Benzonatate 100 MG CAP PO SCH ×3 (07:47→20:30)
[2020-02-07] MEDS: Senokot 8.6 MG TAB PO SCH (07:47)
[2020-02-07] MEDS: guaiFENesin ER 600 MG TAB PO SCH (07:48)
[2020-02-07] MEDS: Furosemide 40 MG TAB PO SCH (07:48)
[2020-02-07] MEDS: Amlodipine 5 MG TAB PO SCH ×2 (07:48→20:30)
[2020-02-07] MEDS: Amiodarone 200 MG TAB PO SCH (07:48)
[2020-02-07] MEDS: Folic Acid 1 MG TAB PO SCH (07:48)
[2020-02-07] MEDS: Cholecalciferol 1,000 UNITS (25 MCG) TAB PO SCH (07:49)
[2020-02-07] MEDS: Zinc Sulfate 220 MG CAP PO SCH (07:49)
[2020-02-07] MEDS: Escitalopram Oxalate 10 mg Tablet PO SCH (07:50)
[2020-02-07] MEDS: Diclofenac 1% 100 GM GEL TP SCH ×3 (07:51→20:34)
[2020-02-07] MEDS: prednisoLONE 1% Ophth Susp 5 ml Bottle EA EYE SCH (07:53)
[2020-02-07] MEDS: Ketorolac Tromethamine 0.5% Ophth Soln 3 ml Bottle R EYE SCH ×3 (07:53→20:35)
--- NOTE | 2020-02-07 07:53 | CON ---
DATE OF CONSULTATION: 02/06/2020 REASON FOR CONSULTATION: I am seeing Ms. Crane at our [facility] telemetry floor for electrophysiology consultation. Her problems are: 1. Asymptomatic nonsustained wide-complex tachycardia. 2. Persisting atrial fibrillation. a. On amiodarone therapy. 3. Recent COVID pneumonia, now gradually improving. 4. History of preserved LVEF on recent echocardiogram on 11/09/2018, moderate left atrial enlargement, moderate MR, mild TR and PI, LVEF 60% to 65%. 5. End-stage renal disease, on hemodialysis. 6. History of frequent falls. 7. History of hypertension. ALLERGIES: ALLOPURINOL, AMITRIPTYLINE, LISINOPRIL, AND PENICILLINS. MEDICATIONS: At home, included: 1. Guaifenesin. 2. Hydrocodone. 3. Lipitor. 4. Folvite. 5. Temazepam. 6. Levothyroxine. 7. Cordarone 200 mg daily. 8. Norvasc, amlodipine. 9. Lidocaine/Prilocaine. 10. Zinc. 11. Tylenol. 12. Albuterol. 13. Ecotrin. 14. Cholecalciferol. 15. Dexamethasone .. 16. Guaifenesin. 17. Diclofenac. 18. Docusate. 19. Escitalopram. 20. Lasix. 21. Heparin. 22. Sevelamer. 23. Prednisone. 24. Sennosides. 25. Polyethylene glycol. 26. Ketorolac. SUBJECTIVE: Ms. Crane was admitted with recurrent falls, weakness, and significant dyspnea. She was diagnosed with COVID pneumonia, treated with oxygen therapy. Also has initial sepsis, but no blood culture positivity was seen. She has been on anticoagulation for chronic persistent atrial fibrillation. On the , she was started on amiodarone 200 mg daily dose. She has been dialyzed with the help of Dr. Angel, adoption coordinator. She has been continued to be monitored, has atrial fibrillation, her rates are controlled. She did develop a 9-beat nonsustained wide complex tachycardia run. She has currently, no PND or orthopnea. No neurological deficits. No fever, chills, or cough. Dyspnea is mild. She is still weak. She is awaiting placement. REVIEW OF SYSTEMS: Rest of 12-point review of systems otherwise unremarkable. PAST HISTORY: As above and history of hypothyroidism. SOCIAL HISTORY: The patient denies smoking, EtOH, or drug abuse. PAST SURGICAL HISTORY: Significant for: 1. Appendectomy. 2. Hysterectomy. FAMILY HISTORY: Not significant. OBJECTIVE DATA: VITAL SIGNS: Blood pressure is currently 148/75, heart rate 95, respirations 18, and temperature 97.7 degrees Fahrenheit. GENERAL: This is an alert and oriented woman, in no apparent distress. NECK: Supple. Jugular veins not distended. CHEST: Coarse without crackles. HEART: Sounds are irregularly irregular. S1 and S2 are variable. No murmur or gallop. ABDOMEN: Benign. Bowel sounds positive. EXTREMITIES: Lower extremities without edema, clubbing, or cyanosis. Pulses are adequate. NEUROLOGIC: The patient is nonfocal. MUSCULOSKELETAL: Without joint swelling or deformity. SKIN: Without rash. DATABASE: EKG is reviewed, revealing initially atrial fibrillation with rate of 65 beats per minute, QTc is 407 milliseconds, nonspecific ST-T wave changes seen, poor anterior R-wave progression. LABORATORY DATA: White cell count 13.9, hemoglobin 10.1, and platelet count is 253. Sodium 135, potassium 3.9, BUN is 31, and creatinine 3.3. Magnesium was 1.8. ASSESSMENT AND PLAN: 1. Ms. Crane is an 84-year-old woman with prior history of atrial fibrillation, who was admitted with possible sepsis and COVID pneumonia. While on monitoring, she developed a 9-beat nonsustained ventricular tachycardic run. Episodes are appeared to be due to monomorphic ventricular tachycardia like event. Does not appear typical for aberration. On the other hand, she has history of preserved left ventricular ejection fraction. No current signs or symptoms of ischemia are present. She is also on amiodarone possibly for her atrial fibrillation from the 05 of January. I do not see this medication prior to admission, possibly used to rate control in the early phase of hospitalization in the setting of sepsis. Regarding the ventricular tachycardia, I agree with the initiated echocardiogram to assess left ventricular ejection fraction. If it remains normal EF, I would advise beta-bruce therapy. Dr. Hernandes also consulted for cardiac evaluation. She may benefit from potential ischemic workup in the future, it has not been recently done. 2. Chronic atrial fibrillation of unclear duration, on chronic anticoagulation, has been started on amiodarone. After recovery, she could be considered for attempted cardioversion. If though felt that it is unlikely to maintain sinus rhythm, she may be considered to discontinue this drug. 3. COVID pneumonia, resolving. Currently is deemed noninfectious and off isolation. 4. Hypertension, stable. 5. Hypothyroidism. Monitor, hence amiodarone therapy. We will follow up with you. Job ID: [id number]
[2020-02-07] MEDS: Heparin 5,000 UNITS/ML VIAL SC SCH ×3 (07:56→20:27)
[2020-02-07] MEDS: Lidocaine-Prilocaine 2.5% Cream 5 GM TUBE TOP PRN (07:59)
--- NOTE | 2020-02-07 10:19 | PDOC.EP ---
- Subjective Date: 02/07/20 Time: 07:30 Interval History: No new events overnight. - Objective Allergies/Adverse Reactions: Allergies Allergy/AdvReac Type Severity Reaction Status Date / Time allopurinol Allergy Verified 12/13/19 14:07 amitriptyline Allergy Verified 12/13/19 14:07 lisinopril Allergy Verified 12/13/19 14:07 Penicillins Allergy Verified 12/13/19 14:07 Current Medications Acetaminophen (Acetaminophen 325 Mg Tab) 650 mg PO Q4H PRN PRN Reason: Headache/Fever/Mild Pain (1-3) Last Admin: 02/06/20 08:55 Dose: 650 mg Documented by: Hydrocodone Bitart/Acetaminophen (Hydrocodone/Acetaminophen 10/325 Mg Tablet) 1 tab PO Q4H PRN PRN Reason: Moderate to Severe Pain (6-10) Last Admin: 02/07/20 03:28 Dose: 1 tab Documented by: Albuterol Sulfate (Proventil Inhaler 6.7 G (200 Inhalations)) 2 puff INH Q4H ND N PRN Reason: SOB &/or Wheezing Albuterol/Ipratropium (Ipratropium/Albuterol Sulfate 4 Gm Aer) 0 gm IH Q4H PRN PRN Reason: Dyspnea/Wheezing/SOB Last Admin: 01/19/20 06:47 Dose: 2 inh Documented by: Amiodarone HCl (Amiodarone 200 Mg Tab) 200 mg PO DAILY [facility] Last Admin: 02/07/20 07:48 Dose: 200 mg Documented by: Amlodipine Besylate (Amlodipine 5 Mg Tab) 5 mg PO BID [facility] Last Admin: 02/07/20 07:48 Dose: 5 mg Documented by: Atorvastatin Calcium (Atorvastatin Calcium 20 Mg Tab) 20 mg PO HS [facility] Last Admin: 02/06/20 20:32 Dose: 20 mg Documented by: Benzonatate (Benzonatate 100 Mg Cap) 100 mg PO TID [facility] Last Admin: 02/07/20 07:47 Dose: 100 mg Documented by: Bisacodyl (Bisacodyl 10 Mg Supp) 10 mg ND DAILYPRN PRN PRN Reason: Constipation Cholecalciferol (Cholecalciferol 1,000 Units (25 Mcg) Tab) 5,000 units PO DAILY [facility] Last Admin: 02/07/20 07:49 Dose: 5,000 units Documented by: Dextrose/Water (Dextrose 50% Abboject 50 Ml Syringe) 25 gm SLOW IVP PRN PRN PRN Reason: Hypoglycemia Diclofenac Sodium (Diclofenac 1% 100 Gm Gel) 4 gm TP TID [facility] Last Admin: 02/07/20 07:51 Dose: 4 gm Documented by: Docusate Sodium (Docusate 100 Mg Cap) 100 mg PO BID [facility] Last Admin: 02/07/20 07:47 Dose: 100 mg Documented by: Epoetin Rome-epbx (Epoetin Rome-Epbx (Esrd) 10,000 Unit/Ml Vial) 10,000 unit IVP MoWeFr [facility] Last Admin: 02/05/20 10:12 Dose: 10,000 unit Documented by: Escitalopram Oxalate (Escitalopram Oxalate 10 Mg Tablet) 10 mg PO DAILY [facility] Last Admin: 02/07/20 07:50 Dose: 10 mg Documented by: Folic Acid (Folic Acid 1 Mg Tab) 1 mg PO DAILY [facility] Last Admin: 02/07/20 07:48 Dose: 1 mg Documented by: Furosemide (Furosemide 40 Mg Tab) 40 mg PO DAILY [facility] Last Admin: 02/07/20 07:48 Dose: 40 mg Documented by: Glucagon (Glucagon 1 Mg/Ml Vial) 1 mg IM PRN PRN PRN Reason: Hypoglycemia Guaifenesin (Guaifenesin Er 600 Mg Tab) 600 mg PO DAILY [facility] Last Admin: 02/07/20 07:48 Dose: 600 mg Documented by: Guaifenesin/Dextromethorphan (Guaifenesin Dm 100-10/5 Ml Udcup) 10 ml PO PRN PRN PRN Reason: Cough Last Admin: 01/31/20 12:18 Dose: 10 ml Documented by: Heparin Sodium (Porcine) (Heparin 5,000 Units/Ml Vial) 5,000 units SC TID [facility] Last Admin: 02/07/20 07:56 Dose: 5,000 units Documented by: Hydralazine HCl (Hydralazine 20 Mg/Ml Vial) 10 mg SLOW IVP Q4H PRN PRN Reason: SBP > 180 Dextrose/Water (D5w) 1,000 mls @ 0 mls/hr IV .Q0M PRN PRN Reason: Hypoglycemia Insulin Human Lispro (Humalog 300 Units/3 Ml Vial) 0 units SC .MILD SLIDING SCALE PRN PRN Reason: Mild Correctional Scale Last Admin: 02/06/20 17:15 Dose: 3 unit Documented by: Insulin Human Lispro (Humalog 300 Units/3 Ml Vial) 0 units SC .BEDTIME SLIDING SC PRN PRN Reason: Bedtime Correctional Scale Last Admin: 02/06/20 22:10 Dose: 2 unit Documented by: Ketorolac Tromethamine (Ketorolac Tromethamine 0.5% Ophth Soln 3 Ml Bottle) 1 drop R EYE TID [facility] Last Admin: 02/07/20 07:53 Dose: 1 drop Documented by: Labetalol HCl (Labetalol Hcl 100 Mg/20 Ml Vial) 10 mg SLOW IVP Q4H PRN PRN Reason: SBP Greater Than 180 Last Admin: 01/28/20 23:58 Dose: 10 mg Documented by: Lactulose (Lactulose 20 Gm/30 Ml Udcup) 20 gm PO BID PRN PRN Reason: Constipation Last Admin: 02/05/20 21:16 Dose: 20 gm Documented by: Levothyroxine Sodium (Levothyroxine Sodium 25 Mcg Tab) 50 mcg PO 0600 [facility] Last Admin: 02/07/20 06:48 Dose: 50 mcg Documented by: Lidocaine/Prilocaine (Lidocaine-Prilocaine 2.5% Cream 5 Gm Tube) 1 gm TOP PRN PRN PRN Reason: Pain/IV STARTS Last Admin: 02/07/20 07:59 Dose: 1 gm Documented by: Miscellaneous Medication (Pharmacy To Dose Heparin) 1 each IVPB .HEPARIN PRN PRN Reason: Pharmacy to dose Mometasone Furoate (Mometasone Furoate 120 Puff 220 Mcg) 1 puff INH BID-RT [facility] Last Admin: 02/07/20 06:48 Dose: 1 puff Documented by: Olanzapine (Olanzapine 10 Mg Vial) 10 mg IM TID PRN PRN Reason: Agitation Ondansetron HCl (Ondansetron Odt 4 Mg Tab) 4 mg PO Q6H PRN PRN Reason: Nausea/Vomiting Last Admin: 02/03/20 22:36 Dose: 4 mg Documented by: Ondansetron HCl (Ondansetron Pf 4 Mg/2 Ml Vial) 4 mg IVP Q6H PRN PRN Reason: Nausea/Vomiting Last Admin: 01/22/20 22:08 Dose: 4 mg Documented by: Pantoprazole Sodium (Pantoprazole 40 Mg Tab) 40 mg PO BID [facility] Last Admin: 02/07/20 07:48 Dose: 40 mg Documented by: Prednisolone Acetate (Prednisolone 1% Ophth Susp 5 Ml Bottle) 1 drop EA EYE DAILY [facility] Last Admin: 02/07/20 07:53 Dose: 1 drop Documented by: Propylene Glycol (Polyethylene Glycol Opth Drop 15 Ml Bot) 1 drop EA EYE PRN PRN PRN Reason: Dry Eyes Senna (Senokot 8.6 Mg Tab) 2 tab PO DAILY [facility] Last Admin: 02/07/20 07:47 Dose: 2 tab Documented by: Sevelamer Carbonate (Sevelamer Carbonate 800 Mg Tab) 800 mg PO TID-WM [facility] Last Admin: 02/07/20 07:47 Dose: 800 mg Documented by: Sodium Chloride (Flush - Normal Saline 10 Ml Syringe) 10 ml IVF Q12HR [facility] Last Admin: 02/07/20 08:06 Dose: Not Given Documented by: Sodium Chloride (Flush - Normal Saline 10 Ml Syringe) 10 ml IVF PRN PRN PRN Reason: Saline Flush Last Admin: 01/28/20 23:58 Dose: 10 ml Documented by: Temazepam (Temazepam 15 Mg Cap) 15 mg PO HSPRN PRN PRN Reason: Insomnia Last Admin: 02/06/20 20:41 Dose: 15 mg Documented by: Zinc Sulfate (Zinc Sulfate 220 Mg Cap) 220 mg PO DAILY [facility] Last Admin: 02/07/20 07:49 Dose: 220 mg Documented by: Vital Signs & Weight: Vital Signs Temp Pulse Resp BP BP Pulse Ox 02/07/20 07:38 98.0 F 91 16 156/81 H 100 02/07/20 03:33 98.3 F 16 143/81 H 100 02/06/20 23:48 97.8 F 83 16 151/74 H 100 Admit Weight 190 lb Weight 199 lb 1.6 oz I/O: I/O 02/06/20 02/07/20 02/08/20 06:59 06:59 06:59 Intake Total 1490 640 Output Total 2000 1000 Balance -510 -360 - Labs Result Diagrams: 02/07/20 10:03 02/07/20 10:03 - Assessment/Plan Assessment/Plan: ASSESSMENT AND PLAN: Ms. Crane is an 84-year-old woman with prior history of atrial fibrillation, who was admitted with possible sepsis and COVID pneumonia. While on monitoring, she developed a 9-beat nonsustained ventricular tachycardic run. Episodes are appeared to be due to monomorphic ventricular tachycardia like event. Does not appear typical for aberration. On the other hand, she has history of preserved left ventricular ejection fraction. No current signs or symptoms of ischemia are present. She is also on amiodarone possibly for her atrial fibrillation from the . I do not see this medication prior to admission, possibly used to rate control in the early phase of hospitalization in the setting of sepsis. Regarding the ventricular tachycardia, I agree with the initiated echocardiogram to assess left ventricular ejection fraction. 1. NSVT, monomorphic, 9 beats -asymptomatic -preserved LVEF 55-60% -recommend beta brcue - consider EPS with sustained or symptomatic VT -? ischemic workup by cardiology 2 .Atrial fibrillation - last document as paroxysmal AF in SR 11/2018 by [facility] and was on amiodarone 200mg daily during mult hospitalizations last year - chronic Amidoarone therapy was resumed 12/15 AM. - OAC 3. COVID pneumonia 4. Hypertension 5. Hypothyroidism -monitor, especially if amio is continued. With her COVID pneumonia I will stop amiodarone to prevent any potential contribution to her ongoing lung issues. For now, allow AF with rate control strategy. After she has recovered AAD therapy could resume, possibly with multaq and plan for CV after. We will follow up with you.
[2020-02-07 10:37] LABS: #Eosinphils 0.1 thou/uL (0.0-0.7); #Lymphocytes 1.5 thou/uL (1.20-3.40); #Monocytes 1.4 thou/uL (0.11-0.59); #Neutrophils 15.8 thou/uL (1.40-6.50); %Basophils 0.1 % (0.0-1.0); %Eosinophils 0.3 % (0.0-10.0); %Lymphocytes 8.1 % (21.0-51.0); %Monocytes 7.5 % (0.0-10.0); %Neutrophils 84.1 % (42.0-75.0); Hemoglobin 10.4 g/dL (12.0-16.0); Mean Corpuscular Hemoglobin 29.6 pg (27.0-31.0); Mean Corpuscular Volume 95.3 fL (78.0-98.0); Mean Platelet Volume 8.1 fL (7.4-10.4); Platelet Count 293 thou/uL (130-400); RBC Distribution Width 15.5 % (11.5-14.5); Red Blood Cell (RBC) Count 3.53 mill/uL (4.20-5.40); White Blood Cell (WBC) Count 18.8 thou/uL (4.8-10.8)
[2020-02-07 10:59] LABS: Anion Gap 15 mmol/L (10-20); BUN (Urea Nitrogen) 18 mg/dL (9.8-20.1); Calc. Creatinine Clearance 31 mL/min (70-130); Calcium 8.7 mg/dL (7.8-10.44); Carbon Dioxide 29 mmol/L (23-31); Chloride 97 mmol/L (98-107); Glucose 101 mg/dL (83-110); Potassium 3.7 mmol/L (3.5-5.1); Sodium 137 mmol/L (136-145)
--- NOTE | 2020-02-07 13:05 | PDOC.HOSPP ---
- Subjective Encounter Date: 02/07/20 Encounter Time: 12:30 Subjective: Patient seen in the hemodialysis area. No arrhythmia noted in the monitor. Amiodarone discontinued. - Objective Vital Signs & Weight: Vital Signs (12 hours) Temp Pulse Resp BP BP Pulse Ox 02/07/20 12:45 97.6 F 79 18 137/63 99 02/07/20 07:38 98.0 F 91 16 156/81 H 100 02/07/20 03:33 98.3 F 16 143/81 H 100 Weight Admit Weight 190 lb Weight 199 lb 1.6 oz I&O: 02/06/20 02/07/20 02/08/20 06:59 06:59 06:59 Intake Total 1490 640 Output Total 2000 1000 Balance -510 -360 Result Diagrams: 02/07/20 10:03 02/07/20 10:03 Additional Labs: Accuchecks 02/07/20 02/07/20 02/06/20 12:40 05:56 20:46 POC Glucose 123 H 110 H 231 H 02/06/20 15:33 POC Glucose 225 H Hospitalist ROS - Medication Medications: Active Medications Generic Name Dose Route Start Last Admin Trade Name Freq PRN Reason Stop Dose Admin Acetaminophen 650 mg 01/04/20 14:24 02/06/20 08:55 Acetaminophen 325 Mg Tab PO 650 mg Q4H PRN Administration Headache/Fever/Mild Pain (1-3) Hydrocodone Bitart/Acetaminophen 1 tab 02/06/20 01:24 02/07/20 03:28 Hydrocodone/Acetaminophen 10/325 Mg Tablet PO 1 tab Q4H PRN Administration Moderate to Severe Pain (6-10) Albuterol/Ipratropium 0 gm 01/06/20 10:32 01/19/20 06:47 Ipratropium/Albuterol Sulfate 4 Gm Aer IH 2 inh Q4H PRN Administration Dyspnea/Wheezing/SOB Amlodipine Besylate 5 mg 02/04/20 09:00 02/07/20 07:48 Amlodipine 5 Mg Tab PO 5 mg BID ADAM Administration Atorvastatin Calcium 20 mg 01/06/20 21:00 02/06/20 20:32 Atorvastatin Calcium 20 Mg Tab PO 20 mg HS ADAM Administration Benzonatate 100 mg 01/05/20 15:00 02/07/20 07:47 Benzonatate 100 Mg Cap PO 100 mg TID ADAM Administration Cholecalciferol 5,000 units 01/07/20 09:00 02/07/20 07:49 Cholecalciferol 1,000 Units (25 Mcg) Tab PO 5,000 units DAILY ADAM Administration Diclofenac Sodium 4 gm 01/06/20 15:00 02/07/20 07:51 Diclofenac 1% 100 Gm Gel TP 4 gm TID ADAM Administration Docusate Sodium 100 mg 01/06/20 21:00 02/07/20 07:47 Docusate 100 Mg Cap PO 100 mg BID ADAM Administration Epoetin Rome-epbx 10,000 unit 01/15/20 10:46 02/05/20 10:12 Epoetin Rome-Epbx (Esrd) 10,000 Unit/Ml Vial IVP 10,000 unit MoWeFr ADAM Administration Escitalopram Oxalate 10 mg 01/06/20 09:00 02/07/20 07:50 Escitalopram Oxalate 10 Mg Tablet PO 10 mg DAILY ADAM Administration Folic Acid 1 mg 01/07/20 09:00 02/07/20 07:48 Folic Acid 1 Mg Tab PO 1 mg DAILY ADAM Administration Furosemide 40 mg 01/07/20 09:00 02/07/20 07:48 Furosemide 40 Mg Tab PO 40 mg DAILY ADAM Administration Guaifenesin 600 mg 01/07/20 09:00 02/07/20 07:48 Guaifenesin Er 600 Mg Tab PO 600 mg DAILY ADAM Administration Guaifenesin/Dextromethorphan 10 ml 01/06/20 09:06 01/31/20 12:18 Guaifenesin Dm 100-10/5 Ml Udcup PO 10 ml PRN PRN Administration Cough Heparin Sodium (Porcine) 5,000 units 01/24/20 15:00 02/07/20 07:56 Heparin 5,000 Units/Ml Vial SC 5,000 units TID ADAM Administration Insulin Human Lispro 0 units 01/14/20 08:01 02/06/20 17:15 Humalog 300 Units/3 Ml Vial SC 3 unit .MILD SLIDING SCALE PRN Administration Mild Correctional Scale Insulin Human Lispro 0 units 01/21/20 20:48 02/06/20 22:10 Humalog 300 Units/3 Ml Vial SC 2 unit .BEDTIME SLIDING SC PRN Administration Bedtime Correctional Scale Ketorolac Tromethamine 1 drop 01/06/20 15:00 02/07/20 07:53 Ketorolac Tromethamine 0.5% Ophth Soln 3 Ml Bottle R EYE 1 drop TID ADAM Administration Labetalol HCl 10 mg 01/14/20 16:51 01/28/20 23:58 Labetalol Hcl 100 Mg/20 Ml Vial SLOW IVP 10 mg Q4H PRN Administration SBP Greater Than 180 Lactulose 20 gm 01/26/20 16:17 02/05/20 21:16 Lactulose 20 Gm/30 Ml Udcup PO 20 gm BID PRN Administration Constipation Levothyroxine Sodium 50 mcg 01/06/20 06:00 02/07/20 06:48 Levothyroxine Sodium 25 Mcg Tab PO 50 mcg 0600 ADAM Administration Lidocaine/Prilocaine 1 gm 01/06/20 10:26 02/07/20 07:59 Lidocaine-Prilocaine 2.5% Cream 5 Gm Tube TOP 1 gm PRN PRN Administration Pain/IV STARTS Mometasone Furoate 1 puff 01/10/20 18:30 02/07/20 06:48 Mometasone Furoate 120 Puff 220 Mcg INH 1 puff BID-RT ADAM Administration Ondansetron HCl 4 mg 01/04/20 14:24 02/03/20 22:36 Ondansetron Odt 4 Mg Tab PO 4 mg Q6H PRN Administration Nausea/Vomiting Ondansetron HCl 4 mg 01/04/20 14:24 01/22/20 22:08 Ondansetron Pf 4 Mg/2 Ml Vial IVP 4 mg Q6H PRN Administration Nausea/Vomiting Pantoprazole Sodium 40 mg 01/31/20 21:00 02/07/20 07:48 Pantoprazole 40 Mg Tab PO 40 mg BID ADAM Administration Prednisolone Acetate 1 drop 01/07/20 09:00 02/07/20 07:53 Prednisolone 1% Ophth Susp 5 Ml Bottle EA EYE 1 drop DAILY ADAM Administration Senna 2 tab 01/07/20 09:00 02/07/20 07:47 Senokot 8.6 Mg Tab PO 2 tab DAILY ADAM Administration Sevelamer Carbonate 800 mg 01/06/20 12:00 02/07/20 07:47 Sevelamer Carbonate 800 Mg Tab PO 800 mg TID-WM ADAM Administration Sodium Chloride 10 ml 01/15/20 09:00 02/07/20 08:06 Flush - Normal Saline 10 Ml Syringe IVF Not Given Q12HR ADAM Sodium Chloride 10 ml 01/15/20 08:00 01/28/20 23:58 Flush - Normal Saline 10 Ml Syringe IVF 10 ml PRN PRN Administration Saline Flush Temazepam 15 mg 01/30/20 23:26 02/06/20 20:41 Temazepam 15 Mg Cap PO 15 mg HSPRN PRN Administration Insomnia Zinc Sulfate 220 mg 01/07/20 09:00 02/07/20 07:49 Zinc Sulfate 220 Mg Cap PO 220 mg DAILY ADAM Administration - Exam General Appearance: NAD, awake alert Eye: PERRL ENT: normocephalic atraumatic Neck: supple Heart: RRR Respiratory: CTAB, normal chest expansion Gastrointestinal: soft, normal bowel sounds Neurological: cranial nerve grossly intact, no focal deficits Musculoskeletal: generalized weakness Psychiatric: A&O x 3 Hosp A/P - Plan 84 years old female w.history of ESRD on dialysis, hypothyroidism, dyslipidemia, hypertension presented with SOB, - tested positive for COVID on 01/01/2020: Acute hypoxic respiratory failure secondary to COVID-19 pneumonia--she was tested positive on December 31 --Status post convalescent plasma. Continue Decadron. Continue supportive cares. Not a candidate for remdesivir due to chronic kidney disease -Improving currently on 3 L oxygen by nasal cannula COVID-19 pneumonia --Management as above ESRD on dialysis --Continue dialysis as per nephrology on Wednesday/Wednesday/Wednesday Paroxysmal atrial fib --cont Amio, NSR Melena --not a candidate for endoscopic evaluation d/t above. --cont supportive cares. s/p transfusions. Follow H&H. Pt was restarted back on Heparin sq for DVT ppx --cont PPI Hypothyroidism --cont home med Dyslipidemia --cont statin Physical deconditioning --cont PT DVT ppx: Heparin subcu GI ppx: PPI Code Status: Full Anticipated Dispo: TBD 15tg Abnormality that is noted in the bus monitor yesterday including wide- complex tachycardia a few beats and 2 seconds past has been notified. Her electrolytes in the normal range. She is on amiodarone. Her temp was little low this morning 97.1 her chest x-ray showed Covid pneumonia complications including early onset of fibrosis. Other than that no dense infiltrate. She had no further arrhythmia episodes in the low monitor. Echo is pending. Unclear on her leukocytosis will check with UA as well - patient is on dialysis - hopefully will be able to get some sample with a straight cath. -Could be related to being on Decadron I will discontinue the Decadron as she completed the course over 10 days. 16th Amiodarone, which is started for atrial fibrillation recently, discontinued we will continue monitoring telemetry for any arrhythmia. Started her on low- dose Lopressor We will request a cardiology to be on board as well. Leukocytosis--UA shows both nitrate and leukocyte esterase negative. Chest x-ray no acute infiltrate. Steroid discontinued. Continue trending the leukocytosis --?etiology.
[2020-02-07] MEDS: EPOETIN ALFA-EPBX (ESRD) 10,000 UNIT/ML VIAL IVP SCH (13:34)
--- NOTE | 2020-02-07 18:31 | CON ---
DATE OF CONSULTATION: REASON FOR CONSULTATION: Chronic atrial fibrillation, nonsustained ventricular tachycardia, COVID pneumonia. HISTORY OF PRESENT ILLNESS: Ms. Crnae is a very pleasant 84-year-old woman. She has been in the hospital for over a month with COVID pneumonia. She has had atrial fibrillation and also has had some nonsustained ventricular tachycardia. The patient states she has had atrial fibrillation in the past. She was cardioverted in the past, but went back into fibrillation and has been in fibrillation she thinks for about a year. Dr. Jones was consulted. Dr. Jones took her off amiodarone. The patient has no chest pain or pressure. Her breathing has improved. REVIEW OF SYSTEMS: CONSTITUTIONAL: No significant weight gain or loss. VISION: No changes. HEARING: No changes. PULMONARY: Positive for shortness of breath. GASTROINTESTINAL: No nausea, vomiting, or diarrhea. SKIN: No rashes. NEUROLOGIC: No unilateral weakness or numbness. PSYCHIATRIC: No unusual depression or anxiety. PHYSICAL EXAMINATION: GENERAL: This is a delightful elderly woman, in no distress. VITAL SIGNS: Blood pressure 100/57, before that 156/81. Pulse 90 and it is irregular. LUNGS: Clear. CARDIAC: Irregularly irregular. ABDOMEN: Soft, nontender. She is obese. EXTREMITIES: No clubbing or cyanosis. There is no edema. DIAGNOSTIC STUDIES: The echocardiogram was done, ejection fraction 55% to 60%, [id number] mitral regurgitation. ASSESSMENT: 1. Atrial fibrillation, chronic. 2. Nonsustained ventricular tachycardia. 3. COVID pneumonia. PLAN: 1. Dr. Jones requested evaluation for ischemic heart disease that can be done for completeness. 2. Agree with stopping amiodarone since it is chronic atrial fibrillation and she is already hypothyroid. 3. Continue beta blockers, I would increase the dose, as the amiodarone wears off, the heart rate will probably increase. 4. No other recommendations. Hopefully, can be released home soon. ADDENDUM: Also, would recommend anticoagulation. The appropriate dose for this patient would be Eliquis 2.5 mg twice a day in view of her age and creatinine 1.94 with estimated GFR is 25. Job ID: [id number]
[2020-02-07] MEDS: Temazepam 15 MG CAP PO PRN (20:25)
[2020-02-07] MEDS: Metoprolol Tartrate 25 MG TAB PO SCH (20:29)
[2020-02-07] MEDS: Atorvastatin Calcium 20 MG TAB PO SCH (20:30)
[2020-02-07] MEDS ORDERED: Metoprolol Tartrate 25 MG TAB PO SCH (21:00)
[2020-02-08] MEDS: Levothyroxine Sodium 25 MCG TAB PO SCH (05:23)
[2020-02-08] MEDS: Mometasone Furoate 120 PUFF 220 MCG INH SCH ×2 (05:38→17:34)
[2020-02-08] MEDS: Cholecalciferol 1,000 UNITS (25 MCG) TAB PO SCH (08:08)
[2020-02-08] MEDS: Benzonatate 100 MG CAP PO SCH ×2 (08:08→16:15)
[2020-02-08] MEDS: Senokot 8.6 MG TAB PO SCH (08:09)
[2020-02-08] MEDS: Folic Acid 1 MG TAB PO SCH (08:09)
[2020-02-08] MEDS: guaiFENesin ER 600 MG TAB PO SCH (08:09)
[2020-02-08] MEDS: Zinc Sulfate 220 MG CAP PO SCH (08:09)
[2020-02-08] MEDS: Escitalopram Oxalate 10 mg Tablet PO SCH (08:10)
[2020-02-08] MEDS: Docusate 100 MG CAP PO SCH (08:10)
[2020-02-08] MEDS: HYDROcodone/Acetaminophen 10/325 mg Tablet PO PRN (08:24)
[2020-02-08] MEDS ORDERED: Regadenoson 0.4 MG/5 ML SYRINGE ONE (09:01)
[2020-02-08] MEDS: Amlodipine 5 MG TAB PO SCH (11:50)
[2020-02-08] MEDS: Metoprolol Tartrate 25 MG TAB PO SCH (11:50)
[2020-02-08] MEDS: Diclofenac 1% 100 GM GEL TP SCH ×2 (11:51→15:45)
[2020-02-08] MEDS: Furosemide 40 MG TAB PO SCH (11:51)
[2020-02-08] MEDS: Heparin 5,000 UNITS/ML VIAL SC SCH ×2 (11:51→16:15)
[2020-02-08] MEDS: Sevelamer Carbonate 800 MG TAB PO SCH ×3 (11:51→16:15)
[2020-02-08] MEDS: Ketorolac Tromethamine 0.5% Ophth Soln 3 ml Bottle R EYE SCH ×2 (11:52→16:18)
[2020-02-08] MEDS: prednisoLONE 1% Ophth Susp 5 ml Bottle EA EYE SCH (11:52)
--- NOTE | 2020-02-08 12:00 | NM ---
CARDIAC SPECT: CLINICAL HISTORY: 84-year-old female with chest pain, atrial fibrillation, end-stage renal disease, hypertension, and d yslipidemia. Status post cardioversion, nonsustained ventricular tachycardia. TECHNIQUE: A myocardial perfusion scan was performed using the single isotope one day protocol with technetium-9 9m sestamibi. 10 mCi were injected intravenously for the rest exam followed by 30 mCi for the stress exam. Pharmacologic stress with Lexiscan was monitored and interpreted by Marla Castorena NP. FINDINGS: Fairly homogeneous tracer distribution is seen in the myocardial segments on stress and rest images w ithout fixed or reversible defects. GATED SPECT LVEF: 73%. WALL MOTION EXAM: Normal. IMPRESSION: Normal myocardial perfusion scan. POS: AH
--- NOTE | 2020-02-08 12:20 | PRG ---
DATE OF SERVICE: 02/08/2020 SUBJECTIVE: An 84-year-old female, being seen for end-stage renal disease. The patient denied any nausea, vomiting, or chest pain. OBJECTIVE: GENERAL: The patient is awake and alert. VITAL SIGNS: Afebrile, pulse 75, breathing at 16, blood pressure 126/83. HEENT: Head normocephalic and atraumatic. Eyes intact, no ulcers. Nose intact, no ulcers. Ears intact, no ulcers. NECK: Supple. No JVD. CHEST: Symmetrical and clear. CARDIOVASCULAR: Shows S1 and S2, no rub, no murmur. GASTROINTESTINAL: Abdomen is soft, bowel sounds positive. EXTREMITIES: Show no edema or ulcers. SKIN: Shows no rash or petechiae. MUSCULOSKELETAL: Shows no joint swelling or stiffness. GENITOURINARY: Shows no Cabrera or CVA tenderness. NEUROLOGIC: Motor intact. Cranial nerves intact. LABORATORY DATA: Reviewed. ASSESSMENT AND PLAN: 1. Stage 6 chronic kidney disease, plan hemodialysis. 2. Hypertension, stable. 3. Anemia, stable. Medication based on GFR appropriate. Job ID: [id number]
[2020-02-08 12:25] LABS: #Eosinphils 0.1 thou/uL (0.0-0.7); #Lymphocytes 1.5 thou/uL (1.20-3.40); #Neutrophils 9.4 thou/uL (1.40-6.50); %Basophils 0.4 % (0.0-1.0); %Eosinophils 0.5 % (0.0-10.0); %Lymphocytes 12.2 % (21.0-51.0); %Monocytes 8.6 % (0.0-10.0); %Neutrophils 78.3 % (42.0-75.0); Hemoglobin 10.1 g/dL (12.0-16.0); Mean Corpuscular HGB CONC 30.8 g/dL (32.0-36.0); Mean Corpuscular Hemoglobin 30.1 pg (27.0-31.0); Mean Corpuscular Volume 97.7 fL (78.0-98.0); Mean Platelet Volume 8.4 fL (7.4-10.4); Platelet Count 216 thou/uL (130-400); RBC Distribution Width 15.4 % (11.5-14.5); Red Blood Cell (RBC) Count 3.35 mill/uL (4.20-5.40)
--- NOTE | 2020-02-08 13:01 | PRG ---
DATE OF SERVICE: 02/07/2020 SUBJECTIVE: 84-year-old female, being seen for end-stage kidney disease. The patient denied any nausea, vomiting, or chest pain. PHYSICAL EXAMINATION: GENERAL: The patient is awake and alert. VITAL SIGNS: Afebrile, pulse 75, breathing at 16, blood pressure 137/63. HEENT: Head normocephalic and atraumatic. Eyes intact, no ulcers. Nose intact, no ulcers. Ears intact, no ulcers. NECK: Supple. No JVD. CHEST: Symmetrical and clear. CARDIOVASCULAR: Shows S1 and S2, no rub, no murmur. GASTROINTESTINAL: Abdomen is soft, bowel sounds positive. EXTREMITIES: Show no edema or ulcers. SKIN: Shows no rash or petechiae. MUSCULOSKELETAL: Shows no joint swelling or stiffness. GENITOURINARY: Shows no Cabrera or CVA tenderness. NEUROLOGIC: Motor intact. Cranial nerves intact. LABORATORY DATA: Reviewed. ASSESSMENT AND PLAN: 1. Stage 3 chronic kidney disease, plan dialysis. 2. Hypertension, stable. 3. Anemia, stable. 4. Medications based on GFR appropriate. Job ID: [id number]
--- NOTE | 2020-02-08 13:16 | PDOC.HOSPP ---
- Subjective Encounter Date: 02/08/20 Encounter Time: 11:40 Subjective: Patient seen this morning. She has no acute events monitor did not show any wide-complex tachycardia her white count came down. - Objective Vital Signs & Weight: Vital Signs (12 hours) Temp Pulse Resp BP BP BP Pulse Ox 02/08/20 11:50 85 02/08/20 11:47 97.6 F 85 20 123/69 97 02/08/20 08:07 98.6 F 83 19 126/83 92 L 02/08/20 08:04 93 L 02/08/20 05:38 17 02/08/20 04:00 98.1 F 78 17 110/57 L 100 02/08/20 01:39 98 F 86 16 112/61 95 Weight Admit Weight 190 lb Weight 182 lb 4.8 oz I&O: 02/07/20 02/08/20 02/09/20 06:59 06:59 06:59 Intake Total 640 720 Output Total 1000 Balance -360 720 Result Diagrams: 02/08/20 12:06 02/07/20 10:03 Additional Labs: Accuchecks 02/08/20 02/08/20 02/07/20 11:45 05:30 19:32 POC Glucose 99 95 140 H 02/07/20 15:38 POC Glucose 144 H Hospitalist ROS - Medication Medications: Active Medications Generic Name Dose Route Start Last Admin Trade Name Freq PRN Reason Stop Dose Admin Acetaminophen 650 mg 01/04/20 14:24 02/06/20 08:55 Acetaminophen 325 Mg Tab PO 650 mg Q4H PRN Administration Headache/Fever/Mild Pain (1-3) Hydrocodone Bitart/Acetaminophen 1 tab 02/06/20 01:24 02/08/20 08:24 Hydrocodone/Acetaminophen 10/325 Mg Tablet PO 1 tab Q4H PRN Administration Moderate to Severe Pain (6-10) Albuterol/Ipratropium 0 gm 01/06/20 10:32 01/19/20 06:47 Ipratropium/Albuterol Sulfate 4 Gm Aer IH 2 inh Q4H PRN Administration Dyspnea/Wheezing/SOB Amlodipine Besylate 5 mg 02/04/20 09:00 02/08/20 11:50 Amlodipine 5 Mg Tab PO 5 mg BID ADAM Administration Atorvastatin Calcium 20 mg 01/06/20 21:00 02/07/20 20:30 Atorvastatin Calcium 20 Mg Tab PO 20 mg HS ADAM Administration Benzonatate 100 mg 01/05/20 15:00 02/08/20 08:08 Benzonatate 100 Mg Cap PO 100 mg TID ADAM Administration Cholecalciferol 5,000 units 01/07/20 09:00 02/08/20 08:08 Cholecalciferol 1,000 Units (25 Mcg) Tab PO 5,000 units DAILY ADAM Administration Diclofenac Sodium 4 gm 01/06/20 15:00 02/08/20 11:51 Diclofenac 1% 100 Gm Gel TP 4 gm TID ADAM Administration Docusate Sodium 100 mg 01/06/20 21:00 02/08/20 08:10 Docusate 100 Mg Cap PO 100 mg BID ADAM Administration Epoetin Rome-epbx 10,000 unit 01/15/20 10:46 02/07/20 13:34 Epoetin Rome-Epbx (Esrd) 10,000 Unit/Ml Vial IVP Not Given MoWeFr [facility] Escitalopram Oxalate 10 mg 01/06/20 09:00 02/08/20 08:10 Escitalopram Oxalate 10 Mg Tablet PO 10 mg DAILY ADAM Administration Folic Acid 1 mg 01/07/20 09:00 02/08/20 08:09 Folic Acid 1 Mg Tab PO 1 mg DAILY ADAM Administration Furosemide 40 mg 01/07/20 09:00 02/08/20 11:51 Furosemide 40 Mg Tab PO 40 mg DAILY ADAM Administration Guaifenesin 600 mg 01/07/20 09:00 02/08/20 08:09 Guaifenesin Er 600 Mg Tab PO 600 mg DAILY [facility] Administration Guaifenesin/Dextromethorphan 10 ml 01/06/20 09:06 01/31/20 12:18 Guaifenesin Dm 100-10/5 Ml Udcup PO 10 ml PRN PRN Administration Cough Heparin Sodium (Porcine) 5,000 units 01/24/20 15:00 02/08/20 11:51 Heparin 5,000 Units/Ml Vial SC 5,000 units TID ADAM Administration Insulin Human Lispro 0 units 01/14/20 08:01 02/06/20 17:15 Humalog 300 Units/3 Ml Vial SC 3 unit .MILD SLIDING SCALE PRN Administration Mild Correctional Scale Insulin Human Lispro 0 units 01/21/20 20:48 02/06/20 22:10 Humalog 300 Units/3 Ml Vial SC 2 unit .BEDTIME SLIDING SC PRN Administration Bedtime Correctional Scale Ketorolac Tromethamine 1 drop 01/06/20 15:00 02/08/20 11:52 Ketorolac Tromethamine 0.5% Ophth Soln 3 Ml Bottle R EYE 1 drop TID ADAM Administration Labetalol HCl 10 mg 01/14/20 16:51 01/28/20 23:58 Labetalol Hcl 100 Mg/20 Ml Vial SLOW IVP 10 mg Q4H PRN Administration SBP Greater Than 180 Lactulose 20 gm 01/26/20 16:17 02/05/20 21:16 Lactulose 20 Gm/30 Ml Udcup PO 20 gm BID PRN Administration Constipation Levothyroxine Sodium 50 mcg 01/06/20 06:00 02/08/20 05:23 Levothyroxine Sodium 25 Mcg Tab PO 50 mcg 0600 ADAM Administration Lidocaine/Prilocaine 1 gm 01/06/20 10:26 02/07/20 07:59 Lidocaine-Prilocaine 2.5% Cream 5 Gm Tube TOP 1 gm PRN PRN Administration Pain/IV STARTS Metoprolol Tartrate 25 mg 02/07/20 21:00 02/08/20 11:50 Metoprolol Tartrate 25 Mg Tab PO 25 mg BID ADAM Administration Mometasone Furoate 1 puff 01/10/20 18:30 02/08/20 05:38 Mometasone Furoate 120 Puff 220 Mcg INH 1 puff BID-RT ADAM Administration Ondansetron HCl 4 mg 01/04/20 14:24 02/03/20 22:36 Ondansetron Odt 4 Mg Tab PO 4 mg Q6H PRN Administration Nausea/Vomiting Ondansetron HCl 4 mg 01/04/20 14:24 01/22/20 22:08 Ondansetron Pf 4 Mg/2 Ml Vial IVP 4 mg Q6H PRN Administration Nausea/Vomiting Pantoprazole Sodium 40 mg 01/31/20 21:00 02/08/20 08:08 Pantoprazole 40 Mg Tab PO 40 mg BID ADAM Administration Prednisolone Acetate 1 drop 01/07/20 09:00 02/08/20 11:52 Prednisolone 1% Ophth Susp 5 Ml Bottle EA EYE 1 drop DAILY ADAM Administration Senna 2 tab 01/07/20 09:00 02/08/20 08:09 Senokot 8.6 Mg Tab PO 2 tab DAILY ADAM Administration Sevelamer Carbonate 800 mg 01/06/20 12:00 02/08/20 12:00 Sevelamer Carbonate 800 Mg Tab PO Not Given TID-WM ADAM Sodium Chloride 10 ml 01/15/20 09:00 02/08/20 11:52 Flush - Normal Saline 10 Ml Syringe IVF 10 ml Q12HR ADAM Administration Sodium Chloride 10 ml 01/15/20 08:00 01/28/20 23:58 Flush - Normal Saline 10 Ml Syringe IVF 10 ml PRN PRN Administration Saline Flush Temazepam 15 mg 01/30/20 23:26 02/07/20 20:25 Temazepam 15 Mg Cap PO 15 mg HSPRN PRN Administration Insomnia Zinc Sulfate 220 mg 01/07/20 09:00 02/08/20 08:09 Zinc Sulfate 220 Mg Cap PO 220 mg DAILY ADAM Administration - Exam General Appearance: NAD, awake alert Eye: PERRL ENT: normocephalic atraumatic Neck: supple Heart: RRR, normal peripheral pulses Respiratory: CTAB, normal chest expansion Gastrointestinal: soft, normal bowel sounds Hosp A/P - Plan 84 years old female w.history of ESRD on dialysis, hypothyroidism, dyslipidemia, hypertension presented with SOB, - tested positive for COVID on 01/01/2020: Acute hypoxic respiratory failure secondary to COVID-19 pneumonia--she was tested positive on December 31 --Status post convalescent plasma. Continue Decadron. Continue supportive cares. Not a candidate for remdesivir due to chronic kidney disease -Improving currently on 3 L oxygen by nasal cannula COVID-19 pneumonia --Management as above ESRD on dialysis --Continue dialysis as per nephrology on Wednesday/Wednesday/Wednesday Paroxysmal atrial fib --cont Amio, NSR Melena --not a candidate for endoscopic evaluation d/t above. --cont supportive cares. s/p transfusions. Follow H&H. Pt was restarted back on Heparin sq for DVT ppx --cont PPI Hypothyroidism --cont home med Dyslipidemia --cont statin Physical deconditioning --cont PT DVT ppx: Heparin subcu GI ppx: PPI Code Status: Full Anticipated Dispo: TBD 15tg Abnormality that is noted in the power engineer yesterday including wide- complex tachycardia a few beats and 2 seconds past has been notified. Her elect rolytes in the normal range. She is on amiodarone. Her temp was little low this morning 97.1 her chest x-ray showed Covid pneumonia complications including early onset of fibrosis. Other than that no dense infiltrate. She had no further arrhythmia episodes in the low monitor. Echo is pending. Unclear on her leukocytosis will check with UA as well - patient is on dialysis - hopefully will be able to get some sample with a straight cath. -Could be related to being on Decadron I will discontinue the Decadron as she completed the course over 10 days. 16th Amiodarone, which is started for atrial fibrillation recently, discontinued we will continue monitoring telemetry for any arrhythmia. Started her on low- dose Lopressor Leukocytosis--UA shows both nitrate and leukocyte esterase negative. Chest x-ray no acute infiltrate. Steroid discontinued. Continue trending the leukocytosis --?etiology. 17th White count trending down. Stress test negative. Echo showed EF of 60% left ventricular size normal moderate mitral regurgitation without mitral valve stenosis. No significant aortic stenosis or regurgitation. Await EP as well as cardiology further input.
--- NOTE | 2020-02-08 14:42 | PDOC.DS.DS ---
Provider - Provider Date of Admission: 01/04/20 11:40 Admitting Provider: Nick Navarrete MD Primary Care Physician: Ubaldo Sands MD Course - Hospital Course Hospital Course: 84-year-old female presented with 84 years old female w.history of ESRD on dialysis, hypothyroidism, dyslipidemia, hypertension presented with SOB, - tested positive for COVID on 01/01/2020: Acute hypoxic respiratory failure secondary to COVID-19 pneumonia--she was tested positive on December 31 --Status post convalescent plasma. Continue Decadron. Continue supportive cares. Not a candidate for remdesivir due to chronic kidney disease -Improving currently on 3 L oxygen by nasal cannula ESRD on dialysis --Continue dialysis as per nephrology on Wednesday/Wednesday/Wednesday Paroxysmal atrial fib wide complex tachy episode --EP evaluated and we did stress test and negative for ischemia. --Amiodarone discontinued Lopressor started. Her pulse is below 90 range. She is tolerating the Lopressor but the dose may have to be increased in the next 2 weeks or so. Echo showed EF of 60% left ventricular size normal moderate mitral regurgitation without mitral valve stenosis. No significant aortic stenosis or regurgitation. Melena --not a candidate for endoscopic evaluation d/t above. --cont supportive cares. s/p transfusions. Follow H&H. --cont PPI Hypothyroidism --On levothyroxine Leukocytosis--UA shows both nitrate and leukocyte esterase negative. Chest x-ray no acute infiltrate. Steroid discontinued. WBC count improved. Stable to be discharged to rehab/fdc facility. Discharge time over 30 minutes. Resuscitation Status: 01/04/20 14:24 Resuscitation Status Routine Resuscitation Status: FULL: Full Resuscitation - Labs Lab Results: 02/08/20 12:06 02/07/20 10:03 Abnormal Lab Results - Last 48 hrs 02/06/20 15:15: Urine Protein 30 A, Urine WBC 4-6 A, Urine Bacteria 2+ A 02/07/20 10:03: Chloride 97 L, Creatinine 1.94 H 02/07/20 10:03: WBC 18.8 H, RBC 3.53 L, Hgb 10.4 L, Hct 33.6 L, MCHC 31.0 L, RDW 15.5 H, Neutrophils % 84.1 H, Lymphocytes % 8.1 L, Neutrophils # 15.8 H, Monocytes # 1.4 H 02/08/20 12:06: WBC 12.0 H, RBC 3.35 L, Hgb 10.1 L, Hct 32.8 L, MCHC 30.8 L, RDW 15.4 H, Neutrophils % 78.3 H, Lymphocytes % 12.2 L, Neutrophils # 9.4 H, Monocytes # 1.0 H Microbiology - Entire Visit 01/04/20 10:59 Venous blood - Right Arm Blood Culture - Final NO GROWTH IN 5 DAYS 01/04/20 09:58 Venous blood - Right Arm Blood Culture - Final NO GROWTH IN 5 DAYS - Physical Exam Vitals: Vital Signs (12 hours) Temp Pulse Resp BP BP BP Pulse Ox 02/08/20 11:50 85 02/08/20 11:47 97.6 F 85 20 123/69 97 02/08/20 08:07 98.6 F 83 19 126/83 92 L 02/08/20 08:04 93 L 02/08/20 05:38 17 02/08/20 04:00 98.1 F 78 17 110/57 L 100 Weight Admit Weight 190 lb Weight 182 lb 4.8 oz Physical Exam: The patient was seen and examined on the day of discharge. Plan - Discharge Medications Prescriptions: Metoprolol Tartrate [Lopressor] 25 mg PO BID 30 Days #60 tab Home Medications: Medication Instructions Recorded Confirmed Type Atorvastatin Calcium [Lipitor] 20 mg PO HS 04/05/18 01/04/20 History HYDROcodone/Acetaminophen 1 each PO Q6HR PRN 04/05/18 01/04/20 History [Hydrocodone-Acetamin 10-325 mg] guaiFENesin [Guaifenesin ER] 600 mg PO DAILY 04/05/18 01/04/20 History Levothyroxine Sodium 50 mcg PO DAILY 11/07/18 01/04/20 History Temazepam 15 mg PO HS PRN 11/07/18 01/04/20 History Amlodipine [Norvasc] 10 mg PO DAILY 07/13/19 01/04/20 History Acetaminophen 500 mg PO Q6HR 01/04/20 01/04/20 History Albuterol Sulfate [Proair 2 puff IH Q4HR PRN 01/04/20 01/04/20 History Digihaler] Aspirin [Ecotrin] 325 mg PO DAILY 01/04/20 01/04/20 History Cholecalciferol (Vitamin D3) 125 mcg PO DAILY 01/04/20 01/04/20 History [Vitamin D3] Diclofenac Sodium [Diclofenac 4 gm TOP TID 01/04/20 01/04/20 History Sodium 1% Gel] Docusate [Colace] 100 mg PO BID 01/04/20 01/04/20 History Escitalopram Oxalate 10 mg PO DAILY 01/04/20 01/04/20 History Furosemide [Lasix] 40 mg PO DAILY 01/04/20 01/04/20 History Guaifenesin DM 100-10 [Robitussin 10 ml PO PRN PRN 01/04/20 01/04/20 History DM] Heparin Sodium,Porcine/PF [Heparin 5,000 unit SQ BID 01/04/20 01/04/20 History Sod 5,000 Unit/0.5 ml] Ketorolac Tromethamine [Acular 1 drop R EYE TID 01/04/20 01/04/20 History 0.5% Ophth Soln] Lidocaine/Prilocaine [Lido-Prilo 1 each TP PRN PRN 01/04/20 01/04/20 History Justin Pack] Polyethylene Glycol OPTH DROP 1 drop EA EYE ASDIR PRN 01/04/20 01/04/20 History [Systane Ophth Solution] Sennosides [Senna] 2 tab PO DAILY 01/04/20 01/04/20 History Sevelamer Carbonate 0.8 gm PO TID-WM 01/04/20 01/04/20 History prednisoLONE Acetate [Econopred 1 drop EA EYE DAILY 01/04/20 01/04/20 History Plus 1% Opth Susp] Famotidine [Pepcid] 20 mg PO BID 30 Days #60 tab 02/08/20 Rx Folic Acid [Folvite] 1 mg PO DAILY tab 02/08/20 Rx Metoprolol Tartrate [Lopressor] 25 mg PO BID 30 Days #60 tab 02/08/20 Rx Allergies: allopurinol Allergy (Verified 12/13/19 14:07) amitriptyline Allergy (Verified 12/13/19 14:07) lisinopril Allergy (Verified 12/13/19 14:07) Penicillins Allergy (Verified 12/13/19 14:07) - Discharge Instructions Discharge Instructions:: Follow-up with PCP in 1 week. Follow-up with senior reservoir engineer Dr. Hernandes in 2 to 3 weeks as needed. Activity:: Activity as Tolerated Nourishment:: Renal Diet - Follow up Plan Referrals: Ubaldo Sands MD [Primary Care Provider] - Disposition: HALF-WAY FACILITY Quality - Care Measures CORE MEASURES:: N/A
[2020-02-08 19:54] VITALS: TEMP 97.6
[2020-02-08 20:43] VITALS: BP 117/70
== END 2020-02-08 20:30 | DRG 871 ==
LOC: ERS 09:15 → ERHOLD 11:40 → 2SW 17:40
PROVIDERS: ADMIT Student in an Organized Health Care Education/Training Program; ATTEND Internal Medicine
PROC: 8E0ZXY6 Isolation (ICD-10-PCS; 2020-01-04)
PROC: 5A1D70Z Performance of Urinary Filtration, Intermittent, Less than 6 Hours Per Day (ICD-10-PCS; 2020-01-04)
PROC: XW13325 Transfusion of Convalescent Plasma (Nonautologous) into Peripheral Vein, Percutaneous Approach, New Technology Group 5 (ICD-10-PCS; 2020-01-05)
PROC: 5A1D70Z Performance of Urinary Filtration, Intermittent, Less than 6 Hours Per Day (ICD-10-PCS; 2020-01-05)
PROC: 5A1D70Z Performance of Urinary Filtration, Intermittent, Less than 6 Hours Per Day (ICD-10-PCS; 2020-01-08)
PROC: 30233N1 Transfusion of Nonautologous Red Blood Cells into Peripheral Vein, Percutaneous Approach (ICD-10-PCS; principal; 2020-01-10)
PROC: 5A1D70Z Performance of Urinary Filtration, Intermittent, Less than 6 Hours Per Day (ICD-10-PCS; 2020-01-10)
PROC: 5A1D70Z Performance of Urinary Filtration, Intermittent, Less than 6 Hours Per Day (ICD-10-PCS; 2020-01-12)
PROC: 5A1D70Z Performance of Urinary Filtration, Intermittent, Less than 6 Hours Per Day (ICD-10-PCS; 2020-01-15)
PROC: 5A1D70Z Performance of Urinary Filtration, Intermittent, Less than 6 Hours Per Day (ICD-10-PCS; 2020-01-17)
PROC: 5A1D70Z Performance of Urinary Filtration, Intermittent, Less than 6 Hours Per Day (ICD-10-PCS; 2020-01-19)
PROC: 5A1D70Z Performance of Urinary Filtration, Intermittent, Less than 6 Hours Per Day (ICD-10-PCS; 2020-01-24)
PROC: 5A1D70Z Performance of Urinary Filtration, Intermittent, Less than 6 Hours Per Day (ICD-10-PCS; 2020-01-26)
PROC: 5A1D70Z Performance of Urinary Filtration, Intermittent, Less than 6 Hours Per Day (ICD-10-PCS; 2020-01-29)
PROC: 5A1D70Z Performance of Urinary Filtration, Intermittent, Less than 6 Hours Per Day (ICD-10-PCS; 2020-01-31)
PROC: 5A1D70Z Performance of Urinary Filtration, Intermittent, Less than 6 Hours Per Day (ICD-10-PCS; 2020-02-02)
PROC: 5A1D70Z Performance of Urinary Filtration, Intermittent, Less than 6 Hours Per Day (ICD-10-PCS; 2020-02-05)
PROC: 5A1D70Z Performance of Urinary Filtration, Intermittent, Less than 6 Hours Per Day (ICD-10-PCS; 2020-02-07)
DX: A41.89 Other specified sepsis (principal); U07.1 COVID-19; J12.89 Other viral pneumonia; J96.01 Acute respiratory failure with hypoxia; N18.6 End stage renal disease; I12.0 Hypertensive chronic kidney disease with stage 5 chronic kidney disease or end stage renal disease; E87.1 Hypo-osmolality and hyponatremia; E87.2 Acidosis; K92.1 Melena; I47.2 Ventricular tachycardia; I48.20 Chronic atrial fibrillation, unspecified; E88.09 Other disorders of plasma-protein metabolism, not elsewhere classified; E87.70 Fluid overload, unspecified; E78.5 Hyperlipidemia, unspecified; I48.0 Paroxysmal atrial fibrillation; E03.9 Hypothyroidism, unspecified; E66.9 Obesity, unspecified; M10.9 Gout, unspecified; G89.4 Chronic pain syndrome; I34.0 Nonrheumatic mitral (valve) insufficiency; R53.81 Other malaise; D63.1 Anemia in chronic kidney disease; E87.5 Hyperkalemia; R41.0 Disorientation, unspecified; D72.829 Elevated white blood cell count, unspecified; T38.0X5A Adverse effect of glucocorticoids and synthetic analogues, initial encounter; Z91.81 History of falling; Z90.49 Acquired absence of other specified parts of digestive tract; Z90.710 Acquired absence of both cervix and uterus; Z87.891 Personal history of nicotine dependence; Z88.0 Allergy status to penicillin; Z88.8 Allergy status to other drugs, medicaments and biological substances; Z99.2 Dependence on renal dialysis; Z68.30 Body mass index [BMI] 30.0-30.9, adult
CPT/HCPCS: 36415; 36416; 36430; 36600; 71045; 78452; 80048; 80053; 81003; 81015; 82550; 82728; 82805; 83605; 83615; 83690; 83735; 83880; 84443; 84484; 85014; 85018; 85025; 85379; 85610; 85652; 86140; 86850; 86900; 86901; 87040; 90935; 93005; 93010; 93017; 93306; 94664; 94760; 96365; 96367; 96375; A9500; C9113; G0257; J1100; J1644; J1650; J1956; J2405; J2785; J3370; J3475; J3490; J8540; P9016; P9017; P9047; Q0162; Q5105